=== PATIENT | female | born 1990 | race Caucasian/White ===

== ENCOUNTER 2017-05-27 13:54 | Emergency (ER) | payer MEDICAID, SELFPAY ==
[2017-05-27 13:55] VITALS: BP 131/84; PULSE 86; RESP 15; TEMP 36.7; O2SAT 97; BMI 35.4
--- NOTE | 2017-05-27 15:00 | CT_ITS ---
STUDY: CT BRAIN WITHOUT CONTRAST REASON FOR EXAM: Female, 27 years old. DIZZINESS/DISORIENTED RADIATION DOSAGE (If Supplied By Facility): CTDIvol = ( 44.99 ) mGy, DLP = ( 779.24 ) mGycm TECHNIQUE: Transaxial CT imaging of the brain was performed without administration of intravenous contrast material. Individualized dose optimization techniques were used for this CT. COMPARISON: None. FINDINGS: Normal soft tissue structures. Normal calvarium. Normal size ventricles and extra-axial spaces for the patient's age. Normal white matter tracts of the cerebral hemispheres. Normal basal ganglia and thalami. Normal brainstem. Normal cerebellum. There is no intracranial hemorrhage. There are no findings of an acute ischemic infarction. Normal visualized paranasal sinuses. CT/Brain/Head without Contrast IMPRESSION: Normal unenhanced CT scan of the brain. Electronically Signed: Addison Kitchen MD at 16:05 EDT , Service support ,
[2017-05-27] MEDS: Ondansetron 4 MG/2 ML Vial IV (15:14)
[2017-05-27] MEDS: 0.9% Normal Saline 1,000 ML 1000 ML IV (15:14)
--- NOTE | 2017-05-27 15:19 | ED.DCSUM_ITS ---
- ER Visit Summary Date of Service: 05/27/17 Chief Complaint: Dizziness History of Present Illness: The patient is a 27 F resents to the emergency department with disequilibrium. The patient states she had an upper respiratory infection about a week ago. She states over the past 3 days, she had increasing dizziness. She states it is worse when she moves her head or changes position. She is also concerned because she has had some confusion. She states that she had a difficult time concentrating. She states she is going to the refrigerator and forgot when she went there. She also put clothing in the wrong drawer. She denies any visual change. She denies any neck pain. She has had no fever chills. She states she initially went to urgent care and they irrigated her ears, and she states that the irrigation her dizziness was acutely worsened. She has no history of vertigo. She denies any history of MS or hypercoagulability. Physical Examination: Well-appearing patient is in no acute distress. Head is normocephalic, atraumatic. Pupils equal round reactive, extraocular muscles intact. There is no temporal artery tenderness. There is no vesicular rash. Neck supple. Kernig's and Brudzinski's are negative. Heart regular rate and rhythm. Lungs clear, chest nontender. Abdomen soft, nontender, nondistended. Neuro exam displays no focal or lateralizing deficit. 2+ symmetric lower extremity reflexes. No clonus. No ataxia or gait abnormality. Test Results: [] Emergency Department Course and Treatment: The patient presents with complaint of disequilibrium. It was preceded by an upper respiratory illness. She does not have nystagmus. She has normal cerebellar testing. There is no ataxia. Her neck is supple. She is not meningitic. She is not encephalopathic. I do feel that the symptoms are more related to labyrinthitis. However, she has had no history and has had intermittent headache I did obtain a head CT. This is unremarkable. The patient screening labs are unremarkable. The patient was given meclizine with improvement of her disequilibrium. I will treat her with a short burst of steroids. I do feel that this will help her labyrinthitis. At this time, I do for the patient is safe for discharge. She was counseled on concerning symptoms and reasons to return. Did public relations counselor her that if the symptoms persist she is going to need to follow-up with her primary care physician she may need MRI or cerebellar testing. She is comfortable this plan of care and will be discharged home. Treatment Plan: [] Disposition: Discharge Impression:. Labyrinthitis This note was generated with [employer] dictation software. It may contain incorrect words, spelling, and punctuation that were not noted in review of the chart prior to signing ED Disposition - Plan for ED Patient: Chief Complaint: Dizziness Instructions: ED Vertigo Unspecified Prescriptions: Meclizine HCl [Antivert] 25 mg PO TID PRN PRN #20 tab PRN Reason: Dizziness Prednisone 10 mg PO UD #33 tab Referrals: Cori Mclean PA [Primary Care Provider] -
[2017-05-27 15:43] LABS: ALB/GLOB Ratio 0.9 RATIO (0.9-2.4); AST(SGOT) 17 U/L (15-37); Absolute Lymphocyte Count 2.13 X10^3/ul (0.83-4.51); Alanine Aminotransfer ALT/SGPT 22 U/L (13-56); Albumin, Serum 3.9 g/dL (3.2-5.0); Alkaline Phosphatase 148 U/L (45-117); Anion Gap 6 (5-15); BUN 12 mg/dL (7-18); BUN/Creat Ratio 14.4 RATIO (10-20); Basophil# 0.03 X10^3/uL; Basophil% 0.5 % (0-1); Calcium,Total 8.9 mg/dL (8.5-10.1); Chloride 104 mmol/L (98-107); Creatinine, Serum 0.83 mg/dL (0.55-1.02); EST Glomerular Filtration Rate 87 mL/min (>60); Eosinophil# 0.26 X10^3/uL; Est Glom Filt Rate - Afr Amer 105 mL/min (>60); Estimated Creatinine Clearance 105.46 ml/min; Globulin 4.4 g/dL (2.2-4.2); Glucose 83 mg/dL (74-106); Hematocrit 41.1 % (37-47); Hemoglobin 13.7 g/dl (12.0-15.0); Lymphocyte # 2.13 X10^3/ul (4.0); Lymphocyte % 33.1 % (19-41); Mean Corp Hgb Conc 33.3 g/gl (32-36); Mean Corpuscular Volume 86.9 fL (81-99); Mean Platelet Vol. 10.3 fl (6.2-12.0); Monocyte% 15.6 % (0-10); Neutrophil % 46.6 % (47-70); Platelet Count 280 K/mm3 (150-450); Potassium 3.8 mmol/L (3.5-5.1); Protein, Total 8.3 g/dL (6.4-8.2); RBC Distribution Width CV 12.9 % (11.6-14.6); RBC Distribution Width SD 40.6 fl (35.1-43.9); Red Blood Count 4.73 M/mm3 (4.2-5.4); Sodium Level 138 mmol/L (136-145); White Blood Count 6.4 K/mm3 (4.4-11.0)
[2017-05-27] MEDS: Ketorolac 30 MG/ML Syringe IV (15:59)
[2017-05-27] MEDS: Meclizine HCl 25 MG Tablet PO (15:59)
[2017-05-27 16:00] LABS: POSITIVE COUNT NO; POSITIVE DIFFERENTIAL NO
[2017-05-27 16:01] VITALS: BP 125/80; PULSE 85; RESP 14; O2SAT 99
[2017-05-27 16:01] LABS: POSITIVE MORPHOLOGY NO
== END 2017-05-27 16:28 | disposition home or self-care (01) ==
PROVIDERS: Emergency Provider Emergency Medicine; Family Provider Physician Assistant; PCP Physician Assistant
DX: H83.09 Labyrinthitis, unspecified ear (principal)
CPT/HCPCS: 70450; 80053; 85025; 96361; 96374; 96375; 99284; J7030; A4216; J2405

== ENCOUNTER 2017-05-31 10:27 | Emergency (ER) | payer MEDICAID, SELFPAY ==
[2017-05-31 10:27] VITALS: BP 123/77; PULSE 97; RESP 16; TEMP 37.1; O2SAT 99; BMI 34.4
[2017-05-31] MEDS: LORazepam 2 MG/ML Syringe 0.5 MG IV (10:58)
[2017-05-31 11:15] LABS: Anion Gap 10 (5-15); BUN 17 mg/dL (7-18); BUN/Creat Ratio 20.6 RATIO (10-20); Calcium,Total 8.3 mg/dL (8.5-10.1); Chloride 107 mmol/L (98-107); Creatinine, Serum 0.82 mg/dL (0.55-1.02); EST Glomerular Filtration Rate 88 mL/min (>60); Est Glom Filt Rate - Afr Amer 106 mL/min (>60); Estimated Creatinine Clearance 110.45 ml/min; Glucose 81 mg/dL (74-106); Potassium 3.6 mmol/L (3.5-5.1); Sodium Level 141 mmol/L (136-145)
[2017-05-31] MEDS: LORazepam 2 MG/ML Syringe 1 MG IV (11:23)
[2017-05-31 12:33] VITALS: PULSE 86; RESP 15; O2SAT 98
--- NOTE | 2017-05-31 13:04 | ED.VISSUMM ---
- ER Visit Summary Date of Service: 05/31/17 Chief Complaint: Recent has a constellation of symptoms which include dizziness, tingling, shaking and visual change History of Present Illness: The patient is a 27 F who was seen earlier this week and had a CT of the head obtained. It was felt that she had a disequilibrium syndrome. She began to cry during the history portion. She states is under significant stress. She complains of perioral numbness and numbness in her upper extremities. She denies headache. She does report change in vision. She Be more specific. Does report nausea. Systems otherwise negative. Physical Examination: Patient appears anxious. As reported in the HPI she was crying during the history and physical. Vital signs are normal. Head is atraumatic normocephalic. Pupils are equal round reactive. Extraocular muscles are intact. TMs are pearly white with landmarks noted. Nares patent with no drainage. Posterior pharynx without erythema or exudate. Uvula is midline. There is no dysphonia or dysphasia. Trachea is midline. There is no stridor with auscultation of the neck. She has bilateral positive Chvostek sign. Heart is regular without murmur, gallop or rub. S1 and S2 are normal. Lungs are clear to auscultation with good movement of air bilaterally. Patient is alert and oriented ?3. Motor is 5 over 5. Sensory is intact. DTRs are symmetric with no clonus or Babinski sign. Cranial 2 through 12 are intact. Cerebellar testing is normal. Test Results: BMP is unremarkable Emergency Department Course and Treatment: Record from prior visit was reviewed as well as CAT scan report. Patient was initially treated with 0.5 mg of Ativan. Her symptoms essentially resolved after 1 mg of Ativan was administered. She was reassessed at 1305. Her symptoms have not returned. Treatment Plan: Appropriate home-going instructions Disposition: Discharged to home Impression: 1. Anxiety reaction 2. Hyperventilation syndrome This note was generated with [employer] dictation software. It may contain incorrect words, spelling, and punctuation that were not noted in review of the chart prior to signing ED Disposition - Plan for ED Patient: Disposition: Home or Assisted Living Chief Complaint: Dizziness Instructions: ED Stress React, ED Hyperventilation Syndrome Referrals: Cori Mclean PA [Primary Care Provider] - 3-5 Days
--- NOTE | 2017-05-31 13:10 | ED.DCSUM_ITS ---
- ER Visit Summary Date of Service: 05/31/17 Chief Complaint: Recent has a constellation of symptoms which include dizziness , tingling, shaking and visual change History of Present Illness: The patient is a 27 F who was seen earlier this week and had a CT of the head obtained. It was felt that she had a disequilibrium syndrome. She began to cry during the history portion. She states is under significant stress. She complains of perioral numbness and numbness in her upper extremities. She denies headache. She does report change in vision. She Be more specific. Does report nausea. Systems otherwise negative. Physical Examination: Patient appears anxious. As reported in the HPI she was crying during the history and physical. Vital signs are normal. Head is atraumatic normocephalic. Pupils are equal round reactive. Extraocular muscles are intact. TMs are pearly white with landmarks noted. Nares patent with no drainage. Posterior pharynx without erythema or exudate. Uvula is midline. There is no dysphonia or dysphasia. Trachea is midline. There is no stridor with auscultation of the neck. She has bilateral positive Chvostek sign. Heart is regular without murmur, gallop or rub. S1 and S2 are normal. Lungs are clear to auscultation with good movement of air bilaterally. Patient is alert and oriented ?3. Motor is 5 over 5. Sensory is intact. DTRs are symmetric with no clonus or Babinski sign. Cranial 2 through 12 are intact. Cerebellar testing is normal. Test Results: BMP is unremarkable Emergency Department Course and Treatment: Record from prior visit was reviewed as well as CAT scan report. Patient was initially treated with 0.5 mg of Ativan. Her symptoms essentially resolved after 1 mg of Ativan was administered. She was reassessed at 1305. Her symptoms have not returned. Treatment Plan: Appropriate home-going instructions Disposition: Discharged to home Impression: 1. Anxiety reaction 2. Hyperventilation syndrome This note was generated with [employer] dictation software. It may contain incorrect words, spelling, and punctuation that were not noted in review of the chart prior to signing ED Disposition - Plan for ED Patient: Disposition: Home or Assisted Living Chief Complaint: Dizziness Instructions: ED Stress React, ED Hyperventilation Syndrome Referrals: Cori Mclean PA [Primary Care Provider] - 3-5 Days
[2017-05-31 13:15] VITALS: PULSE 92; RESP 15; O2SAT 99
== END 2017-05-31 13:16 | disposition home or self-care (01) ==
PROVIDERS: Emergency Provider Emergency Medicine; Family Provider Physician Assistant; PCP Physician Assistant
DX: F45.8 Other somatoform disorders (principal); F41.1 Generalized anxiety disorder; E66.9 Obesity, unspecified
CPT/HCPCS: 80048; 96374; 96375; 99283; A4216

== ENCOUNTER 2017-11-20 11:37 | Emergency (ER) | payer MEDICAID, SELFPAY ==
[2017-11-20 11:38] VITALS: BP 120/83; PULSE 79; RESP 24; TEMP 36.6; O2SAT 100; BMI 34.3
--- NOTE | 2017-11-20 11:43 | EKG12_ITS ---
Test Reason : CP Blood Pressure : / mmHG Vent. Rate : 063 BPM Atrial Rate : 063 BPM P-R Int : 126 ms QRS Dur : 064 ms QT Int : 426 ms P-R-T Axes : 041 062 046 degrees QTc Int : 435 ms Normal sinus rhythm Normal ECG Confirmed by DANIS MOTTA, SENDY ([id number]), editorial clerk GENTRY SHERMAN ([id number]) on 11/21/2017 1:38:29 PM Referred By: RUTH Confirmed By:SENDY MOSCOSO MD
--- NOTE | 2017-11-20 11:43 | RAD_ITS ---
STUDY: X-RAY CHEST REASON FOR EXAM: Female, 27 years old. Shortness of breath, pain. TECHNIQUE: Portable chest COMPARISON: None. FINDINGS: The lungs are clear and expanded. Normal cardiomediastinal silhouette, russell and pleural margins. No acute osseous or upper abdominal process. RAD/Chest 1 View (Portable) IMPRESSION: No acute cardiopulmonary process. Electronically Signed: Kilo Krishna, at 12:34 EDT Tel , Service support ,
[2017-11-20 12:59] LABS: Absolute Lymphocyte Count 2.33 X10^3/ul (0.83-4.51); Absolute Neutrophil Count 3.9 X10^3/uL (2.0-7.7); Anion Gap 13 (5-15); BUN 14 mg/dL (7-18); BUN/Creat Ratio 11.6 RATIO (10-20); Basophil# 0.03 X10^3/uL; Basophil% 0.4 % (0-1); Calcium,Total 9.6 mg/dL (8.5-10.1); Chloride 104 mmol/L (98-107); Creatinine, Serum 1.21 mg/dL (0.55-1.02); EST Glomerular Filtration Rate 56 mL/min (>60); Eosinophil# 0.08 X10^3/uL; Eosinophils% 1.1 % (0-5); Est Glom Filt Rate - Afr Amer 68 mL/min (>60); Estimated Creatinine Clearance 72.34 ml/min; Glucose 91 mg/dL (74-106); Hematocrit 45.7 % (37-47); Hemoglobin 15.6 g/dl (12.0-15.0); Lymphocyte # 2.33 X10^3/ul (4.0); Lymphocyte % 31.2 % (19-41); Mean Corp Hgb Conc 34.1 g/gl (32-36); Mean Corpuscular Hgb 28.6 pg (27.0-32.0); Mean Corpuscular Volume 83.7 fL (81-99); Mean Platelet Vol. 9.9 fl (6.2-12.0); Monocyte# 1.12 X10^3/uL; Neutrophil # 3.89 X10^3/uL (2.7-7.7); Neutrophil % 52.2 % (47-70); Platelet Count 314 K/mm3 (150-450); Potassium 3.4 mmol/L (3.5-5.1); RBC Distribution Width CV 12.8 % (11.6-14.6); RBC Distribution Width SD 38.4 fl (35.1-43.9); Red Blood Count 5.46 M/mm3 (4.2-5.4); Sodium Level 137 mmol/L (136-145); White Blood Count 7.5 K/mm3 (4.4-11.0)
[2017-11-20 13:01] LABS: POSITIVE COUNT NO; POSITIVE DIFFERENTIAL NO; POSITIVE MORPHOLOGY NO
[2017-11-20] MEDS: LORazepam 0.5 MG Tablet PO (13:56)
[2017-11-20] MEDS: Ibuprofen 400 MG Tablet 800 MG PO (13:57)
[2017-11-20 13:59] VITALS: BP 116/80; PULSE 64; RESP 19; O2SAT 100
[2017-11-20 14:02] VITALS: O2SAT 100
--- NOTE | 2017-11-20 14:25 | ED.DCSUM_ITS ---
- ER Visit Summary Date of Service: 11/20/17 Chief Complaint: Shortness of breath History of Present Illness: The patient is a 27 F who states that last night after work she had some nausea vomiting. She could not sleep due to anxiety. Today she is walking her dogs think she got a panic attack. She notes some tingling in her arms and hands. She knows that she was breathing fast. She eventually went to work developed some pain on the left side of her chest that wrapped around into the axilla and into her back. She states that she had double beats as a child. Physical Examination: Afebrile vital signs are stable Gen: Well-nourished well-developed Head: Normocephalic atraumatic Eyes: Perrl EOMI ENT: TMs clear no rhinorrhea moist mucous membranes Neck: Supple no lymphadenopathy no JVD nontender CVS: Regular rate rhythm no murmurs normal S1-S2 Respiratory: No distress clear to auscultation bilaterally chest nontender Abdomen: Soft nontender nondistended normal bowel sounds no masses Back: Nontender Extremity: Nontender no edema Skin: Normal color no rash Neuro: alert orientated ?3 CN II-XII intact normal strength sensation reflexes gait cerebellar Psych: Anxious. No suicidal homicidal ideation. Test Results: EKG shows sinus rhythm at a rate of 63. CO2 is 28 creatinine 1.21 potassium 3.4 troponin negative. Chest x-ray negative Emergency Department Course and Treatment: Patient received a dose of Ativan. I believe this is anxiety related. I have asked that she follow-up with her family doctor and suggested the counseling may be of benefit for her. Impression: 1. Panic attack This note was generated with [employer] dictation software. It may contain incorrect words, spelling, and punctuation that were not noted in review of the chart prior to signing ED Disposition - Plan for ED Patient: Disposition: Home or Assisted Living Chief Complaint: Shortness of Breath Instructions: ED Panic Attack Referrals: Neil Alvarado MD [Primary Care Provider] - 1 Week
[2017-11-20 14:43] VITALS: BP 133/88; PULSE 58; RESP 19; O2SAT 99
== END 2017-11-20 14:44 | disposition home or self-care (01) ==
PROVIDERS: Emergency Provider Emergency Medicine; Family Provider Family Medicine; PCP Family Medicine
DX: F41.0 Panic disorder [episodic paroxysmal anxiety] (principal); F41.9 Anxiety disorder, unspecified
CPT/HCPCS: 71045; 80048; 84484; 85025; 93005; 99285; A4216

== ENCOUNTER 2018-05-28 14:13 | Emergency (ER) | payer MEDICAID, SELFPAY ==
[2018-05-28 14:14] VITALS: BP 111/74; PULSE 77; RESP 20; TEMP 36.2; O2SAT 100; BMI 33.5
--- NOTE | 2018-05-28 14:28 | ED.VIS.GEN ---
History of Present Illness Chief Complaint: Palpitations Detail of Chief Complaint: I feel like I cannot get my breath Informant: Patient, PCP Onset: - - Persistent problem worse today. Negative cardiac workup, Holter, echo and other testing Context: Gradual Onset Timing: Waxes and wanes Quality: Palpitations and not able to catch her breath Location: Thoracic Current Severity: - - Uncertain please read physical exam Maximum Severity: - - Uncertain Worsened by: Unknown Relieved by: Nothing Associated Symptoms: Read narrative Narrative: Patient is a 28-year-old female who is 19 weeks gestation sent to the emergency department because of worsening palpitations and shortness of breath. Patient's outpatient workup is unremarkable. She does complain of mild nasal congestion. There is no history of PE or DVT. She denies leg pain, swelling discoloration. She does report frequency without dysuria or hematuria. She does report nausea without vomiting or diarrhea. She denies skin lesions. She denies ocular, visual or auditory symptoms. Past Medical History - Allergies and Home Meds Allergies/Adverse Reactions: Allergies Latex, Natural Rubber Allergy (Verified 11/20/17 11:42) Unknown Primary Care Physician: Neil Alvarado MD [Primary Care Provider] - Prior records reviewed: Yes Surgical History: noncontributory Lives: Spouse/ Significant Other, With Family Smoking Status: Never smoker Alcohol: None Review of Systems General: Denies: Chills, Fever, Sweats Eyes: Denies: Visual changes - left, Visual changes - right, Visual changes - bilaterally, Blurred vision - left, Blurred vision - right, Blurred Vision - bilaterally, Diplopia, -, - ENT: Denies: Bilateral ear pain, Left ear pain, Right ear pain, Rhinorrhea, Sore throat, - - Does report nasal congestion, - Cardiovascular: Reports: Palpitations Respiratory: Reports: Dyspnea. Denies: Cough, Sputum, Dyspnea on exertion, Orthopnea, Paroxysmal nocturnal dyspnea Gastrointestinal: Reports: Nausea. Denies: Abdominal pain, Vomiting, Diarrhea, Constipation, Melena, Hematochezia, -, - Genitourinary: Reports: Frequency. Denies: Dysuria, Hematuria, -, - Musculoskeletal: Denies: Myalgias, Arthralgias, Neck pain, Back pain, Swelling, Extremity Pain, -, - Skin: Denies: Rash Neurological: Denies: Headache, Weakness, Parasthesia, Numbness, -, - Psych: Reports: - - Patient states she has intermittent anxiety. She presently does not complain of anxiousness Allergy: Denies: Uticaria, Swelling of the mouth Physical Exam Vital Signs/Narrative: Vital Signs Temp Pulse Resp BP Pulse Ox 05/28/18 14:14 97.1 F L 77 20 H 111/74 100 Inital Vital Signs reviewed: Yes General: Well nourished, Well developed, No Acute Distress, - - As I entered the room her breathing became deeper and more rapid. During questioning answering of questions there was no evidence of respiratory distress. Head: Negative for: Normocephalic, Atraumatic, Trauma, Tenderness, - Eyes: Negative for: Perrl, EOMI, Pale conjunctiva, Scleral icterus, - ENT: Nasal congestion. Negative for: Moist mucous membranes, No rhinorrhea, TM's clear, Dry mucous membranes, Sinus tenderness, - - Bilateral Chvosteck sign noted. Cardiovascular: Regular rate, Regular rhythm, No murmurs. Negative for: Normal S1, Normal S2 Respiratory: CTA bilaterally, Chest nontender Abdomen: Soft, Nontender, Nondistended, Normal bowel sounds, No masses Back: Nontender, Normal Inspection Extremities: Nontender, No edema Skin: Normal color, No rash. Negative for: Cyanosis, Jaundice, Rash Neurological: Alert, Oriented x3, Cranial nerves II-XII grossly intact, Normal Strength, Normal Sensation, Normal DTR, - - There is no clonus or Babinski sign. Psychological: - - Question anxiety Diagnostic/Tx/Re-eval 05/28/18 14:26 Chest PA and Lateral [RAD] Stat Laboratory Results 05/28/18 05/28/18 05/28/18 14:40 14:40 15:03 WBC 10.1 RBC 4.04 L Hgb 12.1 Hct 35.4 L MCV 87.6 MCH 30.0 MCHC 34.2 RDW 13.2 RDW Differential 42.4 Plt Count 224 MPV 10.1 Immature Gran % (Auto) 0.300 Neut % (Auto) 69.6 Lymph % (Auto) 18.9 L [place] % (Auto) 9.5 Eos % (Auto) 1.6 Baso % (Auto) 0.1 Absolute Neuts (auto) 7.1 Absolute Lymphs (auto) 1.92 Total Counted Not Reportable Specimen Type ART Sample Site R Radial pH 7.56 H Bicarbonate Actual 15.6 L POC Total CO2 16 Base Excess -7 L O2 Saturation 99 ABG pCO2 17.6 L* ABG pO2 125 H Conor Test POS O2 Delivery Device Room Air Blood Gas Notified Whom ED Blood Gas Notified Time 1455 Sodium 138 Potassium 3.4 L Chloride 107 Carbon Dioxide 24.0 Anion Gap 7 BUN 10 Creatinine 0.61 Estim Creat Clear Calc 142.21 Est GFR (MDRD) Af Amer 150 Est GFR (MDRD) Non-Af 124 BUN/Creatinine Ratio 16.4 Glucose 81 Calcium 8.8 The chest x-ray has been canceled since the blood gas reports hypoventilation syndrome. - Rhythm Strip Rhythm Strip: Sinus Rhythm Rate: 83 Ectopy: None - EKG Initial EKG Interpretation: Sinus Rhythm - Ventricular rate 76. MA interval, Q zoroastrianism, QT interval and axis are normal. The EKG is normal. - Medical Decision Making With bilateral spastic sign, bilateral paresthesia of hands suspect hyperventilation syndrome. Of note respiratory frequency and depth increase after entered the room but diminished as I was speaking with her and she was answering questions. Will obtain blood work to assess electrolyte abnormality and anemia and placed on monitor to determine if she has any significant ectopy. Patient was informed of her test results. Since she is and blood gas supports hypoventilation syndrome chest x-ray was canceled. ED Disposition - Plan for ED Patient: Disposition: Home or Assisted Living Diagnosis: Acute hyperventilation syndrome Instructions: ED Hyperventilation Syndrome Referrals: Neil Alvarado MD [Primary Care Provider] - As Needed
[2018-05-28 14:49] LABS: Absolute Lymphocyte Count 1.92 X10^3/ul (0.83-4.51); Absolute Neutrophil Count 7.1 X10^3/uL (2.0-7.7); Basophil# 0.01 X10^3/uL; Basophil% 0.1 % (0-1); Eosinophil# 0.16 X10^3/uL; Eosinophils% 1.6 % (0-5); Hematocrit 35.4 % (37-47); Hemoglobin 12.1 g/dl (12.0-15.0); Lymphocyte # 1.92 X10^3/ul (4.0); Lymphocyte % 18.9 % (19-41); Mean Corp Hgb Conc 34.2 g/gl (32-36); Mean Corpuscular Volume 87.6 fL (81-99); Mean Platelet Vol. 10.1 fl (6.2-12.0); Monocyte# 0.96 X10^3/uL; Monocyte% 9.5 % (0-10); Neutrophil # 7.06 X10^3/uL (2.7-7.7); Neutrophil % 69.6 % (47-70); Platelet Count 224 K/mm3 (150-450); RBC Distribution Width CV 13.2 % (11.6-14.6); RBC Distribution Width SD 42.4 fl (35.1-43.9); Red Blood Count 4.04 M/mm3 (4.2-5.4); White Blood Count 10.1 K/mm3 (4.4-11.0)
[2018-05-28 14:54] LABS: POSITIVE COUNT NO; POSITIVE DIFFERENTIAL NO; POSITIVE MORPHOLOGY NO
[2018-05-28 14:57] LABS: Anion Gap 7 (5-15); BUN 10 mg/dL (7-18); BUN/Creat Ratio 16.4 RATIO (10-20); Calcium,Total 8.8 mg/dL (8.5-10.1); Chloride 107 mmol/L (98-107); Creatinine, Serum 0.61 mg/dL (0.55-1.02); EST Glomerular Filtration Rate 124 mL/min (>60); Est Glom Filt Rate - Afr Amer 150 mL/min (>60); Estimated Creatinine Clearance 142.21 ml/min; Glucose 81 mg/dL (74-106); Potassium 3.4 mmol/L (3.5-5.1); Sodium Level 138 mmol/L (136-145)
[2018-05-28 15:11] LABS: Allen Test POS; Base Excess -7 mmol/L (-2 to +2); Bicarbonate 15.6 mmol/L (22-26); Blood Gas Specimen Type ART; O2 Delivery Device Room Air; PO2 125 mmHG (75-100); SITE R Radial; SO2 99 % (95-99); Time Given 1455; Total Carbon Dioxide 16 mmol/L; pCO2 17.6 mmHg (35-45); pH 7.56 (7.35-7.45)
[2018-05-28 15:14] VITALS: BP 118/76; PULSE 71; RESP 16; O2SAT 100
--- NOTE | 2018-05-28 15:15 | CPS ---
Critical results given to DR. [place].
[2018-05-28 15:38] VITALS: BP 118/76; PULSE 71; RESP 16; O2SAT 100
== END 2018-05-28 15:49 | disposition home or self-care (01) ==
PROVIDERS: Emergency Provider Emergency Medicine; Family Provider Family Medicine; PCP Family Medicine
DX: O26.892 Other specified pregnancy related conditions, second trimester (principal); F45.8 Other somatoform disorders; R00.2 Palpitations; Z3A.19 19 weeks gestation of pregnancy
CPT/HCPCS: 36600; 80048; 82803; 85025; 93005; 99284; A4216

== ENCOUNTER 2018-06-23 13:35 | Outpatient (CLI) | payer MEDICAID, SELFPAY ==
[2018-06-23 14:03] VITALS: BMI 33.6
--- NOTE | 2018-06-23 14:45 | US_ITS ---
STUDY: ABDOMINAL ULTRASOUND - RIGHT UPPER QUADRANT REASON FOR VISIT: Female, 28 years old. Right upper quadrant pain. 23 week . TECHNIQUE: Ultrasound evaluation of the right upper quadrant was performed with real-time and static avila-scale imaging. TECHNICAL QUALITY: Adequate. COMPARISON: None. FINDINGS: Liver: The liver measures 17.4 cm. There is normal echogenicity of the liver. The bile ducts are within normal limits. There is hepatic color flow. The direction of portal flow is hepatopetal. There is no demonstrated mass lesion. Gallbladder: Normal distended gallbladder. The gallbladder wall measures 3 mm. There is a negative sonographic Yen's sign. There is no pericholecystic fluid. There are no gallstones. Common Bile Duct (C.B.D.): The common bile duct measures 4 mm. Pancreas: Not visualized. Right Kidney: Normal size of the right kidney. The right kidney measures 12.9 x 3.6 x 5.1 cm. Normal renal cortex. The right cortex measures 1.1 cm. There is no demonstrated renal mass or cyst. There is mild hydronephrosis of the right kidney. US/Abdomen Limited IMPRESSION: 1. Mild right hydronephrosis, usually normal finding in the second trimester. However, ureteral stone is not excluded. Electronically Signed: Keya Matson MD at 16:18 EDT Tel , Service support ,
[2018-06-23 14:52] LABS: Hematocrit 32.3 % (37-47); Hemoglobin 11.1 g/dl (12.0-15.0); Mean Corp Hgb Conc 34.4 g/gl (32-36); Mean Corpuscular Hgb 30.1 pg (27.0-32.0); Mean Corpuscular Volume 87.5 fL (81-99); Mean Platelet Vol. 9.8 fl (6.2-12.0); Mucous, Urine 0 SEEN /hpf (<or=2+); Platelet Count 203 K/mm3 (150-450); RBC Distribution Width CV 13.1 % (11.6-14.6); RBC Distribution Width SD 42.5 fl (35.1-43.9); Red Blood Cells-Urine 0 SEEN /hpf (0-5); Red Blood Count 3.69 M/mm3 (4.2-5.4); White Blood Count 11.4 K/mm3 (4.4-11.0)
[2018-06-23 14:53] LABS: Scan Indicated on CBC? Y/N NO
[2018-06-23 14:54] LABS: Color, Urine Yellow (Yellow); Glucose, Dipstick Normal (Normal); Ketone-Dipstick Negative (Negative); Leukocyte Esterase-Dipstick 100 /ul (Negative); Nitrite-Dipstick Positive (Negative); Occult Blood-Urine Negative /ul (Negative); Protein-Dipstick Negative (Negative); Specific Gravity, Urine 1.015 (1.002-1.030); Urine Bilirubin Dipstick Negative (Negative); Urine Clarity Sl. Cloudy (Clear); Urine Urobilinogen Normal (Normal); Urine pH 6.5 (5.0 - 8.0)
[2018-06-23] MEDS: Acetaminophen 500 MG Tablet 1000 MG PO (14:54)
[2018-06-23 14:59] LABS: Protein, Urine (Random) 14.7 mg/dL (<11.9); Protein:Creat Ratio 89 mg/g CRE (0-200)
[2018-06-23 15:01] LABS: Bacteria 3+ /hpf (None Seen); Squamous Epithelial Cells - UA 0-5 SEEN /hpf (5-10)
[2018-06-23 15:02] LABS: White Blood Cells 0-5 SEEN /hpf (0-5)
[2018-06-23 15:20] LABS: ALB/GLOB Ratio 0.8 RATIO (0.9-2.4); AST(SGOT) 13 U/L (15-37); Alanine Aminotransfer ALT/SGPT 14 U/L (13-56); Albumin, Serum 2.9 g/dL (3.2-5.0); Alkaline Phosphatase 105 U/L (45-117); Amylase 43 U/L (25-115); Anion Gap 5 (5-15); BUN 10 mg/dL (7-18); BUN/Creat Ratio 16.7 RATIO (10-20); Calcium,Total 8.3 mg/dL (8.5-10.1); Chloride 110 mmol/L (98-107); EST Glomerular Filtration Rate 125 mL/min (>60); Est Glom Filt Rate - Afr Amer 152 mL/min (>60); Estimated Creatinine Clearance 144.58 ml/min; Globulin 3.8 g/dL (2.2-4.2); Glucose 101 mg/dL (74-106); Lipase 51 U/L (73-393); Potassium 3.6 mmol/L (3.5-5.1); Protein, Total 6.7 g/dL (6.4-8.2); Sodium Level 138 mmol/L (136-145); Uric Acid 4.3 mg/dL (2.6-6.0)
--- NOTE | 2018-06-23 17:10 | OB.TRI.NOTE ---
- Problem List (1) Right upper quadrant abdominal pain Status: Acute (2) Status: Acute History of Present Illness Date of Service: 06/23/18 Was patient seen by the physician?: Yes Reason For Visit: ABD PAIN Date of Service: 06/23/18 Final ARAVIND Source: LMP Gestational age: 23w3d History of Present Illness: Presents to L&D with complaint of RUQ abdominal pain x past month. Seen PCP today and was advised to go to ER for further evaluation. ER transferred patient to L&D due to . Upon arrival in L&D patient with complaint of RUQ pain rating 8/10 at times. She denies any greasy, fried, fatty foods or green leafy vegetables. Some nausea with emesis yesterday, none today. Denies fever. Allergies Latex, Natural Rubber Allergy (Verified 11/20/17 11:42) Unknown Laboratory Studies: Laboratory Tests 06/23/18 06/23/18 06/23/18 Range/Units 14:25 14:25 14:25 WBC (4.4-11.0) K/mm3 RBC (4.2-5.4) M/mm3 Hgb (12.0-15.0) g/dl Hct (37-47) % MCV (81-99) fL MCH (27.0-32.0) pg MCHC (32-36) g/gl RDW (11.6-14.6) % RDW Differential (35.1-43.9) fl Plt Count (150-450) K/mm3 MPV (6.2-12.0) fl Sodium 138 (136-145) mmol/L Potassium 3.6 (3.5-5.1) mmol/L Chloride 110 H (98-107) mmol/L Carbon Dioxide 23.0 (21.0-32.0) mmol/L Anion Gap 5 (5-15) BUN 10 (7-18) mg/dL Creatinine 0.60 (0.55-1.02) mg/dL Estim Creat Clear Calc 144.58 ml/min Est GFR (MDRD) Af Amer 152 (>60) mL/min Est GFR (MDRD) Non-Af 125 (>60) mL/min BUN/Creatinine Ratio 16.7 (10-20) RATIO Glucose 101 (74-106) mg/dL Uric Acid 4.3 (2.6-6.0) mg/dL Calcium 8.3 L (8.5-10.1) mg/dL Total Bilirubin 0.20 (0.20-1.00) mg/dL AST 13 L (15-37) U/L ALT 14 (13-56) U/L Alkaline Phosphatase 105 (45-117) U/L Total Protein 6.7 (6.4-8.2) g/dL Albumin 2.9 L (3.2-5.0) g/dL Globulin 3.8 (2.2-4.2) g/dL Albumin/Globulin Ratio 0.8 L (0.9-2.4) RATIO Amylase 43 (25-115) U/L Lipase 51 L (73-393) U/L Urine Color Yellow (Yellow) Urine Clarity Sl. Cloudy (Clear) Urine pH 6.5 (5.0 - 8.0) Ur Specific [place] 1.015 (1.002-1.030) Urine Protein Negative (Negative) mg/dl Urine Glucose (UA) Normal (Normal) mg/dl Urine Ketones Negative (Negative) mg/dl Urine Occult Blood Negative (Negative) /ul Urine Nitrite Positive H (Negative) Urine Bilirubin Negative (Negative) mg/dL Urine Urobilinogen Normal (Normal) mg/dl Ur Leukocyte Esterase 100 H (Negative) /ul Urine RBC 0 SEEN (0-5) /hpf Urine WBC 0-5 SEEN (0-5) /hpf Ur Squamous Epith Cells 0-5 SEEN (5-10) /hpf Urine Bacteria 3+ (None Seen) /hpf Urine Mucus 0 SEEN (<or=2+) /hpf U Random Total Protein 14.7 H (<11.9) mg/dL Urine Creatinine 166.00 (NO RANGE EST.) mg/dL Protein/Creatinin Ratio 89 (0-200) mg/g CRE 06/23/18 Range/Units 14:25 WBC 11.4 H (4.4-11.0) K/mm3 RBC 3.69 L (4.2-5.4) M/mm3 Hgb 11.1 L (12.0-15.0) g/dl Hct 32.3 L (37-47) % MCV 87.5 (81-99) fL MCH 30.1 (27.0-32.0) pg MCHC 34.4 (32-36) g/gl RDW 13.1 (11.6-14.6) % RDW Differential 42.5 (35.1-43.9) fl Plt Count 203 (150-450) K/mm3 MPV 9.8 (6.2-12.0) fl Sodium (136-145) mmol/L Potassium (3.5-5.1) mmol/L Chloride (98-107) mmol/L Carbon Dioxide (21.0-32.0) mmol/L Anion Gap (5-15) BUN (7-18) mg/dL Creatinine (0.55-1.02) mg/dL Estim Creat Clear Calc ml/min Est GFR (MDRD) Af Amer (>60) mL/min Est GFR (MDRD) Non-Af (>60) mL/min BUN/Creatinine Ratio (10-20) RATIO Glucose (74-106) mg/dL Uric Acid (2.6-6.0) mg/dL Calcium (8.5-10.1) mg/dL Total Bilirubin (0.20-1.00) mg/dL AST (15-37) U/L ALT (13-56) U/L Alkaline Phosphatase (45-117) U/L Total Protein (6.4-8.2) g/dL Albumin (3.2-5.0) g/dL Globulin (2.2-4.2) g/dL Albumin/Globulin Ratio (0.9-2.4) RATIO Amylase (25-115) U/L Lipase (73-393) U/L Urine Color (Yellow) Urine Clarity (Clear) Urine pH (5.0 - 8.0) Ur Specific [place] (1.002-1.030) Urine Protein (Negative) mg/dl Urine Glucose (UA) (Normal) mg/dl Urine Ketones (Negative) mg/dl Urine Occult Blood (Negative) /ul Urine Nitrite (Negative) Urine Bilirubin (Negative) mg/dL Urine Urobilinogen (Normal) mg/dl Ur Leukocyte Esterase (Negative) /ul Urine RBC (0-5) /hpf Urine WBC (0-5) /hpf Ur Squamous Epith Cells (5-10) /hpf Urine Bacteria (None Seen) /hpf Urine Mucus (<or=2+) /hpf U Random Total Protein (<11.9) mg/dL Urine Creatinine (NO RANGE EST.) mg/dL Protein/Creatinin Ratio (0-200) mg/g CRE Review of Systems Constitutional: Reports: Anorexia, Fatigue Eyes: Reports: Blurred vision - On and off throughout . Admits to recent cardiology appointment and vasal vagal responses. Denies [place]. Does not wear glasses. Cardiovascular: Denies: Chest Pain, Edema Respiratory: Denies: Cough, Shortness of Breath Gastrointestinal: Reports: Abdominal Pain - RUQ pain Genitourinary: Reports: Frequency, Urgency. Denies: Dysuria Physical Exam General: Alert, Oriented x3 HEENT: Atraumatic Cardiovascular: Regular rate, Regular Rhythm, No murmurs Lungs: Clear to auscultation, Normal air movement, No rhonchi, No wheeze Abdomen: Bowel Sounds Present, - - RUQ abdominal pain. No masses, guarding, or rebound tenderness. Rating pain 8/10 with movement. Yen's sign negative. Extremities:: No edema NST - FHR Rate Baby A Baseline: 140 NST Reactive:: Appropriate for gestational age Impression/Plan A: RUQ Abdominal Pain P: 1) CBC, CMP, uric acid, urine pro/creat ratio normal. Do not correlate with cholecystitis. RUQ abdominal ultrasound normal. 2) Will give 1 liter LR bolus 3) Dose of Mylanta 4) Do not feel narcotics are indicated at this time. Tylenol given for headache and improvement. 5) D/C home. To call for further evaluation or if symptoms return or worsen. 6) Reviewed bland diet, avoiding greasy, fatty and fired foods. Discussed green leafy vegetables can make this worse at times also. 7) UA positive for leuks and nitrites. Will treat with Macrobid 100mg PO BID x 7 days. Culture sent.
[2018-06-23] MEDS: Lactated Ringers 1,000 ML 999 ML IV (17:30)
[2018-06-23] MEDS: Mag Hydrox/Al Hydrox/Simeth 30 ML UDC PO (18:00)
== END 2018-06-23 18:40 | disposition home or self-care (01) ==
LOC: WPOUT 13:45 → WP 13:46
PROVIDERS: Family Provider Family Medicine; PCP Family Medicine; Referring Provider Obstetrics & Gynecology; Visit Provider Obstetrics & Gynecology
DX: O26.892 Other specified pregnancy related conditions, second trimester (principal); R10.11 Right upper quadrant pain; Z3A.23 23 weeks gestation of pregnancy
CPT/HCPCS: 96360; 59050; 76705; 80053; 81001; 82150; 82570; 83690; 84156; 84550; 85027; 87086; 87088; 87186; 99218; J7120; G0378

== ENCOUNTER 2018-07-02 18:40 | Outpatient (CLI) | payer MEDICAID, SELFPAY ==
[2018-07-02 19:03] VITALS: BMI 34.3
--- NOTE | 2018-07-02 19:28 | PCM.HP.OB ---
History Date of Admission: 07/02/18 Final ARAVIND: 10/17/18 Gestational age: 24 Weeks and 5 Days History of this : This is a 28 year-old, @24 5/7 weeks gestation presents complaining of abdominal pain. She states she has had lower abdominal cramping all day. Then tonight she got home from work and says she had sharp severe stabbing pain in her lower abdomen. She had one episode of diarrhea this afternoon. She states her appetite and bowel movements were normal yesterday. She has been nauseous all day. No emesis. Her significant other had wet was likely gastroenteritis last week. She denies any other sick contacts. Denies any fevers or chills. She states the pain that she had earlier was a 12 out of 10 and now is a 4 out of 10. It is not on either side. She also has some bilateral lower back pain. Earlier she felt like the pain was coming and going in her lower abdomen came to like a contraction was not time mobile. She feels like she is having some waves of pain. She is having some urinary frequency but no dysuria. She states she is been pushing fluids. She was evaluated last week for right upper quadrant pain and that was going on even before the . She states this pain is significantly different from that pain. Allergies Latex, Natural Rubber Allergy (Verified 07/02/18 19:03) Unknown quinn Home Medications: Home Medications Pnv No.95/Ferrous Fum/Folic AC [ Caplet] 1 each PO DAILY 05/28/18 Nitrofurantoin Monohyd/M-Cryst [Macrobid 100 mg Capsule] 100 mg PO BID 07/02/18 Smoking Status: Never smoker Alcohol: None Number of Fetus(es): 1 Heart Tracing: normal baseline, doppler for several minutes, appropriate for gestational age History Past Pregnancies: Past Pregnancies Delivery Date Name GA/Weeks Outcome Route Weight Infant Gender Labor Length Anesthesia Delivery Location Provider FOB Review of Systems Constitutional: Reports: Anorexia, Malaise. Denies: Chills, Fever, Night Sweats Eyes: Denies: Blurred vision Cardiovascular: Denies: Chest Pain Respiratory: Denies: Cough Gastrointestinal: Reports: Abdominal Pain, Nausea. Denies: Constipation, Hematemesis, Hematochezia, Vomiting Genitourinary: Reports: Frequency, Hesitancy, Urgency. Denies: Dysuria, Hematuria, Incontinence Gynecological: Reports: Vaginal discharge - normal for . 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 I discussed with the patient and her partner at this point I am uncertain if she may be getting gastroenteritis such as he had last week, possible kidney stone, possible musculoskeletal discomfort of or other GI issue. At this point, we will give an IV fluid bolus and antiemetics. Check CBC for evidence of infection. Check UA and if she has hematuria, could be kidney stone but clinically upon exam I feel this is less likely. She has no rebound or guarding and her pain does not seem to be isolated more on the right than the left side not feel that clinically a CAT scan is needed to rule out appendicitis. Check a complete metabolic panel. No evidence of threatened labor on cervical exam but will monitor with tocometer for 1 hr to ensure we are not detecting contractions. Patient has a consultation with general surgery in 2 days because of ongoing abdominal pain during the . Patient does state this pain is different than the pain she has had previously. If no evidence of acute process, will likely discharge home with follow-up in the office in 1 to 2 days or as needed. Reiterated with patient I would recommend a bland, low-fat diet for the remainder of . She has had nausea and gastrointestinal issues during the . She is finishing antibiotics for a positive urine culture. She has 3 more doses of macrobid per her report
[2018-07-02] MEDS: Lactated Ringers 500 ML 999 ML IV (20:09)
[2018-07-02] MEDS: Ondansetron 4 MG/2 ML Vial IV (20:09)
[2018-07-02 20:23] LABS: Absolute Lymphocyte Count 2.26 X10^3/ul (0.83-4.51); Absolute Neutrophil Count 9.6 X10^3/uL (2.0-7.7); Basophil# 0.02 X10^3/uL; Basophil% 0.1 % (0-1); Eosinophil# 0.18 X10^3/uL; Eosinophils% 1.3 % (0-5); Hematocrit 32.6 % (37-47); Hemoglobin 11.2 g/dl (12.0-15.0); Lymphocyte # 2.26 X10^3/ul (4.0); Lymphocyte % 16.8 % (19-41); Mean Corp Hgb Conc 34.4 g/gl (32-36); Mean Corpuscular Hgb 29.8 pg (27.0-32.0); Mean Corpuscular Volume 86.7 fL (81-99); Mean Platelet Vol. 9.6 fl (6.2-12.0); Monocyte# 1.38 X10^3/uL; Monocyte% 10.3 % (0-10); Neutrophil # 9.55 X10^3/uL (2.7-7.7); Neutrophil % 71.2 % (47-70); Platelet Count 242 K/mm3 (150-450); RBC Distribution Width CV 12.9 % (11.6-14.6); RBC Distribution Width SD 41.3 fl (35.1-43.9); Red Blood Count 3.76 M/mm3 (4.2-5.4); White Blood Count 13.4 K/mm3 (4.4-11.0)
[2018-07-02 20:24] LABS: POSITIVE COUNT NO; POSITIVE DIFFERENTIAL NO; POSITIVE MORPHOLOGY NO
[2018-07-02 20:29] LABS: Mucous, Urine 0 SEEN /hpf (<or=2+); Red Blood Cells-Urine 0 SEEN /hpf (0-5); White Blood Cells 0 SEEN /hpf (0-5)
[2018-07-02 20:38] LABS: Color, Urine Straw (Yellow); Glucose, Dipstick Normal (Normal); Ketone-Dipstick Negative (Negative); Leukocyte Esterase-Dipstick Negative /ul (Negative); Nitrite-Dipstick Negative (Negative); Occult Blood-Urine Negative /ul (Negative); Protein-Dipstick Negative (Negative); Specific Gravity, Urine 1.005 (1.002-1.030); Urine Bilirubin Dipstick Negative (Negative); Urine Clarity Clear (Clear); Urine Urobilinogen Normal (Normal)
[2018-07-02 20:39] LABS: ALB/GLOB Ratio 0.8 RATIO (0.9-2.4); AST(SGOT) 17 U/L (15-37); Alanine Aminotransfer ALT/SGPT 15 U/L (13-56); Albumin, Serum 3.2 g/dL (3.2-5.0); Alkaline Phosphatase 131 U/L (45-117); Anion Gap 7 (5-15); BUN 9 mg/dL (7-18); BUN/Creat Ratio 14.6 RATIO (10-20); Calcium,Total 8.5 mg/dL (8.5-10.1); Chloride 107 mmol/L (98-107); Creatinine, Serum 0.62 mg/dL (0.55-1.02); EST Glomerular Filtration Rate 122 mL/min (>60); Est Glom Filt Rate - Afr Amer 147 mL/min (>60); Estimated Creatinine Clearance 139.92 ml/min; Globulin 3.8 g/dL (2.2-4.2); Glucose 76 mg/dL (74-106); Potassium 3.7 mmol/L (3.5-5.1); Sodium Level 137 mmol/L (136-145)
[2018-07-02 20:51] LABS: Bacteria RARE /hpf (None Seen); Squamous Epithelial Cells - UA 0-5 SEEN /hpf (5-10)
== END 2018-07-02 21:10 | disposition home or self-care (01) ==
LOC: WPOUT 18:50 → WP 18:51
PROVIDERS: Obstetrics & Gynecology; Family Provider Family Medicine; PCP Family Medicine; Referring Provider Advanced Practice Midwife; Visit Provider Advanced Practice Midwife
DX: O26.892 Other specified pregnancy related conditions, second trimester (principal); R10.30 Lower abdominal pain, unspecified; Z3A.24 24 weeks gestation of pregnancy
CPT/HCPCS: 96361; 96374; 36415; 59025; 59050; 80053; 81001; 85025; 99218; J7120; G0378; J2405

== ENCOUNTER 2018-08-20 10:10 | Outpatient (CLI) | payer MEDICAID, SELFPAY ==
[2018-08-20 10:26] VITALS: BMI 36.1
[2018-08-20] MEDS: Lactated Ringers 1,000 ML 999 ML IV (10:40)
[2018-08-20] MEDS: DiphenhydrAMINE 50 MG/ML Syringe 25 MG IV (10:52)
[2018-08-20 11:16] LABS: Hematocrit 34.1 % (37-47); Hemoglobin 11.5 g/dl (12.0-15.0); Mean Corp Hgb Conc 33.7 g/gl (32-36); Mean Corpuscular Hgb 29.5 pg (27.0-32.0); Mean Corpuscular Volume 87.4 fL (81-99); Mean Platelet Vol. 10.5 fl (6.2-12.0); Platelet Count 209 K/mm3 (150-450); RBC Distribution Width SD 41.6 fl (35.1-43.9); Scan Indicated on CBC? Y/N NO; White Blood Count 12.6 K/mm3 (4.4-11.0)
[2018-08-20 11:21] LABS: ALB/GLOB Ratio 0.7 RATIO (0.9-2.4); AST(SGOT) 14 U/L (15-37); Alanine Aminotransfer ALT/SGPT 20 U/L (13-56); Albumin, Serum 3.1 g/dL (3.2-5.0); Alkaline Phosphatase 151 U/L (45-117); Anion Gap 8 (5-15); BUN 8 mg/dL (7-18); BUN/Creat Ratio 13.1 RATIO (10-20); Calcium,Total 8.7 mg/dL (8.5-10.1); Chloride 108 mmol/L (98-107); Creatinine, Serum 0.61 mg/dL (0.55-1.02); EST Glomerular Filtration Rate 123 mL/min (>60); Est Glom Filt Rate - Afr Amer 149 mL/min (>60); Estimated Creatinine Clearance 137.27 ml/min; Globulin 4.4 g/dL (2.2-4.2); Glucose 73 mg/dL (74-106); Potassium 3.7 mmol/L (3.5-5.1); Protein, Total 7.5 g/dL (6.4-8.2); Sodium Level 139 mmol/L (136-145)
[2018-08-20 12:16] LABS: Protein, Urine (Random) 11.4 mg/dL (<11.9); Protein:Creat Ratio 268 mg/g CRE (0-200)
[2018-08-20] MEDS: Metoclopramide 10 MG/2 ML Vial 5 MG IV (12:21)
[2018-08-20] MEDS: Acetaminophen/Butalbital/Caffe 1 Tablet PO (12:21)
[2018-08-20] MEDS: HYDROmorphone 1 MG/ML Syringe IV (14:16)
--- NOTE | 2018-09-01 12:10 | OB.TRI.PN ---
Progress Notes Date of Service: 08/20/18 Progress Note: 28 year old female at 31w5d for headache. Seen in office for headache and sent to L&D for evaluation. Had nausea and severe headache with visual changes. No clonus and DTR normal. BP normal in office. O: Labs normal A/P: 1) 1 liter LR. Benadryl and Reglan for headache 2) Dilaudid for pain relief, headache improved 3) Labs normal. 4) Pre-e precautions given. D/C home and return for regular visit. Laboratory Studies: Laboratory Tests 08/20/18 08/20/18 08/20/18 Range/Units 12:00 10:40 10:40 WBC 12.6 H (4.4-11.0) K/mm3 RBC 3.90 L (4.2-5.4) M/mm3 Hgb 11.5 L (12.0-15.0) g/dl Hct 34.1 L (37-47) % MCV 87.4 (81-99) fL MCH 29.5 (27.0-32.0) pg MCHC 33.7 (32-36) g/gl RDW 13.0 (11.6-14.6) % RDW Differential 41.6 (35.1-43.9) fl Plt Count 209 (150-450) K/mm3 MPV 10.5 (6.2-12.0) fl Sodium 139 (136-145) mmol/L Potassium 3.7 (3.5-5.1) mmol/L Chloride 108 H (98-107) mmol/L Carbon Dioxide 23.0 (21.0-32.0) mmol/L Anion Gap 8 (5-15) BUN 8 (7-18) mg/dL Creatinine 0.61 (0.55-1.02) mg/dL Estim Creat Clear Calc 137.27 ml/min Est GFR (MDRD) Af Amer 149 (>60) mL/min Est GFR (MDRD) Non-Af 123 (>60) mL/min BUN/Creatinine Ratio 13.1 (10-20) RATIO Glucose 73 L (74-106) mg/dL Calcium 8.7 (8.5-10.1) mg/dL Total Bilirubin 0.30 (0.20-1.00) mg/dL AST 14 L (15-37) U/L ALT 20 (13-56) U/L Alkaline Phosphatase 151 H (45-117) U/L Total Protein 7.5 (6.4-8.2) g/dL Albumin 3.1 L (3.2-5.0) g/dL Globulin 4.4 H (2.2-4.2) g/dL Albumin/Globulin Ratio 0.7 L (0.9-2.4) RATIO U Random Total Protein 11.4 (<11.9) mg/dL Urine Creatinine 42.50 (NO RANGE EST.) mg/dL Protein/Creatinin Ratio 268 H (0-200) mg/g CRE
== END 2018-08-20 16:50 | disposition home or self-care (01) ==
LOC: WPOUT 10:13 → WP 10:15
PROVIDERS: Family Provider Family Medicine; PCP Family Medicine; Referring Provider Advanced Practice Midwife; Visit Provider Advanced Practice Midwife
DX: O26.893 Other specified pregnancy related conditions, third trimester (principal); R51 Headache; Z3A.31 31 weeks gestation of pregnancy
CPT/HCPCS: 96361; 96374; 96375; 59025; 59050; 80053; 82570; 84156; 85027; 99218; J7120; G0378

== ENCOUNTER 2018-10-12 18:55 | Inpatient (IN) | payer MEDICAID, SELFPAY ==
[2018-10-12] MEDS: Lactated Ringers 1,000 ML 50 ML IV (19:25)
--- NOTE | 2018-10-12 19:47 | HP.PCM_ITS ---
- Problem List (1) Polyhydramnios Status: Acute (2) Term Status: Acute (3) Positive GBS test Status: Acute (4) Exposure to herpes simplex virus (HSV) Status: Acute (5) Obesity affecting Status: Acute (6) History of depression Status: Acute History Date of Admission: 07/02/18 Final ARAVIND: 10/17/18 Final ARAVIND Source: LMP Gestational age: 39 Weeks and 2 Days History of this : This is a 28 year-old, G [3], P [2003], at 39 weeks 2 days gestational age. Presents to L&D for IOL due to polyhydramnios Allergies Latex, Natural Rubber Allergy (Verified 08/20/18 10:27) Unknown quinn Home Medications: Home Medications Pnv No.95/Ferrous Fum/Folic AC [ Caplet] 1 each PO DAILY 05/28/18 Acyclovir 400 mg PO BID 10/12/18 Smoking Status: Never smoker Alcohol: None Number of Fetus(es): 1 Heart Tracin, moderate variability, accels, no decels, Category 1 TOCO: none History Past Pregnancies: Past Pregnancies Delivery Date Name GA/Weeks Outcome Route Weight Gender Labor Length Anesthesia Delivery Location Provider FOB Labs: GBS positive 1hr GCT 81 wnl RPR nonreacitve Rubella positive Immune HBsAG negative HIV non reactive O positive GC/CT negative Expected Infant Delivery Method: Spontaneous Vaginal Review of Systems Constitutional: Denies: Chills, Fever, Weight Change HEENT: Denies: Head Aches, Sinus Congestion, Sinus Drainage Cardiovascular: Denies: Chest Pain, Palpitations Respiratory: Denies: Cough, Shortness of breath at rest, Sputum production Gastrointestinal: Reports: Nausea. Denies: Abdominal Pain, Vomiting Genitourinary: Denies: Dysuria Neurological: Denies: Numbness, Tingling, Focal weakness Psychiatric: Denies: Anxiety, Depression, Homicidal Ideations, Suicidal Ideations Physical Exam General: Alert, Oriented x3 HEENT: Atraumatic, Normocephalic Cardiovascular: Regular rate, Regular Rhythm, No murmurs Lungs: Clear to auscultation, Normal air movement, No rhonchi, No wheeze Abdomen: Bowel Sounds Present, Soft, Non Tender Extremities:: No edema Neurological: Deep Tendon Reflexes 2+/4 and Symmetrical. 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 A:Induction of Labor P: 1) Admit to Labor and delivery. 2) Routine labs 3) GBS prophylaxis 4) Cervical change since office visit from .5 to 3cm/60/-2. Will induce with Pitocin, too dilated for cabrera bulb. 5) Declines LARC 6) notified of IOL and admission.
[2018-10-12 19:48] VITALS: BMI 37.0
[2018-10-12 19:51] LABS: Absolute Neutrophil Count 9.2 X10^3/uL (2.0-7.7); Basophil# 0.02 X10^3/uL; Basophil% 0.2 % (0-1); Eosinophil# 0.14 X10^3/uL; Eosinophils% 1.1 % (0-5); Hemoglobin 10.3 g/dL (12.0-15.0); Lymphocyte % 16.4 % (19-41); Mean Corp Hgb Conc 33.2 g/dL (32-36); Mean Corpuscular Hgb 28.4 pg (27.0-32.0); Mean Corpuscular Volume 85.4 fL (81-99); Mean Platelet Vol. 10.9 fl (6.2-12.0); Monocyte# 1.21 X10^3/uL; Monocyte% 9.5 % (0-10); NRBC Flagged by Analyzer 0 % (0-5); Neutrophil # 9.22 X10^3/uL (2.7-7.7); Neutrophil % 72.2 % (47-70); Platelet Count 222 K/mm3 (150-450); RBC Distribution Width CV 12.3 % (11.6-14.6); RBC Distribution Width SD 38.5 fl (35.1-43.9); Red Blood Count 3.63 M/mm3 (4.2-5.4); White Blood Count 12.8 K/mm3 (4.4-11.0)
[2018-10-12] MEDS: Oxytocin 30 units/NS 500 ml 30 UNITS/500 ML IV.SOLN IV (20:17)
[2018-10-13] MEDS: Lactated Ringers 1,000 ML 999 ML IV ×2 (00:18→01:46)
[2018-10-13] MEDS: fentaNYL-bupivacaine (epidural) 100 ML BAG EPIDURAL ×3 (01:48→10:39)
[2018-10-13] MEDS: Acetaminophen 325 MG Tablet PO (02:33)
[2018-10-13] MEDS: Ondansetron 4 MG/2 ML Vial IV (02:34)
[2018-10-13] MEDS: proCHLORPERazine 10 MG/2 ML Vial IV (03:34)
[2018-10-13] MEDS: Lactated Ringers 1,000 ML 50 ML IV ×2 (05:15→10:38)
--- NOTE | 2018-10-13 07:24 | PN.OBGYN_ITS ---
Patient Problems: Active and Suspected Problems Polyhydramnios (Acute) Term (Acute) Positive GBS test (Acute) Exposure to herpes simplex virus (HSV) (Acute) Obesity affecting (Acute) History of depression (Acute) Subjective: Resting in bed, comfortable with epidural. at bedside. Objective: FHR 120,moderate variability, accels, no decels, Category 1 FHT TOCO: every 3-4 minutes, moderate to strong Cervix 5cm/70%-2. Head well applied, cervix mid position. AROM for large amount of clear fluid. Patient tolerated well. - Physical Exam Weight: 251 lb Body Mass Index (BMI) 37.0 Laboratory Tests Past 24 Hrs 10/12/18 10/12/18 19:25 19:25 WBC 12.8 H RBC 3.63 L Hgb 10.3 L Hct 31.0 L MCV 85.4 MCH 28.4 MCHC 33.2 RDW Std Deviation 38.5 RDW Coeff of Lauren 12.3 Plt Count 222 MPV 10.9 Immature Gran % (Auto) 0.600 Neut % (Auto) 72.2 H Lymph % (Auto) 16.4 L [place] % (Auto) 9.5 Eos % (Auto) 1.1 Baso % (Auto) 0.2 Absolute Neuts (auto) 9.2 H Absolute Lymphs (auto) 2.10 Nucleated RBC % 0 Blood Type O POSITIVE Antibody Screen NEGATIVE Medical Necessity - Tobacco Use Smoking Status: Former smoker Assessment/Plan All Active Problems Right upper quadrant abdominal pain (Acute) (Acute) Polyhydramnios (Acute) Term (Acute) Positive GBS test (Acute) Exposure to herpes simplex virus (HSV) (Acute) Obesity affecting (Acute) History of depression (Acute) A:Induction of labor for Polyhydramnios at term Active Labor Category 1 FHT P: 1) Labor progressing. Discussed option for AROM, reviewed r/b/a, patient consented. 2) Continue with positional changes 3) Continue with Active management, Pitocin at 16mu's 4) notified of patient in labor and status.
[2018-10-13] MEDS: 0.9% Saline Lock 10 ML Syringe IV ×2 (09:12→13:30)
[2018-10-13] MEDS: Oxytocin 30 units/NS 500 ml 30 UNITS/500 ML IV.SOLN 334 UNITS IV (11:54)
--- NOTE | 2018-10-13 12:08 | PCM.OPRPT ---
Problem List (1) Polyhydramnios Status: Acute (2) Term Status: Acute (3) Positive GBS test Status: Acute (4) Exposure to herpes simplex virus (HSV) Status: Acute (5) Obesity affecting Status: Acute (6) History of depression Status: Acute (7) Vaginal delivery Status: Acute Vaginal Delivery Maternal Presentation: Active Labor Method of Induction: Pitocin Medical Reason for Induction: Maternal Medical Condition: list: - Mild polyhydramnios, maternal discomfort Amniotic Membrane Rupture Type: Artificial Amniotic Fluid Description: Clear Final ARAVIND: 10/17/18 Final ARAVIND Source: US <20 weeks Gestational age: 39 Weeks and 3 Days Date of Procedure: 10/13/18 Pre-Operative Diagnosis: Induction of labor due to mild polyhydramnios Post-Operative Diagnosis: Surgery/ Procedure Performed: Spontaneous Vaginal Delivery Type of Anesthesia: Epidural Description of Procedure: Progressed to complete. of viable male over intact perineum. head delivered without difficulty, body forthcoming. CAN x1, delivered through. placed on maternal abdomen, strong cry. Mouth and nares suctioned for secretions. APGARS 8,9. Pitocin started for active 3rd stage management. Cord clamped and cut by FOB after pulsations ceased. Placenta delivered with expression, intact, 3 vessel cord. Perineum inspected and intact with no repair needed. Fundus firm. Vaginal sweep completed, instrument and sponge count correct. EBL 300ml. Planning to breastfeed. Mom and baby stable. notified of delivery. Presentation: Vertex Placental Delivery Description: Spontaneous Placenta Disposition: [facility] Cord Vessel Description: 3 Vessels Cord Entanglement: Around neck x 1, loose Estimated Blood Loss: 300 ml Infant A gender: Male (1 minute): 8 (5 minute): 9 Episiotomy Description: None Laceration: None Medications given after delivery: IV Pitocin Complications: None
[2018-10-13] MEDS: Oxytocin 30 units/NS 500 ml 30 UNITS/500 ML IV.SOLN 167 UNITS IV (12:30)
[2018-10-13 15:25] VITALS: BP 106/54; PULSE 71; RESP 18; TEMP 36.3
[2018-10-13] MEDS: Acyclovir 200 MG Capsule 400 MG PO ×2 (15:38→22:03)
[2018-10-13 17:34] VITALS: BP 103/70; PULSE 93; RESP 16; TEMP 36.8; O2SAT 97
[2018-10-13] MEDS: Ibuprofen 600 MG Tablet PO (20:20)
[2018-10-13 20:24] VITALS: BP 105/60; PULSE 77; RESP 18; TEMP 36.6
[2018-10-14 00:32] VITALS: BP 98/56; PULSE 82; RESP 16; TEMP 36.6
[2018-10-14 04:35] VITALS: BP 96/57; PULSE 86; RESP 18; TEMP 36.6
[2018-10-14 04:49] LABS: Hematocrit 30.9 % (37-47); Hemoglobin 10.4 g/dL (12.0-15.0); Mean Corp Hgb Conc 33.7 g/dL (32-36); Mean Corpuscular Hgb 29.2 pg (27.0-32.0); Mean Corpuscular Volume 86.8 fL (81-99); Mean Platelet Vol. 10.6 fl (6.2-12.0); Platelet Count 203 K/mm3 (150-450); RBC Distribution Width CV 12.4 % (11.6-14.6); RBC Distribution Width SD 39.4 fl (35.1-43.9); Red Blood Count 3.56 M/mm3 (4.2-5.4); White Blood Count 11.1 K/mm3 (4.4-11.0)
[2018-10-14 08:51] VITALS: BP 109/70; PULSE 67; RESP 16; TEMP 36.2; O2SAT 97
[2018-10-14] MEDS: Ibuprofen 600 MG Tablet PO ×2 (08:51→15:59)
--- NOTE | 2018-10-14 08:51 | PCM.PN.OB ---
Patient Problems: Active and Suspected Problems Polyhydramnios (Acute) Term (Acute) Positive GBS test (Acute) Exposure to herpes simplex virus (HSV) (Acute) Obesity affecting (Acute) History of depression (Acute) Vaginal delivery (Acute) Subjective: Pain well controlled. Average lochia. - Physical Exam General: Alert, Cooperative, No apparent distress Abdomen: Soft, Non-Distended Vital Signs Temp Pulse Resp BP Pulse Ox 97.8 F 86 18 96/57 L 97 10/14/18 04:35 10/14/18 04:35 10/14/18 04:35 10/14/18 04:35 10/13/18 17:34 Oxygen Delivery Method Room Air Weight: 113.852 kg Body Mass Index (BMI) 37.0 Intake and Output for Last 24 Hours 10/12/18 10/13/18 10/14/18 23:59 23:59 23:59 Intake Total 3541 / 3541 Output Total 1800 / 1800 Balance 1741 / 1741 Laboratory Tests Past 24 Hrs 10/14/18 04:40 WBC 11.1 H RBC 3.56 L Hgb 10.4 L Hct 30.9 L MCV 86.8 MCH 29.2 MCHC 33.7 RDW Std Deviation 39.4 RDW Coeff of Lauren 12.4 Plt Count 203 MPV 10.6 Medical Necessity - Tobacco Use Smoking Status: Former smoker Assessment/Plan All Active Problems Right upper quadrant abdominal pain (Acute) (Acute) Polyhydramnios (Acute) Term (Acute) Positive GBS test (Acute) Exposure to herpes simplex virus (HSV) (Acute) Obesity affecting (Acute) History of depression (Acute) Vaginal delivery (Acute) day #1. Doing well. Check hepatitis C because patient's partner is hepatitis C positive. Working on breast-feeding. May discharge home today if okay with pediatrics and patient desires this
--- NOTE | 2018-10-14 08:54 | DCINST_ITS ---
Discharge Diet: No Restrictions Discharge Activity: Return to Normal Activity, May not drive while taking narcotic pain medications., May Shower May resume sexual activity in: 4-6 weeks Additional Activity Instructions:: Nothing in the vagina for 4-6 weeks. You may return to work/school in 6 weeks. Call your doctor if your incision/area has: Continuous Slow Oozing, Sudden Increased Bleeding, Increased Pain/ Swelling, Increased Redness, Foul Smelling Discharge Additional Instructions: If you experience any of the following, contact your healthcare provider. * Bleeding that soaks a pad every hour for 2 hours * Fever 100.4 or higher * Unrelieved incision or abdominal pain * Swelling, redness, discharge or bleeding from your incision or episiotomy site * Your incision begins to separate * Problems urinating (including inability to urinate or burning while urinating). * Visual changes * Severe headache * Flu-like symptoms * Pain or redness in one of both of your breasts * Pain, warmth, tenderness or swelling in your legs, especially the calf area * Frequent nausea and vomiting * Symptoms of depression or anxiety If you experience any of the following, call 911 or go to the nearest Emergency Room. * Chest pain * Problems breathing * Seizure activity * Partial or complete paralysis of a body part, slurred speech, weakness or drooping of the face, or a sudden inability to walk or hold your balance Allergies/Adverse Reactions: Allergies Latex, Natural Rubber Allergy (Verified 10/12/18 19:49) Unknown quinn Medications to take at Discharge Pnv No.95/Ferrous Fum/Folic AC [ Caplet] 1 each PO DAILY 05/28/18 Ibuprofen [Motrin] 600 mg PO Q6H PRN #60 tab 10/14/18 The following prescriptions were given: Ibuprofen [Motrin] 600 mg PO Q6H PRN #60 tab PRN Reason: Pain Transmission Status: Pending to [id number] Please Follow Up With: Beata Mackey CN - [phone] When: Call to make an appointment with your provider in 1-2 in 6 weeks or as needed. Primary Care Physician: Neil Alvarado MD [Primary Care Provider] - Test Results: Test results from this visit will be discussed in further detail at your follow- up appointment, if applicable.
--- NOTE | 2018-10-14 08:54 | PCM.DCVAG ---
Discharge Diet: No Restrictions Discharge Activity: Return to Normal Activity, May not drive while taking narcotic pain medications., May Shower May resume sexual activity in: 4-6 weeks Additional Activity Instructions:: Nothing in the vagina for 4-6 weeks. You may return to work/school in 6 weeks. Call your doctor if your incision/area has: Continuous Slow Oozing, Sudden Increased Bleeding, Increased Pain/ Swelling, Increased Redness, Foul Smelling Discharge Additional Instructions: If you experience any of the following, contact your healthcare provider. Bleeding that soaks a pad every hour for 2 hours Fever 100.4 or higher Unrelieved incision or abdominal pain Swelling, redness, discharge or bleeding from your incision or episiotomy site Your incision begins to separate Problems urinating (including inability to urinate or burning while urinating). Visual changes Severe headache Flu-like symptoms Pain or redness in one of both of your breasts Pain, warmth, tenderness or swelling in your legs, especially the calf area Frequent nausea and vomiting Symptoms of depression or anxiety If you experience any of the following, call 911 or go to the nearest Emergency Room. Chest pain Problems breathing Seizure activity Partial or complete paralysis of a body part, slurred speech, weakness or drooping of the face, or a sudden inability to walk or hold your balance Allergies/Adverse Reactions: Allergies Latex, Natural Rubber Allergy (Verified 10/12/18 19:49) Unknown quinn Medications to take at Discharge Pnv No.95/Ferrous Fum/Folic AC [ Caplet] 1 each PO DAILY 05/28/18 Ibuprofen [Motrin] 600 mg PO Q6H PRN #60 tab 10/14/18 The following prescriptions were given: Ibuprofen [Motrin] 600 mg PO Q6H PRN #60 tab PRN Reason: Pain Transmission Status: Pending to [facility] Please Follow Up With: Beata Mackey, [place] - [phone] When: Call to make an appointment with your provider in 1-2 in 6 weeks or as needed. Primary Care Physician: Neil Alvarado MD [Primary Care Provider] - Test Results: Test results from this visit will be discussed in further detail at your follow-up appointment, if applicable.
[2018-10-14 10:42] LABS: Hepatitis C Antibody Non-Reactive (Nonreactive)
[2018-10-14] MEDS: Acyclovir 200 MG Capsule 400 MG PO (11:44)
[2018-10-14] MEDS: Acetaminophen 500 MG Tablet 1000 MG PO (12:02)
[2018-10-14 14:47] VITALS: BP 106/63; PULSE 88; RESP 16; TEMP 36.6; O2SAT 98
== END 2018-10-14 18:20 | disposition home or self-care (01) | DRG 560 ==
PROVIDERS: Advanced Practice Midwife; Admitting Provider Obstetrics & Gynecology; Family Provider Family Medicine; PCP Family Medicine; Visit Provider Obstetrics & Gynecology
DX: O40.3XX0 Polyhydramnios, third trimester, not applicable or unspecified (principal); O99.824 Streptococcus B carrier state complicating childbirth; O69.81X0 Labor and delivery complicated by cord around neck, without compression, not applicable or unspecified; O99.214 Obesity complicating childbirth; E66.9 Obesity, unspecified; Z87.891 Personal history of nicotine dependence; Z3A.39 39 weeks gestation of pregnancy; Z37.0 Single live birth
CPT/HCPCS: 59025; 59050; 85025; 85027; 86803; 86850; 86900; 99218; J7120; A4216; G0378; J2405

== ENCOUNTER 2019-04-12 16:59 | Emergency (ER) | payer OTHER, SELFPAY ==
[2019-04-12 17:00] VITALS: BP 119/82; PULSE 87; RESP 18; TEMP 36.7; O2SAT 97; BMI 33.3
--- NOTE | 2019-04-12 17:11 | ED.VIS.GEN ---
History of Present Illness Chief Complaint: Sore Throat Detail of Chief Complaint: Cough, change in voice, aches Informant: Patient Onset: Weeks - 1.5 weeks ago Context: Sudden Onset Timing: Continuous Quality: Respiratory symptoms Location: Upper respiratory Current Severity: Mild Maximum Severity: Moderate Worsened by: Nothing specific Relieved by: Nothing Associated Symptoms: Change in voice and horrible cough and chest pain with coughing Narrative: Patient a 29-year-old woman who presents with rhinorrhea, congestion, postnasal drainage, productive cough of green thick sputum that started 1.5 weeks ago. She states she was getting better. She states approximately 6 days ago her symptoms began to worsen. She now reports horrific cough and chest pain with coughing. She also reports increased sputum production and change in voice. She denies difficulty breathing, drooling or swallowing. She denies myalgias arthralgias. She denies fever. She denies headache. She denies photophobia. She denies neck pain or neck stiffness. Prior similar symptoms: No Recent Illness/Hospitalization: No - Past Medical History (1) Polyhydramnios Status: Acute Past Medical History - Allergies and Home Meds Allergies/Adverse Reactions: Allergies Latex, Natural Rubber Allergy (Verified 10/12/18 19:49) Unknown quinn Primary Care Physician: Neil Alvarado MD [Primary Care Provider] - Prior records reviewed: Yes Surgical History: noncontributory Lives: With Family Smoking Status: Former smoker Alcohol: None Drugs: None Review of Systems General: Reports: Chills, Malaise, Subjective. Denies: Sweats, Weight loss Eyes: Denies: Visual changes - bilaterally, Blurred Vision - bilaterally ENT: Reports: Rhinorrhea, Sore throat. Denies: Bilateral ear pain Cardiovascular: Reports: Chest pain. Denies: Palpitations, Heart racing Respiratory: Reports: Cough, Sputum. Denies: Dyspnea, Dyspnea on exertion Gastrointestinal: Denies: Abdominal pain, Nausea, Vomiting, Diarrhea, Melena, Hematochezia Musculoskeletal: Denies: Myalgias, Arthralgias, Neck pain, Back pain, Swelling, Extremity Pain, -, - Skin: Denies: Rash, Wounds Neurological: Denies: Headache, Weakness, Parasthesia, Numbness, -, - Hematologic: Denies: Easy bruising, Easy bleeding Physical Exam Vital Signs/Narrative: Vital Signs Temp Pulse Resp BP Pulse Ox 02/09/20 17:00 98.1 F 87 18 119/82 H 97 Inital Vital Signs reviewed: Yes General: Well nourished, Well developed, Obese, No Acute Distress Head: Normocephalic, Atraumatic Eyes: Perrl, EOMI. Negative for: Pale conjunctiva, Scleral icterus ENT: Moist mucous membranes, No rhinorrhea, - - [place]osta midline. There is no erythema or exudate of the tonsils. There is no enlargement of the tonsils. Neck: Supple, Nontender, No lymphadenopathy, No JVD, - Cardiovascular: Regular rate, Regular rhythm, No murmurs, Normal S1, Normal S2 Respiratory: No distress, CTA bilaterally, Chest nontender Abdomen: Soft, Nontender, Nondistended, Normal bowel sounds Extremities: Nontender, No edema Skin: Normal color, No rash, No Trauma. Negative for: Cyanosis, Diaphoresis, Jaundice Neurological: Alert, Oriented x3, Cranial nerves II-XII grossly intact, Normal Strength, Normal Sensation Psychological: Normal affect Diagnostic/Tx/Re-eval - Medical Decision Making Patient presents with respiratory symptoms. She complains of a productive thick green-colored sputum. Based on patient's history and physical she in all likelihood has tracheobronchitis. Because she has thick green sputum will place on antibiotics especially since her symptoms last greater than 10 days. Since her vital signs are normal and there are no auscultatory findings chest x-ray was not obtained. ED Disposition - Plan for ED Patient: Disposition: Home or Assisted Living Diagnosis: Laryngotracheobronchitis Instructions: BRONCHITIS, Antiobiotic Treatment (Adult) Prescriptions: Doxycycline 100 mg PO BID #10 cap Transmission Status: Pending to [id number] Referrals: Neil Alvarado MD [Primary Care Provider] - 1 Week if not improving
[2019-04-12] MEDS: Doxycycline 100 MG CAPSULE PO (17:22)
== END 2019-04-12 17:26 | disposition home or self-care (01) ==
LOC: ED 17:19
PROVIDERS: Emergency Provider Emergency Medicine; PCP Family Medicine
DX: J40 Bronchitis, not specified as acute or chronic (principal); Z87.891 Personal history of nicotine dependence; E66.9 Obesity, unspecified
CPT/HCPCS: 99283

== ENCOUNTER 2019-09-07 09:36 | Emergency (ER) | payer BC, SELFPAY ==
[2019-09-07 09:38] VITALS: BP 132/93; PULSE 95; RESP 19; TEMP 36.2; O2SAT 98; BMI 33.5
--- NOTE | 2019-09-07 09:56 | CT_ITS ---
STUDY: CT ABDOMEN AND PELVIS WITH CONTRAST REASON FOR EXAM: Female, 29 years old. EPIGASTRIC PAIN, VOMITING SINCE LAST SATURDAY RADIATION DOSAGE (If Supplied By Facility): CTDIvol = ( 16.92 ) mGy, DLP = ( 1173.88 ) mGycm TECHNIQUE: Transaxial images were obtained from the dome of the diaphragm to the symphysis pubis without oral contrast. IV 100mL Isovue-300 was administered. Sagittal and coronal images were reconstructed. Individualized dose optimization techniques were used for this CT. COMPARISON: Comparison is made with prior study dated June 05, 2013. FINDINGS: The visualized lung bases are unremarkable. The visualized portions of the heart are within normal limits. Normal liver. The patient is status post cholecystectomy. Normal spleen. Normal pancreas. Normal bilateral adrenal glands. Normal right kidney. Normal left kidney. Normal visualized stomach. Normal small intestine. Normal colon. The appendix is visualized and appears normal. Normal abdominal aorta. Normal inferior vena cava. Normal retroperitoneum. Normal urinary bladder. IUD is seen within the uterus. Normal abdominal wall. Normal osseous structures. CT/Abdomen/Pelvis W IV Cont ONLY IMPRESSION: IUD is seen within the uterus. Electronically Signed: Cayetano Delgadillo, at 11:11 EDT , Service support ,
--- NOTE | 2019-09-07 10:05 | ED.VIS.GI ---
History of Present Illness Chief Complaint: Abd Pain Narrative: Patient presenting for evaluation secondary to abdominal pain. Patient reports that since last week she has been dealing with intermittent abdominal pain. She reports that last week the pain would come and go, and then since Saturday she has basically had consistent pain that will occasionally become worse. She reports it mainly in her upper abdomen, occasionally will track down towards her umbilicus. Patient states that it is a aching sharp type discomfort, occasionally worse in the morning. Recently it is been somewhat worse with eating, but that has not been the case throughout the course of this. Patient states it has been associated with some nausea and vomiting. She had a couple loose stools last week and has not had diarrhea since then. She denies any fevers. Patient does report that she is on a generic form of Adipex that she has been on for a month or 2 now. Patient had a laparoscopic cholecystectomy back in March. She denies any other history of abdominal surgeries. Review of systems otherwise negative. Past Medical History - Allergies and Home Meds Allergies/Adverse Reactions: Allergies Latex, Natural Rubber Allergy (Verified 09/07/19 09:37) Unknown quinn Primary Care Physician: Neil Alvarado MD [Primary Care Provider] - Prior records reviewed: Yes Past Medical History: None Surgical History: cholecystectomy Lives: Spouse/ Significant Other Smoking Status: Never smoker Alcohol: None Drugs: None Review of Systems All systems negative except as indicated General: Denies: Chills, Fever, Sweats Eyes: Denies: Visual changes - bilaterally, Diplopia ENT: Denies: Rhinorrhea, Sore throat Cardiovascular: Denies: Chest pain, Palpitations Respiratory: Denies: Dyspnea, Cough, Dyspnea on exertion Gastrointestinal: Reports: Abdominal pain, Nausea, Vomiting Genitourinary: Denies: Dysuria, Hematuria, Frequency Musculoskeletal: Denies: Back pain, Extremity Pain Skin: Denies: Rash, Wounds Neurological: Denies: Headache, Weakness, Numbness Physical Exam Vital Signs/Narrative: Vital Signs Temp Pulse Resp BP Pulse Ox 09/07/19 09:38 97.2 F L 95 19 H 132/93 H 98 Inital Vital Signs reviewed: Yes General: Well nourished, Well developed, Obese Head: Normocephalic, Atraumatic Eyes: Perrl, EOMI ENT: Moist mucous membranes, No rhinorrhea Neck: Supple, Nontender Cardiovascular: Regular rate, Regular rhythm, No murmurs Respiratory: No distress, CTA bilaterally, Chest nontender Abdomen: Soft, Nondistended, Tender - Epigastric tenderness with some minimal guarding with deep palpation, no evidence of diffuse rigidity or rebound tenderness. No palpable masses. Back: Nontender, Normal Inspection Extremities: Nontender, No edema Skin: Normal color, No rash Neurological: Alert, Oriented x3, Cranial nerves II-XII grossly intact, Normal Strength, Normal Sensation Psychological: Normal affect, Normal Mood Diagnostic/Tx/Re-eval Clinical Impression(s) from Imaging Studies Abdomen/Pelvis CT 09/07/19 09:56 IMPRESSION: IUD is seen within the uterus. Electronically Signed: Cayetano Delgadillo, at 11:11 EDT , Service support , Laboratory Data 09/07/19 09/07/19 09/07/19 10:00 10:00 10:15 WBC 6.3 RBC 4.77 Hgb 14.3 Hct 43.7 MCV 91.6 MCH 30.0 MCHC 32.7 RDW Std Deviation 42.6 RDW Coeff of Lauren 12.6 Plt Count 272 MPV 10.3 Immature Gran % (Auto) 0.200 Neut % (Auto) 58.5 Lymph % (Auto) 28.4 [place] % (Auto) 11.2 H Eos % (Auto) 1.1 Baso % (Auto) 0.6 Absolute Neuts (auto) 3.7 Absolute Lymphs (auto) 1.80 Nucleated RBC % 0 Sodium Potassium Chloride Carbon Dioxide Anion Gap BUN Creatinine Estim Creat Clear Calc Est GFR (MDRD) Af Amer Est GFR (MDRD) Non-Af BUN/Creatinine Ratio Glucose Calcium Total Bilirubin AST ALT Alkaline Phosphatase Total Protein Albumin Globulin Albumin/Globulin Ratio Lipase Urine Color Yellow Urine Clarity Sl. Cloudy Urine pH 7.0 Ur Specific [place] 1.010 Urine Protein 15 H Urine Glucose (UA) Normal Urine Ketones Negative Urine Occult Blood 50 H Urine Nitrite Negative Urine Bilirubin Negative Urine Urobilinogen Normal Ur Leukocyte Esterase 25 H Urine RBC 0-5 SEEN Urine WBC 0-5 SEEN Ur Squamous Epith Cells 5-10 SEEN Urine Bacteria 1+ Urine Mucus 0 SEEN Urine Test Negative 09/07/19 10:15 WBC RBC Hgb Hct MCV MCH MCHC RDW Std Deviation RDW Coeff of Lauren Plt Count MPV Immature Gran % (Auto) Neut % (Auto) Lymph % (Auto) [place] % (Auto) Eos % (Auto) Baso % (Auto) Absolute Neuts (auto) Absolute Lymphs (auto) Nucleated RBC % Sodium 138 Potassium 3.9 Chloride 105 Carbon Dioxide 27.0 Anion Gap 6 BUN 9 Creatinine 0.91 Estim Creat Clear Calc 94.47 Est GFR (MDRD) Af Amer 93 Est GFR (MDRD) Non-Af 77 BUN/Creatinine Ratio 9.9 L Glucose 94 Calcium 8.7 Total Bilirubin 0.40 AST 21 ALT 30 Alkaline Phosphatase 156 H Total Protein 7.9 Albumin 3.9 Globulin 4.0 Albumin/Globulin Ratio 1.0 Lipase 39 L Urine Color Urine Clarity Urine pH Ur Specific [place] Urine Protein Urine Glucose (UA) Urine Ketones Urine Occult Blood Urine Nitrite Urine Bilirubin Urine Urobilinogen Ur Leukocyte Esterase Urine RBC Urine WBC Ur Squamous Epith Cells Urine Bacteria Urine Mucus Urine Test - Medical Decision Making Patient presented secondary to epigastric pain. IV was established patient was given a GI cocktail fluids and Zofran. Patient had lab work. CBC, CMP, lipase unremarkable. test negative. Urinalysis negative. CT abdomen and pelvis was performed and per radiology review shows no evidence of acute pathology. Patient is recently on a stimulant for weight loss, this potentially is contributing to an element of gastritis versus an ulcer that would be contributing to her epigastric pain. Patient be placed on a PPI and Carafate, and will be referred to surgery on-call. She was educated on signs and symptoms which to return. ED Disposition - Plan for ED Patient: Disposition: Home or Assisted Living Diagnosis: Peptic ulcer Instructions: ED PUD Prescriptions: Sucralfate [Carafate] 1 gm PO 4X/DAY #120 tab Prescription Printed Omeprazole 40 mg PO DAILY #30 capsule.dr Prescription Printed Referrals: Radha Segura MD [STAFF PHYSICIAN] - 1-2 Weeks
[2019-09-07] MEDS: Ondansetron 4 MG/2 ML Vial IV (10:17)
[2019-09-07] MEDS: Mag Hydrox/Al Hydrox/Simeth 30 ML UDC PO (10:17)
[2019-09-07] MEDS: 0.9% Normal Saline 1,000 ML 1000 ML IV (10:18)
[2019-09-07 10:35] LABS: Mucous, Urine 0 SEEN /hpf (<or=2+)
[2019-09-07 10:36] LABS: Absolute Neutrophil Count 3.7 X10^3/uL (2.0-7.7); Basophil# 0.04 X10^3/uL; Basophil% 0.6 % (0-1); Eosinophil# 0.07 X10^3/uL; Eosinophils% 1.1 % (0-5); Hematocrit 43.7 % (37-47); Hemoglobin 14.3 g/dL (12.0-15.0); Lymphocyte % 28.4 % (19-41); Mean Corp Hgb Conc 32.7 g/dL (32-36); Mean Corpuscular Volume 91.6 fL (81-99); Mean Platelet Vol. 10.3 fl (6.2-12.0); Monocyte# 0.71 X10^3/uL; Monocyte% 11.2 % (0-10); NRBC Flagged by Analyzer 0 % (0-5); Neutrophil # 3.71 X10^3/uL (2.7-7.7); Neutrophil % 58.5 % (47-70); Platelet Count 272 K/mm3 (150-450); RBC Distribution Width CV 12.6 % (11.6-14.6); RBC Distribution Width SD 42.6 fl (35.1-43.9); Red Blood Count 4.77 M/mm3 (4.2-5.4); White Blood Count 6.3 K/mm3 (4.4-11.0)
[2019-09-07 10:40] LABS: Color, Urine Yellow (Yellow); Glucose, Dipstick Normal (Normal); Internal QC Validated? YES +Cl - CLEAR BKGD; Ketone-Dipstick Negative (Negative); Leukocyte Esterase-Dipstick 25 /ul (Negative); Nitrite-Dipstick Negative (Negative); Occult Blood-Urine 50 /ul (Negative); Pregnancy, Urine Negative Negative; Protein-Dipstick 15 mg/dl (Negative); Urine Bilirubin Dipstick Negative (Negative); Urine Clarity Sl. Cloudy (Clear); Urine Urobilinogen Normal (Normal)
[2019-09-07 10:53] LABS: AST(SGOT) 21 U/L (15-37); Alanine Aminotransfer ALT/SGPT 30 U/L (13-56); Albumin, Serum 3.9 g/dL (3.2-5.0); Alkaline Phosphatase 156 U/L (45-117); Anion Gap 6 (5-15); BUN 9 mg/dL (7-18); BUN/Creat Ratio 9.9 RATIO (10-20); Calcium,Total 8.7 mg/dL (8.5-10.1); Chloride 105 mmol/L (98-107); Creatinine, Serum 0.91 mg/dL (0.55-1.02); EST Glomerular Filtration Rate 77 mL/min (>60); Est Glom Filt Rate - Afr Amer 93 mL/min (>60); Estimated Creatinine Clearance 94.47 ml/min; Glucose 94 mg/dL (74-106); Lipase 39 U/L (73-393); Potassium 3.9 mmol/L (3.5-5.1); Protein, Total 7.9 g/dL (6.4-8.2); Sodium Level 138 mmol/L (136-145)
[2019-09-07 10:53] LABS: Bacteria 1+ /hpf (None Seen); Red Blood Cells-Urine 0-5 SEEN /hpf (0-5); Squamous Epithelial Cells - UA 5-10 SEEN /hpf (5-10); White Blood Cells 0-5 SEEN /hpf (0-5)
[2019-09-07 12:02] VITALS: BP 125/87; PULSE 70; RESP 18
== END 2019-09-07 12:03 | disposition home or self-care (01) ==
PROVIDERS: Emergency Provider Emergency Medicine; PCP Family Medicine
DX: K27.9 Peptic ulcer, site unspecified, unspecified as acute or chronic, without hemorrhage or perforation (principal); E66.9 Obesity, unspecified
CPT/HCPCS: 74177; 80053; 81001; 81025; 83690; 85025; 96361; 96374; 99285; J7030; Q9967; A4216; J2405

== ENCOUNTER 2023-03-04 13:13 | Outpatient (CLI) | payer BC, SELFPAY ==
[2023-03-04] VITALS (8 sets, daily range): BP systolic 101–108; BP diastolic 62–65; PULSE 78–87; TEMP 36.8; O2SAT 96–97; BMI 38.0
--- OUTSIDE RECORDS SUMMARY | 2023-03-04 13:18 | XMS RPT_ITS | CCD ---
Author Name Unknown Address [address] [facility] [address] [place] [address] Organization [facility] Care Team Providers Care Doughmaker Name Role Phone Neil Veliz MD Primary Care Provider NEIL VELIZ Primary Care Unavailable RAMANDEEP AYON Referring Unavail able RAMANDEEP AYON Attending Unavail able NEIL VELIZ Primary Care Unavailable JOSE ALFREDO, NEIL Whitt Primary Care Unavailable RONALD CERRATO Attending Unavailable THUY BENAVIDES Referring Unavailable JOSE ALFREDO, NEIL Whitt Primary Care Unavailable JOSE ALFREDO, NEIL Whitt Primary Care Unavailable JOSE ALFREDO, NEIL Whitt Primary Care Unavailable TATY CALLEJAS Attending Unavailable RAMANDEEP AYON Attending Unavail able NEIL VELIZ Primary Care Unavailable JOSE ALFREDO, NEIL Whitt Primary Care Unavailable TATY CALLEJAS Referring Unavailable GABY GARCIA Attending Unavailable JOSE ALFREDO, NEIL Whitt Primary Care Unavailable TATY CALLEJAS Referring Unavailable JOSE ALFREDO, NEIL Whitt Primary Care Unavailable ERENDIRA HENDRICKS Attending Unavailable JOSE ALFREDO, NEIL Whitt Primary Care Unavailable DEBRA WAGNER Referring Unavailable JOSE ALFREDO, NEIL Whitt Primary Care Unavailable ERENDIRA HENDRICKS Attending Unavailable JOSE ALFREDO, NEIL Whitt Primary Care Unavailable ERENDIRA HENDRICKS Referring Unavailable ERENDIRA HENDRICKS Attending Unavailable TATY CALLEJAS Attending Unavailable JOSE ALFREDO, NEIL Whitt Primary Care Unavailable ERENDIRA HENDRICKS Referring Unavailable JOSE ALFREDO, NEIL Whitt Primary Care Unavailable ERENDIRA HENDRICKS Referring Unavailable JOSE ALFREDO, NEIL Whitt Primary Care Unavailable ERENDIRA HENDRICKS Referring Unavailable JOSE ALFREDO, NEIL Whitt Primary Care Unavailable DEBRA WAGNER Attending Unavailable NISHA SULLIVAN Referring Unavailable JOSE ALFREDO, NEIL Whitt Primary Care Unavailable THUY BENAVIDES Attending Unavailable JOSE ALFREDO, NEIL Whitt Primary Care Unavailable JOSE ALFREDO, NEIL Whitt Primary Care Unavailable TATY CALLEJAS Attending Unavailable RADHA SEGURA Attending Unavailable NEIL VELIZ Primary Care Unavailable THUY BENAVIDES Referring Unavailable NEIL VELIZ Primary Care Unavailable THUY BENAVIDES Attending Unavailable THUY BENAVIDES Referring Unavailable RAMANDEEP AYON Attending Unavail able NEIL VELIZ Primary Care Unavailable NEIL VELIZ Primary Care Unavailable TATY CALLEJAS Referring Unavailable NEIL VELIZ Primary Care Unavailable DEBRA WAGNER Referring Unavailable RAMANDEEP AYON Attending Unavail able TATY CALLEJAS Referring Unavailable NEIL VELIZ Primary Care Unavailable TATY CALLEJAS Referring Unavailable NEIL VELIZ Primary Care Unavailable Allergies Allergy Classification Reported Allergen(s) Allergy Type Date of Onset Reaction(s) Facility (20 sources) Adhesive Tape; Translations: [ADHESIVE TAPE (ROSINS)] Propensity to adverse reactions to substance 9 Rash, Itching [facility] Work Phone: (20 sources) Latex; Translations: [LATEX] Drug Intolerance 6 Rash [facility] Work Phone: Medications Current Medications Medication Drug Class(es) Dates Sig (Normalized) Sig (Original) predniSONE 20 mg oral tablet (1 source) Start: 06-14-2022 End: 06-19-2022 take 2 tablets by mouth once daily predniSONE (DELTASONE) 20 mg tablet Take 2 tablets by mouth once daily for 5 days. 10 tablet 0 06/14/2022 06/19/2022 Active Completed/Discontinued Medications Medication Drug Class(es) Dates Sig (Normalized) Sig (Original) acyclovir 400 mg oral tablet (20 sources) Herpesvirus Nucleoside Analog DNA Polymerase Inhibitor, Herpes Simplex Virus Nucleoside Analog DNA Polymerase Inhibitor, Herpes Zoster Virus Nucleoside Analog DNA Polymerase Inhibitor Start: 08-11-2020 End: 09-16-2022 take 1 tablet by mouth twice daily acyclovir (ZOVIRAX) 400 mg tablet take 1 tablet by mouth twice a day 60 tablet 3 09/16/2022 Active Problems Active Problems Problem Classification Problem Date Documented Da te Episodic/Chronic Anxiety disorders (3 sources) Anxiety; Translations: [Anxiety disorder, unspecified] Onset: 3 02-15-2023 Chronic Cardiac dysrhythmias (20 sources) Irregular heart beat; Translations: [Cardiac arrhythmia, unspecified] Onset: 3 02-27-2021 Chronic Contraceptive and procreative management (5 sources) Sterilization requested; Translations: [Encounter for sterilization] Onset: 3 01-17-2023 Episodic Esophageal disorders (1 source) Gastroesophageal reflux disease; Translations: [Gastro-esophageal reflux disease without esophagitis] 10-04-2022 Chronic Immunizations and screening for infectious disease (20 sources) Patient encounter status; Translations: [Encounter for screening for human papillomavirus (HPV)] Onset: 3 Episodic Other complications of (5 sources) Maternal obesity complicating , childbirth and the puerperium, antepartum; Translations: [Obesity complicating , second trimester] 11-14-2022 Chronic Other complications of (1 source) Obesity complicating , third trimester; Translations: [Obesity affecting in third trimester, unspecified obesity type] Onset: 3 Chronic Other complications of (1 source) Obesity complicating , unspecified trimester; Translations: [Obesity during ] Onset: 3 Chronic Other complications of (1 source) Uterine contractions problem; Translations: [Other specified related conditions, unspecified trimester] 11-06-2022 Episodic Other complications of (1 source) Spotting per vagina in ; Translations: [Spotting complicating , unspecified trimester] 11-06-2022 Episodic Other complications of (3 sources) Uterine size for dates discrepancy; Translations: [Uterine size-date discrepancy, third trimester] Onset: 3 02-15-2023 Episodic Other ear and sense organ disorders (2 sources) Impacted cerumen of bilateral ears; Translations: [Impacted cerumen, bilateral] Episodic Other female genital disorders (2 sources) Abnormal uterine bleeding; Translations: [Abnormal uterine and vaginal bleeding, unspecified] Chronic Other female genital disorders (1 source) History of gynecological disorder; Translations: [Personal history of other diseases of the female genital tract] Episodic Other female genital disorders (2 sources) Vaginal discharge; Translations: [Other specified noninflammatory disorders of vagina] Episodic Other female genital disorders (1 source) Vaginal odor; Translations: [Other specified noninflammatory disorders of vagina] 11-14-2022 Episodic Other female genital disorders (1 source) Vulval irritation; Translations: [Other specified noninflammatory disorders of vulva and perineum] 01-04-2023 Episodic Other gastrointestinal disorders (1 source) Diarrhea; Translations: [Diarrhea, unspecified] Episodic Other gastrointestinal disorders (1 source) Constipation alternates with diarrhea; Translations: [Other specified symptoms and signs involving the digestive system and abdomen] 03-14-2022 Episodic Other gastrointestinal disorders (1 source) Stool finding; Translations: [Other fecal abnormalities] 03-14-2022 Episodic Other nervous system disorders (20 sources) Disorder of autonomic nervous system; Translations: [Disorder of the autonomic nervous system, unspecified] Onset: 0 03-12-2019 Chronic Other nutritional; endocrine; and metabolic disorders (20 sources) Obese class I; Translations: [Obesity, unspecified] Onset: 0 03-17-2019 Chronic Other nutritional; endocrine; and metabolic disorders (20 sources) Obesity; Translations: [Obesity, unspecified] Onset: 9 Chronic Other screening for suspected conditions (not mental disorders or infectious disease) (2 sources) Cancer cervix screening status; Translations: [Encounter for screening for malignant neoplasm of cervix] Episodic Other upper respiratory infections (2 sources) Acute upper respiratory infection; Translations: [Acute upper respiratory infection, unspecified] Episodic Residual codes; unclassified (2 sources) Early satiety; Translations: [Early satiety] Episodic Residual codes; unclassified (1 source) Gestation period, 7 weeks; Translations: [Less than 8 weeks gestation of ] Episodic Residual codes; unclassified (2 sources) Gestation period, 11 weeks; Translations: [11 weeks gestation of ] 09-18-2022 Episodic Residual codes; unclassified (1 source) Gestation period, 18 weeks; Translations: [18 weeks gestation of ] 11-06-2022 Episodic Residual codes; unclassified (2 sources) Gestation period, 19 weeks; Translations: [19 weeks gestation of ] 11-14-2022 Episodic Residual codes; unclassified (1 source) Gestation period, 28 weeks; Translations: [28 weeks gestation of ] 01-17-2023 Episodic Residual codes; unclassified (1 source) Gestation period, 30 weeks; Translations: [30 weeks gestation of ] 01-31-2023 Episodic Residual codes; unclassified (2 sources) Gestation period, 33 weeks; Translations: [33 weeks gestation of ] 02-15-2023 Episodic Residual codes; unclassified (1 source) 28 weeks gestation of ; Translations: [28 weeks gestation of ] Onset: 3 Episodic Residual codes; unclassified (1 source) 24 weeks gestation of ; Translations: [24 weeks gestation of ] Onset: 3 Episodic Thyroid disorders (2 sources) Goiter; Translations: [Nontoxic goiter, unspecified] Chronic Past or Other Problems Problem Classification Problem Date Documented Da te Episodic/Chronic Abdominal hernia (18 sources) Hiatal hernia; Translations: [Diaphragmatic hernia without obstruction or gangrene] Onset: 04-03-2022 Episodic Abdominal pain (9 sources) Epigastric discomfort; Translations: [Epigastric pain] Onset: 04-03-2022 Episodic Bacterial infection; unspecified site (20 sources) Bacteria present; Translations: [Streptococcus, group B, as the cause of diseases classified elsewhere] Onset: 09-26-2018 09-26-2018 Episodic Headache; including migraine (20 sources) Acute headache; Translations: [Acute nonintractable headache] Onset: 08-24-2018 08-24-2018 Episodic Nausea and vomiting (5 sources) Nausea; Translations: [Nausea] Onset: 03-14-2022 Episodic Other circulatory disease (20 sources) History of cardiac arrhythmia; Translations: [Personal history of other diseases of the circulatory system] Onset: 03-13-2018 05-15-2018 Episodic Other complications of (14 sources) Complication of , childbirth and/or the puerperium; Translations: [Other specified related conditions, unspecified trimester] Onset: 08-09-2022 08-09-2022 Episodic Other female genital disorders (20 sources) Cervical intraepithelial neoplasia grade 1; Translations: [Mild cervical dysplasia] Onset: 03-15-2011 03-15-2011 Episodic Other gastrointestinal disorders (1 source) Other specified symptoms and signs involving the digestive system and abdomen; Translations: [Alternating constipation and diarrhea] Onset: 03-14-2022 Episodic Other gastrointestinal disorders (1 source) Other fecal abnormalities; Translations: [Elevated fecal calprotectin] Onset: 03-14-2022 Episodic Other and delivery including normal (13 sources) test positive; Translations: [Encounter for test, result positive] Onset: 08-03-2022 Episodic Residual codes; unclassified (20 sources) H/O: depression; Translations: [Personal history of other complications of , childbirth and the puerperium] Onset: 03-13-2018 08-09-2022 Episodic Residual codes; unclassified (1 source) 15 weeks gestation of ; Translations: [15 weeks gestation of ] Onset: 11-14-2022 Episodic Residual codes; unclassified (1 source) 11 weeks gestation of ; Translations: [11 weeks gestation of ] Onset: 10-19-2022 Episodic Results Test Name Value Interpretation Reference Range Facil ity Vital Signs Date Time Vital Sign Value Performing Clinician Luis thompson 02-15-2023 13:58-0500 Body weight 112.49 kg Gaby Garcia APRN.DEVELOPMENT ADMINISTRATOR Work Phone: [facility] 02-15-2023 13:58-0500 Diastolic blood pressure 62 mm[Hg] Gaby Garcia APRN.DEVELOPMENT ADMINISTRATOR Work Phone: [facility] 02-15-2023 13:58-0500 Systolic blood pressure 120 mm[Hg] Gaby Garcia APRN.DEVELOPMENT ADMINISTRATOR Work Phone: [facility] 01-31-2023 09:33-0500 Body weight 111.58 kg Ramandeep Castanon MD Work Phone: [facility] 01-31-2023 09:33-0500 Diastolic blood pressure 70 mm[Hg] Ramandeep Castanon MD Work Phone: [facility] 01-31-2023 09:33-0500 Systolic blood pressure 118 mm[Hg] Ramandeep Castanon MD Work Phone: [facility] 01-17-2023 10:21-0500 Body weight 112.76 kg Taty Callejas MD Work Phone: [facility] 01-17-2023 10:21-0500 Diastolic blood pressure 62 mm[Hg] Taty Callejas MD Work Phone: [facility] 01-17-2023 10:21-0500 Systolic blood pressure 98 mm[Hg] Taty Callejas MD Work Phone: [facility] 01-04-2023 13:14-0400 Body weight 114.76 kg Ramandeep Castanon MD Work Phone: [facility] 01-04-2023 13:14-0400 Diastolic blood pressure 62 mm[Hg] Ramandeep Castanon MD Work Phone: [facility] 01-04-2023 13:14-0400 Systolic blood pressure 108 mm[Hg] Ramandeep Castanon MD Work Phone: [facility] 11-14-2022 14:23-0400 Body weight 110.22 kg Ramandeep Castanon MD Work Phone: [facility] 11-14-2022 14:23-0400 Diastolic blood pressure 62 mm[Hg] Ramandeep Castanon MD Work Phone: [facility] 11-14-2022 14:23-0400 Systolic blood pressure 116 mm[Hg] Ramandeep Castanon MD Work Phone: [facility] 11-06-2022 13:29-0400 Body weight 110.68 kg Erendira Danielsts AUTOMATIC DRILL OPERATOR.CNM Work Phone: [facility] 11-06-2022 13:29-0400 Diastolic blood pressure 68 mm[Hg] Erendira Plotts AUTOMATIC DRILL OPERATOR.CNM Work Phone: [facility] 11-06-2022 13:29-0400 Systolic blood pressure 108 mm[Hg] Erendira Plotts AUTOMATIC DRILL OPERATOR.CNM Work Phone: [facility] 09-18-2022 10:36-0400 Body weight 112.49 kg Ramandeep Castanon MD Work Phone: [facility] 09-18-2022 10:36-0400 Diastolic blood pressure 66 mm[Hg] Ramandeep Castanon MD Work Phone: [facility] 09-18-2022 10:36-0400 Systolic blood pressure 104 mm[Hg] Ramandeep Castanon MD Work Phone: [facility] 09-18-2022 10:00-0400 Body height 172.7 cm Meg Whitt MD Work Phone: [facility] 08-20-2022 13:05-0400 Body height 172.7 cm Erendira Plotts AUTOMATIC DRILL OPERATOR.CNM Work Phone: [facility] 08-20-2022 13:05-0400 Body weight 112.72 kg Erendira Plotts AUTOMATIC DRILL OPERATOR.CNM Work Phone: [facility] 08-20-2022 13:05-0400 Diastolic blood pressure 76 mm[Hg] Erendira Plotts AUTOMATIC DRILL OPERATOR.CNM Work Phone: [facility] 08-20-2022 13:05-0400 Systolic blood pressure 120 mm[Hg] Erendira Plotts AUTOMATIC DRILL OPERATOR.CNM Work Phone: [facility] 06-14-2022 09:07-0400 Body temperature 98.29 [degF] Orly Athy PA-C Work Phone: [facility] 06-14-2022 09:07-0400 Body weight 112.95 kg Orly Athy PA-C Work Phone: [facility] 06-14-2022 09:07-0400 Diastolic blood pressure 70 mm[Hg] Orly Athy PA-C Work Phone: [facility] 06-14-2022 09:07-0400 Heart rate 88 /min Orly Athy PA-C Work Phone: [facility] 06-14-2022 09:07-0400 Respiratory rate 16 /min Orly Athy PA-C Work Phone: [facility] 06-14-2022 09:07-0400 SaO2% (BldA) [Mass fraction] 98 % Orly Athy PA-C Work Phone: [facility] 06-14-2022 09:07-0400 Systolic blood pressure 110 mm[Hg] Orly Negro PA-C Work Phone: [facility] 03-14-2022 12:41-0500 Heart rate 74 /min Radha Segura MD Work Phone: [facility] 03-14-2022 12:41-0500 SaO2% (BldA) [Mass fraction] 98 % Radha Segura MD Work Phone: [facility] 03-14-2022 12:31-0500 Diastolic blood pressure 56 mm[Hg] Radha Segura MD Work Phone: [facility] 03-14-2022 12:31-0500 Respiratory rate 16 /min Radha Segura MD Work Phone: [facility] 03-14-2022 12:31-0500 Systolic blood pressure 104 mm[Hg] Radha Segura MD Work Phone: [facility] 03-14-2022 10:01-0500 Body temperature 98.01 [degF] Radha Segura MD Work Phone: [facility] 03-09-2022 09:35-0500 Body temperature 97.81 [degF] Kenny Pendleannette AUTOMATIC DRILL OPERATOR.DEVELOPMENT ADMINISTRATOR Work Phone: [facility] 03-09-2022 09:35-0500 Body weight 109.14 kg Kenny Pendleannette AUTOMATIC DRILL OPERATOR.DEVELOPMENT ADMINISTRATOR Work Phone: [facility] 03-09-2022 09:35-0500 Diastolic blood pressure 78 mm[Hg] Kenny Pendlebury AUTOMATIC DRILL OPERATOR.DEVELOPMENT ADMINISTRATOR Work Phone: [facility] 03-09-2022 09:35-0500 Heart rate 89 /min Kenny Pendlebury AUTOMATIC DRILL OPERATOR.DEVELOPMENT ADMINISTRATOR Work Phone: [facility] 03-09-2022 09:35-0500 Respiratory rate 16 /min Kenny Pendlebury AUTOMATIC DRILL OPERATOR.DEVELOPMENT ADMINISTRATOR Work Phone: [facility] 03-09-2022 09:35-0500 SaO2% (BldA) [Mass fraction] 98 % Kenny Mi AUTOMATIC DRILL OPERATOR.DEVELOPMENT ADMINISTRATOR Work Phone: [facility] 03-09-2022 09:35-0500 Systolic blood pressure 130 mm[Hg] Kenny Mi AUTOMATIC DRILL OPERATOR.DEVELOPMENT ADMINISTRATOR Work Phone: [facility] 12-26-2021 13:25-0400 Body weight 108.41 kg Nisha Sullivan AUTOMATIC DRILL OPERATOR.DEVELOPMENT ADMINISTRATOR Work Phone: [facility] 12-26-2021 13:25-0400 Diastolic blood pressure 88 mm[Hg] Nisha Hagiorgio AUTOMATIC DRILL OPERATOR.DEVELOPMENT ADMINISTRATOR Work Phone: [facility] 12-26-2021 13:25-0400 Heart rate 102 /min Nisha Sullivan AUTOMATIC DRILL OPERATOR.DEVELOPMENT ADMINISTRATOR Work Phone: [facility] 12-26-2021 13:25-0400 Respiratory rate 18 /min Nisha Sullivan AUTOMATIC DRILL OPERATOR.DEVELOPMENT ADMINISTRATOR Work Phone: [facility] 12-26-2021 13:25-0400 SaO2% (BldA) [Mass fraction] 98 % Nisha Sullivan AUTOMATIC DRILL OPERATOR.DEVELOPMENT ADMINISTRATOR Work Phone: [facility] 12-26-2021 13:25-0400 Systolic blood pressure 122 mm[Hg] Nisha Sullivan AUTOMATIC DRILL OPERATOR.DEVELOPMENT ADMINISTRATOR Work Phone: [facility] 12-19-2021 11:03-0400 Body weight 107.05 kg Nurse Wstr Work Phone: [facility] 12-19-2021 11:03-0400 Diastolic blood pressure 80 mm[Hg] Nurse Wstr Work Phone: [facility] 12-19-2021 11:03-0400 Systolic blood pressure 112 mm[Hg] Nurse Wstr Work Phone: [facility] 12-06-2021 09:30-0400 Body temperature 98.2 [degF] Miguel Angel Baird MD Work Phone: [facility] 12-06-2021 09:30-0400 Body weight 109.5 kg Miguel Angel Baird MD Work Phone: [facility] 12-06-2021 09:30-0400 Diastolic blood pressure 70 mm[Hg] Miguel Angel Baird MD Work Phone: [facility] 12-06-2021 09:30-0400 Heart rate 95 /min Miguel Angel Baird MD Work Phone: [facility] 12-06-2021 09:30-0400 Respiratory rate 21 /min Miguel Angel Baird MD Work Phone: [facility] 12-06-2021 09:30-0400 SaO2% (BldA) [Mass fraction] 99 % Miguel Angel Baird MD Work Phone: [facility] 12-06-2021 09:30-0400 Systolic blood pressure 122 mm[Hg] Miguel Angel Baird MD Work Phone: [facility] 11-20-2021 09:06-0400 Body weight 110.68 kg Nurse Wstr Work Phone: [facility] 11-20-2021 09:06-0400 Diastolic blood pressure 78 mm[Hg] Nurse Wstr Work Phone: [facility] 11-20-2021 09:06-0400 Systolic blood pressure 120 mm[Hg] Nurse Wstr Work Phone: [facility] 10-25-2021 11:47-0400 Body temperature 98.6 [degF] Orly Athy PA-C Work Phone: [facility] 10-25-2021 11:47-0400 Body weight 119.2 kg Orly Athy PA-C Work Phone: [facility] 10-25-2021 11:47-0400 Diastolic blood pressure 80 mm[Hg] Orly Athy PA-C Work Phone: [facility] 10-25-2021 11:47-0400 Heart rate 85 /min Orly Athy PA-C Work Phone: [facility] 10-25-2021 11:47-0400 Respiratory rate 16 /min Orly Lizarragay PA-C Work Phone: [facility] 10-25-2021 11:47-0400 SaO2% (BldA) [Mass fraction] 99 % Orly Lizarragay PA-C Work Phone: [facility] 10-25-2021 11:47-0400 Systolic blood pressure 118 mm[Hg] Orlymanuela Lizarragavahe PA-C Work Phone: [facility] 10-24-2021 13:13-0400 Body height 172.7 cm Ramandeep Castanon MD Work Phone: [facility] 10-24-2021 13:13-0400 Body weight 117.48 kg Ramandeep Castanon MD Work Phone: [facility] 10-24-2021 13:13-0400 Diastolic blood pressure 80 mm[Hg] Ramandeep Castanon MD Work Phone: [facility] 10-24-2021 13:13-0400 Systolic blood pressure 126 mm[Hg] Ramandeep Castanon MD Work Phone: [facility] Encounters Encounter Date Encounter Type Care Provider Facility Start: 02-28-2023 End: 02-28-2023 ambulatory RAMANDEEP CASTANON Facility:[facility] Start: 02-15-2023 End: 02-15-2023 ambulatory GABY GARCIA Facility:[facility] Start: 02-15-2023 End: 02-15-2023 Patient encounter procedure Gaby Garcia APRN.DEVELOPMENT ADMINISTRATOR Work Phone: OB/Gynecology Procedures Date Procedure Procedure Detail Performing Clinician Start: 02-15-2023 Us preg uterus after 1st trimest 03/04 gestation Taty Callejas MD Work Phone: Start: 01-31-2023 URINE OB DIP B/O Ramandeep Castanon MD Work Phone: Start: 01-17-2023 URINE OB DIP B/O Taty Callejas MD Work Phone: Start: 01-04-2023 BACTERIAL VAGINOSIS NAAT Ramandeep Castanon MD Work Phone: Start: 01-04-2023 Iadna trichomonas vaginalis amplified probe tech Ramandeep Castanon MD Work Phone: Start: 11-14-2022 BACTERIAL VAGINOSIS NAAT Ramandeep Castanon MD Work Phone: Start: 11-14-2022 Iadna trichomonas vaginalis amplified probe tech Ramandeep Castanon MD Work Phone: Start: 11-14-2022 INFLUENZA VACCINE, A GE 6 MO - 64 YR, QUADRIVALENT (AFLURIA, FLULAVAL, FLUZONE) Ramandeep Castanon MD Work Phone: Start: 11-14-2022 URINE OB DIP B/O Ramandeep Castanon MD Work Phone: Start: 11-14-2022 Us preg uterus after 1st trimest 03/04 gestation Debra Wagner MD Work Phone: Start: 11-06-2022 URINE OB DIP B/O Raul Hendricks AUTOMATIC DRILL OPERATOR.CNM Work Phone: Start: 09-18-2022 Antibody screen NEIL VELIZ Plan of Treatment Date Care Activity Detail Author Start: 01-31-2033 Urine microalbumin profile DTaP,Tdap,Td Vaccine (10 - Td or Tdap) [facility] Start: 08-21-2027 HPV TESTING HPV TESTING [facility] Start: 08-21-2027 PAP TESTING PAP TESTING [facility] Start: 08-21-2027 Screening for malignant neoplasm of cervix [facility] Start: 10-24-2026 HPV TESTING HPV TESTING [facility] Start: 10-24-2026 PAP TESTING PAP TESTING [facility] Start: 10-24-2025 Urine microalbumin profile [facility] Start: 02-04-2023 RSV Vaccine (1 - Risk 1-dose series) RSV Vaccine (1 - Risk 1-dose series) [facility] Start: 01-17-2023 End: 01-18-2024 OBSTETRIC ULTRASOUND [facility] OBSTETRIC ULTRASOUND I Anc Imaging Routine 28 weeks gestation of Obesity affecting in third trimester, unspecified obesity type Expected: 01/17/2023, Expires: 01/18/2024 [facility] Work Phone: Immunizations Immunization Date Immunization Notes Care Provider Donna baer 01-31-2023 tetanus toxoid, redu geni diphtheria toxoid, and acellular pertussis vaccine, adsorbed Ramandeep Castanon MD Work Phone: [facility] 11-14-2022 influenza, injectabl e, quadrivalent, contains preservative Ramandeep Castanon MD Work Phone: [facility] 12-01-2018 influenza, injectabl e, quadrivalent, contains preservative Fabi Podlogar AUTOMATIC DRILL OPERATOR.[facility] Work Phone: [facility] Work Phone: 12-13-2015 influenza, seasonal, injectable Fabi Podlogar AUTOMATIC DRILL OPERATOR.DEVELOPMENT ADMINISTRATOR Work Phone: [facility] 10-25-2015 tetanus toxoid, redu geni diphtheria toxoid, and acellular pertussis vaccine, adsorbed Fabi Podlogar AUTOMATIC DRILL OPERATOR.DEVELOPMENT ADMINISTRATOR Work Phone: [facility] 12-16-2012 influenza, seasonal, injectable, preservative free Fabi Podlogar AUTOMATIC DRILL OPERATOR.[facility] Work Phone: [facility] Work Phone: 12-09-2012 influenza virus vaccine, unspecified formulation Fabi Podlogar AUTOMATIC DRILL OPERATOR.DEVELOPMENT ADMINISTRATOR Work Phone: [facility] Work Phone: 10-14-2012 tetanus toxoid, redu geni diphtheria toxoid, and acellular pertussis vaccine, adsorbed Fabi Podlogar AUTOMATIC DRILL OPERATOR.DEVELOPMENT ADMINISTRATOR Work Phone: [facility] 10-13-2004 Meningococcal, MCV4, unspecified conjugate formulation(groups A, C, Y and W-135) Fabi Podlogar AUTOMATIC DRILL OPERATOR.DEVELOPMENT ADMINISTRATOR Work Phone: [facility] Work Phone: 10-13-2004 tetanus toxoid, redu geni diphtheria toxoid, and acellular pertussis vaccine, adsorbed Fabi Podlogar AUTOMATIC DRILL OPERATOR.[facility] Work Phone: [facility] Work Phone: 09-10-2003 hepatitis B vaccine, pediatric or pediatric/adolescent dosage Fabi Podlogar AUTOMATIC DRILL OPERATOR.[facility] Work Phone: [facility] Work Phone: 09-25-2002 hepatitis B vaccine, pediatric or pediatric/adolescent dosage Fabi Podlogar AUTOMATIC DRILL OPERATOR.[facility] Work Phone: [facility] Work Phone: 10-02-2001 hepatitis B vaccine, pediatric or pediatric/adolescent dosage Fabi Podlogar AUTOMATIC DRILL OPERATOR.[facility] Work Phone: [facility] Work Phone: 10-02-2001 measles, mumps and rubella virus vaccine Fabi Podlogar AUTOMATIC DRILL OPERATOR.[facility] Work Phone: [facility] Work Phone: 09-26-1994 diphtheria, tetanus toxoids and acellular pertussis vaccine Fabi Podlogar AUTOMATIC DRILL OPERATOR.[facility] Work Phone: [facility] Work Phone: 09-26-1994 trivalent poliovirus vaccine, live, oral Fabi Podlogar AUTOMATIC DRILL OPERATOR.[facility] Work Phone: [facility] Work Phone: 03-26-1992 Chicken Pox (disease) Fabi Podlogar AUTOMATIC DRILL OPERATOR.[facility] Work Phone: [facility] Work Phone: 10-14-1990 diphtheria, tetanus toxoids and pertussis vaccine Fabi Podlogar AUTOMATIC DRILL OPERATOR.[facility] Work Phone: [facility] Work Phone: 10-14-1990 trivalent poliovirus vaccine, live, oral Fabi Podlogar AUTOMATIC DRILL OPERATOR.[facility] Work Phone: [facility] Work Phone: 07-30-1990 haemophilus influenz ae type b vaccine, PRP-D conjugate Fabi Podlogar AUTOMATIC DRILL OPERATOR.[facility] Work Phone: [facility] Work Phone: 07-30-1990 measles, mumps and rubella virus vaccine Fabi Podlogar AUTOMATIC DRILL OPERATOR.[facility] Work Phone: [facility] Work Phone: 1989 diphtheria, tetanus toxoids and pertussis vaccine Fabi Podlogar AUTOMATIC DRILL OPERATOR.[facility] Work Phone: [facility] Work Phone: 1989 diphtheria, tetanus toxoids and pertussis vaccine Fabi Podlogar AUTOMATIC DRILL OPERATOR.[facility] Work Phone: [facility] Work Phone: 1989 trivalent poliovirus vaccine, live, oral Fabi Podlogar AUTOMATIC DRILL OPERATOR.[facility] Work Phone: [facility] Work Phone: 1989 diphtheria, tetanus toxoids and pertussis vaccine Fabi Podlogar AUTOMATIC DRILL OPERATOR.[facility] Work Phone: [facility] Work Phone: 1989 trivalent poliovirus vaccine, live, oral Fabi Podlogar AUTOMATIC DRILL OPERATOR.[facility] Work Phone: [facility] Work Phone: Payers Date Payer Category Payer Unknown [facility] [id number] 2019-Present [phone] [address] [place] [address] PPO [id number] 2019 Unknown MARQUISE DAIGLE [employer]E PPO [id number] 2019-Present [phone] [address] [place] [address] PPO [id number] 2019 Unknown [id number] Social History Date Type Detail Facility Start: 07-26-2010 End: 10-24-2021 Tobacco smoking status NHIS Ex-smoker [facility] Work Phone: End: 01-02-2018 History of tobacco use Current smoker [facility] Work Phone: End: 01-02-2018 History of tobacco use Cigarette Smoker [facility] Work Phone: Start: 07-26-2010 End: 10-24-2021 Tobacco use and exposure Smokeless tobacco non-user [facility] Work Phone: Start: 06-07-2021 End: 03-14-2022 Alcohol intake Current drinker of alcohol (finding) [facility] Start: 06-07-2021 End: 08-07-2022 Alcohol intake [facility] Start: 06-06-2021 History SDOH Alcohol Frequency 4 [facility] Start: 06-06-2021 History SDOH Alcohol Std Drinks 2 [facility] Start: 06-06-2021 History SDOH Alcohol Binge 1 [facility] Start: 05-22-2012 History SDOH Alcohol Comment Occasionally, NOT WHILE [facility] Start: 06-06-2021 History SDOH Social Connections Living 3 [facility] Start: 1990 Sex Assigned At Not on file C [facility] Start: 05-29-2021 End: 12-06-2021 Exposure to SARS-CoV-2 (event) Not sure [facility] Start: 08-20-2022 End: 02-15-2023 Alcohol intake Ex-drinker (finding) [facility] Start: 08-09-2022 Education 17 [facility] Start: 07-09-2022 [facility] Start: 06-06-2021 End: 08-07-2022 Social connection and isolation panel [facility] Do you belong to any clubs or organizations such as yarsanism groups, unions, fraternal or athletic groups, or school groups? No [facility] Are you now , , , , never or living with a partner? [facility] How often to you hav e a drink containing alcohol? 2-3 time sa week [facility] How many standard dr inks containing alcohol do you have on a typical day? 3 or 4 [facility] How often do you hav e 6 or more drinks on 1 occasion? Never [facility] How hard is it for y ou to pay for the very basics like food, housing, medical care, and heating Somewhat hard [facility] Adult Depression Scr eening Assessment 0 [facility] Do you feel stress - tense, restless, nervous, or anxious, or unable to sleep at night because your mind is troubled all the time - these days [OSQ] Only a little [facility] (I/We) worried wheth er (my/our) food would run out before (I/we) got money to buy more. Never true [facility] Goals Date Patient Goal Desired Activity /State Personal health goal Clinical Notes 08-20-2018 to 02-15-2023 Quick Notes - Gaby Garcia APRN.CNP - 02/15/2023 1:59 PM ESTPatient InstructionsPrenatal Quick Notes - Ramandeep Ayon MD - 01/31/2023 10:09 AM ESTPatient Instructions Note Date & Type Note Facility 02-15-2023 Miscellaneous Notes S: Angelina is a 32 year old female who presents at 33w4d for a routine visit. Feeling movement. Denies headache, visual changes, chest pain, shortness of breath, vaginal bleeding, leakage of fluid, or dysuria. Feeling well, no complaints. O: See flow sheet Gen: No apparent distress Abd: Gravid, nontender, S<D ASSESSMENT/PLAN: 1. Encounter for supervision of other normal in third trimester - ICD9: V22.1, ICD10: Z34.83 (primary diagnosis) - Reviewed movement and PTL precautions - Consider PP salipingectomy 2. 33 weeks gestation of - ICD9: V22.2, ICD10: Z3A.33 - 1 hour GTT WNL - RPR nonreactive - Mild anemia: Taking iron PO - URINE OB DIP B/O 3. Uterine size-date discrepancy, third trimester - ICD9: 649.63, ICD10: O26.843 - S<D - Growth today EFW 24% JOHANN 16 - Reviewed findings with patient 4. Obesity affecting in third trimester, unspecified obesity type - ICD9: 649.13, ICD10: O99.213 - Prepregnancy BMI 37 - Weekly NST at 36 weeks - Plan for repeat growth at 36 weeks 5. Anxiety - ICD9: 300.00, ICD10: F41.9 - Patient very anxious about baby's size - Growth ultrasound EFW% reviewed, JOHANN WNL - Reassurance provided - Reports she is anxious in general - Declines medication - Counseling resources provided Patient was in a hurry to return to work so urine dip was not obtained. Review RSV vaccine next visit. RTO in 2 weeks or sooner as needed. Gaby Garcia APRN.MONICA documented in this encounter [facility] 02-15-2023 Instructions Gaby Garcia APRN.CNP - 02/15/2023 1:37 PM EST SEQUENTIAL SCREENINGS The [facility] offers sequential screenings for women who are interested in screenings for chromosomal abnormalities and certain defects during a . The sequential screen combines ultrasound and blood tests to determine the risk of chromosomal abnormalities, including Down's Syndrome (Trisomy 21) and Trisomy 18, as well as open neural tube defects including spina bifida. Ultrasound examination is performed between 11 weeks and 13 weeks gestational age. Blood tests are drawn after the ultrasound and again later in the between 15 and 21 weeks gestational age. Please let your physician know if you are interested in this testing. It will require an appointment with our civil drafting technician. This is not an ultrasound performed by a physician in our office during a routine visit. Here are some links for wonderful Providers here in the community and surrounding areas. Do not hesitate to contact their offices, many are offering virtual visits during this time. 5-345-2-YTRD6TAAQ - [place] Maternal Mental Health Hotline If you are in suicidal crisis, please call or text 3-578-832-TALK ( ) or visit the National Suicide Prevention Lifeline website. mchb.[facility].gov [facility] Psychology, Psychiatry, Counseling Connect with therapist/ can do virtual visits [phone] Referral to the [facility] To schedule an appointment, please call the Center for [facility] Appointment Line: [phone] option 1 [facility] - [place], [place] [address] [place] [address] [facility] [address] [place] [address] [facility] [address] [place] [address] [facility] [address] [place] [address] Kia Barnett MD [address] [place] [address] [facility] [address] [facility], [address] [place] [address] [facility] [address] [place] [address] [facility] [place] / [place] [phone]/ [phone] Mayelin Tru[address] [address] [facility] [address] [facility] [phone] [facility] [place] / [place] [phone] [facility] [address] [place] [address]/ pike and dupo [phone] Teodoro Maldonado, BERNADETTE, DESIREE [facility] Workshops, telehealth and at home visits. [phone] Humanistic counseling center 20 locations [facility], [place], [place], [place], [place], [place], [facility], [place], [place], [place], [place], [place], [place], [facility], [place], [place] ,[facility], [place], [place],[facility], [facility], [place], [facility], [facility]/[place], [place] www.StARTinitiativecounsjon michael moore trauma centerHygloser.co [phone] Psychotherapy resources outside of [facility] are listed below [facility] Fetise.com Psychotherapy Web: https://www.OneTwoSee/ Support International Online Provider Directory https://FittingRoom/ [facility] https://insightcounsDynamic Recreation.CreaWor/ Partners for Behavioral Health and Wellness Web: https://Ion Healthcare/ Guocool.com for Effective Living Web: https://Starline PromotionseffectiveGreenlingliving.CreaWor/ LifeStance Web: https://Dotspin/location/s koffi/[place]/ [facility] Web: https://www.Squawkin Inc.[facility].or / [facility] Web: https://Kite Pharma.Zhengtai Data/ Recovery Resources Mental health and substance abuse help Web: https://www.AddysBiOM & RESOURCES Support International Direct peer support and connection to professional resources Non-Emergency Helpline Phone: / Text: [phone] Web: https://www..net/ Online Provider Directory: https://FittingRoom/ Online Support Meetings: https://www..net/get-he lp/ecy-rywcxs-nqjarqt-meetings/ DIEUDONNE Baby and Supervisor [employer] Web: https://Intelligent Fingerprinting/ Calypso WirelessToKick Sportby Expert information on medication use during and Text: [phone] Web: https://Strategic Science & Technologies/ NATIONAL REGISTRY FOR PSYCHIATRIC MEDICATIONS Currently studying the safety of antidepressants, ADHD medications and atypical antipsychotics taken during TO PARTICIPATE CALL TOLL-FREE: Web: https://womensmentalhealth.org/re search/pregnancyregistry/ Support Groups: [facility]- Follow on facebook Baby Bistro support group led by [facility] department Resilient Mamas - Support Group [facility].org The POEM support group [phone] Www.poemonline.org Follow on facebook - ISHA leung Online support meetings PSI https://www..net/get-he lp/gaa-dqvztd-vbzafab-meetings/ [facility] mommy and me virtual support group 11:30-1pm Support for mothers and new babies and toddlers [place] childbirth education: Childbirth @cc.org or call [phone] CRISIS: CRISIS HOTLINE [phone], 911 or go to the nearest ER. [facility] [phone] / [facility] [phone] https://www.mary imogene bassett hospitalrb.org Crisis text line text the word HOME to 221907 [facility] [address] [facility] [id number] www.Combinature Biopharm Naima Maria clinical counseling [address] [address] www.Ditech Communications [phone] Holding space psychotherapy Jana Rosas DIGITAL PROJECT COORDINATOR TREATING PLANT OPERATOR-S [address] [facility] www.Optensity [phone]/ [place] [phone] They all offer virtual. All work with trauma Support groups Online support meetings PSI https://www..net/get-he lp/hlu-hyujik-kkboimx-meetings/ Here are the support groups they offer: Support of parents of 1 to 4 years old children POEM ( Outreach and Encouragement for Moms) offers free support for mothers experiencing depression, anxiety, and other mood and anxiety disorders. Masks are recommended but not required. No pre-registration required. Babies in arms welcome. meetings now take place on the and Saturday of each month Location: [facility] [address] [place] [address] Room 122 (library room) 7-8:00 p.m. When you enter the yarsanism parking lot off of [address] the entrance door closest to our meeting room is on the front of the building toward the right. For those who are more comfortable with a virtual platform, POEM offers online support group options several days of the week. To register for an online group or to find out more about POEM, website at: https://Apangea Learningaohio.org/get-help/mate gjhy-mvavik-frrtex/poem-services/ offer a confidential helpline: private Facebook group is called ISHA Leung Here are the groups they offer: Traumatic childbirth resources: Http://pattch.org/ https://www.damonogGreenlingmaude Uniteam Communication.CreaWor/ SIGNS AND SYMPTOMS OF LABOR 1. Contractions every 10 minutes or more often 2. Clear, pink, or brownish fluid (water) leaking from vagina 3. Feeling that baby is pushing down, pressure 4. Low, dull backache 5. Cramps that feel like a period 6. Cramps with or without diarrhea If you notice any of the above symptoms, contact our office at [phone] and ask to speak with a nurse. After hours, you can call doctors registry at [phone] OR call [facility] at [phone] and ask to have the doctor calibration specialist paged. If you consider this an emergency, dial 9-1- or go to your nearest emergency department. NEED HELP? Are you dealing with a violent or abusive relationship? Are you a victim of rape or sexual assult? Call [facility] ([place]) 24 hour Crisis Hotline: 370.705.5151 or 827-925-9842. MANUAL Your Guide to a Healthy manual is now on-line. Visit [facility] [place].org/HealthyPregna ncyGuide to download your free copy documented in this encounter [facility] 01-31-2023 Note HNO ID: [id number] Author: Charlene Banegas Ma Service: ? Author Type: ? Type: Progress Notes Filed: 01/31/2023 10:11 AM Note Text: Patient identified by name and date of . Angelina Rodriguez presents today for a vaccination of Tdap. Patient denies an allergy to latex: yes Patient denies a severe (life-threatening) allergy to a previous dose of Tdap, DTP, DTaP, DT or Td vaccine. Yes Patient denies history of epilepsy or neurological problems: Yes Patient is afebrile and denies being moderately or severely ill: Yes Patient denies history of Guillain-Bourbon Syndrome (a severe paralytic illness): Yes Tdap Adacel injection was given without incident. See immunizations for details of immunizations administered today. VIS sheet provided: Yes Provider Israel was present in office at time of injection. PEE BLACK RN [facility] 01-31-2023 Miscellaneous Notes DM- Pt doing well today. Denies Vaginal Bleeding, Leaking fluid, or contractions. Pt reports good movement. Had to move out of house due to mold- headaches have resolved. Mild anemia will start PO iron. Considering PP Salpingectomy. Growth us scheduled. RTO 2 wks. Tdap today. RSV vaccine reviewed. Ramandeep Darnell MD documented in this encounter [facility] 01-31-2023 History of Present illness Narrative Patient identified by name and date of . Angelina Rodriguez presents today for a vaccination of Tdap. Patient denies an allergy to latex: yes Patient denies a severe (life-threatening) allergy to a previous dose of Tdap, DTP, DTaP, DT or Td vaccine. Yes Patient denies history of epilepsy or neurological problems: Yes Patient is afebrile and denies being moderately or severely ill: Yes Patient denies history of Guillain-Bourbon Syndrome (a severe paralytic illness): Yes Tdap Adacel injection was given without incident. See immunizations for details of immunizations administered today. VIS sheet provided: Yes Provider Israel was present in office at time of injection. PEE BLACK RN documented in this encounter [facility] 01-31-2023 Instructions Pee Black RN - 01/31/2023 9:20 AM EST SEQUENTIAL SCREENINGS The [facility] offers sequential screenings for women who are interested in screenings for chromosomal abnormalities and certain defects during a . The sequential screen combines ultrasound and blood tests to determine the risk of chromosomal abnormalities, including Down's Syndrome (Trisomy 21) and Trisomy 18, as well as open neural tube defects including spina bifida. Ultrasound examination is performed between 11 weeks and 13 weeks gestational age. Blood tests are drawn after the ultrasound and again later in the between 15 and 21 weeks gestational age. Please let your physician know if you are interested in this testing. It will require an appointment with our civil drafting technician. This is not an ultrasound performed by a physician in our office during a routine visit. SIGNS AND SYMPTOMS OF LABOR 1. Contractions every 10 minutes or more often 2. Clear, pink, or brownish fluid (water) leaking from vagina 3. Feeling that baby is pushing down, pressure 4. Low, dull backache 5. Cramps that feel like a period 6. Cramps with or without diarrhea If you notice any of the above symptoms, contact our office at [phone] and ask to speak with a nurse. After hours, you can call doctors registry at [phone] OR call [facility] at [phone] and ask to have the doctor calibration specialist paged. If you consider this an emergency, dial [phone] or go to your nearest emergency department. NEED HELP? Are you dealing with a violent or abusive relationship? Are you a victim of rape or sexual assult? Call [facility] [place] ([place]) 24 hour Crisis Hotline: 212.408.2552 or 974-964-7848. MANUAL Your Guide to a Healthy manual is now on-line. Visit [facility] [place].org/HealthyPregna ncyGuide to download your free copy documented in this encounter [facility] 01-17-2023 Note HNO ID: [id number] Author: s Paula Crisostomo Service: ? Author Type: ? Type: Progress Notes Filed: 01/17/2023 11:13 AM Note Text: Patient identified by name and date of . Angelina Rodriguez presents today for a vaccination of Tdap. Patient denies an allergy to latex: no Patient denies a severe (life-threatening) allergy to a previous dose of Tdap, DTP, DTaP, DT or Td vaccine. Yes Patient denies history of epilepsy or neurological problems: Yes Patient is afebrile and denies being moderately or severely ill: Yes Patient denies history of Guillain-Bourbon Syndrome (a severe paralytic illness): Yes [facility] 01-17-2023 Miscellaneous Notes KJ - No VB/LOF/ctxs. Reports good FM. She still is feeling anxious about the . Patient is also having trouble sleeping A&P: 28wk labs Tdap next visit Anxiety & insomnia - patient isn't able to do counseling at this time. Advised on magnesium with or without melatonin at bedtime (Calm). Also she has tried anxiety medication in the past without success. PPBC - declines LARC. She is considering PP sterilization for her or her . Reviewed PTL & FM precautions Taty Callejas MD documented in this encounter [facility] 01-17-2023 History of Present illness Narrative Patient identified by name and date of . Angelina Rodriguez presents today for a vaccination of Tdap. Patient denies an allergy to latex: no Patient denies a severe (life-threatening) allergy to a previous dose of Tdap, DTP, DTaP, DT or Td vaccine. Yes Patient denies history of epilepsy or neurological problems: Yes Patient is afebrile and denies being moderately or severely ill: Yes Patient denies history of Guillain-Bourbon Syndrome (a severe paralytic illness): Yes documented in this encounter [facility] 01-17-2023 Instructions Taty Callejas MD - 01/17/2023 10:16 AM EST SEQUENTIAL SCREENINGS The [facility] offers sequential screenings for women who are interested in screenings for chromosomal abnormalities and certain defects during a . The sequential screen combines ultrasound and blood tests to determine the risk of chromosomal abnormalities, including Down's Syndrome (Trisomy 21) and Trisomy 18, as well as open neural tube defects including spina bifida. Ultrasound examination is performed between 11 weeks and 13 weeks gestational age. Blood tests are drawn after the ultrasound and again later in the between 15 and 21 weeks gestational age. Please let your physician know if you are interested in this testing. It will require an appointment with our civil drafting technician. This is not an ultrasound performed by a physician in our office during a routine visit. SIGNS AND SYMPTOMS OF LABOR 1. Contractions every 10 minutes or more often 2. Clear, pink, or brownish fluid (water) leaking from vagina 3. Feeling that baby is pushing down, pressure 4. Low, dull backache 5. Cramps that feel like a period 6. Cramps with or without diarrhea If you notice any of the above symptoms, contact our office at [phone] and ask to speak with a nurse. After hours, you can call doctors registry at [phone] OR call [facility] at [phone] and ask to have the doctor calibration specialist paged. If you consider this an emergency, dial 9-1-8 or go to your nearest emergency department. NEED HELP? Are you dealing with a violent or abusive relationship? Are you a victim of rape or sexual assult? Call [facility] ([place]) 24 hour Crisis Hotline: 470.833.6881 or 632-197-8712. MANUAL Your Guide to a Healthy manual is now on-line. Visit [email or web address] [email or web address] to download your free documented in this encounter [facility] 01-04-2023 Note HNO ID: [id number] Author: Ramandeep Ayon MD Service: ? Author Type: Physician Type: Progress Notes Filed: 01/04/2023 1:42 PM Note Text: Curing Bin Operator offered: Patient declines. Angelina Rodriguez is a 32 year old female who presents complaining of vulvar irritation and vaginal discharge. Patient reports symptoms feel similar to approximately 2 months ago when she was diagnosed with bacterial vaginosis. She states that she has a lot of discharge that is malodorous in nature she has pelvic discomfort, no dysuria, she feels that the labia are swollen and she has small excoriations on them. She states that every time she tries to use jbwu-yxr-mvrxonr Monistat Monistat suppository cream comes back out and it does not work. Patient has no concerns for STDs today. No changes with soaps or detergents. OB History T3 L3 SAB0 IAB0 Ectopic0 Multiple0 Live Births3 Cableman History LMP: 06/25/2022 (Approximate), Age at Menarche: Age at First : Age at Menopause: Cableman History Comments: Sexual Activity: Yes; Male Contraception: PAST MEDICAL HISTORY Diagnosis Date Abnormal glandular Papanicolaou smear of cervix Abn. Pap smear (cervix), mildl dysplasia Depression FRACTURE 2001 FOOT, BALLET Hiatal hernia Irregular heartbeat depression PAST SURGICAL HISTORY Procedure Laterality Date COLONOSCOPY 11/29/2016 COLONOSCOPY 03/14/2022 COLPOSCOPY CERVIX UPPER/ADJACENT VAGINA Colposcopy EGD W/O BRSH SPEC VARICIES INJ 11/29/2016 EGD W/O BRSH SPEC VARICIES INJ 03/14/2022 LAPAROSCOPY SURG CHOLECYSTECTOMY 03/17/2019 Cholecystectomy, lap UNSPECIFIED ORAL SURGERY PROCEDURE, BY REPORT [place] FAMILY HISTORY Problem Relation Age of Onset Breast Cancer Mother other (Skin Cancer) Mother Cancer Father Asthma Brother Depression Brother Breast Cancer Maternal Grandmother and maternal great aunts. Cancer Maternal Grandmother Uterine Dementia Maternal Grandfather Breast Cancer Paternal Grandmother Dementia Paternal Grandfather Allergies Son Asthma Son Allergies Son Asthma Son Asthma Son Allergies Son other (Skin Cancer) Maternal Aunt Social History Tobacco Use Smoking status: Former Years: 10 Types: Cigarettes Quit date: 01/02/2018 Years since quittin.0 Smokeless tobacco: Never Vaping Use Vaping Use: Never used Substance Use Topics Alcohol use: Not Currently Alcohol/week: 20.0 standard drinks of alcohol Types: 11 Standard drinks or equivalent, 2 Glasses of Wine (5oz), 3 Cans of Beer (12oz), 3 Mixed Drinks per week Comment: Occasionally, NOT WHILE Drug use: No Current Outpatient Medications Medication Sig acyclovir (ZOVIRAX) 400 mg tablet take 1 tablet by mouth twice a day prental multivitamin 27 mg iron- 800 mcg tablet Take 1 tablet by mouth once daily. No current facility-administered medications for this visit. Allergies As of Date: 01/04/2023 Allergen Noted Reaction LATEX 04/24/2005 Rash ADHESIVE TAPE (ROSINS) 05/28/2018 Rash and Itching Fully Assessed 12/20/2022 REVIEW OF SYSTEMS Abdomen: mild cramping. Bladder: no dysuria.. Expanded ROS: GENERAL: Negative for fever Allergies and current medication updated:Yes EXAM: BP 108/62 Wt 253 lb (114.8kg) LMP 06/25/2022 GENERAL: pleasant, female in no apparent distress HEENT: Normocephalic, atraumatic, mucus membranes moist, and no lesions NECK: full range of motion PELVIC: normal Bartholin's glands, urethra, [place]'s glands, no cervical lesions, good vaginal support, normal appearing perineal body and perianal region, vulva appears erythematous with mild excoriations noted on the superior aspect near the clitoral howard. No ulcerations appreciated no other lesions noted. Discharge appears thick and clumpy with a yellow tinge. Cervix appears thick and closed. NEURO: alert and oriented x3,exam grossly non-focal EXTREMITIES: normal ASSESSMENT AND PLAN: Encounter Diagnosis ICD-10-CM 1. Vaginal discharge in in second trimester O26.892 ELIZA/TRICHOMONAS NAAT N89.8 BACTERIAL VAGINOSIS NAAT 2. Vulvar irritation N90.89 ELIZA/TRICHOMONAS NAAT BACTERIAL VAGINOSIS NAAT 3. Symptoms are consistent with yeast vulvovaginitis possible bacterial vaginosis. Discussed using mgrg-yec-hvdalzw Monistat. Patient reports that does not work for her right now. Discussed that is recommendation for but will give oral diflucan at this time. 4. Reviewed vulvar and vaginal hygiene. Medical Decision Making: Problems: Low: Acute, uncomplicated illness or injury Data: Unique test(s) ordered: 2 Risk: Moderate: Drug management Medical Decision Making Level: 3 - Low Ramandeep Darnell MD [facility] 01-04-2023 History of Present illness Narrative Curing Bin Operator offered: Patient declines. Angelina Rodriguez is a 32 year old female who presents complaining of vulvar irritation and vaginal discharge. Patient reports symptoms feel similar to approximately 2 months ago when she was diagnosed with bacterial vaginosis. She states that she has a lot of discharge that is malodorous in nature she has pelvic discomfort, no dysuria, she feels that the labia are swollen and she has small excoriations on them. She states that every time she tries to use igtu-que-wnejwcw Monistat Monistat suppository cream comes back out and it does not work. Patient has no concerns for STDs today. No changes with soaps or detergents. OB History T3 L3 SAB0 IAB0 Ectopic0 Multiple0 Live Births3 Cableman History LMP: 06/25/2022 (Approximate), Age at Menarche: Age at First : Age at Menopause: Cableman History Comments: Sexual Activity: Yes; Male Contraception: PAST MEDICAL HISTORY Diagnosis Date Abnormal glandular Papanicolaou smear of cervix Abn. Pap smear (cervix), mildl dysplasia Depression FRACTURE 2001 FOOT, BALLET Hiatal hernia Irregular heartbeat depression PAST SURGICAL HISTORY Procedure Laterality Date COLONOSCOPY 11/29/2016 COLONOSCOPY 03/14/2022 COLPOSCOPY CERVIX UPPER/ADJACENT VAGINA Colposcopy EGD W/O [facility] SPEC VARICIES INJ 11/29/2016 EGD W/O BRSH SPEC VARICIES INJ 03/14/2022 LAPAROSCOPY SURG CHOLECYSTECTOMY 03/17/2019 Cholecystectomy, lap UNSPECIFIED ORAL SURGERY PROCEDURE, BY REPORT [place] FAMILY HISTORY Problem Relation Age of Onset Breast Cancer Mother other (Skin Cancer) Mother Cancer Father Asthma Brother Depression Brother Breast Cancer Maternal Grandmother and maternal great aunts. Cancer Maternal Grandmother Uterine Dementia Maternal Grandfather Breast Cancer Paternal Grandmother Dementia Paternal Grandfather Allergies Son Asthma Son Allergies Son Asthma Son Asthma Son Allergies Son other (Skin Cancer) Maternal Aunt Social History Tobacco Use Smoking status: Former Years: 10 Types: Cigarettes Quit date: 01/02/2018 Years since quittin.0 Smokeless tobacco: Never Vaping Use Vaping Use: Never used Substance Use Topics Alcohol use: Not Currently Alcohol/week: 20.0 standard drinks of alcohol Types: 11 Standard drinks or equivalent, 2 Glasses of Wine (5oz), 3 Cans of Beer (12oz), 3 Mixed Drinks per week Comment: Occasionally, NOT WHILE Drug use: No Current Outpatient Medications Medication Sig acyclovir (ZOVIRAX) 400 mg tablet take 1 tablet by mouth twice a day prental multivitamin 27 mg iron- 800 mcg tablet Take 1 tablet by mouth once daily. No current facility-administered medications for this visit. Allergies As of Date: 01/04/2023 Allergen Noted Reaction LATEX 04/24/2005 Rash ADHESIVE TAPE (ROSINS) 05/28/2018 Rash and Itching Fully Assessed 12/20/2022 REVIEW OF SYSTEMS Abdomen: mild cramping. Bladder: no dysuria.. Expanded ROS: GENERAL: Negative for fever Allergies and current medication updated:Yes EXAM: BP 108/62 Wt 253 lb (114.8kg) LMP 06/25/2022 GENERAL: pleasant, female in no apparent distress HEENT: Normocephalic, atraumatic, mucus membranes moist, and no lesions NECK: full range of motion PELVIC: normal [place]'s glands, urethra, [place]'s glands, no cervical lesions, good vaginal support, normal appearing perineal body and perianal region, vulva appears erythematous with mild excoriations noted on the superior aspect near the clitoral howard. No ulcerations appreciated no other lesions noted. Discharge appears thick and clumpy with a yellow tinge. Cervix appears thick and closed. NEURO: alert and oriented x3,exam grossly non-focal EXTREMITIES: normal ASSESSMENT AND PLAN: Encounter Diagnosis ICD-10-CM 1. Vaginal discharge in in second trimester O26.892 ELIZA/TRICHOMONAS NAAT N89.8 BACTERIAL VAGINOSIS NAAT 2. Vulvar irritation N90.89 ELIZA/TRICHOMONAS NAAT BACTERIAL VAGINOSIS NAAT 3. Symptoms are consistent with yeast vulvovaginitis possible bacterial vaginosis. Discussed using fivs-juh-hwunybo Monistat. Patient reports that does not work for her right now. Discussed that is recommendation for but will give oral diflucan at this time. 4. Reviewed vulvar and vaginal hygiene. Medical Decision Making: Problems: Low: Acute, uncomplicated illness or injury Data: Unique test(s) ordered: 2 Risk: Moderate: Drug management Medical Decision Making Level: 3 - Low Ramandeep Darnell MD documented in this encounter [facility] 11-14-2022 Miscellaneous Notes DM- Pt doing well today. Denies Vaginal Bleeding, Leaking fluid, or contractions. Pt reports good movement. Anatomy us today- BOY. Feels like she has BV infection- malodorous discharge. Irritation outside vulvar area- has some excoriations- Lotrisone given. Reviewed vulvar hygiene. Flu vaccine today. RTO 4 wks. Ramandeep Darnell MD documented in this encounter [facility] 11-14-2022 Instructions Makenzie Crisostomo Charlene - 11/14/2022 1:31 PM EDT SEQUENTIAL SCREENINGS The [facility] offers sequential screenings for women who are interested in screenings for chromosomal abnormalities and certain defects during a . The sequential screen combines ultrasound and blood tests to determine the risk of chromosomal abnormalities, including Down's Syndrome (Trisomy 21) and Trisomy 18, as well as open neural tube defects including spina bifida. Ultrasound examination is performed between 11 weeks and 13 weeks gestational age. Blood tests are drawn after the ultrasound and again later in the between 15 and 21 weeks gestational age. Please let your physician know if you are interested in this testing. It will require an appointment with our civil drafting technician. This is not an ultrasound performed by a physician in our office during a routine visit. SIGNS AND SYMPTOMS OF LABOR 1. Contractions every 10 minutes or more often 2. Clear, pink, or brownish fluid (water) leaking from vagina 3. Feeling that baby is pushing down, pressure 4. Low, dull backache 5. Cramps that feel like a period 6. Cramps with or without diarrhea If you notice any of the above symptoms, contact our office at [phone] and ask to speak with a nurse. After hours, you can call doctors registry at [phone] OR call [facility] at [phone] and ask to have the doctor calibration specialist paged. If you consider this an emergency, dial --1 or go to your nearest emergency department. NEED HELP? Are you dealing with a violent or abusive relationship? Are you a victim of rape or sexual assult? Call [facility] ([place]) 24 hour Crisis Hotline: 249.819.8983 or 578-915-0496. MANUAL Your Guide to a Healthy manual is now on-line. Visit [email or web address] ncyGuide to download your free copy documented in this encounter [facility] 11-06-2022 Miscellaneous Notes Angelina Rodriguez is a 32 year old female who presents at 18w3d as an add on visit today for episode of vaginal bleeding and currently cramping. Reported last night went to the bathroom and wiped and noticed dark, fleshy tissue after wiping . Couldn't give an estimated size because stated came out in pieces . No bleeding since. Started feeling lower, dull cramps yesterday. Trying to increase fluid intake. Had intercourse over the weekend. Not felt movement to date. Tearful. Denies headache, visual changes, chest pain, shortness of breath, vaginal bleeding, leakage of fluid, or dysuria. TAUS- IUP with positive cardiac activity and movement FHT 148 bpm ASSESSMENT/PLAN: 1. 18 weeks gestation of - ICD9: V22.2, ICD10: Z3A.18 (primary diagnosis) - URINE OB DIP B/O 2. Cramping affecting , antepartum - ICD9: 646.83, 789.00, ICD10: O26.899, R10.9 3. Spotting during - ICD9: 649.50, ICD10: O26.859 - Reassurance provided - No further bleeding or spotting - Pelvic rest - Bleeding precautions reviewed and when to call provider - Keep anatomy US and ADRIEN next week Erendira Hendricks APRN.CNM documented in this encounter [facility] 11-06-2022 Instructions Reid Saleh Cma - 11/06/2022 1:22 PM EDT SEQUENTIAL SCREENINGS The [facility] offers sequential screenings for women who are interested in screenings for chromosomal abnormalities and certain defects during a . The sequential screen combines ultrasound and blood tests to determine the risk of chromosomal abnormalities, including Down's Syndrome (Trisomy 21) and Trisomy 18, as well as open neural tube defects including spina bifida. Ultrasound examination is performed between 11 weeks and 13 weeks gestational age. Blood tests are drawn after the ultrasound and again later in the between 15 and 21 weeks gestational age. Please let your physician know if you are interested in this testing. It will require an appointment with our civil drafting technician. This is not an ultrasound performed by a physician in our office during a routine visit. SIGNS AND SYMPTOMS OF LABOR 1. Contractions every 10 minutes or more often 2. Clear, pink, or brownish fluid (water) leaking from vagina 3. Feeling that baby is pushing down, pressure 4. Low, dull backache 5. Cramps that feel like a period 6. Cramps with or without diarrhea If you notice any of the above symptoms, contact our office at [phone] and ask to speak with a nurse. After hours, you can call doctors registry at [phone] OR call [facility] at [phone] and ask to have the doctor calibration specialist paged. If you consider this an emergency, dial 9--1 or go to your nearest emergency department. NEED HELP? Are you dealing with a violent or abusive relationship? Are you a victim of rape or sexual assult? Call [facility] ([place]) 24 hour Crisis Hotline: 224.361.6996 or 697-091-4579. MANUAL Your Guide to a Healthy manual is now on-line. Visit [email or web address] ncyGuide to download your free copy documented in this encounter [facility] 11-06-2022 Miscellaneous Notes Pt scheduled for 1:30 with CP. Hailey Gallegos LPN Come in to be seen by CP at 130. Debra Wagner MD 18w3d Pt calling with c/o not feeling well. She is reporting that she passed a clot that was dark brown/red fleshy like material. Prior to this pt was c/o minor cramping and stomach pain. Pt reports that she has diarrhea that started about an hour ago., afebrile. No further bleeding since initial episode. Pt continues today with stomach and pelvic pain. That she is rating at a 7-8 on a pain scale. She also reports a headache that will not go away. She has taken tylenol without relief. Pt also noting vagina discharge that is light yellow in color. No lOF. No recent intercourse since Saturday morning. No other sxs. Please advise. Hailey Gallegos LPN documented in this encounter [facility] 09-18-2022 Note HNO ID: [id number] Author: Paula Ornelas Ma Service: ? Author Type: ? Type: Progress Notes Filed: 09/18/2022 11:05 AM Note Text: Patient here for First Trimester Screening. See ultrasound report for details. Options for genetic screening and diagnosis discussed with the patient. Patient opts for first trimester screening and the sequential screening protocol. Limitations of screening tests discussed with the patient. Taty Callejas MD [facility] 09-18-2022 Miscellaneous Notes DM- Pt doing well today. Denies Vaginal Bleeding, Leaking fluid, or cramping. Having dizziness and heartburn- Hiatal hernia. NT today. Reviewed changing positions slowly, small meals, stay on sucralfate. Stay hydrated, increase protein. RTO 4 wks. Ramandeep Darnell MD documented in this encounter [facility] 09-18-2022 History of Present illness Narrative Patient here for First Trimester Screening. See ultrasound report for details. Options for genetic screening and diagnosis discussed with the patient. Patient opts for first trimester screening and the sequential screening protocol. Limitations of screening tests discussed with the patient. Taty Callejas MD documented in this encounter [facility] 09-18-2022 Instructions Ceci Crisostomo Paula - 09/18/2022 10:25 AM EDT SEQUENTIAL SCREENINGS The [facility] offers sequential screenings for women who are interested in screenings for chromosomal abnormalities and certain defects during a . The sequential screen combines ultrasound and blood tests to determine the risk of chromosomal abnormalities, including Down's Syndrome (Trisomy 21) and Trisomy 18, as well as open neural tube defects including spina bifida. Ultrasound examination is performed between 11 weeks and 13 weeks gestational age. Blood tests are drawn after the ultrasound and again later in the between 15 and 21 weeks gestational age. Please let your physician know if you are interested in this testing. It will require an appointment with our civil drafting technician. This is not an ultrasound performed by a physician in our office during a routine visit. SIGNS AND SYMPTOMS OF LABOR 1. Contractions every 10 minutes or more often 2. Clear, pink, or brownish fluid (water) leaking from vagina 3. Feeling that baby is pushing down, pressure 4. Low, dull backache 5. Cramps that feel like a period 6. Cramps with or without diarrhea If you notice any of the above symptoms, contact our office at [phone] and ask to speak with a nurse. After hours, you can call doctors registry at [phone] OR call [facility] at [phone] and ask to have the doctor calibration specialist paged. If you consider this an emergency, dial 9-1-1 or go to your nearest emergency department. NEED HELP? Are you dealing with a violent or abusive relationship? Are you a victim of rape or sexual assult? Call [facility] ([facility] 24 hour Crisis Hotline: 201.269.8652 or 944-065-7830. MANUAL Your Guide to a Healthy manual is now on-line. Visit [email or web address] ncyGuide to download your free copy SEQUENTIAL TESTING PROCESS Sequential Screen First Trimester Today you are currently: 11w3d weeks 09/18/2022: Ultrasound and blood test. Sequential Screen Second Trimester (16-17 Weeks Gestation) When you are called with your results, the nurse will give the optimal draw dates for the Sequential screen second trimester. Blood testing can be done at any [facility] lab. Please report to the any fruit grower office front desk monitor for the Sequential Part 2 requisition and order before reporting to the lab. Your weight will need to be documented for testing. Please note: -No appointment is need for your second blood draw. -Office hours are 8 am to 4:30 pm. -Please have testing done prior to 12 noon on Saturday's -Once the sequential testing is started, in the first trimester the only follow-up will be for the sequential screen second trimester. Please don't have a Quad screen ordered by another provider. If you or your Provider have any questions please call your maternal medicine office, for east side please call [phone] or for the West side call [phone] and ask for the the nurse. Thank you. documented in this encounter [facility] 08-20-2022 Note HNO ID: [id number] Author: Erendira Hendricks APRN.CNM Service: ? Author Type: Client Relations Specialist Type: Progress Notes Filed: 08/20/2022 4:32 PM Note Text: OB point of care ultrasound was performed. See imaging tab for details. Erendira Hendricks APRN.CNM [facility] 08-20-2022 History of Present illness Narrative OB point of care ultrasound was performed. See imaging tab for details. Erendira Hendricks APRN.CNM documented in this encounter [facility] 08-20-2022 Note HNO ID: [id number] Author: Erendira Hendricks APRN.CNM Service: ? Author Type: Client Relations Specialist Type: Progress Notes Filed: 08/20/2022 2:05 PM Note Text: INITIAL OB ASSESSMENT OB Provider: Erendira Hendricks CNM HPI: Angelina is a 32 year old White here to establish Obstetrical Care. Patient's last menstrual period was 06/25/2022 (approximate). from OB Dating Form. Cycles irregular was unplanned but accepted Complaints: nausea and vomiting OB History T3 L3 SAB0 IAB0 Ectopic0 Multiple0 Live Births3 Previous history: Prior : never History of 4th degree laceration: No History of shoulder dystocia: No History of Hypertensive disorders including pre-eclampsia, chronic hypertension or gestational hypertension: No History of gestational diabetes: No Patient's Risk Screening for delivery: MEDICAL/PSYCHOSOCIAL HISTORY: History of hemorrhage or bleeding concerns: No Thyroid Disease: No History of chronic hypertension: No History of pre-existing diabetes: No ABO/RH(D) Date Value Ref Range Status 03/17/2018 O POSITIVE Final BMI 37.78 kg/(m2) History of abnormal pap: Yes Prior treatment for cervical dysplasia: none. History of STDs: None Tobacco use: No Caffeine use: No Drug use: No Alcohol use: No Multivitamin with Folic acid: Yes Episcopal or heritage: No Would refuse blood transfusion if medically necessary: No Are you currently employed? Yes, Occupation: [employer] Do you have any history of depression, anxiety, PTSD, eating disorders or other mood problems: Yes- PPD with all three 10/02/22 starting counseling No medications Do you have any safety concerns or history of traumatic events that you would like to discuss with your provider: No How often does this describe you? I don't have enough money to pay my bills: Never Within the past 12 months, have you worried that your food would run out before you had money to buy more: Never In the past 12 months, has lack of reliable transportation kept you from going to medical appointments or work, or from keeping things needed for daily living: Never In the past 12 months, have you had any concerns about having a place to live, or about the condition or quality of your housing: Never Are there any cultural or spiritual needs we should be aware of: No Over the past two weeks have you felt down, depressed, or hopeless: Negative Over the past two weeks have you felt little interest or pleasure in doing things: Negative GENETIC SCREENING: Partner present: Yes Patient verbalized knowledge of partner family health history: No Do you or your partner have any personal or family history of defects not previously discussed: None Do you have history of a complicated by anomaly, genetic condition, or demise: No Marital Status: Partner: Name: Rikki Rodriguez Age: 31 Occupation: [employer] Gender: Male History of STDs: None PAST MEDICAL HISTORY Diagnosis Date Abnormal glandular Papanicolaou smear of cervix Abn. Pap smear (cervix), mildl dysplasia Depression FRACTURE 2002 FOOT, BALLET Hiatal hernia Irregular heartbeat depression PAST SURGICAL HISTORY Procedure Laterality Date COLONOSCOPY 11/29/2016 COLONOSCOPY 03/14/2022 COLPOSCOPY CERVIX UPPER/ADJACENT VAGINA Colposcopy EGD W/O [facility] SPEC VARICIES INJ 11/29/2016 EGD W/O [facility] SPEC VARICIES INJ 03/14/2022 LAPAROSCOPY SURG CHOLECYSTECTOMY 03/17/2019 Cholecystectomy, lap UNSPECIFIED ORAL SURGERY PROCEDURE, BY REPORT [facility] Current Outpatient Medications Medication Sig Dispense Refill prental multivitamin 27 mg iron- 800 mcg tablet Take 1 tablet by mouth once daily. sucralfate (CARAFATE) 1 gram tablet Take 1 tablet by mouth four times daily. (Patient not taking: Reported on 08/09/2022) 60 tablet 0 cholestyramine-sucrose (QUESTRAN) 4 gram powder Take 4 g by mouth three times daily with meals. (Patient not taking: Reported on 08/09/2022) 60 Packet 0 dicyclomine (BENTYL) 10 mg capsule Take 1 capsule by mouth three times daily as needed. (Patient not taking: No sig reported) 90 capsule 1 Drospirenone-Ethinyl Estradiol (GIANVI, 28,) 3-0.02 mg per tablet Take 1 tablet by mouth once daily. (Patient not taking: Reported on 08/09/2022) 84 tablet 4 acyclovir (ZOVIRAX) 400 mg tablet take 1 tablet by mouth twice a day (Patient taking differently: Take 400 mg by mouth as needed.) 60 tablet 3 No current facility-administered medications for this visit. Allergies As of Date: 08/20/2022 Allergen Noted Reaction LATEX 04/24/2005 Rash ADHESIVE TAPE (ROSINS) 05/28/2018 Rash and Itching Fully Assessed 08/20/2022 Does patient have penicillin allergy: No REVIEW OF SYSTEMS: GENERAL: Negative for: Fever or Chills HEENT: Negative for: Impaired Vision, Ringing in Ears, Nosebleeds. Positive for headaches during pregnan (more content not included)... [facility] 08-20-2022 Miscellaneous Notes Patient at 7.2 weeks gestation for NOB. See progress note. Erendira Hendricks APRN.CNM documented in this encounter [facility] 08-20-2022 History of Present illness Narrative Images from the original note were not included. INITIAL OB ASSESSMENT OB Provider: Erendira Hendricks CNM HPI: Angelina is a 32 year old White here to establish Obstetrical Care. Patient's last menstrual period was 06/25/2022 (approximate). from OB Dating Form. Cycles irregular was unplanned but accepted Complaints: nausea and vomiting OB History T3 L3 SAB0 IAB0 Ectopic0 Multiple0 Live Births3 Previous history: Prior : never History of 4th degree laceration: No History of shoulder dystocia: No History of Hypertensive disorders including pre-eclampsia, chronic hypertension or gestational hypertension: No History of gestational diabetes: No Patient's Risk Screening for delivery: MEDICAL/PSYCHOSOCIAL HISTORY: History of hemorrhage or bleeding concerns: No Thyroid Disease: No History of chronic hypertension: No History of pre-existing diabetes: No ABO/RH(D) Date Value Ref Range Status 03/17/2018 O POSITIVE Final BMI 37.78 kg/(m^2) History of abnormal pap: Yes Prior treatment for cervical dysplasia: none. History of STDs: None Tobacco use: No Caffeine use: No Drug use: No Alcohol use: No Multivitamin with Folic acid: Yes Episcopal or heritage: No Would refuse blood transfusion if medically necessary: No Are you currently employed? Yes, Occupation: [employer] Do you have any history of depression, anxiety, PTSD, eating disorders or other mood problems: Yes- PPD with all three 10/02/22 starting counseling No medications Do you have any safety concerns or history of traumatic events that you would like to discuss with your provider: No How often does this describe you? I don't have enough money to pay my bills: Never Within the past 12 months, have you worried that your food would run out before you had money to buy more: Never In the past 12 months, has lack of reliable transportation kept you from going to medical appointments or work, or from keeping things needed for daily living: Never In the past 12 months, have you had any concerns about having a place to live, or about the condition or quality of your housing: Never Are there any cultural or spiritual needs we should be aware of: No Over the past two weeks have you felt down, depressed, or hopeless: Negative Over the past two weeks have you felt little interest or pleasure in doing things: Negative GENETIC SCREENING: Partner present: Yes Patient verbalized knowledge of partner family health history: No Do you or your partner have any personal or family history of defects not previously discussed: None Do you have history of a complicated by anomaly, genetic condition, or demise: No Marital Status: Partner: Name: Rikki Rodriguez Age: 31 Occupation: [email or web address] Gender: Male History of STDs: None PAST MEDICAL HISTORY Diagnosis Date Abnormal glandular Papanicolaou smear of cervix Abn. Pap smear (cervix), mildl dysplasia Depression FRACTURE 2002 FOOT, BALLET Hiatal hernia Irregular heartbeat depression PAST SURGICAL HISTORY Procedure Laterality Date COLONOSCOPY 11/29/2016 COLONOSCOPY 03/14/2022 COLPOSCOPY CERVIX UPPER/ADJACENT VAGINA Colposcopy EGD W/O [facility] SPEC VARICIES INJ 11/29/2016 EGD W/O [facility] SPEC VARICIES INJ 03/14/2022 LAPAROSCOPY SURG CHOLECYSTECTOMY 03/17/2019 Cholecystectomy, lap UNSPECIFIED ORAL SURGERY PROCEDURE, BY REPORT [facility] Current Outpatient Medications Medication Sig Dispense Refill prental multivitamin 27 mg iron- 800 mcg tablet Take 1 tablet by mouth once daily. sucralfate (CARAFATE) 1 gram tablet Take 1 tablet by mouth four times daily. (Patient not taking: Reported on 08/09/2022) 60 tablet 0 cholestyramine-sucrose (QUESTRAN) 4 gram powder Take 4 g by mouth three times daily with meals. (Patient not taking: Reported on 08/09/2022) 60 Packet 0 dicyclomine (BENTYL) 10 mg capsule Take 1 capsule by mouth three times daily as needed. (Patient not taking: No sig reported) 90 capsule 1 Drospirenone-Ethinyl Estradiol (GIANVI, 28,) 3-0.02 mg per tablet Take 1 tablet by mouth once daily. (Patient not taking: Reported on 08/09/2022) 84 tablet 4 acyclovir (ZOVIRAX) 400 mg tablet take 1 tablet by mouth twice a day (Patient taking differently: Take 400 mg by mouth as needed.) 60 tablet 3 No current facility-administered medications for this visit. Allergies As of Date: 08/20/2022 Allergen Noted Reaction LATEX 04/24/2005 Rash ADHESIVE TAPE (ROSINS) 05/28/2018 Rash and Itching Fully Assessed 08/20/2022 Does patient have penicillin allergy: No REVIEW OF SYSTEMS: GENERAL: Negative for: Fever or Chills HEENT: Negative for: Impaired Vision, Ringing in Ears, Nosebleeds. Positive for headaches during . NECK: Negative for: Swelling, Pain, Stiffness RESPIRATORY: Negative for: Cough, Shortness of breath, Wheezing GASTROINTESTINAL: Negative for: Heartburn, Constipation, Diarrhea, Blood in stool, Vomiting/ Hiatal hernia MUSCULOSKELETAL: Negative for: Muscle or joint pain, stiffness, Joint swelling NEUROLOGIC/PSYCHIATRIC: Negative for: Weakness, Paralysis, Numbness, Tingling, Tremor, Anxiety, Depression, Memory loss SKIN: Negative for: Rash, Itching GENITOURINARY: Negative for: vaginal itching, vaginal discharge, hematuria or dysuria PHYSICAL EXAM: BP 120/76 Ht 5' 8 (1.73m) Wt 248 lb 8 oz (112.7kg) LMP 06/25/2022 BMI 37.79 kg/(m^2). GENERAL: pleasant in no apparent distress DERMATOLOGY: Normal and without lesions NECK: Supple and full range of motion CHEST: Normal inspiratory effort BREAST: soft, non-tender, symmetric, no dominant mass, normal nipple-areolar complex, no lymphadenopathy, and no nipple discharge ABDOMEN: soft and non-tender NEURO: alert and oriented x3,exam grossly non-focal PELVIS: External genitalia normal without lesions. Perineal body intact. No vaginal or cervical lesions. Cervix closed. Uterus 7 week size. No adnexal masses or tenderness. Clinical Pelvimetry: Pelvimetry clinically assessed as adequate Limited OB ultrasound exam: single intrauterine , positive cardiac activity, and crown-rump length 7.2 OB Risk Screening: Completed, positive findings include: Patient answered 'Yes' to Partner with Herpes SBIRT Angelina Rodriguez was given the 4P's screening tool. Angelina answered as follows: OB Opioid Screening - Last Recorded (since 11/23/2021) Did any of your parents have a problem with alcohol or other drug use? No Does your partner have a problem with alcohol or other drug use? Yes sober for years In the past, have you had difficulties in your life because of alcohol or other drugs, including prescription medications? No In the past month have you drunk any alcohol or used other drugs? No Are you taking medication for pain during the either prescribed or not? No Based on the screen and further questions, she is considered at Low risk due to:No past or current use. Positive reinforcement of current behavior. Erendira Hendricks APRN.CNM ASSESSMENT/PLAN: 1. Encounter for supervision of other normal in first trimester - ICD9: V22.1, ICD10: Z34.81 (primary diagnosis) - POC CONSULTING IT ARCHITECT ULTRASOUND - CBC - SYPHILIS TOTAL W/REFLEX - RUBELLA IGG AB - HEP B SURF AG SCRN - HEP C AB IA W/CONF SCRN - HIV 1 2 COMBO(AG/AB),WITH REFLEX TO DIFFERENTIATION - TYPE + SCREEN - GC/CHLAMYDIA DNA DET - URINE CULTURE - OBSTETRIC ULTRASOUND WHI - NUCHAL TRANSLUCENCY WHI - UPPER TIER - HGB A1C - PAP TEST 2. Obesity during - ICD9: 649.10, ICD10: O99.210 3. Screening for cervical cancer - ICD9: V76.2, ICD10: Z12.4 4. Special screening examination for human papillomavirus (HPV) - ICD9: V73.81, ICD10: Z11.51 - PAP TEST 5. Vaginal discharge - ICD9: 623.5, ICD10: N89.8 - BACTERIAL VAGINOSIS AMPLIFICATION - ELIZA / TRICHOMONAS AMPLIFICATION 6. 7 weeks gestation of - ICD9: V22.2, ICD10: Z3A.01 7. Hiatal hernia - ICD9: 553.3, ICD10: K44.9 - Seen by Dr. Segura- patient declining surgical intervention PLAN: 1) Patient oriented to practice. Patient given new OB orientation folder. Discussed routine OB labs including STD/HIV. Discussed aneuploidy and carrier screening. Regarding aneuploidy screening, nuchal translucency/first trimester early anatomy ultrasound and NIPT were discussed. Regarding carrier screening, the myriad screen was discussed. The risks/benefits and limitations of NIPT/aneuploidy screening were reviewed including the potential for false negative and false positive results. We discussed the availability of professional-society guided carrier screening and reviewed the conditions screened and limitations of screening. The availability of genetic counseling was reviewed. Information on aneuploidy/carrier screening was provided. The patient chooses: Aneuploidy screening: chooses to proceed with First trimester early anatomy ultrasound (12-13w6d) and If concerns with insurance coverage, patient to call back for sequential order. Discussed hemoglobin electrophoresis. Patient: Accepts Patient with Obesity (BMI >30), will order early glucose screen or Hemoglobin A1C. Follow up in 4 weeks for NT US, ADRIEN and labs. Erendira Hendricks APRN.CNM documented in this encounter [facility] 08-20-2022 Instructions Tamiko Barragan MA - 08/20/2022 12:57 PM EDT Please select the following link to access the [facility] Your Guide to a Healthy . [email or web address] documented in this encounter [facility] 08-09-2022 Note HNO ID: [id number] Author: Ange Barba RN Service: ? Author Type: ? Type: Progress Notes Filed: 08/09/2022 5:25 PM Note Text: # 1 - Date: 01[birth year]07/13, Sex: Male, Weight: 6 lb 7 oz (2.92 kg), GA: 40w1d, Delivery: Vaginal, Spontaneous, Apgar1: None, Apgar5: None, Living: Living, Comments: Cervadil, cabrera, pitocin induction, AROM, non reactive NST, nucal cord x2, 1st degree vaginal laceration, EBL 200cc # 2 - Date: 01/24/16, Sex: Male, Weight: 7 lb 4 oz (3.289 kg), GA: 40w1d, Delivery: Vaginal, Spontaneous, Apgar1: 8, Apgar5: 9, Living: Living, Comments: cabrera, pitocin induction for maternal discomfort.EBL 300cc # 3 - Date: 10/13/18, Sex: Male, Weight: 8 lb 15 oz (4.054 kg), GA: 39w3d, Delivery: Vaginal, Spontaneous, Apgar1: 8, Apgar5: 9, Living: Living, Comments: headaches during , pitocin induction, EBL 300cc # 4 - Date: None, Sex: None, Weight: None, GA: None, Delivery: None, Apgar1: None, Apgar5: None, Living: None, Comments: None [facility] 08-03-2022 Miscellaneous Notes Patient notified and and requested an appointment to f/u on hcg quants & cramping. Patient states that she would cancel appointment if cramping resolves & is quants rise appropriately Hcg quants ordered. Is patient OK with NOB if hcg levels increasing well? If so please schedule at 2:40 that day. Taty Callejas MD Patient has pnob 6/8 and is having cramping pain that patient describes as feeling like I'm on my period rates cramping pain a 5 out of 10 on pain scale. Denies bleeding. Lmp was late June but was shorter than normal menses. Patient is ok with having hcg quants drawn. documented in this encounter [facility] 06-14-2022 Note HNO ID: [id number] Author: Orly Negro PA-C Service: ? Author Type: Physician Snowmaker Type: Progress Notes Filed: 06/14/2022 9:47 AM Note Text: This note was created using [employer]. Subjective Angelina Rodriguez is a 32 year old female. HPI Presents with a chief complaint of cough, sore throat, hoarse voice over the past 5 days. Her ears are bothering her as well. No fever. No vomiting. She states she does have diarrhea but that is not atypical for her. No abdominal pain. Home COVID test was negative but she thinks it was . Review of Systems Constitutional: Positive for fatigue. Negative for fever. HENT: Positive for congestion, ear pain and sore throat. Respiratory: Positive for cough. Negative for shortness of breath and wheezing. Cardiovascular: Negative. Gastrointestinal: Negative. Genitourinary: Negative. Musculoskeletal: Positive for myalgias. Neurological: Positive for headaches. All other systems reviewed and are negative. PAST MEDICAL HISTORY Diagnosis Date Abnormal glandular Papanicolaou smear of cervix Abn. Pap smear (cervix), mildl dysplasia Depression FRACTURE 2002 FOOT, BALLET Irregular heartbeat depression Current Outpatient Medications Medication Sig Dispense Refill sucralfate (CARAFATE) 1 gram tablet Take 1 tablet by mouth four times daily. 60 tablet 0 cholestyramine-sucrose (QUESTRAN) 4 gram powder Take 4 g by mouth three times daily with meals. 60 Packet 0 acyclovir (ZOVIRAX) 400 mg tablet take 1 tablet by mouth twice a day (Patient taking differently: Take 400 mg by mouth as needed.) 60 tablet 3 predniSONE (DELTASONE) 20 mg tablet Take 2 tablets by mouth once daily for 5 days. 10 tablet 0 dicyclomine (BENTYL) 10 mg capsule Take 1 capsule by mouth three times daily as needed. (Patient not taking: No sig reported) 90 capsule 1 Drospirenone-Ethinyl Estradiol (GIANVI, 28,) 3-0.02 mg per tablet Take 1 tablet by mouth once daily. 84 tablet 4 No current facility-administered medications for this visit. PAST SURGICAL HISTORY Procedure Laterality Date ABDOMINAL SURGERY HX COLONOSCOPY 11/29/2016 COLONOSCOPY 03/14/2022 COLPOSCOPY CERVIX UPPER/ADJACENT VAGINA Colposcopy EGD W/O [facility] SPEC VARICIES INJ 11/29/2016 EGD W/O [facility] SPEC VARICIES INJ 03/14/2022 LAPAROSCOPY SURG CHOLECYSTECTOMY 03/17/2019 Cholecystectomy, lap UNSPECIFIED ORAL SURGERY PROCEDURE, BY REPORT [facility] FAMILY HISTORY Problem Relation Age of Onset Breast Cancer Mother other (Skin Cancer) Mother Colon Cancer Father 46 Asthma Brother Dementia Maternal Grandfather Breast Cancer Paternal Grandmother Breast Cancer Maternal Grandmother and maternal great aunts. Cancer Maternal Grandmother Uterine other (Skin Cancer) Maternal Aunt Asthma Son Asthma Son Social History Tobacco Use Smoking status: Former Years: 10.00 Types: Cigarettes Quit date: 01/02/2018 Years since quittin.4 Smokeless tobacco: Never Vaping Use Vaping Use: Never used Substance Use Topics Alcohol use: Yes Alcohol/week: 20.0 standard drinks Types: 2 Glasses of Wine (5oz), 3 Cans of Beer (12oz), 3 Mixed Drinks per week Comment: Occasionally, NOT WHILE Drug use: No Objective BP 110/70 Pulse 88 Temp 36.8 ?C (98.3 ?F) Resp 16 Wt 112.9 kg (249 lb) LMP 02/14/2022 (Approximate) SpO2 98% BMI 37.86 kg/m? Physical Exam Vitals reviewed. Constitutional: Appearance: Normal appearance. HENT: Head: Normocephalic and atraumatic. Right Ear: Tympanic membrane, ear canal and external ear normal. Left Ear: Tympanic membrane, ear canal and external ear normal. Nose: Congestion present. Mouth/Throat: Mouth: Mucous membranes are moist. Pharynx: Pharyngeal swelling, oropharyngeal exudate and posterior oropharyngeal erythema present. No uvula swelling. Tonsils: No tonsillar exudate or tonsillar abscesses. 1+ on the right. 1+ on the left. Cardiovascular: Rate and Rhythm: Normal rate and regular rhythm. Heart sounds: Normal heart sounds. Pulmonary: Effort: Pulmonary effort is normal. Breath sounds: Normal breath sounds. Musculoskeletal: Cervical back: Neck supple. Lymphadenopathy: Cervical: Cervical adenopathy present. Skin: General: Skin is warm and dry. Findings: No rash. Neurological: General: No focal deficit present. Mental Status: She is alert and oriented to person, place, and time. Assessment and Plan ASSESSMENT/PLAN: 1. Viral URI with cough - ICD9: 465.9, ICD10: J06.9 - Discussed viral etiology and rationale for treatment. - Symptomatic treatment with prn analgesia - Supportive care with fluids and rest - Follow up in 3-5 days if symptoms persist or sooner if worsening of symptoms - STREP A MOLECULAR (POC)- negative - prednisone for throat pain and hoarseness. - 2019 CORONAVIRUS Orly Negro PA-C [facility] 06-14-2022 History of Present illness Narrative This note was created using NoteWriter. Subjective Angelina Rodriguez is a 32 year old female. HPI Presents with a chief complaint of cough, sore throat, hoarse voice over the past 5 days. Her ears are bothering her as well. No fever. No vomiting. She states she does have diarrhea but that is not atypical for her. No abdominal pain. Home COVID test was negative but she thinks it was . Review of Systems Constitutional: Positive for fatigue. Negative for fever. HENT: Positive for congestion, ear pain and sore throat. Respiratory: Positive for cough. Negative for shortness of breath and wheezing. Cardiovascular: Negative. Gastrointestinal: Negative. Genitourinary: Negative. Musculoskeletal: Positive for myalgias. Neurological: Positive for headaches. All other systems reviewed and are negative. PAST MEDICAL HISTORY Diagnosis Date Abnormal glandular Papanicolaou smear of cervix Abn. Pap smear (cervix), mildl dysplasia Depression FRACTURE 2002 FOOT, BALLET Irregular heartbeat depression Current Outpatient Medications Medication Sig Dispense Refill sucralfate (CARAFATE) 1 gram tablet Take 1 tablet by mouth four times daily. 60 tablet 0 cholestyramine-sucrose (QUESTRAN) 4 gram powder Take 4 g by mouth three times daily with meals. 60 Packet 0 acyclovir (ZOVIRAX) 400 mg tablet take 1 tablet by mouth twice a day (Patient taking differently: Take 400 mg by mouth as needed.) 60 tablet 3 predniSONE (DELTASONE) 20 mg tablet Take 2 tablets by mouth once daily for 5 days. 10 tablet 0 dicyclomine (BENTYL) 10 mg capsule Take 1 capsule by mouth three times daily as needed. (Patient not taking: No sig reported) 90 capsule 1 Drospirenone-Ethinyl Estradiol (GIANVI, 28,) 3-0.02 mg per tablet Take 1 tablet by mouth once daily. 84 tablet 4 No current facility-administered medications for this visit. PAST SURGICAL HISTORY Procedure Laterality Date ABDOMINAL SURGERY HX COLONOSCOPY 11/29/2016 COLONOSCOPY 03/14/2022 COLPOSCOPY CERVIX UPPER/ADJACENT VAGINA Colposcopy EGD W/O [facility] SPEC VARICIES INJ 11/29/2016 EGD W/O [facility] SPEC VARICIES INJ 03/14/2022 LAPAROSCOPY SURG CHOLECYSTECTOMY 03/17/2019 Cholecystectomy, lap UNSPECIFIED ORAL SURGERY PROCEDURE, BY REPORT [facility] FAMILY HISTORY Problem Relation Age of Onset Breast Cancer Mother other (Skin Cancer) Mother Colon Cancer Father 46 Asthma Brother Dementia Maternal Grandfather Breast Cancer Paternal Grandmother Breast Cancer Maternal Grandmother and maternal great aunts. Cancer Maternal Grandmother Uterine other (Skin Cancer) Maternal Aunt Asthma Son Asthma Son Social History Tobacco Use Smoking status: Former Years: 10.00 Types: Cigarettes Quit date: 01/02/2018 Years since quittin.4 Smokeless tobacco: Never Vaping Use Vaping Use: Never used Substance Use Topics Alcohol use: Yes Alcohol/week: 20.0 standard drinks Types: 2 Glasses of Wine (5oz), 3 Cans of Beer (12oz), 3 Mixed Drinks per week Comment: Occasionally, NOT WHILE Drug use: No Objective BP 110/70 Pulse 88 Temp 36.8 C (98.3 F) Resp 16 Wt 112.9 kg (249 lb) LMP 02/14/2022 (Approximate) SpO2 98% BMI 37.86 kg/m Physical Exam Vitals reviewed. Constitutional: Appearance: Normal appearance. HENT: Head: Normocephalic and atraumatic. Right Ear: Tympanic membrane, ear canal and external ear normal. Left Ear: Tympanic membrane, ear canal and external ear normal. Nose: Congestion present. Mouth/Throat: Mouth: Mucous membranes are moist. Pharynx: Pharyngeal swelling, oropharyngeal exudate and posterior oropharyngeal erythema present. No uvula swelling. Tonsils: No tonsillar exudate or tonsillar abscesses. 1+ on the right. 1+ on the left. Cardiovascular: Rate and Rhythm: Normal rate and regular rhythm. Heart sounds: Normal heart sounds. Pulmonary: Effort: Pulmonary effort is normal. Breath sounds: Normal breath sounds. Musculoskeletal: Cervical back: Neck supple. Lymphadenopathy: Cervical: Cervical adenopathy present. Skin: General: Skin is warm and dry. Findings: No rash. Neurological: General: No focal deficit present. Mental Status: She is alert and oriented to person, place, and time. Assessment and Plan ASSESSMENT/PLAN: 1. Viral URI with cough - ICD9: 465.9, ICD10: J06.9 - Discussed viral etiology and rationale for treatment. - Symptomatic treatment with prn analgesia - Supportive care with fluids and rest - Follow up in 3-5 days if symptoms persist or sooner if worsening of symptoms - STREP A MOLECULAR (POC)- negative - prednisone for throat pain and hoarseness. - 2019 CORONAVIRUS Orly Negro PA-C documented in this encounter [facility] 04-03-2022 Note HNO ID: [id number] Author: Radha Segura MD Service: ? Author Type: Physician Type: Progress Notes Filed: 04/05/2022 11:45 AM Note Text: Angelina Rodriguez 1990 REFERRING PHYSICIAN: Thuy Gilbert PA-C CHIEF COMPLAINT: Consult (Hiatal hernia, abdomen pain) HPI: The patient is a 32 year old female with a complaint of epigastric deep burning/sharp pain, accompanied by severe acid indigestion and heartburn. She feels like a pressure going up into my chest She had a normal gastric emptying test on 03/27/2022. She had undergone EGD 03/07/2022 and was noted to have small-medium sized hiatal hernia. She was also noted have bile gastritis. She was seen by GI medicine and placed on a PPI. Patient also complains of gas bloat. She also notes alternating constipation with diarrhea. She has fecal urgency first thing in the morning. Every few days, she would note 1-2 days of no bowel movements and then a hard bowel movement, followed by loose watery bowel movements - several times a day. She notes occasional blood - had a colonoscopy also on 03/07/2022. She also complains of pharyngeal discomfort - notes a block in throat . Has complaint of pharyngeal dysphagia. She also states that she feels hungry but not hungry . She had a normal gastric emptying test on 03/27/2022. Pathology from endoscopy: FINAL DIAGNOSIS A. Stomach, antrum, biopsy: -Portions of oxyntic and antral type gastric mucosa with no significant histologic abnormality -Negative for Helicobacter pylori organisms on routine staining -Negative for intestinal metaplasia or dysplasia B. Esophagogastric junction, biopsy: -Portion of squamous epithelium with no significant histologic abnormality, negative for increased intraepithelial eosinophils -Portion of cardiac type mucosa with chronic inflammation, negative for intestinal metaplasia C. Colon, random, biopsy: -Colonic mucosa with no significant histologic abnormality -Negative for chronic, active or microscopic colitis PAST MEDICAL HISTORY Diagnosis Date Abnormal glandular Papanicolaou smear of cervix Abn. Pap smear (cervix), mildl dysplasia Depression FRACTURE 2001 FOOT, BALLET Irregular heartbeat depression PAST SURGICAL HISTORY Procedure Laterality Date ABDOMINAL SURGERY HX COLONOSCOPY 11/29/2016 COLONOSCOPY 03/14/2022 COLPOSCOPY CERVIX UPPER/ADJACENT VAGINA Colposcopy EGD W/O [facility] SPEC VARICIES INJ 11/29/2016 EGD W/O [facility] SPEC VARICIES INJ 03/14/2022 LAPAROSCOPY SURG CHOLECYSTECTOMY 03/17/2019 Cholecystectomy, lap UNSPECIFIED ORAL SURGERY PROCEDURE, BY REPORT [facility] Current Outpatient Medications Medication Sig acyclovir (ZOVIRAX) 400 mg tablet take 1 tablet by mouth twice a day (Patient taking differently: Take 400 mg by mouth as needed.) sucralfate (CARAFATE) 1 gram tablet Take 1 tablet by mouth four times daily. cholestyramine-sucrose (QUESTRAN) 4 gram powder Take 4 g by mouth three times daily with meals. dicyclomine (BENTYL) 10 mg capsule Take 1 capsule by mouth three times daily as needed. (Patient not taking: No sig reported) Drospirenone-Ethinyl Estradiol (GIANVI, 28,) 3-0.02 mg per tablet Take 1 tablet by mouth once daily. ALLERGIES: Latex and Adhesive Tape (Rosins) PERSONAL HISTORY: Social History Tobacco Use Smoking status: Former Years: 10.00 Types: Cigarettes Quit date: 01/02/2018 Years since quittin.2 Smokeless tobacco: Never Vaping Use Vaping Use: Never used Substance Use Topics Alcohol use: Yes Alcohol/week: 20.0 standard drinks Types: 2 Glasses of Wine (5oz), 3 Cans of Beer (12oz), 3 Mixed Drinks per week Comment: Occasionally, NOT WHILE Drug use: No FAMILY HISTORY Problem Relation Age of Onset Breast Cancer Mother other (Skin Cancer) Mother Colon Cancer Father 46 Asthma Brother Dementia Maternal Grandfather Breast Cancer Paternal Grandmother Breast Cancer Maternal Grandmother and maternal great aunts. Cancer Maternal Grandmother Uterine other (Skin Cancer) Maternal Aunt Asthma Son Asthma Son The review of systems data was entered by the nurse and reviewed by wy Nursing Notes: Dodie Buchanan LPN 04/03/2022 1:09 PM Signed REVIEW OF SYSTEMS: General: The patient notes fatigue, denies weight loss, notes weight gain, denies feeling hot, and notes feelings of cold. Eyes: The patient denies glaucoma, denies eye injury/surgery, does not wear glasses or contacts. Ear/Nose/Throat: The patient notes allergies, denies hayfever, denies ear infections, and denies bloody noses. Cardiovascular: The patient denies chest pain, denies heart disease, denies high blood pressure,denies cardiac stent, denies prior heart attack, notes irregular heart beat, denies high cholesterol, denies poor circulation, denies heart failure, other cardiac issues, denies claudication, denies cold feet, denies peripheral arterial stent. Respiratory: The p (more content not included)... [facility] 04-03-2022 History of Present illness Narrative Angelina Rodriguez 1990 REFERRING PHYSICIAN: Thuy Gilbert PA-C CHIEF COMPLAINT: Consult (Hiatal hernia, abdomen pain) HPI: The patient is a 32 year old female with a complaint of epigastric deep burning/sharp pain, accompanied by severe acid indigestion and heartburn. She feels like a pressure going up into my chest She had a normal gastric emptying test on 03/27/2022. She had undergone EGD 03/07/2022 and was noted to have small-medium sized hiatal hernia. She was also noted have bile gastritis. She was seen by GI medicine and placed on a PPI. Patient also complains of gas bloat. She also notes alternating constipation with diarrhea. She has fecal urgency first thing in the morning. Every few days, she would note 1-2 days of no bowel movements and then a hard bowel movement, followed by loose watery bowel movements - several times a day. She notes occasional blood - had a colonoscopy also on 03/07/2022. She also complains of pharyngeal discomfort - notes a block in throat . Has complaint of pharyngeal dysphagia. She also states that she feels hungry but not hungry . She had a normal gastric emptying test on 03/27/2022. Pathology from endoscopy: FINAL DIAGNOSIS A. Stomach, antrum, biopsy: -Portions of oxyntic and antral type gastric mucosa with no significant histologic abnormality -Negative for Helicobacter pylori organisms on routine staining -Negative for intestinal metaplasia or dysplasia B. Esophagogastric junction, biopsy: -Portion of squamous epithelium with no significant histologic abnormality, negative for increased intraepithelial eosinophils -Portion of cardiac type mucosa with chronic inflammation, negative for intestinal metaplasia C. Colon, random, biopsy: -Colonic mucosa with no significant histologic abnormality -Negative for chronic, active or microscopic colitis PAST MEDICAL HISTORY Diagnosis Date Abnormal glandular Papanicolaou smear of cervix Abn. Pap smear (cervix), mildl dysplasia Depression FRACTURE 2002 FOOT, BALLET Irregular heartbeat depression PAST SURGICAL HISTORY Procedure Laterality Date ABDOMINAL SURGERY HX COLONOSCOPY 11/29/2016 COLONOSCOPY 03/14/2022 COLPOSCOPY CERVIX UPPER/ADJACENT VAGINA Colposcopy EGD W/O [facility] SPEC VARICIES INJ 11/29/2016 EGD W/O [facility] SPEC VARICIES INJ 03/14/2022 LAPAROSCOPY SURG CHOLECYSTECTOMY 03/17/2019 Cholecystectomy, lap UNSPECIFIED ORAL SURGERY PROCEDURE, BY REPORT [facility] Current Outpatient Medications Medication Sig acyclovir (ZOVIRAX) 400 mg tablet take 1 tablet by mouth twice a day (Patient taking differently: Take 400 mg by mouth as needed.) sucralfate (CARAFATE) 1 gram tablet Take 1 tablet by mouth four times daily. cholestyramine-sucrose (QUESTRAN) 4 gram powder Take 4 g by mouth three times daily with meals. dicyclomine (BENTYL) 10 mg capsule Take 1 capsule by mouth three times daily as needed. (Patient not taking: No sig reported) Drospirenone-Ethinyl Estradiol (GIANVI, 28,) 3-0.02 mg per tablet Take 1 tablet by mouth once daily. ALLERGIES: Latex and Adhesive Tape (Rosins) PERSONAL HISTORY: Social History Tobacco Use Smoking status: Former Years: 10.00 Types: Cigarettes Quit date: 01/02/2018 Years since quittin.2 Smokeless tobacco: Never Vaping Use Vaping Use: Never used Substance Use Topics Alcohol use: Yes Alcohol/week: 20.0 standard drinks Types: 2 Glasses of Wine (5oz), 3 Cans of Beer (12oz), 3 Mixed Drinks per week Comment: Occasionally, NOT WHILE Drug use: No FAMILY HISTORY Problem Relation Age of Onset Breast Cancer Mother other (Skin Cancer) Mother Colon Cancer Father 46 Asthma Brother Dementia Maternal Grandfather Breast Cancer Paternal Grandmother Breast Cancer Maternal Grandmother and maternal great aunts. Cancer Maternal Grandmother Uterine other (Skin Cancer) Maternal Aunt Asthma Son Asthma Son The review of systems data was entered by the nurse and reviewed by me Nursing Notes: Dodie Buchanan LPN 04/03/2022 1:09 PM Signed REVIEW OF SYSTEMS: General: The patient notes fatigue, denies weight loss, notes weight gain, denies feeling hot, and notes feelings of cold. Eyes: The patient denies glaucoma, denies eye injury/surgery, does not wear glasses or contacts. Ear/Nose/Throat: The patient notes allergies, denies hayfever, denies ear infections, and denies bloody noses. Cardiovascular: The patient denies chest pain, denies heart disease, denies high blood pressure,denies cardiac stent, denies prior heart attack, notes irregular heart beat, denies high cholesterol, denies poor circulation, denies heart failure, other cardiac issues, denies claudication, denies cold feet, denies peripheral arterial stent. Respiratory: The patient denies tuberculosis, denies pneumonia, denies frequent cough, denies pulmonary embolism, notes shortness of breath, and denies coughing up blood. Gastrointestinal: The patient notes difficulty swallowing, notes acid reflux, notes ulcers, notes vomiting, denies jaundice/hepatitis, notes gallbladder problems, denies black or tarry stools, denies hemorrhoids, denies bleeding from rectum, denies diverticulitis, notes constipation, notes diarrhea, denies loss of stool control, and notes hernias. Kidney/Bladder: The patient denies kidney stones, denies urine infections, and denies bloody urine. Skin: The patient denies a history of skin cancer, denies bleeding/changing moles, and denies a history of skin rash. Neurologic: The patient denies a history of epilepsy/convulsions, denies headaches, denies head/spinal injuries, and denies stroke/TIA. Psychiatric: The patient denies psychiatric medications, denies depression, and denies voices, denies substance abuse. Endocrine: The patient denies thyroid disorders, denies diabetes, and denies hormonal problems. Hematologic: The patient denies a history of bruising, denies bleeding, and denies anemia, denies blood clots. Infections: The patient denies a history of measles and mumps, denies rheumatic fever, and denies sexually transmitted diseases. Musculoskeletal: The patient denies back pain/injury, denies back problems, notes sciatica, denies knee/foot trouble, denies arthritis, or denies gout. When was patient's last Mammogram screening? None Last Colonoscopy: 2022 Dodie Buchanan LPN PHYSICAL EXAMINATION: General: The patient is 32 year old female, well nourished, well hydrated in no acute distress. The patient is oriented to time, place, and person. VITALS: Last menstrual period 02/14/2022. There is no height or weight on file to calculate BMI. Head: Normal cephalic, atraumatic Eyes: pupils are equally round, sclera are clear/anicteric Neck is supple with no tracheal deviation Respiratory: Normal respiratory excursion and pattern. Abdominal exam: benign Extremities: no clubbing, cyanosis or edema. Neuro: non focal Psych: normal mood Assessment IMPRESSION: multiple GI complaints as per HPI PLAN: I have discussed the above with the patient. I have explained hiatal hernia and discussed surgical options of Win surgery. In my opinion, I do not believe that patient will benefit from stomach wrap surgery, she already suffers from gas bloat, etc. and surgery will worsen this. I have prescribed Carafate for bile gastritis. I have also recommended simethicone for gas bloat. I have prescribed cholestyramine for loose stools and fecal urgency, possible bile irritation of colon. I have recommended BEANO for intestinal gas. I have recommended 25-30 grams of fiber in diet and 8-10 glasses of free water in diet and avoid caffeinated products. I have also recommended a glass of pineapple juice a day. I have recommended smaller meals. I have recommended patient to stop eating by 6-7pm. I have recommended that patient trial all of the above for at least 2 months. If no improvement then she should be referred to a lime plant operator The patient acknowledges above. I have answered all questions to the patient s satisfaction and the patient has no further questions. I have confirmed and edited as necessary, the PFSH and ROS obtained by others. Consultation requested by Thuy Gilbert for an opinion regarding patient's multiple GI complaints. My final recommendations will be communicated back to the requesting physician by way of shared Medical record or letter to requesting physician via [place] mail. . Diagnoses: (K44.9) Hiatal hernia (R10.84) Generalized abdominal pain Return to Clinic: The patient is instructed to follow-up with me if no resolution of symptoms in 2-3 months. I spent a total of 41 minutes on the date of the service which included preparing to see the patient with review of any pertinent laboratory studies/radiological imaging/medical records, [id number] patient care, obtaining oral medical history from the patient in this encounter, counseling and educating the patient/family/caregiver, and ordering and/or scheduling of medications/tests/procedures, and completing appropriate medical documentation. Radha Segura MD documented in this encounter [facility] 04-03-2022 Instructions Radha Segura MD - 04/03/2022 1:32 PM EST I have recommended the following for conservative treatment : Drinking plenty of fluids - 8 - 10 glasses of water per day Adequate fiber (25-30 grams/day) and water in diet Carafate for bile gastritis - bile retained in stomach Cholestyramine is for bile induced diarrhea - titrate amount to affect Multiple small meals Stop eating after 6-7 pm Simethicone (mylicon) BEANO - that help you digest the starches that you can't digest and therefore the bacteria digest and gives you gas documented in this encounter [facility] 04-03-2022 Nurse Note REVIEW OF SYSTEMS: General: The patient notes fatigue, denies weight loss, notes weight gain, denies feeling hot, and notes feelings of cold. Eyes: The patient denies glaucoma, denies eye injury/surgery, does not wear glasses or contacts. Ear/Nose/Throat: The patient notes allergies, denies hayfever, denies ear infections, and denies bloody noses. Cardiovascular: The patient denies chest pain, denies heart disease, denies high blood pressure,denies cardiac stent, denies prior heart attack, notes irregular heart beat, denies high cholesterol, denies poor circulation, denies heart failure, other cardiac issues, denies claudication, denies cold feet, denies peripheral arterial stent. Respiratory: The patient denies tuberculosis, denies pneumonia, denies frequent cough, denies pulmonary embolism, notes shortness of breath, and denies coughing up blood. Gastrointestinal: The patient notes difficulty swallowing, notes acid reflux, notes ulcers, notes vomiting, denies jaundice/hepatitis, notes gallbladder problems, denies black or tarry stools, denies hemorrhoids, denies bleeding from rectum, denies diverticulitis, notes constipation, notes diarrhea, denies loss of stool control, and notes hernias. Kidney/Bladder: The patient denies kidney stones, denies urine infections, and denies bloody urine. Skin: The patient denies a history of skin cancer, denies bleeding/changing moles, and denies a history of skin rash. Neurologic: The patient denies a history of epilepsy/convulsions, denies headaches, denies head/spinal injuries, and denies stroke/TIA. Psychiatric: The patient denies psychiatric medications, denies depression, and denies voices, denies substance abuse. Endocrine: The patient denies thyroid disorders, denies diabetes, and denies hormonal problems. Hematologic: The patient denies a history of bruising, denies bleeding, and denies anemia, denies blood clots. Infections: The patient denies a history of measles and mumps, denies rheumatic fever, and denies sexually transmitted diseases. Musculoskeletal: The patient denies back pain/injury, denies back problems, notes sciatica, denies knee/foot trouble, denies arthritis, or denies gout. When was patient's last Mammogram screening? None Last Colonoscopy: 2022 Dodie Buchanan LPN documented in this encounter [facility] 03-30-2022 Miscellaneous Notes Called and left message for patient to call office back, currently has appointment with Dr Cerrato on 04/03/22 and had been seeing Dr Segura in office previously. Dr Segura did the patients colonoscopy and EGD on 03/14/22. Does patient want to be rescheduled with Dr Segura instead of Dr Cerrato? documented in this encounter [facility] 03-27-2022 History of Present illness Narrative RADIOLOGY SERVICE PROGRESS NOTE SERVICE DATE: 03/27/2022 SERVICE TIME: 10:27 AM PATIENT IDENTITY VERIFICATION COMPLETED USING TWO (2) STANDARD IDENTIFIERS: Name and Date of confirmed by patient verbally and Name and Date of confirmed by identification band FALL SCREENING: Has the patient had 2 falls in the last year or 1 fall with injury or currently using an Ambulatory Assistive Device (Walker, Cane, Wheelchair, Crutches, etc.)? No PATIENT GENDER DATA: .female : No ALLERGIES: Reviewed and unchanged MEDICATIONS REVIEWED: Not applicable PATIENT RELEVANT IMPLANT DATA REVIEWED: Not Applicable CREATININE: Creatinine Date Value Ref Range Status 12/26/2021 0.91 0.58 - 0.96 mg/dL Final 06/08/2021 0.84 0.58 - 0.96 mg/dL Final 09/23/2019 0.85 0.58 - 0.96 mg/dL Final Estimated Glomerular Filtration Rate Date Value Ref Range Status 12/26/2021 86 >=60 mL/min/1.73m Final Comment: Estimated Glomerular Filtration Rate (eGFR) is calculated using the 2020 CKD-EPI creatinine equation. This equation utilizes serum creatinine, sex, and age as parameters. The creatinine assay has traceable calibration to isotope dilution-mass spectrometry. Refer to KDIGO guidelines for clinical interpretation. In patients with unstable renal function, e.g. those with acute kidney injury, the eGFR may not accurately reflect actual GFR. eGFR- Date Value Ref Range Status 09/23/2019 >60 Final P.O.C.T. RESULTS: N/A March 27, [address] PERFORMED: No IV SITE: [place] only - not applicable, oral or physician administered agents given to patient POST EXAM PIV STATUS: Not applicable PROCEDURE TYPE: NM GET: 1.1 mCi Tc99m SULFUR COLLOID was administered orally via 4 ounces of Egg Beaters,2 pieces of toast, 1 ounce of jelly with 8 ounces of water orally ADMINISTRATION TIME: 9:55 PATIENT DISCHARGED TO: Ambulatory patient, left [place] department area. A Diagnostic radioactive procedure has taken place, with no further precautions necessary other than routine body substance precautions. More information regarding radiation safety can be found using this link: [email or web address] SIGNATURE: ALBERTINA Borja PATIENT NAME: Angelina Rodriguez DATE: March 27, 2022 TIME: 10:27 AM PAGER/CONTACT #: documented in this encounter [facility] 03-22-2022 Note HNO ID: [id number] Author: Thuy Gilbert PA-C Service: ? Author Type: Physician Snowmaker Type: Progress Notes Filed: 03/22/2022 10:43 AM Note Text: This is a virtual visit using [employer] video visit. It required patient-provider interaction for the medical decision making as documented below. Angelina Rodriguez is a 32 year old female seen for f/u EGD/colonoscopy. Patient tells me that she isn't feeling that well recently. Notes constant pain. Having upper abdominal pains, worse with eating. Will wake up with the abdominal pains. Still having a lot of early satiety. Nausea is still coming and going. Notes that pain wraps around her back. Appetite is poor. She feels bloated. Still feeling GERD into her esophagus. EGD 03/14/2022: Impression: - Normal first portion of the duodenum and second portion of the duodenum. - Erythematous mucosa in the antrum. Biopsied. - Z-line irregular, 36 cm from the incisors. Biopsied. - Medium-sized hiatal hernia. Recommendation: - Discharge patient to home (ambulatory). - Resume previous diet. - Return to GI office at the next available appointment. Colonoscopy 03/14/2022: Impression: - Non-bleeding internal hemorrhoids. - Biopsies were taken with a cold forceps from the entire colon for evaluation of microscopic colitis. Recommendation: - Discharge patient to home (ambulatory). - Resume previous diet. - Continue present medications. - Await pathology results. - Return to GI office - next available. - Patient has a contact number available for emergencies. The signs and symptoms of potential delayed complications were discussed with the patient. Return to normal activities tomorrow. Written discharge instructions were provided to the patient. - Repeat colonoscopy as per ACS guidelines. FINAL DIAGNOSIS A. Stomach, antrum, biopsy: -Portions of oxyntic and antral type gastric mucosa with no significant histologic abnormality -Negative for Helicobacter pylori organisms on routine staining -Negative for intestinal metaplasia or dysplasia B. Esophagogastric junction, biopsy: -Portion of squamous epithelium with no significant histologic abnormality, negative for increased intraepithelial eosinophils -Portion of cardiac type mucosa with chronic inflammation, negative for intestinal metaplasia C. Colon, random, biopsy: -Colonic mucosa with no significant histologic abnormality -Negative for chronic, active or microscopic colitis Last OV with me 03/06/2022: Assessment/Plan (R10.84) Generalized abdominal pain (primary encounter diagnosis) (R11.14) Bilious vomiting with nausea (R19.8) Alternating constipation and diarrhea (R19.5) Elevated fecal calprotectin 1. Generalized abdominal pain -- Patient notes significant abdominal pain, worse with eating. -- Start Bentyl 10 mg PRN TID -- EGD/colonoscopy for further evaluation -- If negative, consider GES - EGD DIAGNOSTIC; Future - COLONOSCOPY DIAGNOSTIC; Future - dicyclomine (BENTYL) 10 mg capsule; Take 1 capsule by mouth three times daily as needed. Dispense: 90 capsule; Refill: 1 2. Bilious vomiting with nausea -- Okay to continue PPI -- EGD r/o bile gastritis, gastritis, PUD -- Consider GES - EGD DIAGNOSTIC; Future 3. Alternating constipation and diarrhea -- Start Bentyl 10 mg PRN TID -- Colonoscopy for further evaluation - COLONOSCOPY DIAGNOSTIC; Future 4. Elevated fecal calprotectin -- Start Bentyl 10 mg PRN TID -- Colonoscopy for further evaluation - COLONOSCOPY DIAGNOSTIC; Future Follow up in office PRN. HISTORY REVIEWED (electronic chart updated): PAST MEDICAL HISTORY Diagnosis Date Abnormal glandular Papanicolaou smear of cervix Abn. Pap smear (cervix), mildl dysplasia Depression FRACTURE 2001 FOOT, BALLET Irregular heartbeat depression PAST SURGICAL HISTORY Procedure Laterality Date ABDOMINAL SURGERY HX COLONOSCOPY 11/29/2016 COLONOSCOPY 03/14/2022 COLPOSCOPY CERVIX UPPER/ADJACENT VAGINA Colposcopy EGD W/O [facility] SPEC VARICIES INJ 11/29/2016 EGD W/O [facility] SPEC VARICIES INJ 03/14/2022 LAPAROSCOPY SURG CHOLECYSTECTOMY 03/17/2019 Cholecystectomy, lap UNSPECIFIED ORAL SURGERY PROCEDURE, BY REPORT [facility] FAMILY HISTORY Problem Relation Age of Onset Breast Cancer Mother other (Skin Cancer) Mother Colon Cancer Father 46 Asthma Brother Dementia Maternal Grandfather Breast Cancer Paternal Grandmother Breast Cancer Maternal Grandmother and maternal great aunts. Cancer Maternal Grandmother Uterine other (Skin Cancer) Maternal Aunt Asthma Son Asthma Son Social History Tobacco Use Smoking status: Former Years: 10.00 Types: Cigarettes Quit date: 01/02/2018 Years since quittin.2 Smokeless tobacco: Never Vaping Use Vaping Use: Never used Substance Use Topics Alcohol use: Yes Alcohol/week: 20.0 standard drinks Types: 2 Glasses of Wine (5oz), 3 Cans of Beer (12oz), 3 Mi (more content not included)... [facility] 03-22-2022 Instructions Thuy Gilbert PA-C - 03/22/2022 10:42 AM EST Meal and Food Changes Changing your eating habits can help control gastroparesis. Your doctor or dietitian will give you specific instructions, but you may be asked to eat six small meals a day instead of three large ones. If less food enters the stomach each time you eat, it may not become overly full. Or the doctor or dietitian may suggest that you try several liquid meals a day until your blood glucose levels are stable and the gastroparesis is corrected. Liquid meals provide all the nutrients found in solid foods, but can pass through the stomach more easily and quickly. The doctor may also recommend that you avoid high-fat and high-fiber foods. Fat naturally slows digestion--a problem you do not need if you have gastroparesis--and fiber is difficult to digest. Some high-fiber foods like oranges and broccoli contain material that cannot be digested. Avoid these foods because the indigestible part will remain in the stomach too long and possibly form bezoars. documented in this encounter [facility] 03-22-2022 History of Present illness Narrative This is a virtual visit using [employer] video visit. It required patient-provider interaction for the medical decision making as documented below. Angelina Rodriguez is a 32 year old female seen for f/u EGD/colonoscopy. Patient tells me that she isn't feeling that well recently. Notes constant pain. Having upper abdominal pains, worse with eating. Will wake up with the abdominal pains. Still having a lot of early satiety. Nausea is still coming and going. Notes that pain wraps around her back. Appetite is poor. She feels bloated. Still feeling GERD into her esophagus. EGD 03/14/2022: Impression: - Normal first portion of the duodenum and second portion of the duodenum. - Erythematous mucosa in the antrum. Biopsied. - Z-line irregular, 36 cm from the incisors. Biopsied. - Medium-sized hiatal hernia. Recommendation: - Discharge patient to home (ambulatory). - Resume previous diet. - Return to GI office at the next available appointment. Colonoscopy 03/14/2022: Impression: - Non-bleeding internal hemorrhoids. - Biopsies were taken with a cold forceps from the entire colon for evaluation of microscopic colitis. Recommendation: - Discharge patient to home (ambulatory). - Resume previous diet. - Continue present medications. - Await pathology results. - Return to GI office - next available. - Patient has a contact number available for emergencies. The signs and symptoms of potential delayed complications were discussed with the patient. Return to normal activities tomorrow. Written discharge instructions were provided to the patient. - Repeat colonoscopy as per ACS guidelines. FINAL DIAGNOSIS A. Stomach, antrum, biopsy: -Portions of oxyntic and antral type gastric mucosa with no significant histologic abnormality -Negative for Helicobacter pylori organisms on routine staining -Negative for intestinal metaplasia or dysplasia B. Esophagogastric junction, biopsy: -Portion of squamous epithelium with no significant histologic abnormality, negative for increased intraepithelial eosinophils -Portion of cardiac type mucosa with chronic inflammation, negative for intestinal metaplasia C. Colon, random, biopsy: -Colonic mucosa with no significant histologic abnormality -Negative for chronic, active or microscopic colitis Last OV with [facility] 03/06/2022: Assessment/Plan (R10.84) Generalized abdominal pain (primary encounter diagnosis) (R11.14) Bilious vomiting with nausea (R19.8) Alternating constipation and diarrhea (R19.5) Elevated fecal calprotectin 1. Generalized abdominal pain -- Patient notes significant abdominal pain, worse with eating. -- Start Bentyl 10 mg PRN TID -- EGD/colonoscopy for further evaluation -- If negative, consider GES - EGD DIAGNOSTIC; Future - COLONOSCOPY DIAGNOSTIC; Future - dicyclomine (BENTYL) 10 mg capsule; Take 1 capsule by mouth three times daily as needed. Dispense: 90 capsule; Refill: 1 2. Bilious vomiting with nausea -- Okay to continue PPI -- EGD r/o bile gastritis, gastritis, PUD -- Consider GES - EGD DIAGNOSTIC; Future 3. Alternating constipation and diarrhea -- Start Bentyl 10 mg PRN TID -- Colonoscopy for further evaluation - COLONOSCOPY DIAGNOSTIC; Future 4. Elevated fecal calprotectin -- Start Bentyl 10 mg PRN TID -- Colonoscopy for further evaluation - COLONOSCOPY DIAGNOSTIC; Future Follow up in office PRN. HISTORY REVIEWED (electronic chart updated): PAST MEDICAL HISTORY Diagnosis Date Abnormal glandular Papanicolaou smear of cervix Abn. Pap smear (cervix), mildl dysplasia Depression FRACTURE 2001 FOOT, BALLET Irregular heartbeat depression PAST SURGICAL HISTORY Procedure Laterality Date ABDOMINAL SURGERY HX COLONOSCOPY 11/29/2016 COLONOSCOPY 03/14/2022 COLPOSCOPY CERVIX UPPER/ADJACENT VAGINA Colposcopy EGD W/O BRSH SPEC VARICIES INJ 11/29/2016 EGD W/O BRSH SPEC VARICIES INJ 03/14/2022 LAPAROSCOPY SURG CHOLECYSTECTOMY 03/17/2019 Cholecystectomy, lap UNSPECIFIED ORAL SURGERY PROCEDURE, BY REPORT [facility] FAMILY HISTORY Problem Relation Age of Onset Breast Cancer Mother other (Skin Cancer) Mother Colon Cancer Father 46 Asthma Brother Dementia Maternal Grandfather Breast Cancer Paternal Grandmother Breast Cancer Maternal Grandmother and maternal great aunts. Cancer Maternal Grandmother Uterine other (Skin Cancer) Maternal Aunt Asthma Son Asthma Son Social History Tobacco Use Smoking status: Former Years: 10.00 Types: Cigarettes Quit date: 01/02/2018 Years since quittin.2 Smokeless tobacco: Never Vaping Use Vaping Use: Never used Substance Use Topics Alcohol use: Yes Alcohol/week: 20.0 standard drinks Types: 2 Glasses of Wine (5oz), 3 Cans of Beer (12oz), 3 Mixed Drinks per week Comment: Occasionally, NOT WHILE Drug use: No Current Outpatient Medications Medication Sig dicyclomine (BENTYL) 10 mg capsule Take 1 capsule by mouth three times daily as needed. (Patient not taking: No sig reported) pantoprazole DR (PROTONIX) 40 mg tablet Take 1 tablet by mouth daily before breakfast. Take on empty stomach, 1/2 hr before meal. famotidine (PEPCID) 20 mg tablet Take 1 tablet by mouth at bedtime as needed. Drospirenone-Ethinyl Estradiol (GIANVI, 28,) 3-0.02 mg per tablet Take 1 tablet by mouth once daily. acyclovir (ZOVIRAX) 400 mg tablet take 1 tablet by mouth twice a day pantoprazole DR (PROTONIX) 40 mg tablet Take 1 tablet by mouth daily before breakfast. Take on empty stomach, 1/2 hr before meal. No current facility-administered medications for this visit. ALLERGIES Allergen Reactions Latex Rash Adhesive Tape (Esperanza* Rash, Itching Burning, Itching, and Blisters with certain adhesives REVIEW OF SYSTEMS: Review of Systems Gastrointestinal: Positive for abdominal pain, heartburn, nausea and vomiting. PHYSICAL EXAMINATION: VIDEO EXAM: (if completed, performed via video enabled technology) Physical Exam Constitutional: Appearance: Normal appearance. HENT: Head: Normocephalic and atraumatic. Eyes: General: No scleral icterus. Pulmonary: Effort: Pulmonary effort is normal. Skin: Coloration: Skin is not jaundiced. Neurological: General: No focal deficit present. Mental Status: She is alert and oriented to person, place, and time. Psychiatric: Mood and Affect: Mood normal. Behavior: Behavior normal. Thought Content: Thought content normal. Judgment: Judgment normal. Assessment/Plan (R10.84) Generalized abdominal pain (primary encounter diagnosis) (K44.9) Hiatal hernia (R11.0) Nausea (R68.81) Early satiety 1. Generalized abdominal pain -- Patient with ongoing constant abdominal pain, worse in the epigastric region. Pain is worse with eating. Notes nausea and early satiety as well. -- Discussed EGD/colonoscopy. -- Patient requesting surgical referral for hiatal hernia -- GES r/o gastroparesis - CONSULT TO GENERAL SURGERY; Future - NM GASTRIC EMPTYING SOLID; Future 2. Hiatal hernia -- Patient with ongoing constant abdominal pain, worse in the epigastric region. Pain is worse with eating. Notes nausea and early satiety as well. -- Discussed EGD/colonoscopy. -- Patient requesting surgical referral for hiatal hernia -- GES r/o gastroparesis - CONSULT TO GENERAL SURGERY; Future 3. Nausea -- Patient with ongoing constant abdominal pain, worse in the epigastric region. Pain is worse with eating. Notes nausea and early satiety as well. -- Discussed EGD/colonoscopy. -- Patient requesting surgical referral for hiatal hernia -- GES r/o gastroparesis - NM GASTRIC EMPTYING SOLID; Future 4. Early satiety -- Patient with ongoing constant abdominal pain, worse in the epigastric region. Pain is worse with eating. Notes nausea and early satiety as well. -- Discussed EGD/colonoscopy. -- Patient requesting surgical referral for hiatal hernia -- GES r/o gastroparesis - NM GASTRIC EMPTYING SOLID; Future Follow up in office . Recommended to please call office/go to ER if fever, chills, chest pain, SOB, diarrhea, nausea, emesis, worsening abdominal pain, dehydration occurs I spent 20 minutes in the visit, with more than 50% of the total [id number] time of the visit in counseling / coordination of care. I have confirmed and edited as necessary, the PFSH and ROS obtained by others. Thuy Gilbert PA-C March 22, 2022 10:36 AM documented in this encounter [facility] 03-14-2022 Nurse Note Arrived in phase II via cart. Left lateral position. Sedated, but responds to verbal stimuli. Color normal; skin warm and dry. Respirations wnl and unlabored. Abdomen soft and with + bowel sounds in quads X 4. Patient resting comfortably. Family at bedside. Esthela Marte RN documented in this encounter [facility] 03-14-2022 History and physical note UPDATED PROCEDURAL SEDATION HISTORY AND PHYSICAL EXAMINATION SERVICE DATE: 03/14/2022 SERVICE TIME: 10:09 PHYSICAL EXAM MUST BE COMPLETED ON ADMISSION PROCEDURE: EGD and colonoscopy, possible biopsies Procedure Indications: nausea/emesis, abdominal pain, altered bowel habits The History and Physical (completed in the past 30 days) has been reviewed and the patient has been examined. The contents accurately reflect the patient's condition with the following additions or revisions since the H&P was completed. ASA Class: ASA Class:: Patient with mild systemic disease Examination indicates no changes. AIRWAY: Airway Visualization of Uvula: Yes Mouth opening greater than 2 fingerbreadths: Yes Neck Full Range of Motion: Yes LUNGS: Lungs clear to auscultation CARDIAC: Regular rhythm,Regular rate Provisional Diagnosis/Treatment Plan: EGD and colonoscopy possible biopsies SEDATION GOAL: Moderate This H&P can be found in the Electronic Medical Record. SIGNATURE: Radha Segura MD PATIENT NAME: Angelina Rodriguez DATE: March 14, 2022 TIME: 10:09 AM Source Note - Radha Segura MD - 03/14/2022 10:15 AM EST CHIEF COMPLAINT: Patient presents with: Abdominal discomfort: Alternating bowel habits and nausea. One encounter of blood in the stool and fatigue all the time. Stool 12/29/21 Labs 12/26/21 This consult was requested by Nisha Sullivan APRN.C* for an opinion regarding abdominal pain. My final recommendations will be communicated to the requesting health care provider by way of the shared medical record for internal providers or letter via the [employer] for external providers. HPI: Angelina Rodriguez is a 31 year old female who presents for Abdominal discomfort (Alternating bowel habits and nausea. One encounter of blood in the stool and fatigue all the time. Stool 12/29/21 Labs 12/26/21). PMHx of depression, obesity Patient tells me that she has been dealing with a lot of GI symptoms. Having consistent nausea with intermittent vomiting. She does have epigastric pain that travels into her chest. Has been on Protonix and Pepcid which haven't been helping much. Denies actual heartburn symptoms. Sodas and alcohol are causing a lot of burning. Notes early satiety. Appetite is okay. Notes alternating bowel habits. Can have constipation for a few days then profuse diarrhea. Has had one episode of rectal bleeding. Stool can be darker. EGD 11/29/2016: Impression: - Normal esophagus. - Normal stomach. Biopsied. - Normal examined duodenum. Estimated Blood Loss: Estimated blood loss was minimal. Recommendation: - Discharge patient to home. - Written discharge instructions were provided to the patient. - Resume previous diet. - Return to my office at the next available appointment. Colonoscopy 11/29/2016: Impression: - The entire examined colon is normal. Biopsied. Estimated Blood Loss: Estimated blood loss was minimal. Recommendation: - Discharge patient to home. - Written discharge instructions were provided to the patient. - Resume previous diet. - Patient has a contact number available for emergencies. The signs and symptoms of potential delayed complications were discussed with the patient. Return to normal activities tomorrow. Written discharge instructions were provided to the patient. - Continue present medications. - No repeat colonoscopy due to age. CONVERTED FINAL DIAGNOSIS 1. Stomach, antrum, biopsy (A) - Gastric oxyntic-type mucosa with no diagnostic abnormality. 2. Random colon, biopsy (B) - Colonic mucosa with no diagnostic abnormality. Component Latest Ref Rng & Units 12/29/2021 Shigella spp./Enteroinvasive E.coli DNA Not Detected Not detected Campylobacter jejuni/coli DNA Not Detected Not detected Shiga toxin-producing gene(s) Not Detected Not detected Salmonella spp. DNA Not Detected Not detected Test Results Negative Negative for lactoferrin, which may indicate the absence of fecal white blood cells Calprotectin, Fecal 0 - 50 mg/kg 91.3 (A) C. difficile PCR Negative for C. difficile toxin by PCR Negative for C. difficile toxin by PCR Component Latest Ref Rng & Units 12/26/2021 Transglutaminase Ab, IgA <20 Units 17 Transglutaminase IgA Qualitative Negative, Test not Indicated Negative Interpretation (Celiac Screen) No serological evidence of celiac disease, however, if celiac disease is clinically suspected and patient is not on gluten-free diet, histological diagnosis may be considered. HLA testing may help with risk assessment. Gliadin Ab, IgA <20 Units 4 Gliad Deamidated IgA Qual Negative, Test not Indicated Negative WSR 0 - 20 mm/hr 15 CRP <0.9 mg/dL 1.1 (H) Record Review: [facility] / Outside records reviewed. PAST MEDICAL HISTORY PAST MEDICAL HISTORY Diagnosis Date Abnormal glandular Papanicolaou smear of cervix Abn. Pap smear (cervix), mildl dysplasia Depression FRACTURE 2001 FOOT, BALLET Irregular heartbeat depression PAST SURGICAL HISTORY PAST SURGICAL HISTORY Procedure Laterality Date COLONOSCOPY 11/29/2016 COLPOSCOPY CERVIX UPPER/ADJACENT VAGINA Colposcopy EGD W/O [facility] SPEC VARICIES INJ 11/29/2016 LAPAROSCOPY SURG CHOLECYSTECTOMY 03/17/2019 Cholecystectomy, lap UNSPECIFIED ORAL SURGERY PROCEDURE, BY REPORT [facility] Allergies: ALLERGIES ALLERGIES Allergen Reactions Latex Rash Adhesive Tape (Esperanza* Rash, Itching Burning, Itching, and Blisters with certain adhesives Medications: CURRENT MEDICATIONS famotidine (PEPCID) 20 mg tablet Take 1 tablet by mouth at bedtime as needed. acyclovir (ZOVIRAX) 400 mg tablet take 1 tablet by mouth twice a day pantoprazole DR (PROTONIX) 40 mg tablet Take 1 tablet by mouth daily before breakfast. Take on empty stomach, 1/2 hr before meal. pantoprazole DR (PROTONIX) 40 mg tablet Take 1 tablet by mouth daily before breakfast. Take on empty stomach, 1/2 hr before meal. Drospirenone-Ethinyl Estradiol (GIANVI, 28,) 3-0.02 mg per tablet Take 1 tablet by mouth once daily. FAMILY HISTORY FAMILY HISTORY Problem Relation Age of Onset Breast Cancer Mother other (Skin Cancer) Mother Colon Cancer Father 46 Asthma Brother Dementia Maternal Grandfather Breast Cancer Paternal Grandmother Breast Cancer Maternal Grandmother and maternal great aunts. 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 HENT: Positive for trouble swallowing (Somewhat). Cardiovascular: Positive for chest pain. Gastrointestinal: Positive for abdominal distention, abdominal pain, blood in stool, diarrhea, nausea, rectal pain and vomiting. Change in bowel habits, Heartburn, Gas All other systems reviewed and are negative. Are you taking any blood thinners? No Physical Examination: Pulse 107 Ht 5' 8 (1.73m) Wt 238 lb (108.0kg) LMP 10/16/2021 BMI 36.20 kg/(m^2). Physical Exam Constitutional: Appearance: Normal appearance. She is obese. HENT: Head: Normocephalic and atraumatic. Eyes: General: No scleral icterus. Extraocular Movements: Extraocular movements intact. Conjunctiva/sclera: Conjunctivae normal. Pupils: Pupils are equal, round, and reactive to light. Cardiovascular: Rate and Rhythm: Normal rate and regular rhythm. Pulses: Normal pulses. Heart sounds: Normal heart sounds. Pulmonary: Effort: Pulmonary effort is normal. Breath sounds: Normal breath sounds. Abdominal: General: Abdomen is flat. Bowel sounds are normal. Palpations: Abdomen is soft. Tenderness: There is abdominal tenderness (generalized discomfort to palpation). Musculoskeletal: General: Normal range of motion. Cervical back: Normal range of motion and neck supple. Skin: General: Skin is warm and dry. Coloration: Skin is not jaundiced. Neurological: General: No focal deficit present. Mental Status: She is alert and oriented to person, place, and time. Psychiatric: Mood and Affect: Mood normal. Behavior: Behavior normal. Thought Content: Thought content normal. Judgment: Judgment normal. Assessment/Plan (R10.84) Generalized abdominal pain (primary encounter diagnosis) (R11.14) Bilious vomiting with nausea (R19.8) Alternating constipation and diarrhea (R19.5) Elevated fecal calprotectin 1. Generalized abdominal pain -- Patient notes significant abdominal pain, worse with eating. -- Start Bentyl 10 mg PRN TID -- EGD/colonoscopy for further evaluation -- If negative, consider GES - EGD DIAGNOSTIC; Future - COLONOSCOPY DIAGNOSTIC; Future - dicyclomine (BENTYL) 10 mg capsule; Take 1 capsule by mouth three times daily as needed. Dispense: 90 capsule; Refill: 1 2. Bilious vomiting with nausea -- Okay to continue PPI -- EGD r/o bile gastritis, gastritis, PUD -- Consider GES - EGD DIAGNOSTIC; Future 3. Alternating constipation and diarrhea -- Start Bentyl 10 mg PRN TID -- Colonoscopy for further evaluation - COLONOSCOPY DIAGNOSTIC; Future 4. Elevated fecal calprotectin -- Start Bentyl 10 mg PRN TID -- Colonoscopy for further evaluation - COLONOSCOPY DIAGNOSTIC; Future Impression: generalized abdominal pain, nausea/emesis, change in bowel habits Discussion/Plan/Recommendations: I have discussed the above with the patient. I have offered colonoscopy and EGD, possible biopsies I have explained the procedure to the patient. I have counseled the patient as to the risks of the procedure, including but not limited to: infection, bleeding, injury to any intrabdominal organs such as liver/spleen, perforation of the GI tract, inability to complete the procedure, complications of anesthesia, etc. - the patient understands. The patient wishes to proceed. I have answered all questions to the patient s satisfaction and the patient has no further questions. CHIEF COMPLAINT: Patient presents with: Abdominal discomfort: Alternating bowel habits and nausea. One encounter of blood in the stool and fatigue all the time. Stool 12/29/21 Labs 12/26/21 This consult was requested by Nisha Sullivan APRN.C* for an opinion regarding abdominal pain. My final recommendations will be communicated to the requesting health care provider by way of the shared medical record for internal providers or letter via the [employer] for external providers. HPI: Angelina Rodriguez is a 31 year old female who presents for Abdominal discomfort (Alternating bowel habits and nausea. One encounter of blood in the stool and fatigue all the time. Stool 12/29/21 Labs 12/26/21). PMHx of depression, obesity Patient tells me that she has been dealing with a lot of GI symptoms. Having consistent nausea with intermittent vomiting. She does have epigastric pain that travels into her chest. Has been on Protonix and Pepcid which haven't been helping much. Denies actual heartburn symptoms. Sodas and alcohol are causing a lot of burning. Notes early satiety. Appetite is okay. Notes alternating bowel habits. Can have constipation for a few days then profuse diarrhea. Has had one episode of rectal bleeding. Stool can be darker. EGD 11/29/2016: Impression: - Normal esophagus. - Normal stomach. Biopsied. - Normal examined duodenum. Estimated Blood Loss: Estimated blood loss was minimal. Recommendation: - Discharge patient to home. - Written discharge instructions were provided to the patient. - Resume previous diet. - Return to my office at the next available appointment. Colonoscopy 11/29/2016: Impression: - The entire examined colon is normal. Biopsied. Estimated Blood Loss: Estimated blood loss was minimal. Recommendation: - Discharge patient to home. - Written discharge instructions were provided to the patient. - Resume previous diet. - Patient has a contact number available for emergencies. The signs and symptoms of potential delayed complications were discussed with the patient. Return to normal activities tomorrow. Written discharge instructions were provided to the patient. - Continue present medications. - No repeat colonoscopy due to age. CONVERTED FINAL DIAGNOSIS 1. Stomach, antrum, biopsy (A) - Gastric oxyntic-type mucosa with no diagnostic abnormality. 2. Random colon, biopsy (B) - Colonic mucosa with no diagnostic abnormality. Component Latest Ref Rng & Units 12/29/2021 Shigella spp./Enteroinvasive E.coli DNA Not Detected Not detected Campylobacter jejuni/coli DNA Not Detected Not detected Shiga toxin-producing gene(s) Not Detected Not detected Salmonella spp. DNA Not Detected Not detected Test Results Negative Negative for lactoferrin, which may indicate the absence of fecal white blood cells Calprotectin, Fecal 0 - 50 mg/kg 91.3 (A) C. difficile PCR Negative for C. difficile toxin by PCR Negative for C. difficile toxin by PCR Component Latest Ref Rng & Units 12/26/2021 Transglutaminase Ab, IgA <20 Units 17 Transglutaminase IgA Qualitative Negative, Test not Indicated Negative Interpretation (Celiac Screen) No serological evidence of celiac disease, however, if celiac disease is clinically suspected and patient is not on gluten-free diet, histological diagnosis may be considered. HLA testing may help with risk assessment. Gliadin Ab, IgA <20 Units 4 Gliad Deamidated IgA Qual Negative, Test not Indicated Negative WSR 0 - 20 mm/hr 15 CRP <0.9 mg/dL 1.1 (H) Record Review: [facility] / Outside records reviewed. PAST MEDICAL HISTORY PAST MEDICAL HISTORY Diagnosis Date Abnormal glandular Papanicolaou smear of cervix Abn. Pap smear (cervix), mildl dysplasia Depression FRACTURE 2001 FOOT, BALLET Irregular heartbeat depression PAST SURGICAL HISTORY PAST SURGICAL HISTORY Procedure Laterality Date COLONOSCOPY 11/29/2016 COLPOSCOPY CERVIX UPPER/ADJACENT VAGINA Colposcopy EGD W/O [facility] SPEC VARICIES INJ 11/29/2016 LAPAROSCOPY SURG CHOLECYSTECTOMY 03/17/2019 Cholecystectomy, lap UNSPECIFIED ORAL SURGERY PROCEDURE, BY REPORT [facility] Allergies: ALLERGIES ALLERGIES Allergen Reactions Latex Rash Adhesive Tape (Esperanza* Rash, Itching Burning, Itching, and Blisters with certain adhesives Medications: CURRENT MEDICATIONS famotidine (PEPCID) 20 mg tablet Take 1 tablet by mouth at bedtime as needed. acyclovir (ZOVIRAX) 400 mg tablet take 1 tablet by mouth twice a day pantoprazole DR (PROTONIX) 40 mg tablet Take 1 tablet by mouth daily before breakfast. Take on empty stomach, 1/2 hr before meal. pantoprazole DR (PROTONIX) 40 mg tablet Take 1 tablet by mouth daily before breakfast. Take on empty stomach, 1/2 hr before meal. Drospirenone-Ethinyl Estradiol (GIANVI, 28,) 3-0.02 mg per tablet Take 1 tablet by mouth once daily. FAMILY HISTORY FAMILY HISTORY Problem Relation Age of Onset Breast Cancer Mother other (Skin Cancer) Mother Colon Cancer Father 46 Asthma Brother Dementia Maternal Grandfather Breast Cancer Paternal Grandmother Breast Cancer Maternal Grandmother and maternal great aunts. 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 HENT: Positive for trouble swallowing (Somewhat). Cardiovascular: Positive for chest pain. Gastrointestinal: Positive for abdominal distention, abdominal pain, blood in stool, diarrhea, nausea, rectal pain and vomiting. Change in bowel habits, Heartburn, Gas All other systems reviewed and are negative. Are you taking any blood thinners? No Physical Examination: Pulse 107 Ht 5' 8 (1.73m) Wt 238 lb (108.0kg) LMP 10/16/2021 BMI 36.20 kg/(m^2). Physical Exam Constitutional: Appearance: Normal appearance. She is obese. HENT: Head: Normocephalic and atraumatic. Eyes: General: No scleral icterus. Extraocular Movements: Extraocular movements intact. Conjunctiva/sclera: Conjunctivae normal. Pupils: Pupils are equal, round, and reactive to light. Cardiovascular: Rate and Rhythm: Normal rate and regular rhythm. Pulses: Normal pulses. Heart sounds: Normal heart sounds. Pulmonary: Effort: Pulmonary effort is normal. Breath sounds: Normal breath sounds. Abdominal: General: Abdomen is flat. Bowel sounds are normal. Palpations: Abdomen is soft. Tenderness: There is abdominal tenderness (generalized discomfort to palpation). Musculoskeletal: General: Normal range of motion. Cervical back: Normal range of motion and neck supple. Skin: General: Skin is warm and dry. Coloration: Skin is not jaundiced. Neurological: General: No focal deficit present. Mental Status: She is alert and oriented to person, place, and time. Psychiatric: Mood and Affect: Mood normal. Behavior: Behavior normal. Thought Content: Thought content normal. Judgment: Judgment normal. Assessment/Plan (R10.84) Generalized abdominal pain (primary encounter diagnosis) (R11.14) Bilious vomiting with nausea (R19.8) Alternating constipation and diarrhea (R19.5) Elevated fecal calprotectin 1. Generalized abdominal pain -- Patient notes significant abdominal pain, worse with eating. -- Start Bentyl 10 mg PRN TID -- EGD/colonoscopy for further evaluation -- If negative, consider GES - EGD DIAGNOSTIC; Future - COLONOSCOPY DIAGNOSTIC; Future - dicyclomine (BENTYL) 10 mg capsule; Take 1 capsule by mouth three times daily as needed. Dispense: 90 capsule; Refill: 1 2. Bilious vomiting with nausea -- Okay to continue PPI -- EGD r/o bile gastritis, gastritis, PUD -- Consider GES - EGD DIAGNOSTIC; Future 3. Alternating constipation and diarrhea -- Start Bentyl 10 mg PRN TID -- Colonoscopy for further evaluation - COLONOSCOPY DIAGNOSTIC; Future 4. Elevated fecal calprotectin -- Start Bentyl 10 mg PRN TID -- Colonoscopy for further evaluation - COLONOSCOPY DIAGNOSTIC; Future Impression: generalized abdominal pain, nausea/emesis, change in bowel habits Discussion/Plan/Recommendations: I have discussed the above with the patient. I have offered colonoscopy and EGD, possible biopsies I have explained the procedure to the patient. I have counseled the patient as to the risks of the procedure, including but not limited to: infection, bleeding, injury to any intrabdominal organs such as liver/spleen, perforation of the GI tract, inability to complete the procedure, complications of anesthesia, etc. - the patient understands. The patient wishes to proceed. I have answered all questions to the patient s satisfaction and the patient has no further questions. documented in this encounter [facility] 03-09-2022 Note HNO ID: [id number] Author: Kenny iM APRN.DEVELOPMENT ADMINISTRATOR Service: ? Author Type: Nurse Practitioner Type: Progress Notes Filed: 03/09/2022 10:35 AM Note Text: Subjective HPI Nontoxic female presents to Urgent care chief complaint right ear blockage. Patient states concerned about cerumen impaction. Has had cerumen impaction in past this feels similar. Has not used any OTC medications. Denies any significant pain. States hearing is muffled. Additionally has had increasing abdominal pain. 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 Has had some loose stools. No blood in stool. Denies any fever body aches chills productive cough chest pain shortness of breath pleuritic pain hemoptysis nausea vomiting abdominal pain change in bowel or bladder habits. Past medical history prescription medication use and allergies reviewed. .Patient presents with: Ear Pain: Pt reported (RT) ear pain rated 8, x1 day, diarrhea denied blood/mucus. PAST MEDICAL HISTORY Diagnosis Date Abnormal glandular Papanicolaou smear of cervix Abn. Pap smear (cervix), mildl dysplasia Depression FRACTURE 2001 FOOT, BALLET Irregular heartbeat depression PAST SURGICAL HISTORY Procedure Laterality Date COLONOSCOPY 11/29/2016 COLPOSCOPY CERVIX UPPER/ADJACENT VAGINA Colposcopy EGD W/O [facility] SPEC VARICIES INJ 11/29/2016 LAPAROSCOPY SURG CHOLECYSTECTOMY 03/17/2019 Cholecystectomy, lap UNSPECIFIED ORAL SURGERY PROCEDURE, BY REPORT [place] [facility] ALLERGIES Latex and Adhesive Tape (Rosins) MEDICATIONS famotidine (PEPCID) 20 mg tablet Take 1 tablet by mouth at bedtime as needed. Drospirenone-Ethinyl Estradiol (GIANVI, 28,) 3-0.02 mg per tablet Take 1 tablet by mouth once daily. acyclovir (ZOVIRAX) 400 mg tablet take 1 tablet by mouth twice a day pantoprazole DR (PROTONIX) 40 mg tablet Take 1 tablet by mouth daily before breakfast. Take on empty stomach, 1/2 hr before meal. dicyclomine (BENTYL) 10 mg capsule Take 1 capsule by mouth three times daily as needed. (Patient not taking: Reported on 03/09/2022) pantoprazole DR (PROTONIX) 40 mg tablet Take 1 tablet by mouth daily before breakfast. Take on empty stomach, 1/2 hr before meal. FAMILY HISTORY Problem Relation Age of Onset Breast Cancer Mother other (Skin Cancer) Mother Colon Cancer Father 46 Asthma Brother Dementia Maternal Grandfather Breast Cancer Paternal Grandmother Breast Cancer Maternal Grandmother and maternal great aunts. Cancer Maternal Grandmother Uterine other (Skin Cancer) Maternal Aunt Asthma Son Asthma Son Social History Tobacco Use Smoking status: Former Years: 10.00 Types: Cigarettes Quit date: 01/02/2018 Years since quittin.1 Smokeless tobacco: Never Vaping Use Vaping Use: Never used Substance Use Topics Alcohol use: Yes Alcohol/week: 20.0 standard drinks Types: 2 Glasses of Wine (5oz), 3 Cans of Beer (12oz), 3 Mixed Drinks per week Comment: Occasionally, NOT WHILE Drug use: No BP 130/78 Pulse 89 Temp 36.6 ?C (97.8 ?F) (Tympanic) Resp 16 Wt 109.1 kg (240 lb 9.6 oz) LMP (Approximate) SpO2 98% BMI 36.58 kg/m? Review of Systems Constitutional: Negative for chills, fever and malaise/fatigue. HENT: Positive for ear pain. Negative for congestion, ear discharge, sinus pain and sore throat. Eyes: Negative for blurred vision, pain, discharge and redness. Respiratory: Negative for cough, hemoptysis, sputum production, shortness of breath, wheezing and stridor. Cardiovascular: Negative for chest pain. Gastrointestinal: Positive for abdominal pain and diarrhea. Negative for nausea and vomiting. Musculoskeletal: Negative for myalgias. Skin: Negative for itching and rash. Neurological: Negative for dizziness and headaches. Objective Physical Exam Constitutional: General: She is not in acute distress. Appearance: She is not diaphoretic. HENT: Head: Normocephalic. Jaw: No trismus or tenderness. Right Ear: Hearing, tympanic membrane, ear canal and external ear normal. No tenderness. There is impacted cerumen. No mastoid tenderness. Left Ear: Hearing, tympanic membrane, ear canal and external ear normal. No tenderness. There is no impacted cerumen. No mastoid tenderness. Ears: Comments: Cerumen impaction noted right ear. Post irrigation pearly avila tympanic membrane intact bilaterally. Mouth/Throat: Mouth: Mucous membranes are moist. Pharynx: Oropharynx is clear. No oropharyngeal exudate or posterior oropharyngeal erythema. Eyes: Conjunctiva/sclera: Conjunctivae normal. Pupils: Pupils are equal, round, and reactive to light. Cardiovascular: Rate and Rhythm: Normal rate and regular rhythm. Heart sounds: Normal heart sounds. Pulmonary: Effort: Pulmonary effort is normal. No tachypnea, accessory muscle usage or respiratory distress. Breath sounds: Normal breath sounds. No stridor. No wheezing, rhonchi (more content not included)... [facility] 03-09-2022 Instructions Kenny Mi APRN.[facility] - 03/09/2022 10:11 AM EST Ear wax buildup and blockage (cerumen impaction) What is ear wax? Ear wax, also called cerumen, is made by the body to protect the ears. The ear wax has both lubricating and antibacterial properties. Most of the time, the old ear wax is moved through the ear canal by motions from chewing and other jaw movements and as the skin of the ear canal grows from the inside out. At that time, it reaches the outside of the ear and flakes off. Ear wax is produced in the outer part of the ear canal, not deep inside the ear. What does it mean when ear wax becomes impacted? We say that ear wax is impacted when it has built up in the ear canal to such a point that there may be signs that something is not quite right. It is important to note that, for most people, ears might never need cleaning--they are designed to clean themselves. Ear wax buildup and blockage often happens when people use items like cotton swabs or ana pins to try to clean their ears. This only pushes the ear wax farther into the ears and can also cause injury to the ear. What are the symptoms of ear wax impaction? A feeling of fullness in the ear Pain in the ear Difficulty hearing, which may continue to worsen Ringing in the ear (tinnitus) A feeling of itchiness in the ear Discharge from the ear Odor coming from the ear Dizziness Who experiences ear wax buildup? Ear wax buildup can happen to anyone. However, it is more likely to occur in: People who use hearing aids or ear plugs People who put cotton swabs or other items into their ears Older people People with developmental disabilities People with ear canals shaped in such a way as to interfere with natural wax removal How is ear wax impaction diagnosed? Your health care provider can look into your ears with a special instrument, called an otoscope, to see if ear wax buildup is present. How is ear wax impaction treated? Ear wax can be removed in several ways; some of these methods can be done at home. Cleaning the outside of the ear by wiping with a cloth. Putting cerumenolytic solutions (solutions to dissolve wax) into the ear canal--these solutions include mineral oil, baby oil, glycerin, peroxide-based ear drops (such as Debrox ), hydrogen peroxide, and saline solution. Irrigating or syringing the ear--this involves using a syringe to rinse out the ear canal with water or saline, generally after the wax has been softened or dissolved by a cerumenolytic. Removing the wax manually using special instruments--this should be done only by a health care provider who might use a cerumen spoon, forceps, or suction device. Note: Irrigation should not be done by or to any persons who have, or suspect they have, a perforation (hole) in their eardrum or tubes in the affected ear(s). Commercially available suction devices for home use (such as Wax-Vac) are not effective for most people and are therefore not recommended. Ear candles, which are advertised as a natural method to remove ear wax, are not only ineffective but can cause injury to the ear. Injuries include quinn to the external ear and ear canal and perforation of the eardrum. What are possible complications of ear wax impaction? If left untreated, excessive ear wax may cause symptoms of ear wax impaction to become worse. These symptoms might include hearing loss, ear irritation, etc. A build-up of ear wax might also make it difficult to see into the ear, which may result in potential problems going undiagnosed. How can ear wax impaction be prevented? Do not stick anything into your ears to clean them. Use cotton swabs only on the outside of the ear. If you have a severe enough problem with ear wax that you need to have it removed by a health professional more than once a year, discuss with them which method of prevention (if any) may work best for you. References [employer]--[employer]. Earwax Accessed 02/18/2013. [employer]. Nothing Smaller Than Your Elbow, Please Accessed 02/18/2013. Copyright 8152-7574 [facility]. All rights reserved This information is provided by the [facility] and is not intended to replace the medical advice of your doctor or health care provider. Please consult your health care provider for advice about a specific medical condition. For additional health information, please contact the [facility] [employer] [facility] Information at the [facility] or toll-free extension [phone]. If you prefer, you may visit [email or web address] or [email or web address]. This document was last reviewed on: 2016 documented in this encounter [facility] 03-09-2022 History of Present illness Narrative Subjective HPI Nontoxic female presents to Urgent care chief complaint right ear blockage. Patient states concerned about cerumen impaction. Has had cerumen impaction in past this feels similar. Has not used any OTC medications. Denies any significant pain. States hearing is muffled. Additionally has had increasing abdominal pain. 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 Has had some loose stools. No blood in stool. Denies any fever body aches chills productive cough chest pain shortness of breath pleuritic pain hemoptysis nausea vomiting abdominal pain change in bowel or bladder habits. Past medical history prescription medication use and allergies reviewed. .Patient presents with: Ear Pain: Pt reported (RT) ear pain rated 8, x1 day, diarrhea denied blood/mucus. PAST MEDICAL HISTORY Diagnosis Date Abnormal glandular Papanicolaou smear of cervix Abn. Pap smear (cervix), mildl dysplasia Depression FRACTURE 2002 FOOT, BALLET Irregular heartbeat depression PAST SURGICAL HISTORY Procedure Laterality Date COLONOSCOPY 11/29/2016 COLPOSCOPY CERVIX UPPER/ADJACENT VAGINA Colposcopy EGD W/O [facility] SPEC VARICIES INJ 11/29/2016 LAPAROSCOPY SURG CHOLECYSTECTOMY 03/17/2019 Cholecystectomy, lap UNSPECIFIED ORAL SURGERY PROCEDURE, BY REPORT [place] [facility] ALLERGIES Latex and Adhesive Tape (Rosins) MEDICATIONS famotidine (PEPCID) 20 mg tablet Take 1 tablet by mouth at bedtime as needed. Drospirenone-Ethinyl Estradiol (GIANVI, 28,) 3-0.02 mg per tablet Take 1 tablet by mouth once daily. acyclovir (ZOVIRAX) 400 mg tablet take 1 tablet by mouth twice a day pantoprazole DR (PROTONIX) 40 mg tablet Take 1 tablet by mouth daily before breakfast. Take on empty stomach, 1/2 hr before meal. dicyclomine (BENTYL) 10 mg capsule Take 1 capsule by mouth three times daily as needed. (Patient not taking: Reported on 03/09/2022) pantoprazole DR (PROTONIX) 40 mg tablet Take 1 tablet by mouth daily before breakfast. Take on empty stomach, 1/2 hr before meal. FAMILY HISTORY Problem Relation Age of Onset Breast Cancer Mother other (Skin Cancer) Mother Colon Cancer Father 46 Asthma Brother Dementia Maternal Grandfather Breast Cancer Paternal Grandmother Breast Cancer Maternal Grandmother and maternal great aunts. Cancer Maternal Grandmother Uterine other (Skin Cancer) Maternal Aunt Asthma Son Asthma Son Social History Tobacco Use Smoking status: Former Years: 10.00 Types: Cigarettes Quit date: 01/02/2018 Years since quittin.1 Smokeless tobacco: Never Vaping Use Vaping Use: Never used Substance Use Topics Alcohol use: Yes Alcohol/week: 20.0 standard drinks Types: 2 Glasses of Wine (5oz), 3 Cans of Beer (12oz), 3 Mixed Drinks per week Comment: Occasionally, NOT WHILE Drug use: No BP 130/78 Pulse 89 Temp 36.6 C (97.8 F) (Tympanic) Resp 16 Wt 109.1 kg (240 lb 9.6 oz) LMP (Approximate) SpO2 98% BMI 36.58 kg/m Review of Systems Constitutional: Negative for chills, fever and malaise/fatigue. HENT: Positive for ear pain. Negative for congestion, ear discharge, sinus pain and sore throat. Eyes: Negative for blurred vision, pain, discharge and redness. Respiratory: Negative for cough, hemoptysis, sputum production, shortness of breath, wheezing and stridor. Cardiovascular: Negative for chest pain. Gastrointestinal: Positive for abdominal pain and diarrhea. Negative for nausea and vomiting. Musculoskeletal: Negative for myalgias. Skin: Negative for itching and rash. Neurological: Negative for dizziness and headaches. Objective Physical Exam Constitutional: General: She is not in acute distress. Appearance: She is not diaphoretic. HENT: Head: Normocephalic. Jaw: No trismus or tenderness. Right Ear: Hearing, tympanic membrane, ear canal and external ear normal. No tenderness. There is impacted cerumen. No mastoid tenderness. Left Ear: Hearing, tympanic membrane, ear canal and external ear normal. No tenderness. There is no impacted cerumen. No mastoid tenderness. Ears: Comments: Cerumen impaction noted right ear. Post irrigation pearly avila tympanic membrane intact bilaterally. Mouth/Throat: Mouth: Mucous membranes are moist. Pharynx: Oropharynx is clear. No oropharyngeal exudate or posterior oropharyngeal erythema. Eyes: Conjunctiva/sclera: Conjunctivae normal. Pupils: Pupils are equal, round, and reactive to light. Cardiovascular: Rate and Rhythm: Normal rate and regular rhythm. Heart sounds: Normal heart sounds. Pulmonary: Effort: Pulmonary effort is normal. No tachypnea, accessory muscle usage or respiratory distress. Breath sounds: Normal breath sounds. No stridor. No wheezing, rhonchi or rales. Abdominal: Palpations: Abdomen is soft. Tenderness: There is no abdominal tenderness. Musculoskeletal: Cervical back: Normal range of motion and neck supple. No rigidity or tenderness. Lymphadenopathy: Cervical: No cervical adenopathy. Skin: General: Skin is warm and dry. Neurological: Mental Status: She is alert and oriented to person, place, and time. ASSESSMENT/PLAN: 1. Generalized abdominal pain - ICD9: 789.07, ICD10: R10.84 (primary diagnosis) 2. Bilateral impacted cerumen - ICD9: 380.4, ICD10: H61.23 Patient diagnosed with generalized abdominal pain. No significant focal tenderness noted. Is currently under care of gastroenterology. Does have a colonoscopy scheduled upcoming. Will contact lime plant operator and discuss increasing abdominal pain. Additionally patient was diagnosed with cerumen impaction. Ears irrigated successfully by [employer]. Patient tolerated procedure well. TM pearly jarvis intact bilaterally post irrigation. Patient was educated on supportive therapies. Patient will follow up with primary care provider as needed. Patient was instructed to immediately proceed to emergency room for any new, worsening, or symptoms lasting longer than anticipated. The patient's clinical presentation is otherwise unremarkable at this time. Based on exam and clinical finding, the patient is stable for discharge. Plan of care was discussed with patient. Patient verbalizes understanding and agrees to plan of care. This note was generated using [employer] software. It may contain errors in wording, punctuation, or spelling. Kenny Mi APRN.CNP documented in this encounter [facility] 03-06-2022 Note HNO ID: [id number] Author: Thuy Gilbert PA-C Service: ? Author Type: Physician Snowmaker Type: Progress Notes Filed: 03/06/2022 3:08 PM Note Text: CHIEF COMPLAINT: Patient presents with: Abdominal discomfort: Alternating bowel habits and nausea. One encounter of blood in the stool and fatigue all the time. Stool 12/29/21 Labs 12/26/21 This consult was requested by Nisha Sullivan APRN.C* for an opinion regarding abdominal pain. My final recommendations will be communicated to the requesting health care provider by way of the shared medical record for internal providers or letter via the [employer] Postal Service for external providers. HPI: Angelina Rodriguez is a 31 year old female who presents for Abdominal discomfort (Alternating bowel habits and nausea. One encounter of blood in the stool and fatigue all the time. Stool 12/29/21 Labs 12/26/21). PMHx of depression, obesity Patient tells me that she has been dealing with a lot of GI symptoms. Having consistent nausea with intermittent vomiting. She does have epigastric pain that travels into her chest. Has been on Protonix and Pepcid which haven't been helping much. Denies actual heartburn symptoms. Sodas and alcohol are causing a lot of burning. Notes early satiety. Appetite is okay. Notes alternating bowel habits. Can have constipation for a few days then profuse diarrhea. Has had one episode of rectal bleeding. Stool can be darker. EGD 11/29/2016: Impression: - Normal esophagus. - Normal stomach. Biopsied. - Normal examined duodenum. Estimated Blood Loss: Estimated blood loss was minimal. Recommendation: - Discharge patient to home. - Written discharge instructions were provided to the patient. - Resume previous diet. - Return to my office at the next available appointment. Colonoscopy 11/29/2016: Impression: - The entire examined colon is normal. Biopsied. Estimated Blood Loss: Estimated blood loss was minimal. Recommendation: - Discharge patient to home. - Written discharge instructions were provided to the patient. - Resume previous diet. - Patient has a contact number available for emergencies. The signs and symptoms of potential delayed complications were discussed with the patient. Return to normal activities tomorrow. Written discharge instructions were provided to the patient. - Continue present medications. - No repeat colonoscopy due to age. CONVERTED FINAL DIAGNOSIS 1. Stomach, antrum, biopsy (A) - Gastric oxyntic-type mucosa with no diagnostic abnormality. 2. Random colon, biopsy (B) - Colonic mucosa with no diagnostic abnormality. Component Latest Ref Rng AND Units 12/29/2021 Shigella spp./Enteroinvasive E.coli DNA Not Detected Not detected Campylobacter jejuni/coli DNA Not Detected Not detected Shiga toxin-producing gene(s) Not Detected Not detected Salmonella spp. DNA Not Detected Not detected Test Results Negative Negative for lactoferrin, which may indicate the absence of fecal white blood cells Calprotectin, Fecal 0 - 50 mg/kg 91.3 (A) C. difficile PCR Negative for C. difficile toxin by PCR Negative for C. difficile toxin by PCR Component Latest Ref Rng AND Units 12/26/2021 Transglutaminase Ab, IgA <20 Units 17 Transglutaminase IgA Qualitative Negative, Test not Indicated Negative Interpretation (Celiac Screen) No serological evidence of celiac disease, however, if celiac disease is clinically suspected and patient is not on gluten-free diet, histological diagnosis may be considered. HLA testing may help with risk assessment. Gliadin Ab, IgA <20 Units 4 Gliad Deamidated IgA Qual Negative, Test not Indicated Negative WSR 0 - 20 mm/hr 15 CRP <0.9 mg/dL 1.1 (H) Record Review: [facility] / Outside records reviewed. PAST MEDICAL HISTORY Diagnosis Date Abnormal glandular Papanicolaou smear of cervix Abn. Pap smear (cervix), mildl dysplasia Depression FRACTURE 2002 FOOT, BALLET Irregular heartbeat depression PAST SURGICAL HISTORY Procedure Laterality Date COLONOSCOPY 11/29/2016 COLPOSCOPY CERVIX UPPER/ADJACENT VAGINA Colposcopy EGD W/O [facility] SPEC VARICIES INJ 11/29/2016 LAPAROSCOPY SURG CHOLECYSTECTOMY 03/17/2019 Cholecystectomy, lap UNSPECIFIED ORAL SURGERY PROCEDURE, BY REPORT [facility] Allergies: ALLERGIES Allergen Reactions Latex Rash Adhesive Tape (Esperanza* Rash, Itching Burning, Itching, and Blisters with certain adhesives Medications: famotidine (PEPCID) 20 mg tablet Take 1 tablet by mouth at bedtime as needed. acyclovir (ZOVIRAX) 400 mg tablet take 1 tablet by mouth twice a day pantoprazole DR (PROTONIX) 40 mg tablet Take 1 tablet by mouth daily before breakfast. Take on empty stomach, 1/2 hr before meal. pantoprazole DR (PROTONIX) 40 mg tablet Take 1 tablet by mouth daily before breakfast. Take on empty stomach, 1/2 hr before meal. Drospirenone-Ethinyl Estradiol (DEDE, 28,) 3-0.02 mg per tablet (more content not included)... [facility] 12-29-2021 History of Present illness Narrative Radiology Service Progress Note PATIENT NAME: Angelina Rodriguez DATE OF SERVICE: December 29, 2021 TIME: 11:50 AM PATIENT IDENTITY VERIFICATION COMPLETED USING TWO (2) IDENTIFIERS: Name and Date of confirmed by patient verbally. FALL SCREENING: Has the patient had 2 falls in the last year or 1 fall with injury or currently using an Ambulatory Assistive Device (Walker, Cane, Wheelchair, Crutches, etc.)? No PATIENT GENDER DATA: Female. status: : No status: N/A PATIENT RELEVANT IMPLANT DATA REVIEWED: Not Applicable RADIOLOGY DEPARTMENT: Ultrasound PERIPHERAL IV DATA: Not applicable SIGNED BY: Kaylie Pires Rdms December 29, 2021 11:50 AM documented in this encounter [facility] 12-26-2021 Instructions Nisha Sullivan APRN.DEVELOPMENT ADMINISTRATOR - 12/26/2021 1:56 PM EDT Get labs. Get stool sample. Schedule thyroid ultrasound. Schedule w/ GI. Continue pantoprazole daily. Start pepcid daily. documented in this encounter [facility] 12-26-2021 History of Present illness Narrative This is a 31 year old female who presents today with: Patient presents with: stomach issues: Intermittent nausea with stomach pain and diarrhea; was treated for stomach ulcer in the past; hx of uday; currently using pantoprazole HISTORY OF PRESENT ILLNESS: Angelina Rodriguez is a 31 year old female. Patient presents with: stomach issues: Intermittent nausea with stomach pain and diarrhea; was treated for stomach ulcer in the past; hx of uday; currently using pantoprazole Pt presents today with complaint of stomach issues. She has been having more GI issues. Refers that she gets nauseated. She will have stomach pains, like hunger pains -- but refers that she is not hungry. + heartburn. She will vomit a small amount of bile. Has now been getting some problems with diarrhea -- can be 1-5 times daily -- unformed or watery. No hematochezia/melena/hematemesis. Symptoms started for the last couple of months. Refers that is has become almost a daily thing. Refers the waves will last for about 10 minutes at random times. Refers that she was seen in earlier this year and was started on PPI. Refers that she is taking it once daily. She reports symptoms seem like prior to having her gallbladder out. She has been losing weight, but she is also on phentermine. She reports that she is eating regularly. PAST MEDICAL HISTORY: PAST MEDICAL HISTORY Diagnosis Date Abnormal glandular Papanicolaou smear of cervix Abn. Pap smear (cervix), mildl dysplasia Depression FRACTURE 2001 FOOT, BALLET Irregular heartbeat depression PAST SURGICAL HISTORY Procedure Laterality Date COLPOSCOPY CERVIX UPPER/ADJACENT VAGINA Colposcopy LAPAROSCOPY SURG CHOLECYSTECTOMY 03/17/2019 Cholecystectomy, lap UNSPECIFIED ORAL SURGERY PROCEDURE, BY REPORT [facility] ALLERGIES Latex and Adhesive Tape (Rosins) MEDICATIONS Current Outpatient Medications Medication Sig Phentermine HCl 37.5 mg tablet Take 1 tablet by mouth daily before breakfast for 30 days. Drospirenone-Ethinyl Estradiol (GIANVI, 28,) 3-0.02 mg per tablet Take 1 tablet by mouth once daily. acyclovir (ZOVIRAX) 400 mg tablet take 1 tablet by mouth twice a day pantoprazole DR (PROTONIX) 40 mg tablet Take 1 tablet by mouth daily before breakfast. Take on empty stomach, 1/2 hr before meal. No current facility-administered medications for this visit. FAMILY HISTORY Problem Relation Age of Onset Breast Cancer Mother other (Skin Cancer) Mother Colon Cancer Father 46 Asthma Brother Dementia Maternal Grandfather Breast Cancer Paternal Grandmother Breast Cancer Maternal Grandmother and maternal great aunts. Cancer Maternal Grandmother Uterine other (Skin Cancer) Maternal Aunt Asthma Son Asthma Son Social History Tobacco Use Smoking status: Former Years: 10.00 Types: Cigarettes Quit date: 01/02/2018 Years since quittin.9 Smokeless tobacco: Never Vaping Use Vaping Use: Never used Substance Use Topics Alcohol use: Yes Alcohol/week: 20.0 standard drinks Types: 2 Glasses of Wine (5oz), 3 Cans of Beer (12oz), 3 Mixed Drinks per week Comment: Occasionally, NOT WHILE Drug use: No EXAM: BP 122/88 Pulse 102 Resp 18 Wt 108.4 kg (239 lb) LMP 10/16/2021 SpO2 98% BMI 36.34 kg/m PHYSICAL EXAM: General Appearance: Well appearing, alert, in no acute distress, well-hydrated, well nourished.. Skin: Skin color, texture, turgor normal, no suspicious rashes or lesions. Head: Normocephalic, no masses, lesions, tenderness or abnormalities. Eyes: Anicteric sclera. Extraocular movements are intact. . Neck: Supple, no adenopathy; thyroid symmetric, normal size, no bruits. Lungs: Lungs clear to auscultation. No wheezing, rhonchi, rales.. Heart: RRR without murmur, gallop, or rubs. No ectopy. Abdomen: Normal abdominal exam, Abdomen soft, generalized tenderness. Bowel sounds normal. No masses, organomegaly. No rebound/guarding. Extremities: No deformities, edema, skin discoloration, clubbing or cyanosis. Good capillary refill. . Neurologic: Gait normal. ASSESSMENT/PLAN: 1. Epigastric discomfort - ICD9: 789.06, ICD10: R10.13 (primary diagnosis) Continue the PPI. Add Pepcid. Will have patient follow-up with GI. Get labs in the meantime. - COMP METABOLIC PANEL - PANTOPRAZOLE 40 MG TABLET,DELAYED RELEASE - FAMOTIDINE 20 MG TABLET - SED RATE WESTERGREN - C-REACTIVE PROTEIN (CRP) - CONSULT TO GASTROENTEROLOGY 2. Nausea - ICD9: 787.02, ICD10: R11.0 - MAGNESIUM BLD - PANTOPRAZOLE 40 MG TABLET,DELAYED RELEASE - FAMOTIDINE 20 MG TABLET - SED RATE WESTERGREN - C-REACTIVE PROTEIN (CRP) - CONSULT TO GASTROENTEROLOGY 3. Diarrhea, unspecified type - ICD9: 787.91, ICD10: R19.7 Will get stool studies. - COMP METABOLIC PANEL - CBC + DIFF - TSH BLD - T4 FREE/FREE THYROX - FECAL LACTOFERRIN/LEUKOCYTES - STOOL CULTURE/EIA - CALPROTECTIN,FECAL - CELIAC SCREEN WITH REFLEX - ENTERIC BACTERIAL PANEL BY PCR - C. DIFFICILE PCR - CRYPTOSPORIDIUM AND GIARDIA ANTIGENS BY EIA - SED RATE WESTERGREN - C-REACTIVE PROTEIN (CRP) - CONSULT TO GASTROENTEROLOGY 4. Enlarged thyroid - ICD9: 240.9, ICD10: E04.9 Thyroid feels a little enlarged today. We will go ahead and get thyroid labs and thyroid ultrasound. - US THYROID/PARATHYROID Discussed treatment plan and patient voices understanding. Patient's questions answered appropriately. Medications and potential side effects were discussed and patient voices understanding. Return to the office as scheduled or as needed for worsening/no improvement. Nisha Sullivan APRN.DEVELOPMENT ADMINISTRATOR This note was partially generated using [employer] voice recognition system. Note was reviewed for accuracy. There may be minor misspellings or grammar miscues with [employer] voice recognition. documented in this encounter [facility] 12-19-2021 History of Present illness Narrative Refill ordered. Patient here for weight and BP check for third Adipex prescription. Patient doing well. BP WNL. Romy Mcgovern RN documented in this encounter [facility] 12-06-2021 History of Present illness Narrative Patient presents with: Fatigue: [place], sinus, cough, gets extremely cold x 1 week HPI: Feeling sick for 6 days. Initially nausea and dry heaves. Feels off. Positive symptoms: Cough, Sinus pressure, Chills, Fatigue, Headache, Malaise, Nausea, Diarrhea, sneezing, occasional rhinorrhea, some scratchy throat Negative symptoms: Shortness of breath, Fever, abdominal pain, OTC: Nyquil once, Ibuprofen, Tylenol Had second dose of [employer] COVID-19 vaccine in June 2020. Has not had known COVID illness. Home test negative yesterday. PAST MEDICAL HISTORY Diagnosis Date Abnormal glandular Papanicolaou smear of cervix Abn. Pap smear (cervix), mildl dysplasia Depression FRACTURE 2001 FOOT, BALLET Irregular heartbeat depression MEDICATIONS: Current Outpatient Medications Medication Sig Phentermine HCl 37.5 mg tablet Take 1 tablet by mouth daily before breakfast for 30 days. Drospirenone-Ethinyl Estradiol (GIANVI, 28,) 3-0.02 mg per tablet Take 1 tablet by mouth once daily. acyclovir (ZOVIRAX) 400 mg tablet take 1 tablet by mouth twice a day pantoprazole DR (PROTONIX) 40 mg tablet Take 1 tablet by mouth daily before breakfast. Take on empty stomach, 1/2 hr before meal. No current facility-administered medications for this visit. ALLERGIES: ALLERGIES Allergen Reactions Latex Rash Adhesive Tape (Esperanza* Rash, Itching Burning, Itching, and Blisters with certain adhesives VITALS: BP 122/70 Pulse 95 Temp 36.8 C (98.2 F) Resp 21 Wt 109.5 kg (241 lb 6.4 oz) LMP 10/16/2021 SpO2 99% BMI 36.70 kg/m PHYSICAL EXAM: GEN: mildly ill appearing. HEENT: PERRL, EOMI, conjunctiva clear Ears: canals clear. TMs without erythema, bulge, or effusion Sinuses: non-tender frontal sinus, pressure right maxillary sinus Throat: moist mucous membranes, mild erythema, no exudate Neck: supple, no thyromegaly, no lymphadenopathy HEART: regular rate and rhythm, no murmurs LUNGS: clear to auscultation, no wheezes or crackles, no increased WOB ASSESSMENT/PLAN: 1. URI, acute - ICD9: 465.9, ICD10: J06.9 - suspect viral URI, differential includes COVID-19. - Discussed supportive care treatment with home isolation, rest, cold medicine, and analgesia. - Red flags to seek further treatment include chest pain, shortness of breath, and lethargy; in the ER if severe. - COVID WITH FLUA+B, ROUTINE Miguel Angel Baird MD documented in this encounter [facility] 11-20-2021 Miscellaneous Notes Patient seen for nurse visit for weight and BP check for Adipex refill. Patient's weight is down to 244 lbs. RX pending. No need to contact patient unless there is a problem. Will check with the pharmacy tomorrow. Requested Prescriptions Pending Prescriptions Disp Refills Phentermine HCl 37.5 mg tablet 30 tablet 0 Sig: Take 1 tablet by mouth daily before breakfast for 30 days. Romy Mcgovern RN documented in this encounter [facility] 11-20-2021 History of Present illness Narrative Patient here for weight and blood pressure check one month after starting Adipex. Patient experiencing dry mouth with medication. Overall doing well. BP WNL. Patient aware Dr. Castanon is out of the office today. Will update provider tomorrow. Romy Mcgovern RN documented in this encounter [facility] 10-25-2021 History of Present illness Narrative This note was created using [employer]. Subjective Angelina Rodriguez is a 31 year old female. HPI Patient presents with the chief complaint of right ear pain and feeling like there is water in there. She states she thinks she got some water in her ear from a shower. She has had a cerumen impaction before. She does have some decreased hearing on that side. Denies any left ear problems. No cough or congestion. No fever. No recent swimming. Review of Systems Constitutional: Negative. HENT: Positive for ear pain and hearing loss. Negative for ear discharge, postnasal drip, rhinorrhea and sore throat. Respiratory: Negative for cough. Cardiovascular: Negative. Gastrointestinal: Negative. Genitourinary: Negative. Musculoskeletal: Negative. All other systems reviewed and are negative. PAST MEDICAL HISTORY Diagnosis Date Abnormal glandular Papanicolaou smear of cervix Abn. Pap smear (cervix), mildl dysplasia Depression FRACTURE 2002 FOOT, BALLET Irregular heartbeat depression Current Outpatient Medications Medication Sig Dispense Refill Drospirenone-Ethinyl Estradiol (GIANVI, 28,) 3-0.02 mg per tablet Take 1 tablet by mouth once daily. 84 tablet 4 Phentermine HCl 37.5 mg tablet Take 1 tablet by mouth daily before breakfast for 30 days. 30 tablet 0 acyclovir (ZOVIRAX) 400 mg tablet take 1 tablet by mouth twice a day [address] (PROTONIX) 40 mg tablet Take 1 tablet by mouth daily before breakfast. Take on empty stomach, 1/2 hr before meal. 30 tablet 1 No current facility-administered medications for this visit. PAST SURGICAL HISTORY Procedure Laterality Date COLPOSCOPY CERVIX UPPER/ADJACENT VAGINA Colposcopy LAPAROSCOPY SURG CHOLECYSTECTOMY 03/17/2019 Cholecystectomy, lap UNSPECIFIED ORAL SURGERY PROCEDURE, BY REPORT [facility] FAMILY HISTORY Problem Relation Age of Onset Breast Cancer Mother other (Skin Cancer) Mother Colon Cancer Father 46 Asthma Brother Dementia Maternal Grandfather Breast Cancer Paternal Grandmother Breast Cancer Maternal Grandmother and maternal great aunts. Cancer Maternal Grandmother Uterine other (Skin Cancer) Maternal Aunt Asthma Son Asthma Son Social History Tobacco Use Smoking status: Former Years: 10.00 Types: Cigarettes Quit date: 01/02/2018 Years since quittin.8 Smokeless tobacco: Never Vaping Use Vaping Use: Never used Substance Use Topics Alcohol use: Yes Alcohol/week: 20.0 standard drinks Types: 2 Glasses of Wine (5oz), 3 Cans of Beer (12oz), 3 Mixed Drinks per week Comment: Occasionally, NOT WHILE Drug use: No Objective BP 118/80 Pulse 85 Temp 37 C (98.6 F) (Tympanic) Resp 16 Wt 119.2 kg (262 lb 12.8 oz) LMP 10/16/2021 SpO2 99% BMI 39.96 kg/m Physical Exam Vitals reviewed. Constitutional: Appearance: Normal appearance. HENT: Head: Normocephalic and atraumatic. Right Ear: There is impacted cerumen. Left Ear: There is impacted cerumen. Ears: Comments: Bilateral cerumen impaction. After cleared normal TM bilaterally and normal external auditory canal bilaterally. Skin: General: Skin is warm and dry. Findings: No rash. Neurological: General: No focal deficit present. Mental Status: She is alert and oriented to person, place, and time. Assessment and Plan ASSESSMENT/PLAN: 1. Bilateral impacted cerumen - ICD9: 380.4, ICD10: H61.23 This was flushed by nursing staff. Patient feels much improved upon reexamination. TMs normal after reexamination. Orly Negro PA-C documented in this encounter [facility] 10-24-2021 History of Present illness Narrative Angelina is a 31 year old who presents for an annual gynecologic exam without complaints. Upset with weight gain- knows she needs to do more with diet and exercise. Would like to retry adipex. Menses are painful and heavy. Menses: cycles every 28-30 days and 7 days of flow. Contraception: none HPV vaccine: Last Pap: 11/14/2017 ascus HPV: 11/18/2017 negative History of abnormal pap: yes Last mammogram: never Sexually active: Yes History of STDS: None Patient concerns for STD exposure: No. Pain with intercourse: No Postcoital bleeding: No Exercise: active Diet: working on improving OB History T3 L3 SAB0 IAB0 Ectopic0 Multiple0 Live Births3 [place] History LMP: 10/16/2021, Having periods Age at Menarche: Age at First : Age at Menopause: [place] History Comments: Sexual Activity: Yes; Male Contraception: PAST MEDICAL HISTORY Diagnosis Date Abnormal glandular Papanicolaou smear of cervix Abn. Pap smear (cervix), mildl dysplasia Depression FRACTURE 2002 FOOT, BALLET Irregular heartbeat depression PAST SURGICAL HISTORY Procedure Laterality Date COLPOSCOPY CERVIX UPPER/ADJACENT VAGINA Colposcopy LAPAROSCOPY SURG CHOLECYSTECTOMY 03/17/2019 Cholecystectomy, lap UNSPECIFIED ORAL SURGERY PROCEDURE, BY REPORT [facility] FAMILY HISTORY Problem Relation Age of Onset Breast Cancer Mother other (Skin Cancer) Mother Colon Cancer Father 46 Asthma Brother Dementia Maternal Grandfather Breast Cancer Paternal Grandmother Breast Cancer Maternal Grandmother and maternal great aunts. Cancer Maternal Grandmother Uterine other (Skin Cancer) Maternal Aunt Asthma Son Asthma Son SOCIAL HISTORY Social History Tobacco Use Smoking status: Former Years: 10.00 Types: Cigarettes Quit date: 01/02/2018 Years since quittin.8 Smokeless tobacco: Never Vaping Use Vaping Use: Never used Substance Use Topics Alcohol use: Yes Alcohol/week: 20.0 standard drinks Types: 2 Glasses of Wine (5oz), 3 Cans of Beer (12oz), 3 Mixed Drinks per week Comment: Occasionally, NOT WHILE Drug use: No REVIEW OF SYSTEMS Abdomen: No abdominal pain, nausea, vomiting, diarrhea, or constipation. No bloating, early satiety, indigestion, or increased flatulence. Bladder: No dysuria, gross hematuria, urinary frequency, urinary urgency, or incontinence. Breast: No breast lumps, nipple d/c, overlying skin changes, redness or skin retraction. Allergies and current medication updated:Yes EXAM: BP 126/80 Ht 5' 8 (1.73m) Wt 259 lb (117.5kg) LMP 10/16/2021 BMI 39.39 kg/(m^2). GENERAL: pleasant, female in no apparent distress HEENT: Normocephalic, atraumatic, mucus membranes moist, and no lesions NECK: Supple, full range of motion, no adenopathy, and thyroid normal DERMATOLOGY: Normal, without lesions, non-icteric, and non-hirsute BREAST: soft, non-tender, symmetric, no dominant mass, normal nipple-areolar complex, no lymphadenopathy, and no nipple discharge ABDOMEN: soft, non-tender, and no masses PELVIC: external genitalia normal, normal Bartholin's glands, urethra, [place]'s glands, no vulvar lesions, no cervical lesions, good vaginal support, physiologic discharge present, normal appearing perineal body and perianal region BIMANUAL: uterus normal size, shape and consistency, no adnexal masses, and non-tender RECTOVAGINAL: deferred. NEURO: alert and oriented x3,exam grossly non-focal EXTREMITIES: normal ASSESSMENT/PLAN: 1) Health maintenance: Pap done with HPV. Mammogram starting age 40. Nutrition, exercise and routine health maintenance exams reviewed. Calcium/Vitamin D supplementation information provided. 2) Contraception: none. Contraceptive options reviewed and information provided. 3) STD screening: Declined STD check. 4) Follow up one year or sooner as needed 5) pelvic us for dysmenorrhea/aub 6) OCPs reviewed- no contraindication to start 7) adipex reviewed- pt has no contraindication to start. Proper use reviewed. 8) consider genetic testing family h/o breast cancer. Will discuss with her mom and let me know if desires further testing. Mom was dx but she can't remember age or if any genetic screening was done. Ramandeep Darnell MD Curing Bin Operator offered: Patient declines. documented in this encounter [facility] 09-11-2021 Miscellaneous Notes Called patient and has scheduled an appointment for her annual and to discuss getting a mammo. ..Romy Rodriguez Request received from pharmacy. Last seen in office on 03/30/20. PSS: Please contact patient to schedule annual exam. Dinah Perez RN documented in this encounter [facility] 08-07-2021 Miscellaneous Notes Please see if patient ran out of her medication for her stomach. If she has been taking and asking for additional add on medication she needs to be seen in the office to discuss. Thanks, Fabi Hooks, AUTOMATIC DRILL OPERATOR.DEVELOPMENT ADMINISTRATOR documented in this encounter [facility] 06-09-2021 Miscellaneous Notes Called and left a detailed voicemail notifying patient of providers message. Hospital phone number was left in case patient had any questions. Tamiko Andersen RN Please call patient and let her know her blood work was in acceptable limits. Fabi Hooks APRN.CNP documented in this encounter [facility] documented as of this encounter (statuses as of 01/05/2023) [facility] History of Past illness Narrative* Problem Noted Date Diagnosed Date Resolved Date Positive GBS test 09/26/2018 12/20/2022 HSV-1 (herpes simplex virus 1) infection 08/20/2018 08/04/2019 Overview: 08/20/18-HSV 1 seropositive. Has never had outbreak, oral or genital. Will start prophylaxis at 36 weeks. 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 HSV titers done, + for type I, neg for type 2, d/w her recommendations and importance of avoiding exposure/outbreak near delivery. Debra Wagner MD UTI (urinary tract infection ) during 03/13/2018 08/04/2019 Overview: 06/23/18-UTI positive ecoli, treated with Macrobid, ALINE next visit. Beata Mackey APRN.CNM 03/13/2018Patient treated for UTI 02/23/2018. She denies any heart structural abnormalities. TKRN Patient requested diagnostic testing 03/13/2018 08/11/2018 Overview: 03/13/2018Patient desires early screening in with sequential testing. TKRN Dizziness 06/03/2017 08/11/2018 Overview: 05/27/17 [facility] [place] [facility] dizziness. CT brain WO WNL. RUQ abdominal pain 08/31/2016 9 Overview: 08/17/16 US RUQ WNL. Chronic left-sided low back pain with left-sided sciatica 03/14/2016 08/11/2018 Irregular menses 05/19/2013 08/11/2018 Obesity in , antepartum 08/01/2012 01/14/2013 Abnormal quad screen 08/01/2012 013 Abnormal AFP screen 08/01/2012 01/14/2013 Overview: 08/22/12 - saw & declines amnio at this time, plan for 3rd trimester growth ultrasound & testing, appt scheduled with Dr.Chapa Cher MONAHAN Supervision of normal first 07/25/2012 01/14/2013 Patient requested diagnostic testing 05/22/2012 01/14/2013 Overview: 05/22/2012Patient desires early screening in with sequential testing. 07/07/2012negative Sequential screen first trimester. The first part of the Sequential Screen reports that her risk for Down syndrome decreased from her age-related risk of 1:800 to 1:10,000 and her Trisomy 18 risk decreased from her age-related risk of 1:2,800 to 1:10,000. Based on these results Dr. Santos's recommendation is for patient to follow-up with Sequential second trimester screening (07/25-08/08) and level II anatomy scan after 18wks. 07/25/2012positive 2nd trimester screen for ONTD. Referral to Dr Kandi Peck Papanicolaou smear of cervix with atypical squamous cells cannot exclude high grade squamous intraepithelial lesion (ASC-H) 03/15/2011 05/29/2012 Cervical high risk human pap illomavirus (HPV) DNA test positive 03/15/2011 05/29/2012 General counseling for presc ription of oral contraceptives 03/15/2011 05/29/2012 documented as of this encounter (statuses as of 01/06/2023) [facility] History of Past illness Narrative* Problem Noted Date Diagnosed Date Resolved Date Positive GBS test 09/26/2018 12/20/2022 HSV-1 (herpes simplex virus 1) infection 08/20/2018 08/04/2019 Overview: 08/20/18-HSV 1 seropositive. Has never had outbreak, oral or genital. Will start prophylaxis at 36 weeks. 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 HSV titers done, + for type I, neg for type 2, d/w her recommendations and importance of avoiding exposure/outbreak near delivery. Debra Wagner MD UTI (urinary tract infection ) during 03/13/2018 08/04/2019 Overview: 06/23/18-UTI positive ecoli, treated with Macrobid, ALINE next visit. Beata Mackey APRN.JULIEN 03/13/2018Patient treated for UTI 02/23/2018. She denies any heart structural abnormalities. TKRN Patient requested diagnostic testing 03/13/2018 08/11/2018 Overview: 03/13/2018Patient desires early screening in with sequential testing. TKRN Dizziness 06/03/2017 08/11/2018 Overview: 05/27/17 [facility] [place] [facility] dizziness. CT brain WO WNL. RUQ abdominal pain 08/31/2016 9 Overview: 08/17/16 US RUQ WNL. Chronic left-sided low back pain with left-sided sciatica 03/14/2016 08/11/2018 Irregular menses 05/19/2013 08/11/2018 Obesity in , antepartum 08/01/2012 01/14/2013 Abnormal quad screen 08/01/2012 013 Abnormal AFP screen 08/01/2012 01/14/2013 Overview: 08/22/12 - saw & declines amnio at this time, plan for 3rd trimester growth ultrasound & testing, appt scheduled with - HERO Supervision of normal first 07/25/2012 01/14/2013 Patient requested diagnostic testing 05/22/2012 01/14/2013 Overview: 05/22/2012Patient desires early screening in with sequential testing. 07/07/2012negative Sequential screen first trimester. The first part of the Sequential Screen reports that her risk for Down syndrome decreased from her age-related risk of 1:800 to 1:10,000 and her Trisomy 18 risk decreased from her age-related risk of 1:2,800 to 1:10,000. Based on these results Dr. Santos's recommendation is for patient to follow-up with Sequential second trimester screening (07/25-08/08) and level II anatomy scan after 18wks. 07/25/2012positive 2nd trimester screen for ONTD. Referral to Dr Kandi Peck Papanicolaou smear of cervix with atypical squamous cells cannot exclude high grade squamous intraepithelial lesion (ASC-H) 03/15/2011 05/29/2012 Cervical high risk human pap illomavirus (HPV) DNA test positive 03/15/2011 05/29/2012 General counseling for presc ription of oral contraceptives 03/15/2011 05/29/2012 documented as of this encounter (statuses as of 01/06/2023) [facility] History of Past illness Narrative* Problem Noted Date Diagnosed Date Resolved Date Positive GBS test 09/26/2018 12/20/2022 HSV-1 (herpes simplex virus 1) infection 08/20/2018 08/04/2019 Overview: 08/20/18-HSV 1 seropositive. Has never had outbreak, oral or genital. Will start prophylaxis at 36 weeks. 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 HSV titers done, + for type I, neg for type 2, d/w her recommendations and importance of avoiding exposure/outbreak near delivery. Debra Wagner MD UTI (urinary tract infection ) during 03/13/2018 08/04/2019 Overview: 06/23/18-UTI positive ecoli, treated with Macrobid, ALINE next visit. Beata Mackey APRN.CNM 03/13/2018Patient treated for UTI 02/23/2018. She denies any heart structural abnormalities. TKRN Patient requested diagnostic testing 03/13/2018 08/11/2018 Overview: 03/13/2018Patient desires early screening in with sequential testing. TKRN Dizziness 06/03/2017 08/11/2018 Overview: 05/27/17 [facility] [place] [facility] dizziness. CT brain WO WNL. RUQ abdominal pain 08/31/2016 9 Overview: 08/17/16 US RUQ WNL. Chronic left-sided low back pain with left-sided sciatica 03/14/2016 08/11/2018 Irregular menses 05/19/2013 08/11/2018 Obesity in , antepartum 08/01/2012 01/14/2013 Abnormal quad screen 08/01/2012 013 Abnormal AFP screen 08/01/2012 01/14/2013 Overview: 08/22/12 - saw & declines amnio at this time, plan for 3rd trimester growth ultrasound & testing, appt scheduled with - HERO Supervision of normal first 07/25/2012 01/14/2013 Patient requested diagnostic testing 05/22/2012 01/14/2013 Overview: 05/22/2012Patient desires early screening in with sequential testing. 07/07/2012negative Sequential screen first trimester. The first part of the Sequential Screen reports that her risk for Down syndrome decreased from her age-related risk of 1:800 to 1:10,000 and her Trisomy 18 risk decreased from her age-related risk of 1:2,800 to 1:10,000. Based on these results Dr. Santos's recommendation is for patient to follow-up with Sequential second trimester screening (07/25-08/08) and level II anatomy scan after 18wks. 07/25/2012positive 2nd trimester screen for ONTD. Referral to Dr Kandi Peck Papanicolaou smear of cervix with atypical squamous cells cannot exclude high grade squamous intraepithelial lesion (ASC-H) 03/15/2011 05/29/2012 Cervical high risk human pap illomavirus (HPV) DNA test positive 03/15/2011 05/29/2012 General counseling for presc ription of oral contraceptives 03/15/2011 05/29/2012 documented as of this encounter (statuses as of 01/17/2023) [facility] History of Past illness Narrative* Problem Noted Date Diagnosed Date Resolved Date Positive GBS test 09/26/2018 12/20/2022 HSV-1 (herpes simplex virus 1) infection 08/20/2018 08/04/2019 Overview: 08/20/18-HSV 1 seropositive. Has never had outbreak, oral or genital. Will start prophylaxis at 36 weeks. 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 HSV titers done, + for type I, neg for type 2, d/w her recommendations and importance of avoiding exposure/outbreak near delivery. Debra Wagner MD UTI (urinary tract infection ) during 03/13/2018 08/04/2019 Overview: 06/23/18-UTI positive ecoli, treated with Macrobid, ALINE next visit. Beata Mackey APRN.JULIEN 03/13/2018Patient treated for UTI 02/23/2018. She denies any heart structural abnormalities. TKRN Patient requested diagnostic testing 03/13/2018 08/11/2018 Overview: 03/13/2018Patient desires early screening in with sequential testing. TKRN Dizziness 06/03/2017 08/11/2018 Overview: 05/27/17 [facility] [place] [facility] dizziness. CT brain WO WNL. RUQ abdominal pain 08/31/2016 9 Overview: 08/17/16 US RUQ WNL. Chronic left-sided low back pain with left-sided sciatica 03/14/2016 08/11/2018 Irregular menses 05/19/2013 08/11/2018 Obesity in , antepartum 08/01/2012 01/14/2013 Abnormal quad screen 08/01/2012 013 Abnormal AFP screen 08/01/2012 01/14/2013 Overview: 08/22/12 - saw & declines amnio at this time, plan for 3rd trimester growth ultrasound & testing, appt scheduled with - HERO Supervision of normal first 07/25/2012 01/14/2013 Patient requested diagnostic testing 05/22/2012 01/14/2013 Overview: 05/22/2012Patient desires early screening in with sequential testing. 07/07/2012negative Sequential screen first trimester. The first part of the Sequential Screen reports that her risk for Down syndrome decreased from her age-related risk of 1:800 to 1:10,000 and her Trisomy 18 risk decreased from her age-related risk of 1:2,800 to 1:10,000. Based on these results Dr. Santos's recommendation is for patient to follow-up with Sequential second trimester screening (07/25-08/08) and level II anatomy scan after 18wks. 07/25/2012positive 2nd trimester screen for ONTD. Referral to Dr Kandi Peck Papanicolaou smear of cervix with atypical squamous cells cannot exclude high grade squamous intraepithelial lesion (ASC-H) 03/15/2011 05/29/2012 Cervical high risk human pap illomavirus (HPV) DNA test positive 03/15/2011 05/29/2012 General counseling for presc ription of oral contraceptives 03/15/2011 05/29/2012 documented as of this encounter (statuses as of 01/31/2023) [facility] History of Past illness Narrative* Problem Noted Date Diagnosed Date Resolved Date Positive GBS test 09/26/2018 12/20/2022 HSV-1 (herpes simplex virus 1) infection 08/20/2018 08/04/2019 Overview: 08/20/18-HSV 1 seropositive. Has never had outbreak, oral or genital. Will start prophylaxis at 36 weeks. 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 HSV titers done, + for type I, neg for type 2, d/w her recommendations and importance of avoiding exposure/outbreak near delivery. Debra Wagner MD UTI (urinary tract infection ) during 03/13/2018 08/04/2019 Overview: 06/23/18-UTI positive ecoli, treated with Macrobid, ALINE next visit. Beata Mackey APRN.CNM 03/13/2018Patient treated for UTI 02/23/2018. She denies any heart structural abnormalities. TKRN Patient requested diagnostic testing 03/13/2018 08/11/2018 Overview: 03/13/2018Patient desires early screening in with sequential testing. TKRN Dizziness 06/03/2017 08/11/2018 Overview: 05/27/17 [facility] [place] ED dizziness. CT brain WO WNL. RUQ abdominal pain 08/31/2016 9 Overview: 08/17/16 US RUQ WNL. Chronic left-sided low back pain with left-sided sciatica 03/14/2016 08/11/2018 Irregular menses 05/19/2013 08/11/2018 Obesity in , antepartum 08/01/2012 01/14/2013 Abnormal quad screen 08/01/2012 013 Abnormal AFP screen 08/01/2012 01/14/2013 Overview: 08/22/12 - saw & declines amnio at this time, plan for 3rd trimester growth ultrasound & testing, appt scheduled with - HERO Supervision of normal first 07/25/2012 01/14/2013 Patient requested diagnostic testing 05/22/2012 01/14/2013 Overview: 05/22/2012Patient desires early screening in with sequential testing. 07/07/2012negative Sequential screen first trimester. The first part of the Sequential Screen reports that her risk for Down syndrome decreased from her age-related risk of 1:800 to 1:10,000 and her Trisomy 18 risk decreased from her age-related risk of 1:2,800 to 1:10,000. Based on these results Dr. Santos's recommendation is for patient to follow-up with Sequential second trimester screening (07/25-08/08) and level II anatomy scan after 18wks. 07/25/2012positive 2nd trimester screen for ONTD. Referral to Dr Kandi Peck Papanicolaou smear of cervix with atypical squamous cells cannot exclude high grade squamous intraepithelial lesion (ASC-H) 03/15/2011 05/29/2012 Cervical high risk human pap illomavirus (HPV) DNA test positive 03/15/2011 05/29/2012 General counseling for presc ription of oral contraceptives 03/15/2011 05/29/2012 documented as of this encounter (statuses as of 02/16/2023) [facility] History of Past illness Narrative* Problem Noted Date Diagnosed Date Resolved Date Positive GBS test 09/26/2018 12/20/2022 HSV-1 (herpes simplex virus 1) infection 08/20/2018 08/04/2019 Overview: 08/20/18-HSV 1 seropositive. Has never had outbreak, oral or genital. Will start prophylaxis at 36 weeks. 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 HSV titers done, + for type I, neg for type 2, d/w her recommendations and importance of avoiding exposure/outbreak near delivery. Debra Wagner MD UTI (urinary tract infection ) during 03/13/2018 08/04/2019 Overview: 06/23/18-UTI positive ecoli, treated with Macrobid, ALINE next visit. Beata Mackey APRN.CNM 03/13/2018Patient treated for UTI 02/23/2018. She denies any heart structural abnormalities. TKRN Patient requested diagnostic testing 03/13/2018 08/11/2018 Overview: 03/13/2018Patient desires early screening in with sequential testing. TKRN Dizziness 06/03/2017 08/11/2018 Overview: 05/27/17 [facility] [place] [facility] dizziness. CT brain WO WNL. RUQ abdominal pain 08/31/2016 9 Overview: 08/17/16 US RUQ WNL. Chronic left-sided low back pain with left-sided sciatica 03/14/2016 08/11/2018 Irregular menses 05/19/2013 08/11/2018 Obesity in , antepartum 08/01/2012 01/14/2013 Abnormal quad screen 08/01/2012 013 Abnormal AFP screen 08/01/2012 01/14/2013 Overview: 08/22/12 - saw & declines amnio at this time, plan for 3rd trimester growth ultrasound & testing, appt scheduled with Dr.Chapa Cher MONAHAN Supervision of normal first 07/25/2012 01/14/2013 Patient requested diagnostic testing 05/22/2012 01/14/2013 Overview: 05/22/2012Patient desires early screening in with sequential testing. 07/07/2012negative Sequential screen first trimester. The first part of the Sequential Screen reports that her risk for Down syndrome decreased from her age-related risk of 1:800 to 1:10,000 and her Trisomy 18 risk decreased from her age-related risk of 1:2,800 to 1:10,000. Based on these results Dr. Santos's recommendation is for patient to follow-up with Sequential second trimester screening (07/25-08/08) and level II anatomy scan after 18wks. 07/25/2012positive 2nd trimester screen for ONTD. Referral to Dr Kandi Peck Papanicolaou smear of cervix with atypical squamous cells cannot exclude high grade squamous intraepithelial lesion (ASC-H) 03/15/2011 05/29/2012 Cervical high risk human pap illomavirus (HPV) DNA test positive 03/15/2011 05/29/2012 General counseling for presc ription of oral contraceptives 03/15/2011 05/29/2012 documented as of this encounter (statuses as of 02/16/2023) [facility] History of Past illness Narrative* Problem Noted Date Resolved Date HSV-1 (herpes simplex virus 1) infection 019 08/04/2019 Overview: 08/20/18-HSV 1 seropositive. Has never had outbreak, oral or genital. Will start prophylaxis at 36 weeks. 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 HSV titers done, + for type I, neg for type 2, d/w her recommendations and importance of avoiding exposure/outbreak near delivery. Debra Wagner MD Obesity in 03/13/2018 08/04/2019 Overview: 03/13/2018She is obese. Will plan on GCT@ NOB. TKRN UTI (urinary tract infection) during 0 03/13/2018 08/04/2019 Overview: 06/23/18-UTI positive ecoli, treated with Macrobid, ALINE next visit. Beata Mackey APRN.JULIEN 03/13/2018Patient treated for UTI 02/23/2018. She denies any heart structural abnormalities. TKRN Patient requested diagnostic testing 03/13/2018 08/11/2018 Overview: 03/13/2018Patient desires early screening in with sequential testing. TKRN History of depression 03/13/2018 08/04/2019 Overview: 03/13/2018Pt has a history of depression diagnosed in 2017. She has been off medication for 1 year . Believes she is doing well off medication. She believes she had depression after both deliveries. Discussed increased risks of depression during and and importance of reporting the development or worsening of symptoms should they occur.Pt denies ever having any suicidal thoughts or tendencies or thoughts of hurting others. Patient considering returning to counseling at [facility]. TKRN Dizziness 06/03/2017 08/11/2018 Overview: 05/27/17 [facility] [place] [facility] dizziness. CT brain WO WNL. RUQ abdominal pain 08/31/2016 08/11/2018 Overview: 08/17/16 US RUQ WNL. Chronic left-sided low back pain with left-sided sciatica 03/14/2016 08/11/2018 Irregular menses 05/19/2013 08/11/2018 Obesity in , antepartum 08/01/2012 01/14/2013 Abnormal quad screen 08/01/2012 01/14/2013 Abnormal AFP screen 08/01/2012 Overview: 08/22/12 - saw & declines amnio at this time, plan for 3rd trimester growth ultrasound & testing, appt scheduled with Dr.Chapa Cher MONAHAN Supervision of normal first 07/25/2012 01/14/2013 Patient requested diagnostic testing 05/22/2012 01/14/2013 Overview: 05/22/2012Patient desires early screening in with sequential testing. 07/07/2012negative Sequential screen first trimester. The first part of the Sequential Screen reports that her risk for Down syndrome decreased from her age-related risk of 1:800 to 1:10,000 and her Trisomy 18 risk decreased from her age-related risk of 1:2,800 to 1:10,000. Based on these results Dr. Santos's recommendation is for patient to follow-up with Sequential second trimester screening (07/25-08/08) and level II anatomy scan after 18wks. 07/25/2012positive 2nd trimester screen for ONTD. Referral to Dr Kandi Peck Papanicolaou smear of cervix with atypical squamous cells cannot exclude high grade squamous intraepithelial lesion (ASC-H) 03/15/2011 05/29/2012 Cervical high risk human pap illomavirus (HPV) DNA test positive 03/15/2011 05/29/2012 General counseling for prescription of oral cont raceptives 03/15/2011 05/29/2012 documented as of this encounter (statuses as of 06/09/2021) [facility] History of Past illness Narrative* Problem Noted Date Resolved Date HSV-1 (herpes simplex virus 1) infection 019 08/04/2019 Overview: 08/20/18-HSV 1 seropositive. Has never had outbreak, oral or genital. Will start prophylaxis at 36 weeks. 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 HSV titers done, + for type I, neg for type 2, d/w her recommendations and importance of avoiding exposure/outbreak near delivery. Debra Wagner MD Obesity in 03/13/2018 08/04/2019 Overview: 03/13/2018She is obese. Will plan on GCT@ NOB. TKRN UTI (urinary tract infection) during 0 03/13/2018 08/04/2019 Overview: 06/23/18-UTI positive ecoli, treated with Macrobid, ALINE next visit. Beata Mackey APRN.CNM 03/13/2018Patient treated for UTI 02/23/2018. She denies any heart structural abnormalities. TKRN Patient requested diagnostic testing 03/13/2018 08/11/2018 Overview: 03/13/2018Patient desires early screening in with sequential testing. TKRN History of depression 03/13/2018 08/04/2019 Overview: 03/13/2018Pt has a history of depression diagnosed in 2017. She has been off medication for 1 year . Believes she is doing well off medication. She believes she had depression after both deliveries. Discussed increased risks of depression during and and importance of reporting the development or worsening of symptoms should they occur.Pt denies ever having any suicidal thoughts or tendencies or thoughts of hurting others. Patient considering returning to counseling at [facility]. TKRN Dizziness 06/03/2017 08/11/2018 Overview: 05/27/17 [facility] [place] ED dizziness. CT brain WO WNL. RUQ abdominal pain 08/31/2016 08/11/2018 Overview: 08/17/16 US RUQ WNL. Chronic left-sided low back pain with left-sided sciatica 03/14/2016 08/11/2018 Irregular menses 05/19/2013 08/11/2018 Obesity in , antepartum 08/01/2012 01/14/2013 Abnormal quad screen 08/01/2012 01/14/2013 Abnormal AFP screen 08/01/2012 Overview: 08/22/12 - saw & declines amnio at this time, plan for 3rd trimester growth ultrasound & testing, appt scheduled with Dr.Chapa Cher MONAHAN Supervision of normal first 07/25/2012 01/14/2013 Patient requested diagnostic testing 05/22/2012 01/14/2013 Overview: 05/22/2012Patient desires early screening in with sequential testing. 07/07/2012negative Sequential screen first trimester. The first part of the Sequential Screen reports that her risk for Down syndrome decreased from her age-related risk of 1:800 to 1:10,000 and her Trisomy 18 risk decreased from her age-related risk of 1:2,800 to 1:10,000. Based on these results Dr. Santos's recommendation is for patient to follow-up with Sequential second trimester screening (07/25-08/08) and level II anatomy scan after 18wks. 07/25/2012positive 2nd trimester screen for ONTD. Referral to Dr Kandi Peck Papanicolaou smear of cervix with atypical squamous cells cannot exclude high grade squamous intraepithelial lesion (ASC-H) 03/15/2011 05/29/2012 Cervical high risk human pap illomavirus (HPV) DNA test positive 03/15/2011 05/29/2012 General counseling for prescription of oral cont raceptives 03/15/2011 05/29/2012 documented as of this encounter (statuses as of 08/07/2021) [facility] History of Past illness Narrative* Problem Noted Date Resolved Date HSV-1 (herpes simplex virus 1) infection 019 08/04/2019 Overview: 08/20/18-HSV 1 seropositive. Has never had outbreak, oral or genital. Will start prophylaxis at 36 weeks. 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 HSV titers done, + for type I, neg for type 2, d/w her recommendations and importance of avoiding exposure/outbreak near delivery. Debra Wagner MD Obesity in 03/13/2018 08/04/2019 Overview: 03/13/2018She is obese. Will plan on GCT@ NOB. TKRN UTI (urinary tract infection) during 0 03/13/2018 08/04/2019 Overview: 06/23/18-UTI positive ecoli, treated with Macrobid, ALINE next visit. Beata Mackey APRN.CNM 03/13/2018Patient treated for UTI 02/23/2018. She denies any heart structural abnormalities. TKRN Patient requested diagnostic testing 03/13/2018 08/11/2018 Overview: 03/13/2018Patient desires early screening in with sequential testing. TKRN History of depression 03/13/2018 08/04/2019 Overview: 03/13/2018Pt has a history of depression diagnosed in 2017. She has been off medication for 1 year . Believes she is doing well off medication. She believes she had depression after both deliveries. Discussed increased risks of depression during and and importance of reporting the development or worsening of symptoms should they occur.Pt denies ever having any suicidal thoughts or tendencies or thoughts of hurting others. Patient considering returning to counseling at [facility]. TKRN Dizziness 06/03/2017 08/11/2018 Overview: 05/27/17 [facility] [place] ED dizziness. CT brain WO WNL. RUQ abdominal pain 08/31/2016 08/11/2018 Overview: 08/17/16 US RUQ WNL. Chronic left-sided low back pain with left-sided sciatica 03/14/2016 08/11/2018 Irregular menses 05/19/2013 08/11/2018 Obesity in , antepartum 08/01/2012 01/14/2013 Abnormal quad screen 08/01/2012 01/14/2013 Abnormal AFP screen 08/01/2012 Overview: 08/22/12 - saw & declines amnio at this time, plan for 3rd trimester growth ultrasound & testing, appt scheduled with - HERO Supervision of normal first 07/25/2012 01/14/2013 Patient requested diagnostic testing 05/22/2012 01/14/2013 Overview: 05/22/2012Patient desires early screening in with sequential testing. 07/07/2012negative Sequential screen first trimester. The first part of the Sequential Screen reports that her risk for Down syndrome decreased from her age-related risk of 1:800 to 1:10,000 and her Trisomy 18 risk decreased from her age-related risk of 1:2,800 to 1:10,000. Based on these results Dr. Santos's recommendation is for patient to follow-up with Sequential second trimester screening (07/25-08/08) and level II anatomy scan after 18wks. 07/25/2012positive 2nd trimester screen for ONTD. Referral to Dr Kandi Peck Papanicolaou smear of cervix with atypical squamous cells cannot exclude high grade squamous intraepithelial lesion (ASC-H) 03/15/2011 05/29/2012 Cervical high risk human pap illomavirus (HPV) DNA test positive 03/15/2011 05/29/2012 General counseling for prescription of oral cont raceptives 03/15/2011 05/29/2012 documented as of this encounter (statuses as of 09/12/2021) [facility] History of Past illness Narrative* Problem Noted Date Resolved Date HSV-1 (herpes simplex virus 1) infection 019 08/04/2019 Overview: 08/20/18-HSV 1 seropositive. Has never had outbreak, oral or genital. Will start prophylaxis at 36 weeks. 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 HSV titers done, + for type I, neg for type 2, d/w her recommendations and importance of avoiding exposure/outbreak near delivery. Debra Wagner MD Obesity in 03/13/2018 08/04/2019 Overview: 03/13/2018She is obese. Will plan on GCT@ NOB. TKRN UTI (urinary tract infection) during 0 03/13/2018 08/04/2019 Overview: 06/23/18-UTI positive ecoli, treated with Macrobid, ALINE next visit. Beata Mackey APRN.CNM 03/13/2018Patient treated for UTI 02/23/2018. She denies any heart structural abnormalities. TKRN Patient requested diagnostic testing 03/13/2018 08/11/2018 Overview: 03/13/2018Patient desires early screening in with sequential testing. TKRN History of depression 03/13/2018 08/04/2019 Overview: 03/13/2018Pt has a history of depression diagnosed in 2017. She has been off medication for 1 year . Believes she is doing well off medication. She believes she had depression after both deliveries. Discussed increased risks of depression during and and importance of reporting the development or worsening of symptoms should they occur.Pt denies ever having any suicidal thoughts or tendencies or thoughts of hurting others. Patient considering returning to counseling at [facility]. TKRN Dizziness 06/03/2017 08/11/2018 Overview: 05/27/17 [facility] [place] [facility] dizziness. CT brain WO WNL. RUQ abdominal pain 08/31/2016 08/11/2018 Overview: 08/17/16 US RUQ WNL. Chronic left-sided low back pain with left-sided sciatica 03/14/2016 08/11/2018 Irregular menses 05/19/2013 08/11/2018 Obesity in , antepartum 08/01/2012 01/14/2013 Abnormal quad screen 08/01/2012 01/14/2013 Abnormal AFP screen 08/01/2012 Overview: 08/22/12 - saw & declines amnio at this time, plan for 3rd trimester growth ultrasound & testing, appt scheduled with Dr.Chapa Cher MONAHAN Supervision of normal first 07/25/2012 01/14/2013 Patient requested diagnostic testing 05/22/2012 01/14/2013 Overview: 05/22/2012Patient desires early screening in with sequential testing. 07/07/2012negative Sequential screen first trimester. The first part of the Sequential Screen reports that her risk for Down syndrome decreased from her age-related risk of 1:800 to 1:10,000 and her Trisomy 18 risk decreased from her age-related risk of 1:2,800 to 1:10,000. Based on these results Dr. Santos's recommendation is for patient to follow-up with Sequential second trimester screening (07/25-08/08) and level II anatomy scan after 18wks. 07/25/2012positive 2nd trimester screen for ONTD. Referral to Dr Kandi Peck Papanicolaou smear of cervix with atypical squamous cells cannot exclude high grade squamous intraepithelial lesion (ASC-H) 03/15/2011 05/29/2012 Cervical high risk human pap illomavirus (HPV) DNA test positive 03/15/2011 05/29/2012 General counseling for prescription of oral cont raceptives 03/15/2011 05/29/2012 documented as of this encounter (statuses as of 10/24/2021) [facility]-2019 History of Past illness Narrative* Problem Noted Date Resolved Date HSV-1 (herpes simplex virus 1) infection 019 08/04/2019 Overview: 08/20/18-HSV 1 seropositive. Has never had outbreak, oral or genital. Will start prophylaxis at 36 weeks. 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 HSV titers done, + for type I, neg for type 2, d/w her recommendations and importance of avoiding exposure/outbreak near delivery. Debra Wagner MD Obesity in 03/13/2018 08/04/2019 Overview: 03/13/2018She is obese. Will plan on GCT@ NOB. TKRN UTI (urinary tract infection) during 0 03/13/2018 08/04/2019 Overview: 06/23/18-UTI positive ecoli, treated with Macrobid, ALINE next visit. Beata Mackey APRN.CNM 03/13/2018Patient treated for UTI 02/23/2018. She denies any heart structural abnormalities. TKRN Patient requested diagnostic testing 03/13/2018 08/11/2018 Overview: 03/13/2018Patient desires early screening in with sequential testing. TKRN History of depression 03/13/2018 08/04/2019 Overview: 03/13/2018Pt has a history of depression diagnosed in 2017. She has been off medication for 1 year . Believes she is doing well off medication. She believes she had depression after both deliveries. Discussed increased risks of depression during and and importance of reporting the development or worsening of symptoms should they occur.Pt denies ever having any suicidal thoughts or tendencies or thoughts of hurting others. Patient considering returning to counseling at [facility]. TKRN Dizziness 06/03/2017 08/11/2018 Overview: 05/27/17 [facility] [place] [facility] dizziness. CT brain WO WNL. RUQ abdominal pain 08/31/2016 08/11/2018 Overview: 08/17/16 RUQ WNL. Chronic left-sided low back pain with left-sided sciatica 03/14/2016 08/11/2018 Irregular menses 05/19/2013 08/11/2018 Obesity in , antepartum 08/01/2012 01/14/2013 Abnormal quad screen 08/01/2012 01/14/2013 Abnormal AFP screen 08/01/2012 Overview: 08/22/12 - saw & declines amnio at this time, plan for 3rd trimester growth ultrasound & testing, appt scheduled with - HERO Supervision of normal first 07/25/2012 01/14/2013 Patient requested diagnostic testing 05/22/2012 01/14/2013 Overview: 05/22/2012Patient desires early screening in with sequential testing. 07/07/2012negative Sequential screen first trimester. The first part of the Sequential Screen reports that her risk for Down syndrome decreased from her age-related risk of 1:800 to 1:10,000 and her Trisomy 18 risk decreased from her age-related risk of 1:2,800 to 1:10,000. Based on these results Dr. Santos's recommendation is for patient to follow-up with Sequential second trimester screening (07/25-08/08) and level II anatomy scan after 18wks. 07/25/2012positive 2nd trimester screen for ONTD. Referral to Dr Kandi Peck Papanicolaou smear of cervix with atypical squamous cells cannot exclude high grade squamous intraepithelial lesion (ASC-H) 03/15/2011 05/29/2012 Cervical high risk human pap illomavirus (HPV) DNA test positive 03/15/2011 05/29/2012 General counseling for prescription of oral cont raceptives 03/15/2011 05/29/2012 documented as of this encounter (statuses as of 10/25/2021) [facility]2019 History of Past illness Narrative* Problem Noted Date Resolved Date HSV-1 (herpes simplex virus 1) infection 019 08/04/2019 Overview: 08/20/18-HSV 1 seropositive. Has never had outbreak, oral or genital. Will start prophylaxis at 36 weeks. 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 HSV titers done, + for type I, neg for type 2, d/w her recommendations and importance of avoiding exposure/outbreak near delivery. Debra Wagner MD Obesity in 03/13/2018 08/04/2019 Overview: 03/13/2018She is obese. Will plan on GCT@ NOB. TKRN UTI (urinary tract infection) during 0 03/13/2018 08/04/2019 Overview: 06/23/18-UTI positive ecoli, treated with Macrobid, ALINE next visit. Beata Mackey APRN.CNM 03/13/2018Patient treated for UTI 02/23/2018. She denies any heart structural abnormalities. TKRN Patient requested diagnostic testing 03/13/2018 08/11/2018 Overview: 03/13/2018Patient desires early screening in with sequential testing. TKRN History of depression 03/13/2018 08/04/2019 Overview: 03/13/2018Pt has a history of depression diagnosed in 2017. She has been off medication for 1 year . Believes she is doing well off medication. She believes she had depression after both deliveries. Discussed increased risks of depression during and and importance of reporting the development or worsening of symptoms should they occur.Pt denies ever having any suicidal thoughts or tendencies or thoughts of hurting others. Patient considering returning to counseling at [facility]. TKRN Dizziness 06/03/2017 08/11/2018 Overview: 05/27/17 [facility] [place] [facility] dizziness. CT brain WO WNL. RUQ abdominal pain 08/31/2016 08/11/2018 Overview: 08/17/16 RUQ WNL. Chronic left-sided low back pain with left-sided sciatica 03/14/2016 08/11/2018 Irregular menses 05/19/2013 08/11/2018 Obesity in , antepartum 08/01/2012 01/14/2013 Abnormal quad screen 08/01/2012 01/14/2013 Abnormal AFP screen 08/01/2012 Overview: 08/22/12 - saw & declines amnio at this time, plan for 3rd trimester growth ultrasound & testing, appt scheduled with - HERO Supervision of normal first 07/25/2012 01/14/2013 Patient requested diagnostic testing 05/22/2012 01/14/2013 Overview: 05/22/2012Patient desires early screening in with sequential testing. 07/07/2012negative Sequential screen first trimester. The first part of the Sequential Screen reports that her risk for Down syndrome decreased from her age-related risk of 1:800 to 1:10,000 and her Trisomy 18 risk decreased from her age-related risk of 1:2,800 to 1:10,000. Based on these results Dr. Santos's recommendation is for patient to follow-up with Sequential second trimester screening (07/25-08/08) and level II anatomy scan after 18wks. 07/25/2012positive 2nd trimester screen for ONTD. 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 Has never had outbreak, oral or genital. Will start prophylaxis at 36 weeks. 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 HSV titers done, + for type I, neg for type 2, d/w her recommendations and importance of avoiding exposure/outbreak near delivery. Debra Wagner MD Obesity in 03/13/2018 08/04/2019 Overview: 03/13/2018She is obese. Will plan on GCT@ NOB. TKRN UTI (urinary tract infection) during 0 03/13/2018 08/04/2019 Overview: 06/23/18-UTI positive ecoli, treated with Macrobid, ALINE next visit. Beata Mackey APRN.CNM 03/13/2018Patient treated for UTI 02/23/2018. She denies any heart structural abnormalities. TKRN Patient requested diagnostic testing 03/13/2018 08/11/2018 Overview: 03/13/2018Patient desires early screening in with sequential testing. TKRN History of depression 03/13/2018 08/04/2019 Overview: 03/13/2018Pt has a history of depression diagnosed in 2016. She has been off medication for 1 year . Believes she is doing well off medication. She believes she had depression after both deliveries. Discussed increased risks of depression during and and importance of reporting the development or worsening of symptoms should they occur.Pt denies ever having any suicidal thoughts or tendencies or thoughts of hurting others. Patient considering returning to counseling at [facility]. TKRN Dizziness 06/03/2017 08/11/2018 Overview: 05/27/17 [facility] [place] [facility] dizziness. CT brain WO WNL. RUQ abdominal pain 08/31/2016 08/11/2018 Overview: 08/17/16 US RUQ WNL. Chronic left-sided low back pain with left-sided sciatica 03/14/2016 08/11/2018 Irregular menses 05/19/2013 08/11/2018 Obesity in , antepartum 08/01/2012 01/14/2013 Abnormal quad screen 08/01/2012 01/14/2013 Abnormal AFP screen 08/01/2012 Overview: 08/22/12 - saw & declines amnio at this time, plan for 3rd trimester growth ultrasound & testing, appt scheduled with - HERO Supervision of normal first 07/25/2012 01/14/2013 Patient requested diagnostic testing 05/22/2012 01/14/2013 Overview: 05/22/2012Patient desires early screening in with sequential testing. 07/07/2012negative Sequential screen first trimester. The first part of the Sequential Screen reports that her risk for Down syndrome decreased from her age-related risk of 1:800 to 1:10,000 and her Trisomy 18 risk decreased from her age-related risk of 1:2,800 to 1:10,000. Based on these results Dr. Santos's recommendation is for patient to follow-up with Sequential second trimester screening (07/25-08/08) and level II anatomy scan after 18wks. 07/25/2012positive 2nd trimester screen for ONTD. 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 Has never had outbreak, oral or genital. Will start prophylaxis at 36 weeks. 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 HSV titers done, + for type I, neg for type 2, d/w her recommendations and importance of avoiding exposure/outbreak near delivery. Debra Wagner MD Obesity in 03/13/2018 08/04/2019 Overview: 03/13/2018She is obese. Will plan on GCT@ NOB. TKRN UTI (urinary tract infection) during 0 03/13/2018 08/04/2019 Overview: 06/23/18-UTI positive ecoli, treated with Macrobid, ALINE next visit. Beata Mackey APRN.CNM 03/13/2018Patient treated for UTI 02/23/2018. She denies any heart structural abnormalities. TKRN Patient requested diagnostic testing 03/13/2018 08/11/2018 Overview: 03/13/2018Patient desires early screening in with sequential testing. TKRN History of depression 03/13/2018 08/04/2019 Overview: 03/13/2018Pt has a history of depression diagnosed in 2017. She has been off medication for 1 year . Believes she is doing well off medication. She believes she had depression after both deliveries. Discussed increased risks of depression during and and importance of reporting the development or worsening of symptoms should they occur.Pt denies ever having any suicidal thoughts or tendencies or thoughts of hurting others. Patient considering returning to counseling at [facility]. TKRN Dizziness 06/03/2017 08/11/2018 Overview: 05/27/17 [facility] [place] [facility] dizziness. CT brain WO WNL. RUQ abdominal pain 08/31/2016 08/11/2018 Overview: 08/17/16 US RUQ WNL. Chronic left-sided low back pain with left-sided sciatica 03/14/2016 08/11/2018 Irregular menses 05/19/2013 08/11/2018 Obesity in , antepartum 08/01/2012 01/14/2013 Abnormal quad screen 08/01/2012 01/14/2013 Abnormal AFP screen 08/01/2012 Overview: 08/22/12 - saw & declines amnio at this time, plan for 3rd trimester growth ultrasound & testing, appt scheduled with Dr.Chapa Cher [place]AN Supervision of normal first 07/25/2012 01/14/2013 Patient requested diagnostic testing 05/22/2012 01/14/2013 Overview: 05/22/2012Patient desires early screening in with sequential testing. 07/07/2012negative Sequential screen first trimester. The first part of the Sequential Screen reports that her risk for Down syndrome decreased from her age-related risk of 1:800 to 1:10,000 and her Trisomy 18 risk decreased from her age-related risk of 1:2,800 to 1:10,000. Based on these results Dr. Santos's recommendation is for patient to follow-up with Sequential second trimester screening (07/25-08/08) and level II anatomy scan after 18wks. 07/25/2012positive 2nd trimester screen for ONTD. 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 Has never had outbreak, oral or genital. Will start prophylaxis at 36 weeks. 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 HSV titers done, + for type I, neg for type 2, d/w her recommendations and importance of avoiding exposure/outbreak near delivery. Debra Wagner MD Obesity in 03/13/2018 08/04/2019 Overview: 03/13/2018She is obese. Will plan on GCT@ NOB. TKRN UTI (urinary tract infection) during 0 03/13/2018 08/04/2019 Overview: 06/23/18-UTI positive ecoli, treated with Macrobid, ALINE next visit. Beata Mackey APRN.CNM 03/13/2018Patient treated for UTI 02/23/2018. She denies any heart structural abnormalities. TKRN Patient requested diagnostic testing 03/13/2018 08/11/2018 Overview: 03/13/2018Patient desires early screening in with sequential testing. TKRN History of depression 03/13/2018 08/04/2019 Overview: 03/13/2018Pt has a history of depression diagnosed in 2017. She has been off medication for 1 year . Believes she is doing well off medication. She believes she had depression after both deliveries. Discussed increased risks of depression during and and importance of reporting the development or worsening of symptoms should they occur.Pt denies ever having any suicidal thoughts or tendencies or thoughts of hurting others. Patient considering returning to counseling at [facility]. TKRN Dizziness 06/03/2017 08/11/2018 Overview: 05/27/17 [facility] [place] [facility] dizziness. CT brain WO WNL. RUQ abdominal pain 08/31/2016 08/11/2018 Overview: 08/17/16 RUQ WNL. Chronic left-sided low back pain with left-sided sciatica 03/14/2016 08/11/2018 Irregular menses 05/19/2013 08/11/2018 Obesity in , antepartum 08/01/2012 01/14/2013 Abnormal quad screen 08/01/2012 01/14/2013 Abnormal AFP screen 08/01/2012 Overview: 08/22/12 - saw & declines amnio at this time, plan for 3rd trimester growth ultrasound & testing, appt scheduled with Dr.Chapa Cher [place] Supervision of normal first 07/25/2012 01/14/2013 Patient requested diagnostic testing 05/22/2012 01/14/2013 Overview: 05/22/2012Patient desires early screening in with sequential testing. 07/07/2012negative Sequential screen first trimester. The first part of the Sequential Screen reports that her risk for Down syndrome decreased from her age-related risk of 1:800 to 1:10,000 and her Trisomy 18 risk decreased from her age-related risk of 1:2,800 to 1:10,000. Based on these results Dr. Santos's recommendation is for patient to follow-up with Sequential second trimester screening (07/25-08/08) and level II anatomy scan after 18wks. 07/25/2012positive 2nd trimester screen for ONTD. 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 Has never had outbreak, oral or genital. Will start prophylaxis at 36 weeks. 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 HSV titers done, + for type I, neg for type 2, d/w her recommendations and importance of avoiding exposure/outbreak near delivery. Debra Wagner MD Obesity in 03/13/2018 08/04/2019 Overview: 03/13/2018She is obese. Will plan on GCT@ NOB. TKRN UTI (urinary tract infection) during 0 03/13/2018 08/04/2019 Overview: 06/23/18-UTI positive ecoli, treated with Macrobid, ALINE next visit. Beata Mackey APRN.CNM 03/13/2018Patient treated for UTI 02/23/2018. She denies any heart structural abnormalities. TKRN Patient requested diagnostic testing 03/13/2018 08/11/2018 Overview: 03/13/2018Patient desires early screening in with sequential testing. TKRN History of depression 03/13/2018 08/04/2019 Overview: 03/13/2018Pt has a history of depression diagnosed in 2017. She has been off medication for 1 year . Believes she is doing well off medication. She believes she had depression after both deliveries. Discussed increased risks of depression during and and importance of reporting the development or worsening of symptoms should they occur.Pt denies ever having any suicidal thoughts or tendencies or thoughts of hurting others. Patient considering returning to counseling at [facility]. TKRN Dizziness 06/03/2017 08/11/2018 Overview: 05/27/17 [facility] [place] [facility] dizziness. CT brain WO WNL. RUQ abdominal pain 08/31/2016 08/11/2018 Overview: 08/17/16 US RUQ WNL. Chronic left-sided low back pain with left-sided sciatica 03/14/2016 08/11/2018 Irregular menses 05/19/2013 08/11/2018 Obesity in , antepartum 08/01/2012 01/14/2013 Abnormal quad screen 08/01/2012 01/14/2013 Abnormal AFP screen 08/01/2012 Overview: 08/22/12 - saw & declines amnio at this time, plan for 3rd trimester growth ultrasound & testing, appt scheduled with - HERO Supervision of normal first 07/25/2012 01/14/2013 Patient requested diagnostic testing 05/22/2012 01/14/2013 Overview: 05/22/2012Patient desires early screening in with sequential testing. 07/07/2012negative Sequential screen first trimester. The first part of the Sequential Screen reports that her risk for Down syndrome decreased from her age-related risk of 1:800 to 1:10,000 and her Trisomy 18 risk decreased from her age-related risk of 1:2,800 to 1:10,000. Based on these results Dr. Santos's recommendation is for patient to follow-up with Sequential second trimester screening (07/25-08/08) and level II anatomy scan after 18wks. 07/25/2012positive 2nd trimester screen for ONTD. 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 Has never had outbreak, oral or genital. Will start prophylaxis at 36 weeks. 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 HSV titers done, + for type I, neg for type 2, d/w her recommendations and importance of avoiding exposure/outbreak near delivery. Debra Wagner MD Obesity in 03/13/2018 08/04/2019 Overview: 03/13/2018She is obese. Will plan on GCT@ NOB. TKRN UTI (urinary tract infection) during 0 03/13/2018 08/04/2019 Overview: 06/23/18-UTI positive ecoli, treated with Macrobid, ALINE next visit. Beata Mackey APRN.JULIEN 03/13/2018Patient treated for UTI 02/23/2018. She denies any heart structural abnormalities. TKRN Patient requested diagnostic testing 03/13/2018 08/11/2018 Overview: 03/13/2018Patient desires early screening in with sequential testing. TKRN History of depression 03/13/2018 08/04/2019 Overview: 03/13/2018Pt has a history of depression diagnosed in 2017. She has been off medication for 1 year . Believes she is doing well off medication. She believes she had depression after both deliveries. Discussed increased risks of depression during and and importance of reporting the development or worsening of symptoms should they occur.Pt denies ever having any suicidal thoughts or tendencies or thoughts of hurting others. Patient considering returning to counseling at [facility]. TKRN Dizziness 06/03/2017 08/11/2018 Overview: 05/27/17 [facility] [place] [facility] dizziness. CT brain WO WNL. RUQ abdominal pain 08/31/2016 08/11/2018 Overview: 08/17/16 US RUQ WNL. Chronic left-sided low back pain with left-sided sciatica 03/14/2016 08/11/2018 Irregular menses 05/19/2013 08/11/2018 Obesity in , antepartum 08/01/2012 01/14/2013 Abnormal quad screen 08/01/2012 01/14/2013 Abnormal AFP screen 08/01/2012 Overview: 08/22/12 - saw & declines amnio at this time, plan for 3rd trimester growth ultrasound & testing, appt scheduled with - HERO Supervision of normal first 07/25/2012 01/14/2013 Patient requested diagnostic testing 05/22/2012 01/14/2013 Overview: 05/22/2012Patient desires early screening in with sequential testing. 07/07/2012negative Sequential screen first trimester. The first part of the Sequential Screen reports that her risk for Down syndrome decreased from her age-related risk of 1:800 to 1:10,000 and her Trisomy 18 risk decreased from her age-related risk of 1:2,800 to 1:10,000. Based on these results Dr. Santos's recommendation is for patient to follow-up with Sequential second trimester screening (07/25-08/08) and level II anatomy scan after 18wks. 07/25/2012positive 2nd trimester screen for ONTD. 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 Has never had outbreak, oral or genital. Will start prophylaxis at 36 weeks. 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 HSV titers done, + for type I, neg for type 2, d/w her recommendations and importance of avoiding exposure/outbreak near delivery. Debra Wagner MD Obesity in 03/13/2018 08/04/2019 Overview: 03/13/2018She is obese. Will plan on GCT@ NOB. TKRN UTI (urinary tract infection) during 0 03/13/2018 08/04/2019 Overview: 06/23/18-UTI positive ecoli, treated with Macrobid, ALINE next visit. Beata Mackey APRN.JULIEN 03/13/2018Patient treated for UTI 02/23/2018. She denies any heart structural abnormalities. TKRN Patient requested diagnostic testing 03/13/2018 08/11/2018 Overview: 03/13/2018Patient desires early screening in with sequential testing. TKRN History of depression 03/13/2018 08/04/2019 Overview: 03/13/2018Pt has a history of depression diagnosed in 2017. She has been off medication for 1 year . Believes she is doing well off medication. She believes she had depression after both deliveries. Discussed increased risks of depression during and and importance of reporting the development or worsening of symptoms should they occur.Pt denies ever having any suicidal thoughts or tendencies or thoughts of hurting others. Patient considering returning to counseling at [facility]. TKRN Dizziness 06/03/2017 08/11/2018 Overview: 05/27/17 [facility] [place] [facility] dizziness. CT brain WO WNL. RUQ abdominal pain 08/31/2016 08/11/2018 Overview: 08/17/16 US RUQ WNL. Chronic left-sided low back pain with left-sided sciatica 03/14/2016 08/11/2018 Irregular menses 05/19/2013 08/11/2018 Obesity in , antepartum 08/01/2012 01/14/2013 Abnormal quad screen 08/01/2012 01/14/2013 Abnormal AFP screen 08/01/2012 Overview: 08/22/12 - saw & declines amnio at this time, plan for 3rd trimester growth ultrasound & testing, appt scheduled with - HERO Supervision of normal first 07/25/2012 01/14/2013 Patient requested diagnostic testing 05/22/2012 01/14/2013 Overview: 05/22/2012Patient desires early screening in with sequential testing. 07/07/2012negative Sequential screen first trimester. The first part of the Sequential Screen reports that her risk for Down syndrome decreased from her age-related risk of 1:800 to 1:10,000 and her Trisomy 18 risk decreased from her age-related risk of 1:2,800 to 1:10,000. Based on these results Dr. Santos's recommendation is for patient to follow-up with Sequential second trimester screening (07/25-08/08) and level II anatomy scan after 18wks. 07/25/2012positive 2nd trimester screen for ONTD. 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 Has never had outbreak, oral or genital. Will start prophylaxis at 36 weeks. 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 HSV titers done, + for type I, neg for type 2, d/w her recommendations and importance of avoiding exposure/outbreak near delivery. Debra Wagner MD Obesity in 03/13/2018 08/04/2019 Overview: 03/13/2018She is obese. Will plan on GCT@ NOB. TKRN UTI (urinary tract infection) during 0 03/13/2018 08/04/2019 Overview: 06/23/18-UTI positive ecoli, treated with Macrobid, ALINE next visit. Beata Mackey APRN.JULIEN 03/13/2018Patient treated for UTI 02/23/2018. She denies any heart structural abnormalities. TKRN Patient requested diagnostic testing 03/13/2018 08/11/2018 Overview: 03/13/2018Patient desires early screening in with sequential testing. TKRN History of depression 03/13/2018 08/04/2019 Overview: 03/13/2018Pt has a history of depression diagnosed in 2017. She has been off medication for 1 year . Believes she is doing well off medication. She believes she had depression after both deliveries. Discussed increased risks of depression during and and importance of reporting the development or worsening of symptoms should they occur.Pt denies ever having any suicidal thoughts or tendencies or thoughts of hurting others. Patient considering returning to counseling at [facility]. TKRN Dizziness 06/03/2017 08/11/2018 Overview: 05/27/17 [facility] [place] [facility] dizziness. CT brain WO WNL. RUQ abdominal pain 08/31/2016 08/11/2018 Overview: 08/17/16 US RUQ WNL. Chronic left-sided low back pain with left-sided sciatica 03/14/2016 08/11/2018 Irregular menses 05/19/2013 08/11/2018 Obesity in , antepartum 08/01/2012 01/14/2013 Abnormal quad screen 08/01/2012 01/14/2013 Abnormal AFP screen 08/01/2012 Overview: 08/22/12 - saw & declines amnio at this time, plan for 3rd trimester growth ultrasound & testing, appt scheduled with - HERO Supervision of normal first 07/25/2012 01/14/2013 Patient requested diagnostic testing 05/22/2012 01/14/2013 Overview: 05/22/2012Patient desires early screening in with sequential testing. 07/07/2012negative Sequential screen first trimester. The first part of the Sequential Screen reports that her risk for Down syndrome decreased from her age-related risk of 1:800 to 1:10,000 and her Trisomy 18 risk decreased from her age-related risk of 1:2,800 to 1:10,000. Based on these results Dr. Santos's recommendation is for patient to follow-up with Sequential second trimester screening (07/25-08/08) and level II anatomy scan after 18wks. 07/25/2012positive 2nd trimester screen for ONTD. 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 Has never had outbreak, oral or genital. Will start prophylaxis at 36 weeks. 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 HSV titers done, + for type I, neg for type 2, d/w her recommendations and importance of avoiding exposure/outbreak near delivery. Debra Wagner MD Obesity in 03/13/2018 08/04/2019 Overview: 03/13/2018She is obese. Will plan on GCT@ NOB. TKRN UTI (urinary tract infection) during 0 03/13/2018 08/04/2019 Overview: 06/23/18-UTI positive ecoli, treated with Macrobid, ALINE next visit. Beata Mackey APRN.JULIEN 03/13/2018Patient treated for UTI 02/23/2018. She denies any heart structural abnormalities. TKRN Patient requested diagnostic testing 03/13/2018 08/11/2018 Overview: 03/13/2018Patient desires early screening in with sequential testing. TKRN History of depression 03/13/2018 08/04/2019 Overview: 03/13/2018Pt has a history of depression diagnosed in 2017. She has been off medication for 1 year . Believes she is doing well off medication. She believes she had depression after both deliveries. Discussed increased risks of depression during and and importance of reporting the development or worsening of symptoms should they occur.Pt denies ever having any suicidal thoughts or tendencies or thoughts of hurting others. Patient considering returning to counseling at [facility]. TKRN Dizziness 06/03/2017 08/11/2018 Overview: 05/27/17 [facility] [place] [facility] dizziness. CT brain WO WNL. RUQ abdominal pain 08/31/2016 08/11/2018 Overview: 08/17/16 US RUQ WNL. Chronic left-sided low back pain with left-sided sciatica 03/14/2016 08/11/2018 Irregular menses 05/19/2013 08/11/2018 Obesity in , antepartum 08/01/2012 01/14/2013 Abnormal quad screen 08/01/2012 01/14/2013 Abnormal AFP screen 08/01/2012 Overview: 08/22/12 - saw & declines amnio at this time, plan for 3rd trimester growth ultrasound & testing, appt scheduled with - HERO Supervision of normal first 07/25/2012 01/14/2013 Patient requested diagnostic testing 05/22/2012 01/14/2013 Overview: 05/22/2012Patient desires early screening in with sequential testing. 07/07/2012negative Sequential screen first trimester. The first part of the Sequential Screen reports that her risk for Down syndrome decreased from her age-related risk of 1:800 to 1:10,000 and her Trisomy 18 risk decreased from her age-related risk of 1:2,800 to 1:10,000. Based on these results Dr. Santos's recommendation is for patient to follow-up with Sequential second trimester screening (07/25-08/08) and level II anatomy scan after 18wks. 07/25/2012positive 2nd trimester screen for ONTD. 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 Has never had outbreak, oral or genital. Will start prophylaxis at 36 weeks. 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 HSV titers done, + for type I, neg for type 2, d/w her recommendations and importance of avoiding exposure/outbreak near delivery. Debra Wagner MD Obesity in 03/13/2018 08/04/2019 Overview: 03/13/2018She is obese. Will plan on GCT@ NOB. TKRN UTI (urinary tract infection) during 0 03/13/2018 08/04/2019 Overview: 06/23/18-UTI positive ecoli, treated with Macrobid, ALINE next visit. Beata Mackey APRN.JULIEN 03/13/2018Patient treated for UTI 02/23/2018. She denies any heart structural abnormalities. TKRN Patient requested diagnostic testing 03/13/2018 08/11/2018 Overview: 03/13/2018Patient desires early screening in with sequential testing. TKRN History of depression 03/13/2018 08/04/2019 Overview: 03/13/2018Pt has a history of depression diagnosed in 2016. She has been off medication for 1 year . Believes she is doing well off medication. She believes she had depression after both deliveries. Discussed increased risks of depression during and and importance of reporting the development or worsening of symptoms should they occur.Pt denies ever having any suicidal thoughts or tendencies or thoughts of hurting others. Patient considering returning to counseling at [facility]. TKRN Dizziness 06/03/2017 08/11/2018 Overview: 05/27/17 [facility] [place] [facility] dizziness. CT brain WO WNL. RUQ abdominal pain 08/31/2016 08/11/2018 Overview: 08/17/16 US RUQ WNL. Chronic left-sided low back pain with left-sided sciatica 03/14/2016 08/11/2018 Irregular menses 05/19/2013 08/11/2018 Obesity in , antepartum 08/01/2012 01/14/2013 Abnormal quad screen 08/01/2012 01/14/2013 Abnormal AFP screen 08/01/2012 Overview: 08/22/12 - saw & declines amnio at this time, plan for 3rd trimester growth ultrasound & testing, appt scheduled with - HERO Supervision of normal first 07/25/2012 01/14/2013 Patient requested diagnostic testing 05/22/2012 01/14/2013 Overview: 05/22/2012Patient desires early screening in with sequential testing. 07/07/2012negative Sequential screen first trimester. The first part of the Sequential Screen reports that her risk for Down syndrome decreased from her age-related risk of 1:800 to 1:10,000 and her Trisomy 18 risk decreased from her age-related risk of 1:2,800 to 1:10,000. Based on these results Dr. Santos's recommendation is for patient to follow-up with Sequential second trimester screening (07/25-08/08) and level II anatomy scan after 18wks. 07/25/2012positive 2nd trimester screen for ONTD. 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 Has never had outbreak, oral or genital. Will start prophylaxis at 36 weeks. 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 HSV titers done, + for type I, neg for type 2, d/w her recommendations and importance of avoiding exposure/outbreak near delivery. Debra Wagner MD Obesity in 03/13/2018 08/04/2019 Overview: 03/13/2018She is obese. Will plan on GCT@ NOB. TKRN UTI (urinary tract infection) during 0 03/13/2018 08/04/2019 Overview: 06/23/18-UTI positive ecoli, treated with Macrobid, ALINE next visit. Beata Mackey APRN.CNM 03/13/2018Patient treated for UTI 02/23/2018. She denies any heart structural abnormalities. TKRN Patient requested diagnostic testing 03/13/2018 08/11/2018 Overview: 03/13/2018Patient desires early screening in with sequential testing. TKRN History of depression 03/13/2018 08/04/2019 Overview: 03/13/2018Pt has a history of depression diagnosed in 2016. She has been off medication for 1 year . Believes she is doing well off medication. She believes she had depression after both deliveries. Discussed increased risks of depression during and and importance of reporting the development or worsening of symptoms should they occur.Pt denies ever having any suicidal thoughts or tendencies or thoughts of hurting others. Patient considering returning to counseling at [facility]. TKRN Dizziness 06/03/2017 08/11/2018 Overview: 05/27/17 [facility] [place] [facility] dizziness. CT brain WO WNL. RUQ abdominal pain 08/31/2016 08/11/2018 Overview: 08/17/16 US RUQ WNL. Chronic left-sided low back pain with left-sided sciatica 03/14/2016 08/11/2018 Irregular menses 05/19/2013 08/11/2018 Obesity in , antepartum 08/01/2012 01/14/2013 Abnormal quad screen 08/01/2012 01/14/2013 Abnormal AFP screen 08/01/2012 Overview: 08/22/12 - saw & declines amnio at this time, plan for 3rd trimester growth ultrasound & testing, appt scheduled with - HERO Supervision of normal first 07/25/2012 01/14/2013 Patient requested diagnostic testing 05/22/2012 01/14/2013 Overview: 05/22/2012Patient desires early screening in with sequential testing. 07/07/2012negative Sequential screen first trimester. The first part of the Sequential Screen reports that her risk for Down syndrome decreased from her age-related risk of 1:800 to 1:10,000 and her Trisomy 18 risk decreased from her age-related risk of 1:2,800 to 1:10,000. Based on these results Dr. Santos's recommendation is for patient to follow-up with Sequential second trimester screening (07/25-08/08) and level II anatomy scan after 18wks. 07/25/2012positive 2nd trimester screen for ONTD. 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 Has never had outbreak, oral or genital. Will start prophylaxis at 36 weeks. 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 HSV titers done, + for type I, neg for type 2, d/w her recommendations and importance of avoiding exposure/outbreak near delivery. Debra Wagner MD Obesity in 03/13/2018 08/04/2019 Overview: 03/13/2018She is obese. Will plan on GCT@ NOB. TKRN UTI (urinary tract infection) during 0 03/13/2018 08/04/2019 Overview: 06/23/18-UTI positive ecoli, treated with Macrobid, ALINE next visit. Beata Mackey APRN.JULIEN 03/13/2018Patient treated for UTI 02/23/2018. She denies any heart structural abnormalities. TKRN Patient requested diagnostic testing 03/13/2018 08/11/2018 Overview: 03/13/2018Patient desires early screening in with sequential testing. TKRN History of depression 03/13/2018 08/04/2019 Overview: 03/13/2018Pt has a history of depression diagnosed in 2016. She has been off medication for 1 year . Believes she is doing well off medication. She believes she had depression after both deliveries. Discussed increased risks of depression during and and importance of reporting the development or worsening of symptoms should they occur.Pt denies ever having any suicidal thoughts or tendencies or thoughts of hurting others. Patient considering returning to counseling at [facility]. TKRN Dizziness 06/03/2017 08/11/2018 Overview: 05/27/17 [facility] [place] [facility] dizziness. CT brain WO WNL. RUQ abdominal pain 08/31/2016 08/11/2018 Overview: 08/17/16 US RUQ WNL. Chronic left-sided low back pain with left-sided sciatica 03/14/2016 08/11/2018 Irregular menses 05/19/2013 08/11/2018 Obesity in , antepartum 08/01/2012 01/14/2013 Abnormal quad screen 08/01/2012 01/14/2013 Abnormal AFP screen 08/01/2012 Overview: 08/22/12 - saw & declines amnio at this time, plan for 3rd trimester growth ultrasound & testing, appt scheduled with Dr.Chapa Cher MONAHAN Supervision of normal first 07/25/2012 01/14/2013 Patient requested diagnostic testing 05/22/2012 01/14/2013 Overview: 05/22/2012Patient desires early screening in with sequential testing. 07/07/2012negative Sequential screen first trimester. The first part of the Sequential Screen reports that her risk for Down syndrome decreased from her age-related risk of 1:800 to 1:10,000 and her Trisomy 18 risk decreased from her age-related risk of 1:2,800 to 1:10,000. Based on these results Dr. Santos's recommendation is for patient to follow-up with Sequential second trimester screening (07/25-08/08) and level II anatomy scan after 18wks. 07/25/2012positive 2nd trimester screen for ONTD. 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 Has never had outbreak, oral or genital. Will start prophylaxis at 36 weeks. 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 HSV titers done, + for type I, neg for type 2, d/w her recommendations and importance of avoiding exposure/outbreak near delivery. Debra Wagner MD Obesity in 03/13/2018 08/04/2019 Overview: 03/13/2018She is obese. Will plan on GCT@ NOB. TKRN UTI (urinary tract infection) during 0 03/13/2018 08/04/2019 Overview: 06/23/18-UTI positive ecoli, treated with Macrobid, ALINE next visit. Beata Mackey APRN.JULIEN 03/13/2018Patient treated for UTI 02/23/2018. She denies any heart structural abnormalities. TKRN Patient requested diagnostic testing 03/13/2018 08/11/2018 Overview: 03/13/2018Patient desires early screening in with sequential testing. TKRN History of depression 03/13/2018 08/04/2019 Overview: 03/13/2018Pt has a history of depression diagnosed in 2016. She has been off medication for 1 year . Believes she is doing well off medication. She believes she had depression after both deliveries. Discussed increased risks of depression during and and importance of reporting the development or worsening of symptoms should they occur.Pt denies ever having any suicidal thoughts or tendencies or thoughts of hurting others. Patient considering returning to counseling at [facility]. TKRN Dizziness 06/03/2017 08/11/2018 Overview: 05/27/17 [facility] [place] [facility] dizziness. CT brain WO WNL. RUQ abdominal pain 08/31/2016 08/11/2018 Overview: 08/17/16 US RUQ WNL. Chronic left-sided low back pain with left-sided sciatica 03/14/2016 08/11/2018 Irregular menses 05/19/2013 08/11/2018 Obesity in , antepartum 08/01/2012 01/14/2013 Abnormal quad screen 08/01/2012 01/14/2013 Abnormal AFP screen 08/01/2012 Overview: 08/22/12 - saw & declines amnio at this time, plan for 3rd trimester growth ultrasound & testing, appt scheduled with Dr.Chapa Cher MON[place]AN Supervision of normal first 07/25/2012 01/14/2013 Patient requested diagnostic testing 05/22/2012 01/14/2013 Overview: 05/22/2012Patient desires early screening in with sequential testing. 07/07/2012negative Sequential screen first trimester. The first part of the Sequential Screen reports that her risk for Down syndrome decreased from her age-related risk of 1:800 to 1:10,000 and her Trisomy 18 risk decreased from her age-related risk of 1:2,800 to 1:10,000. Based on these results Dr. Santos's recommendation is for patient to follow-up with Sequential second trimester screening (07/25-08/08) and level II anatomy scan after 18wks. 07/25/2012positive 2nd trimester screen for ONTD. 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 Has never had outbreak, oral or genital. Will start prophylaxis at 36 weeks. 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 HSV titers done, + for type I, neg for type 2, d/w her recommendations and importance of avoiding exposure/outbreak near delivery. Debra Wagner MD UTI (urinary tract infection) during 0 03/13/2018 08/04/2019 Overview: 06/23/18-UTI positive ecoli, treated with Macrobid, ALINE next visit. Beata Mackey APRN.CNM 03/13/2018Patient treated for UTI 02/23/2018. She denies any heart structural abnormalities. TKRN Patient requested diagnostic testing 03/13/2018 08/11/2018 Overview: 03/13/2018Patient desires early screening in with sequential testing. TKRN Dizziness 06/03/2017 08/11/2018 Overview: 05/27/17 [facility] [place] [facility] dizziness. CT brain WO WNL. RUQ abdominal pain 08/31/2016 08/11/2018 Overview: 08/17/16 US RUQ WNL. Chronic left-sided low back pain with left-sided sciatica 03/14/2016 08/11/2018 Irregular menses 05/19/2013 08/11/2018 Obesity in , antepartum 08/01/2012 01/14/2013 Abnormal quad screen 08/01/2012 01/14/2013 Abnormal AFP screen 08/01/2012 Overview: 08/22/12 - saw & declines amnio at this time, plan for 3rd trimester growth ultrasound & testing, appt scheduled with - [facility] Supervision of normal first 07/25/2012 01/14/2013 Patient requested diagnostic testing 05/22/2012 01/14/2013 Overview: 05/22/2012Patient desires early screening in with sequential testing. 05/06/2013negative Sequential screen first trimester. The first part of the Sequential Screen reports that her risk for Down syndrome decreased from her age-related risk of 1:800 to 1:10,000 and her Trisomy 18 risk decreased from her age-related risk of 1:2,800 to 1:10,000. Based on these results Dr. Santos's recommendation is for patient to follow-up with Sequential second trimester screening (07/25-08/08) and level II anatomy scan after 18wks. 07/25/2012positive 2nd trimester screen for ONTD. 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 Has never had outbreak, oral or genital. Will start prophylaxis at 36 weeks. 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 HSV titers done, + for type I, neg for type 2, d/w her recommendations and importance of avoiding exposure/outbreak near delivery. Debra Wagner MD UTI (urinary tract infection) during 0 03/13/2018 08/04/2019 Overview: 06/23/18-UTI positive ecoli, treated with Macrobid, ALINE next visit. Beata Mackey APRN.CNM 03/13/2018Patient treated for UTI 02/23/2018. She denies any heart structural abnormalities. TKRN Patient requested diagnostic testing 03/13/2018 08/11/2018 Overview: 03/13/2018Patient desires early screening in with sequential testing. TKRN Dizziness 06/03/2017 08/11/2018 Overview: 05/27/17 [facility] [place] [facility] dizziness. CT brain WO WNL. RUQ abdominal pain 08/31/2016 08/11/2018 Overview: 08/17/16 US RUQ WNL. Chronic left-sided low back pain with left-sided sciatica 03/14/2016 08/11/2018 Irregular menses 05/19/2013 08/11/2018 Obesity in , antepartum 08/01/2012 01/14/2013 Abnormal quad screen 08/01/2012 01/14/2013 Abnormal AFP screen 08/01/2012 Overview: 08/22/12 - saw & declines amnio at this time, plan for 3rd trimester growth ultrasound & testing, appt scheduled with - HERO Supervision of normal first 07/25/2012 01/14/2013 Patient requested diagnostic testing 05/22/2012 01/14/2013 Overview: 05/22/2012Patient desires early screening in with sequential testing. 07/07/2012negative Sequential screen first trimester. The first part of the Sequential Screen reports that her risk for Down syndrome decreased from her age-related risk of 1:800 to 1:10,000 and her Trisomy 18 risk decreased from her age-related risk of 1:2,800 to 1:10,000. Based on these results Dr. Santos's recommendation is for patient to follow-up with Sequential second trimester screening (07/25-08/08) and level II anatomy scan after 18wks. 07/25/2012positive 2nd trimester screen for ONTD. Referral to Dr Kandi Peck Papanicolaou smear of cervix with atypical squamous cells cannot exclude high grade squamous intraepithelial lesion (ASC-H) 03/15/2011 05/29/2012 Cervical high risk human pap illomavirus (HPV) DNA test positive 03/15/2011 05/29/2012 General counseling for prescription of oral cont raceptives 03/15/2011 05/29/2012 documented as of this encounter (statuses as of 08/21/2022) [facility] History of Past illness Narrative* Problem Noted Date Diagnosed Date Resolved Date HSV-1 (herpes simplex virus 1) infection 08/20/2018 08/04/2019 Overview: 08/20/18-HSV 1 seropositive. Has never had outbreak, oral or genital. Will start prophylaxis at 36 weeks. 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 HSV titers done, + for type I, neg for type 2, d/w her recommendations and importance of avoiding exposure/outbreak near delivery. Debra Wagner MD UTI (urinary tract infection ) during 03/13/2018 08/04/2019 Overview: 06/23/18-UTI positive ecoli, treated with Macrobid, ALINE next visit. Beata Mackey APRN.CNM 03/13/2018Patient treated for UTI 02/23/2018. She denies any heart structural abnormalities. TKRN Patient requested diagnostic testing 03/13/2018 08/11/2018 Overview: 03/13/2018Patient desires early screening in with sequential testing. TKRN Dizziness 06/03/2017 08/11/2018 Overview: 05/27/17 [facility] [place] [facility] dizziness. CT brain WO WNL. RUQ abdominal pain 08/31/2016 9 Overview: 08/17/16 US RUQ WNL. Chronic left-sided low back pain with left-sided sciatica 03/14/2016 08/11/2018 Irregular menses 05/19/2013 08/11/2018 Obesity in , antepartum 08/01/2012 01/14/2013 Abnormal quad screen 08/01/2012 013 Abnormal AFP screen 08/01/2012 01/14/2013 Overview: 08/22/12 - saw & declines amnio at this time, plan for 3rd trimester growth ultrasound & testing, appt scheduled with - HERO Supervision of normal first 07/25/2012 01/14/2013 Patient requested diagnostic testing 05/22/2012 01/14/2013 Overview: 05/22/2012Patient desires early screening in with sequential testing. 07/07/2012negative Sequential screen first trimester. The first part of the Sequential Screen reports that her risk for Down syndrome decreased from her age-related risk of 1:800 to 1:10,000 and her Trisomy 18 risk decreased from her age-related risk of 1:2,800 to 1:10,000. Based on these results Dr. Santos's recommendation is for patient to follow-up with Sequential second trimester screening (07/25-08/08) and level II anatomy scan after 18wks. 07/25/2012positive 2nd trimester screen for ONTD. Referral to Dr Kandi Peck Papanicolaou smear of cervix with atypical squamous cells cannot exclude high grade squamous intraepithelial lesion (ASC-H) 03/15/2011 05/29/2012 Cervical high risk human pap illomavirus (HPV) DNA test positive 03/15/2011 05/29/2012 General counseling for presc ription of oral contraceptives 03/15/2011 05/29/2012 documented as of this encounter (statuses as of 09/18/2022) [facility]2019 History of Past illness Narrative* Problem Noted Date Diagnosed Date Resolved Date HSV-1 (herpes simplex virus 1) infection 08/20/2018 08/04/2019 Overview: 08/20/18-HSV 1 seropositive. Has never had outbreak, oral or genital. Will start prophylaxis at 36 weeks. 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 HSV titers done, + for type I, neg for type 2, d/w her recommendations and importance of avoiding exposure/outbreak near delivery. Debra Wagner MD UTI (urinary tract infection ) during 03/13/2018 08/04/2019 Overview: 06/23/18-UTI positive ecoli, treated with Macrobid, ALINE next visit. Beata Mackey APRN.CNM 03/13/2018Patient treated for UTI 02/23/2018. She denies any heart structural abnormalities. TKRN Patient requested diagnostic testing 03/13/2018 08/11/2018 Overview: 03/13/2018Patient desires early screening in with sequential testing. TKRN Dizziness 06/03/2017 08/11/2018 Overview: 05/27/17 [facility] [place] [facility] dizziness. CT brain WO WNL. RUQ abdominal pain 08/31/2016 9 Overview: 08/17/16 US RUQ WNL. Chronic left-sided low back pain with left-sided sciatica 03/14/2016 08/11/2018 Irregular menses 05/19/2013 08/11/2018 Obesity in , antepartum 08/01/2012 01/14/2013 Abnormal quad screen 08/01/2012 013 Abnormal AFP screen 08/01/2012 01/14/2013 Overview: 08/22/12 - saw & declines amnio at this time, plan for 3rd trimester growth ultrasound & testing, appt scheduled with Dr.Chapa Cher [place] Supervision of normal first 07/25/2012 01/14/2013 Patient requested diagnostic testing 05/22/2012 01/14/2013 Overview: 05/22/2012Patient desires early screening in with sequential testing. 07/07/2012negative Sequential screen first trimester. The first part of the Sequential Screen reports that her risk for Down syndrome decreased from her age-related risk of 1:800 to 1:10,000 and her Trisomy 18 risk decreased from her age-related risk of 1:2,800 to 1:10,000. Based on these results Dr. Santos's recommendation is for patient to follow-up with Sequential second trimester screening (07/25-08/08) and level II anatomy scan after 18wks. 07/25/2012positive 2nd trimester screen for ONTD. Referral to Dr Kandi Peck Papanicolaou smear of cervix with atypical squamous cells cannot exclude high grade squamous intraepithelial lesion (ASC-H) 03/15/2011 05/29/2012 Cervical high risk human pap illomavirus (HPV) DNA test positive 03/15/2011 05/29/2012 General counseling for presc ription of oral contraceptives 03/15/2011 05/29/2012 documented as of this encounter (statuses as of 09/19/2022) [facility] History of Past illness Narrative* Problem Noted Date Diagnosed Date Resolved Date HSV-1 (herpes simplex virus 1) infection 08/20/2018 08/04/2019 Overview: 08/20/18-HSV 1 seropositive. Has never had outbreak, oral or genital. Will start prophylaxis at 36 weeks. 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 HSV titers done, + for type I, neg for type 2, d/w her recommendations and importance of avoiding exposure/outbreak near delivery. Debra Wagner MD UTI (urinary tract infection ) during 03/13/2018 08/04/2019 Overview: 06/23/18-UTI positive ecoli, treated with Macrobid, ALINE next visit. Beata Mackey APRN.CNM 03/13/2018Patient treated for UTI 02/23/2018. She denies any heart structural abnormalities. TKRN Patient requested diagnostic testing 03/13/2018 08/11/2018 Overview: 03/13/2018Patient desires early screening in with sequential testing. TKRN Dizziness 06/03/2017 08/11/2018 Overview: 05/27/17 [facility] [place] [facility] dizziness. CT brain WO WNL. RUQ abdominal pain 08/31/2016 9 Overview: 08/17/16 US RUQ WNL. Chronic left-sided low back pain with left-sided sciatica 03/14/2016 08/11/2018 Irregular menses 05/19/2013 08/11/2018 Obesity in , antepartum 08/01/2012 01/14/2013 Abnormal quad screen 08/01/2012 013 Abnormal AFP screen 08/01/2012 01/14/2013 Overview: 08/22/12 - saw & declines amnio at this time, plan for 3rd trimester growth ultrasound & testing, appt scheduled with - HERO Supervision of normal first 07/25/2012 01/14/2013 Patient requested diagnostic testing 05/22/2012 01/14/2013 Overview: 05/22/2012Patient desires early screening in with sequential testing. 07/07/2012negative Sequential screen first trimester. The first part of the Sequential Screen reports that her risk for Down syndrome decreased from her age-related risk of 1:800 to 1:10,000 and her Trisomy 18 risk decreased from her age-related risk of 1:2,800 to 1:10,000. Based on these results Dr. Santos's recommendation is for patient to follow-up with Sequential second trimester screening (07/25-08/08) and level II anatomy scan after 18wks. 07/25/2012positive 2nd trimester screen for ONTD. Referral to Dr Kandi Peck Papanicolaou smear of cervix with atypical squamous cells cannot exclude high grade squamous intraepithelial lesion (ASC-H) 03/15/2011 05/29/2012 Cervical high risk human pap illomavirus (HPV) DNA test positive 03/15/2011 05/29/2012 General counseling for presc ription of oral contraceptives 03/15/2011 05/29/2012 documented as of this encounter (statuses as of 10/05/2022) [facility] History of Past illness Narrative* Problem Noted Date Diagnosed Date Resolved Date HSV-1 (herpes simplex virus 1) infection 08/20/2018 08/04/2019 Overview: 08/20/18-HSV 1 seropositive. Has never had outbreak, oral or genital. Will start prophylaxis at 36 weeks. 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 HSV titers done, + for type I, neg for type 2, d/w her recommendations and importance of avoiding exposure/outbreak near delivery. Debra Wagner MD UTI (urinary tract infection ) during 03/13/2018 08/04/2019 Overview: 06/23/18-UTI positive ecoli, treated with Macrobid, ALINE next visit. Beata Mackey APRN.JULIEN 03/13/2018Patient treated for UTI 02/23/2018. She denies any heart structural abnormalities. TKRN Patient requested diagnostic testing 03/13/2018 08/11/2018 Overview: 03/13/2018Patient desires early screening in with sequential testing. TKRN Dizziness 06/03/2017 08/11/2018 Overview: 05/27/17 [facility] [place] [facility] dizziness. CT brain WO WNL. RUQ abdominal pain 08/31/2016 9 Overview: 08/17/16 US RUQ WNL. Chronic left-sided low back pain with left-sided sciatica 03/14/2016 08/11/2018 Irregular menses 05/19/2013 08/11/2018 Obesity in , antepartum 08/01/2012 01/14/2013 Abnormal quad screen 08/01/2012 013 Abnormal AFP screen 08/01/2012 01/14/2013 Overview: 08/22/12 - saw & declines amnio at this time, plan for 3rd trimester growth ultrasound & testing, appt scheduled with Dr.Dawson [facility] Supervision of normal first 07/25/2012 01/14/2013 Patient requested diagnostic testing 05/22/2012 01/14/2013 Overview: 05/22/2012Patient desires early screening in with sequential testing. 07/07/2012negative Sequential screen first trimester. The first part of the Sequential Screen reports that her risk for Down syndrome decreased from her age-related risk of 1:800 to 1:10,000 and her Trisomy 18 risk decreased from her age-related risk of 1:2,800 to 1:10,000. Based on these results Dr. Santos's recommendation is for patient to follow-up with Sequential second trimester screening (07/25-08/08) and level II anatomy scan after 18wks. 07/25/2012positive 2nd trimester screen for ONTD. Referral to Dr Kandi Peck Papanicolaou smear of cervix with atypical squamous cells cannot exclude high grade squamous intraepithelial lesion (ASC-H) 03/15/2011 05/29/2012 Cervical high risk human pap illomavirus (HPV) DNA test positive 03/15/2011 05/29/2012 General counseling for presc ription of oral contraceptives 03/15/2011 05/29/2012 documented as of this encounter (statuses as of 11/06/2022) [facility] History of Past illness Narrative* Problem Noted Date Diagnosed Date Resolved Date HSV-1 (herpes simplex virus 1) infection 08/20/2018 08/04/2019 Overview: 08/20/18-HSV 1 seropositive. Has never had outbreak, oral or genital. Will start prophylaxis at 36 weeks. 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 HSV titers done, + for type I, neg for type 2, d/w her recommendations and importance of avoiding exposure/outbreak near delivery. Debra Wagner MD UTI (urinary tract infection ) during 03/13/2018 08/04/2019 Overview: 06/23/18-UTI positive ecoli, treated with Macrobid, ALINE next visit. Beatagayatri Mackey APRN.CNM 03/13/2018Patient treated for UTI 02/23/2018. She denies any heart structural abnormalities. TKRN Patient requested diagnostic testing 03/13/2018 08/11/2018 Overview: 03/13/2018Patient desires early screening in with sequential testing. TKRN Dizziness 06/03/2017 08/11/2018 Overview: 05/27/17 [facility] [place] [facility] dizziness. CT brain WO WNL. RUQ abdominal pain 08/31/2016 9 Overview: 08/17/16 US RUQ WNL. Chronic left-sided low back pain with left-sided sciatica 03/14/2016 08/11/2018 Irregular menses 05/19/2013 08/11/2018 Obesity in , antepartum 08/01/2012 01/14/2013 Abnormal quad screen 08/01/2012 013 Abnormal AFP screen 08/01/2012 01/14/2013 Overview: 08/22/12 - saw & declines amnio at this time, plan for 3rd trimester growth ultrasound & testing, appt scheduled with - [facility] Supervision of normal first 07/25/2012 01/14/2013 Patient requested diagnostic testing 05/22/2012 01/14/2013 Overview: 05/22/2012Patient desires early screening in with sequential testing. 07/07/2012negative Sequential screen first trimester. The first part of the Sequential Screen reports that her risk for Down syndrome decreased from her age-related risk of 1:800 to 1:10,000 and her Trisomy 18 risk decreased from her age-related risk of 1:2,800 to 1:10,000. Based on these results Dr. Santos's recommendation is for patient to follow-up with Sequential second trimester screening (07/25-08/08) and level II anatomy scan after 18wks. 07/25/2012positive 2nd trimester screen for ONTD. Referral to Dr Kandi Peck Papanicolaou smear of cervix with atypical squamous cells cannot exclude high grade squamous intraepithelial lesion (ASC-H) 03/15/2011 05/29/2012 Cervical high risk human pap illomavirus (HPV) DNA test positive 03/15/2011 05/29/2012 General counseling for presc ription of oral contraceptives 03/15/2011 05/29/2012 documented as of this encounter (statuses as of 11/07/2022) [facility] History of Past illness Narrative* Problem Noted Date Diagnosed Date Resolved Date HSV-1 (herpes simplex virus 1) infection 08/20/2018 08/04/2019 Overview: 08/20/18-HSV 1 seropositive. Has never had outbreak, oral or genital. Will start prophylaxis at 36 weeks. 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 HSV titers done, + for type I, neg for type 2, d/w her recommendations and importance of avoiding exposure/outbreak near delivery. Debra Wagner MD UTI (urinary tract infection ) during 03/13/2018 08/04/2019 Overview: 06/23/18-UTI positive ecoli, treated with Macrobid, ALINE next visit. Beata Mackey APRN.JULIEN 03/13/2018Patient treated for UTI 02/23/2018. She denies any heart structural abnormalities. TKRN Patient requested diagnostic testing 03/13/2018 08/11/2018 Overview: 03/13/2018Patient desires early screening in with sequential testing. TKRN Dizziness 06/03/2017 08/11/2018 Overview: 05/27/17 [facility] [place] [facility] dizziness. CT brain WO WNL. RUQ abdominal pain 08/31/2016 9 Overview: 08/17/16 US RUQ WNL. Chronic left-sided low back pain with left-sided sciatica 03/14/2016 08/11/2018 Irregular menses 05/19/2013 08/11/2018 Obesity in , antepartum 08/01/2012 01/14/2013 Abnormal quad screen 08/01/2012 013 Abnormal AFP screen 08/01/2012 01/14/2013 Overview: 08/22/12 - saw & declines amnio at this time, plan for 3rd trimester growth ultrasound & testing, appt scheduled with Dr.Chapa Cher [place] Supervision of normal first 07/25/2012 01/14/2013 Patient requested diagnostic testing 05/22/2012 01/14/2013 Overview: 05/22/2012Patient desires early screening in with sequential testing. 07/07/2012negative Sequential screen first trimester. The first part of the Sequential Screen reports that her risk for Down syndrome decreased from her age-related risk of 1:800 to 1:10,000 and her Trisomy 18 risk decreased from her age-related risk of 1:2,800 to 1:10,000. Based on these results Dr. Santos's recommendation is for patient to follow-up with Sequential second trimester screening (07/25-08/08) and level II anatomy scan after 18wks. 07/25/2012positive 2nd trimester screen for ONTD. Referral to Dr Kandi Peck Papanicolaou smear of cervix with atypical squamous cells cannot exclude high grade squamous intraepithelial lesion (ASC-H) 03/15/2011 05/29/2012 Cervical high risk human pap illomavirus (HPV) DNA test positive 03/15/2011 05/29/2012 General counseling for presc ription of oral contraceptives 03/15/2011 05/29/2012 documented as of this encounter (statuses as of 11/15/2022) [facility] History of Past illness Narrative* Problem Noted Date Diagnosed Date Resolved Date HSV-1 (herpes simplex virus 1) infection 08/20/2018 08/04/2019 Overview: 08/20/18-HSV 1 seropositive. Has never had outbreak, oral or genital. Will start prophylaxis at 36 weeks. 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 HSV titers done, + for type I, neg for type 2, d/w her recommendations and importance of avoiding exposure/outbreak near delivery. Debra Wagner MD UTI (urinary tract infection ) during 03/13/2018 08/04/2019 Overview: 06/23/18-UTI positive ecoli, treated with Macrobid, ALINE next visit. Beata Mackey APRN.JULIEN 03/13/2018Patient treated for UTI 02/23/2018. She denies any heart structural abnormalities. TKRN Patient requested diagnostic testing 03/13/2018 08/11/2018 Overview: 03/13/2018Patient desires early screening in with sequential testing. TKRN Dizziness 06/03/2017 08/11/2018 Overview: 05/27/17 [facility] [place] [facility] dizziness. CT brain WO WNL. RUQ abdominal pain 08/31/2016 9 Overview: 08/17/16 US RUQ WNL. Chronic left-sided low back pain with left-sided sciatica 03/14/2016 08/11/2018 Irregular menses 05/19/2013 08/11/2018 Obesity in , antepartum 08/01/2012 01/14/2013 Abnormal quad screen 08/01/2012 013 Abnormal AFP screen 08/01/2012 01/14/2013 Overview: 08/22/12 - saw & declines amnio at this time, plan for 3rd trimester growth ultrasound & testing, appt scheduled with - HERO Supervision of normal first 07/25/2012 01/14/2013 Patient requested diagnostic testing 05/22/2012 01/14/2013 Overview: 05/22/2012Patient desires early screening in with sequential testing. 07/07/2012negative Sequential screen first trimester. The first part of the Sequential Screen reports that her risk for Down syndrome decreased from her age-related risk of 1:800 to 1:10,000 and her Trisomy 18 risk decreased from her age-related risk of 1:2,800 to 1:10,000. Based on these results Dr. Santos's recommendation is for patient to follow-up with Sequential second trimester screening (07/25-08/08) and level II anatomy scan after 18wks. 07/25/2012positive 2nd trimester screen for ONTD. Referral to Dr Kandi Peck Papanicolaou smear of cervix with atypical squamous cells cannot exclude high grade squamous intraepithelial lesion (ASC-H) 03/15/2011 05/29/2012 Cervical high risk human pap illomavirus (HPV) DNA test positive 03/15/2011 05/29/2012 General counseling for presc ription of oral contraceptives 03/15/2011 05/29/2012 documented as of this encounter (statuses as of 11/15/2022) [facility] Epigastric discomfort Abdominal pain, epigastric documented [facility] Diagnosis Encounter for gynecological examination with abnormal finding- Primary Routine gynecological examination Screening for cervical cancer Screening for malignant neoplasm of the cervix Encounter for screening for human papillomavirus (HPV) Special screening examination for human papillomavirus (HPV) History of ovarian cyst Personal history of other genital system and obstetric disorders Pelvic pain in female Unspecified symptom associated with female genital organs Abnormal uterine bleeding (AUB) Class 2 obesity without serious comorbidity with body mass index (BMI) of 39.0 to 39.9 in adult, unspecified obesity type [facility] Diagnosis Bilateral impacted cerumen- Primary Impacted cerumen [facility] Diagnosis DUB (dysfunctional uterine bleeding)- Primary Other disorder of menstruation and other abnormal bleeding from female genital tract [facility] Diagnosis Class 2 obesity without serious comorbidity with body mass index (BMI) of 37.0 to 37.9 in adult, unspecified obesity type- Primary [facility] Diagnosis Class 2 obesity without serious comorbidity with body mass index (BMI) of 37.0 to 37.9 in adult, unspecified obesity type- Primary Class 2 obesity without serious comorbidity with body mass index (BMI) of 39.0 to 39.9 in adult, unspecified obesity type documented in this encounter [facility]* Diagnosis URI, acute- Primary Acute upper respiratory infections of unspecified site documented in this encounter [facility] note* Diagnosis Class 2 obesity without serious comorbidity with body mass index (BMI) of 35.0 to 35.9 in adult, unspecified obesity type- Primary Class 2 obesity without serious comorbidity with body mass index (BMI) of 37.0 to 37.9 in adult, unspecified obesity type [facility] Diagnosis Epigastric discomfort- Primary Abdominal pain, epigastric Nausea Nausea alone Diarrhea, unspecified type Enlarged thyroid Goiter, unspecified documented in this encounter [facility] note* Diagnosis Generalized abdominal pain- Primary Abdominal pain, generalized Bilateral impacted cerumen Impacted cerumen documented in this encounter [facility] note* Diagnosis Generalized abdominal pain- Primary Abdominal pain, generalized Hiatal hernia Diaphragmatic hernia without mention of obstruction or gangrene Nausea Nausea alone Early satiety documented in this encounter [facility] note* Diagnosis Generalized abdominal pain Abdominal pain, generalized Nausea Nausea alone Early satiety documented in this encounter [facility] note* Diagnosis Hiatal hernia Diaphragmatic hernia without mention of obstruction or gangrene Generalized abdominal pain Abdominal pain, generalized documented in this encounter [facility] note* Diagnosis Viral URI with cough- Primary Acute upper respiratory infections of unspecified site [facility] Diagnosis Positive test- Primary examination or test, positive result documented in this encounter [facility] note* Diagnosis Encounter for supervision of other normal in first trimester- Primary Obesity during Screening for cervical cancer Screening for malignant neoplasm of the cervix Special screening examination for human papillomavirus (HPV) Vaginal discharge Leukorrhea, not specified as infective 7 weeks gestation of state, incidental Hiatal hernia Diaphragmatic hernia without mention of obstruction or gangrene documented in this encounter [facility] note* Diagnosis with uncertain dates in first trimester- Primary documented in this encounter [facility]* Diagnosis Encounter for supervision of other normal in first trimester- Primary 11 weeks gestation of state, incidental documented in this encounter [facility]* Diagnosis Encounter for (NT) nuchal translucency scan- Primary Other specified screening Encounter for supervision of other normal in first trimester Obesity during 11 weeks gestation of state, incidental [facility]* Diagnosis Gastroesophageal reflux disease, unspecified whether esophagitis present- Primary [facility] Diagnosis 18 weeks gestation of - Primary state, incidental Cramping affecting , antepartum Spotting during Spotting complicating , unspecified as to episode of care or not applicable [facility]* Diagnosis Obesity in - Primary Obesity complicating , childbirth, or the puerperium, unspecified as to episode of care or not applicable Encounter for supervision of other normal in second trimester 19 weeks gestation of state, incidental Vaginal odor Unspecified symptom associated with female genital organs Need for influenza vaccination Need for prophylactic vaccination and inoculation against influenza [facility] Diagnosis Encounter for anatomic survey- Primary Encounter for supervision of other normal in second trimester 19 weeks gestation of state, incidental Obesity affecting in second trimester, unspecified obesity type [facility] Diagnosis Vaginal discharge in in second trimester- Primary Vulvar irritation Other specified noninflammatory disorder of vulva and perineum documented [facility] Diagnosis Enlarged thyroid Goiter, unspecified [facility] Diagnosis Generalized abdominal pain- Primary Abdominal pain, generalized Bilious vomiting with nausea Alternating constipation and diarrhea Other symptoms involving digestive system Elevated fecal calprotectin [facility] Diagnosis Encounter for supervision of other normal in third trimester- Primary 28 weeks gestation of state, incidental Need for vaccination Need for prophylactic vaccination and inoculation against unspecified single disease Obesity affecting in third trimester, unspecified obesity type Request for sterilization [facility] Diagnosis Obesity affecting in third trimester, unspecified obesity type- Primary Encounter for supervision of other normal in third trimester 30 weeks gestation of state, incidental Need for vaccination Need for prophylactic vaccination and inoculation against unspecified single disease [facility]* Diagnosis Encounter for supervision of other normal in third trimester- Primary 33 weeks gestation of state, incidental Uterine size-date discrepancy, third trimester Obesity affecting in third trimester, unspecified obesity type Anxiety Anxiety state, unspecified [facility] Diagnosis Encounter for ultrasound to check growth- Primary Encounter for routine screening for malformation using ultrasonics Obesity affecting in third trimester, unspecified obesity type 33 weeks gestation of state, incidental documented in this encounter [facility] for referral (narrative)* Diagnostic Procedure Only (Routine) - Authorized Specialty Diagnoses / Procedures Referred By Contac t Referred To Contact [facility] Diagnoses Abnormal uterine bleeding (AUB) Procedures PELVIC US WHI US PELVIC NONOBSTETRIC REAL-TIME IMAGE COMPLETE Ramandeep Ayon MD [address] [place] [address] [facility] [address] [place] [address] Referral ID Status Reason Start Date Expiration Date Visits Requested Visits Authorized [id number] Authorized Auto-Generat ed Referral 10/24/2021 10/24/2022 1 1 [facility] for referral (narrative)* Diagnostic Procedure Only (Routine) - Authorized Specialty Diagnoses / Procedures Referred By Contac t Referred To Contact [facility] Diagnoses Enlarged thyroid Procedures US THYROID/PARATHYROID US SOFT TISSUE HEAD & NECK REAL TIME IMGE DOCM Nisha Sullivan, OSCAR.DEVELOPMENT ADMINISTRATOR [address] [place] [address] [facility] Referral ID Status Reason Start Date Expiration Date Visits Requested Visits Authorized [id number] Authorized Auto-Generat ed Referral 01/25/2023 1 1 * Consult, Test, Treat (Routine) - Authorized Specialty Diagnoses / Procedures Referred By Contac t Referred To Contact Gastroenterology Diagnoses Epigastric discomfort Nausea Diarrhea, unspecified type Procedures CONSULT TO GASTROENTEROLOGY OFFICE/OUTPATIENT [facility] 60-74 MINUTES Nisha Sullivan APRN.DEVELOPMENT ADMINISTRATOR [address] [place] [address] Referral ID Status Reason Start Date Expiration Date Visits Requested Visits Authorized [id number] Authorized PCP Requested Referral 12/26/2022 1 1 [facility] for referral (narrative)* Diagnostic Procedure Only (Routine) - Authorized Specialty Diagnoses / Procedures Referred By Contac t Referred To Contact [facility] Diagnoses Generalized abdominal pain Nausea Early satiety Procedures NM GASTRIC EMPTYING SOLID GASTRIC EMPTYING STUDY Thuy Gilbert PA-C [address] [place] [address] [facility] [address] [place] [address] Referral ID Status Reason Start Date Expiration Date Visits Requested Visits Authorized [id number] Authorized Auto-Generat ed Referral 03/22/2022 04/21/2023 1 1 * Consult, Test, Treat (Routine) - Authorized Specialty Diagnoses / Procedures Referred By Contac t Referred To Contact General Surgery Diagnoses Hiatal hernia Generalized abdominal pain Procedures CONSULT TO GENERAL SURGERY OFFICE/OUTPATIENT [facility] 60-74 MINUTES Thuy Gilbert PA-C [address] [place] [address] Referral ID Status Reason Start Date Expiration Date Visits Requested Visits Authorized [id number] Authorized PCP Requested Referral 03/22/2022 03/22/2023 1 1 [facility] for referral (narrative)* Diagnostic Procedure Only (Routine) - Closed Specialty Diagnoses / Procedures Referred By Contac t Referred To Contact [facility] Diagnoses Generalized abdominal pain Nausea Early satiety Procedures NM GASTRIC EMPTYING SOLID GASTRIC EMPTYING STUDY Thuy Gilbert PA-C [address] [place] [address] [facility] [address] [id number] Referral ID Status Reason Start Date Expiration Date V isits Requested Visits Authorized [id number] Closed Auto-Generate d Referral 03/22/2022 04/21/2023 1 1 [facility] for referral (narrative)* Diagnostic Procedure Only (Routine) - Authorized Specialty Diagnoses / Procedures Referred By Vidya t Referred To Contact [facility] Diagnoses Encounter for supervision of other normal in first trimester Obesity during Procedures NUCHAL TRANSLUCENCY WHI US NUCHAL TRANSLUCENCY 1ST GESTATION Erendira Hendricks APRN.CNM [address] [place] [address] [address] Referral ID Status Reason Start Date Expiration Date Visits Requested Visits Authorized [id number] Authorized Auto-Generat ed Referral 08/20/2022 08/20/2023 1 1 * Diagnostic Procedure Only (Routine) - Pending Review Specialty Diagnoses / Procedures Referred By Vidya lewis Referred To Contact [facility] Diagnoses Encounter for supervision of other normal in first trimester Obesity during Procedures OBSTETRIC ULTRASOUND WHI US PREG UTERUS AFTER 1ST TRIMEST GESTATION Erendira Hendricks APRN.CNM [address] [place] [address] [address] Referral ID Status Reason Start Date Expiration Date Visits Requested Visits Authorized [id number] Pending Review Auto-Generat ed Referral 08/20/2022 08/20/2023 1 1 [facility] for referral (narrative)* Diagnostic Procedure Only (Routine) - Closed Specialty Diagnoses / Procedures Referred By Vidya t Referred To Contact [facility] Diagnoses Enlarged thyroid Procedures US THYROID/PARATHYROID US SOFT TISSUE HEAD & NECK REAL TIME IMGE Nisha Paulson APRN.CNP [address] [place] [address] [place] [address] Referral ID Status Reason Start Date Expiration Date V isits Requested Visits Authorized [id number] Closed Auto-Generate d Referral 12/26/2021 01/25/2023 1 1 [facility] for referral (narrative)* Outpatient Procedure (Routine) - Closed Specialty Diagnoses / Procedures Referred By Contac t Referred To [facility] Diagnoses Generalized abdominal pain Alternating constipation and diarrhea Elevated fecal calprotectin Procedures COLONOSCOPY DIAGNOSTIC COLONOSCOPY FLX DX W/COLLJ SPEC WHEN PFRMD Thuy Benavides PA-C [address] [place] [address] [facility] [place] [id number] Referral ID Status Reason Start Date Expiration Date V isits Requested Visits Authorized [id number] Closed Auto-Generate d Referral 03/06/2022 03/06/2023 1 1 * Outpatient Procedure (Routine) - Closed Specialty Diagnoses / Procedures Referred By Contac t Referred To [facility] Diagnoses Generalized abdominal pain Bilious vomiting with nausea Procedures EGD DIAGNOSTIC ESOPHAGOGASTRODUODENOS COPY TRANSORAL DIAGNOSTIC Thuy Benavides PA-C [address] [place] [address] [facility] [address] [place], [place] [id number] Referral ID Status Reason Start Date Expiration Date V isits Requested Visits Authorized [id number] Closed Auto-Generate d Referral 03/06/2022 03/06/2023 1 1 [facility] for referral (narrative)* Diagnostic Procedure Only (Routine) - Authorized Specialty Diagnoses / Procedures Referred By Contac t Referred To Contact [facility] Diagnoses 28 weeks gestation of Obesity affecting in third trimester, unspecified obesity type Procedures OBSTETRIC ULTRASOUND WHI US PREG UTERUS AFTER 1ST TRIMEST GESTATION Taty Callejas MD [address] [place] [address] [facility] [address] [place] [address] Referral ID Status Reason Start Date Expiration Date Visits Requested Visits Authorized [id number] Authorized Auto-Generat ed Referral 3 01/17/2024 1 1 [facility] for visit Narrative* Diagnostic Procedure Only (Routine) - Closed Specialty Diagnoses / Procedures [facility] To [facility] Diagnoses Generalized abdominal pain Nausea Early satiety Procedures NM GASTRIC EMPTYING SOLID GASTRIC EMPTYING STUDY Thuy Gilbert PA-C [address] [facility] [place] [address] [facility] [address] [place] [address] Referral ID Status Reason Start Date Expiration Date V isits Requested Visits Authorized [id number] Closed Auto-Generate d Referral 03/22/2022 04/21/2023 1 1 [facility] for visit Narrative* Diagnostic Procedure Only (Routine) - Closed Specialty Diagnoses / Procedures [facility] To [facility] Diagnoses Enlarged thyroid Procedures US THYROID/PARATHYROID US SOFT TISSUE HEAD & NECK REAL TIME IMGE Nisha Paulson, AUTOMATIC DRILL OPERATOR.DEVELOPMENT ADMINISTRATOR [address] [place] [address] [place] [address] Referral ID Status Reason Start Date Expiration Date V isits Requested Visits Authorized [id number] Closed Auto-Generate d Referral 12/26/2021 01/25/2023 1 1 [facility] for visit Narrative* Outpatient Procedure (Routine) - Closed Specialty Diagnoses / Procedures [facility] Diagnoses Generalized abdominal pain Alternating constipation and diarrhea Elevated fecal calprotectin Procedures COLONOSCOPY DIAGNOSTIC COLONOSCOPY FLX DX W/COLLJ SPEC WHEN PFRMD Thuy Benavides PA-C [address] [facility] [place] [address] [facility] [place] [address] [place] [address] Referral ID Status Reason Start Date Expiration Date V isits Requested Visits Authorized [id number] Closed Auto-Generate d Referral 03/06/2022 03/06/2023 1 1 [facility] Advance Directives No Advanced Directives Records FoundDocuments on File Type Date Recorded Patient Family Manager Expl anation Advance Directive(s) 03/17/2019 6:32 AM Advance Directive(s) 12/01/2016 8:36 AM Health Concerns Infection Onset Date Last Indicated Resolved Time COVID-19 Rule-Out 12/06/2021 12/06/2021 Infection Onset Date Last Indicated Resolved Time COVID-19 Rule-Out 06/14/2022 06/14/2022 Infection Onset Date Last Indicated Resolved Time COVID-19 Rule-Out 06/14/2022 06/14/2022 06/15/2022 2:44 AM EDT Problem Noted Date [facility] - [facility] 08/02 Education - [place] 08/20/2022 Problem Noted Date [facility] - [facility] 08/02 Education - [place] 08/20/2022 Problem Noted Date Diagnosed Date [facility] - [facility] 08/20/2022 Education - [place] 08/20/2022 Problem Noted Date Diagnosed Date [facility] - [facility] 08/20/2022 Education - [place] 08/20/2022 Problem Noted Date Diagnosed Date [facility] - [facility] 08/20/2022 Education - [place] 08/20/2022 Problem Noted Date Diagnosed Date [facility] - [facility] 08/20/2022 Education - [place] 08/20/2022 Problem Noted Date Diagnosed Date [facility] - [facility] 08/20/2022 Education - [place] 08/20/2022 Problem Noted Date Diagnosed Date [facility] - [facility] 08/20/2022 Education - [place] 08/20/2022 Problem Noted Date Diagnosed Date [facility] - [facility] 08/20/2022 Education - [place] 08/20/2022 Problem Noted Date Diagnosed Date [facility] - [facility] 08/20/2022 Education - [place] 08/20/2022 Reason for Referral Specialty Diagnoses / Procedures Referred By Vidya t Referred To Contact Gastroenterology Diagnoses Gastroesophageal reflux disease, unspecified whether esophagitis present Procedures CONSULT TO GASTROENTEROLOGY OFFICE/OUTPATIENT [facility] MDM 60-74 MINUTES Radha Segura MD [address] [place] [address] Referral ID Status Reason Start Date Expiration Date Visits Requested Visits Authorized [id number] Authorized PCP Requested Referral 10/04/2022 10/04/2023 1 1 Medications Administered Section Inactive Administered Medications - up to 3 most recent administrations Medication Order MAR Action Action Date Dose Rate Site benzocaine 20% 1 [place] (TOPEX) 1 [place], TOPICAL, DIRECTED, Starting on Sat03/14/22 at 1130, Until Sat03/14/22 at 1529, DOSING DIRECTED BY PHYSICIAN FOR PROCEDURAL SEDATION ONLY - Pharmaceutical Waste: Aerosol -, Intraprocedure Given 03/14/2022 11:24 AM EST 5 Sprays diphenhydrAMINE 12.5-50 mg injection (BENADRYL) 12.5-50 mg, INTRAVENOUS, DIRECTED, Starting on Sat03/14/22 at 1130, Until Sat03/14/22 at 1529, DOSING DIRECTED BY PHYSICIAN FOR PROCEDURAL SEDATION ONLY, Intraprocedure Given 03/14/2022 11:28 AM EST 50 mg fentaNYL 50 mcg/mL 25-100 mcg injection (SUBLIMAZE) 25-100 mcg, INTRAVENOUS, DIRECTED, Starting on Sat03/14/22 at 1130, Until Sat03/14/22 at 1529, DOSING DIRECTED BY PHYSICIAN FOR PROCEDURAL SEDATION ONLY, Intraprocedure Given 03/14/2022 11:49 AM EST 50 mcg Summary Purpose Family History No Family History Records Found Additional Source Comments Source Comments (unrecognize d section and content) In the event this informatio n is protected by the Federal Confidentiality of Alcohol and Drug Abuse Patient Records regulations: The Federal rules restrict any use of the information to criminally investigate or prosecute any alcohol or drug abuse patient.[facility] the event this information is protected by the Federal Confidentiality of Alcohol and Drug Abuse Patient Records regulations: The Federal rules restrict any use of the information to criminally investigate or prosecute any alcohol or drug abuse patient.[facility] the event this information is protected by the Federal Confidentiality of Alcohol and Drug Abuse Patient Records regulations: The Federal rules restrict any use of the information to criminally investigate or prosecute any alcohol or drug abuse patient.[facility] the event this information is protected by the Federal Confidentiality of Alcohol and Drug Abuse Patient Records regulations: The Federal rules restrict any use of the information to criminally investigate or prosecute any alcohol or drug abuse patient.[facility] the event this information is protected by the Federal Confidentiality of Alcohol and Drug Abuse Patient Records regulations: The Federal rules restrict any use of the information to criminally investigate or prosecute any alcohol or drug abuse patient.[facility] the event this information is protected by the Federal Confidentiality of Alcohol and Drug Abuse Patient Records regulations: The Federal rules restrict any use of the information to criminally investigate or prosecute any alcohol or drug abuse patient.[facility] the event this information is protected by the Federal Confidentiality of Alcohol and Drug Abuse Patient Records regulations: The Federal rules restrict any use of the information to criminally investigate or prosecute any alcohol or drug abuse patient.[facility] the event this information is protected by the Federal Confidentiality of Alcohol and Drug Abuse Patient Records regulations: The Federal rules restrict any use of the information to criminally investigate or prosecute any alcohol or drug abuse patient.[facility] the event this information is protected by the Federal Confidentiality of Alcohol and Drug Abuse Patient Records regulations: The Federal rules restrict any use of the information to criminally investigate or prosecute any alcohol or drug abuse patient.[facility] the event this information is protected by the Federal Confidentiality of Alcohol and Drug Abuse Patient Records regulations: The Federal rules restrict any use of the information to criminally investigate or prosecute any alcohol or drug abuse patient.[facility] HospitalIn the event this information is protected by the Federal Confidentiality of Alcohol and Drug Abuse Patient Records regulations: The Federal rules restrict any use of the information to criminally investigate or prosecute any alcohol or drug abuse patient.[facility] HospitalIn the event this information is protected by the Federal Confidentiality of Alcohol and Drug Abuse Patient Records regulations: The Federal rules restrict any use of the information to criminally investigate or prosecute any alcohol or drug abuse patient.[facility]In the event this information is protected by the Federal Confidentiality of Alcohol and Drug Abuse Patient Records regulations: The Federal rules restrict any use of the information to criminally investigate or prosecute any alcohol or drug abuse patient.[facility] HospitalIn the event this information is protected by the Federal Confidentiality of Alcohol and Drug Abuse Patient Records regulations: The Federal rules restrict any use of the information to criminally investigate or prosecute any alcohol or drug abuse patient.[facility] HospitalIn the event this information is protected by the Federal Confidentiality of Alcohol and Drug Abuse Patient Records regulations: The Federal rules restrict any use of the information to criminally investigate or prosecute any alcohol or drug abuse patient.[facility] HospitalIn the event this information is protected by the Federal Confidentiality of Alcohol and Drug Abuse Patient Records regulations: The Federal rules restrict any use of the information to criminally investigate or prosecute any alcohol or drug abuse patient.[facility] HospitalIn the event this information is protected by the Federal Confidentiality of Alcohol and Drug Abuse Patient Records regulations: The Federal rules restrict any use of the information to criminally investigate or prosecute any alcohol or drug abuse patient.[facility] HospitalIn the event this information is protected by the Federal Confidentiality of Alcohol and Drug Abuse Patient Records regulations: The Federal rules restrict any use of the information to criminally investigate or prosecute any alcohol or drug abuse patient.[facility] HospitalIn the event this information is protected by the Federal Confidentiality of Alcohol and Drug Abuse Patient Records regulations: The Federal rules restrict any use of the information to criminally investigate or prosecute any alcohol or drug abuse patient.[facility] HospitalIn the event this information is protected by the Federal Confidentiality of Alcohol and Drug Abuse Patient Records regulations: The Federal rules restrict any use of the information to criminally investigate or prosecute any alcohol or drug abuse patient.[facility] HospitalIn the event this information is protected by the Federal Confidentiality of Alcohol and Drug Abuse Patient Records regulations: The Federal rules restrict any use of the information to criminally investigate or prosecute any alcohol or drug abuse patient.[facility] HospitalIn the event this information is protected by the Federal Confidentiality of Alcohol and Drug Abuse Patient Records regulations: The Federal rules restrict any use of the information to criminally investigate or prosecute any alcohol or drug abuse patient.[facility] HospitalIn the event this information is protected by the Federal Confidentiality of Alcohol and Drug Abuse Patient Records regulations: The Federal rules restrict any use of the information to criminally investigate or prosecute any alcohol or drug abuse patient.[facility] HospitalIn the event this information is protected by the Federal Confidentiality of Alcohol and Drug Abuse Patient Records regulations: The Federal rules restrict any use of the information to criminally investigate or prosecute any alcohol or drug abuse patient.[facility] HospitalIn the event this information is protected by the Federal Confidentiality of Alcohol and Drug Abuse Patient Records regulations: The Federal rules restrict any use of the information to criminally investigate or prosecute any alcohol or drug abuse patient.[facility] HospitalIn the event this information is protected by the Federal Confidentiality of Alcohol and Drug Abuse Patient Records regulations: The Federal rules restrict any use of the information to criminally investigate or prosecute any alcohol or drug abuse patient.[facility] HospitalIn the event this information is protected by the Federal Confidentiality of Alcohol and Drug Abuse Patient Records regulations: The Federal rules restrict any use of the information to criminally investigate or prosecute any alcohol or drug abuse patient.[facility] HospitalIn the event this information is protected by the Federal Confidentiality of Alcohol and Drug Abuse Patient Records regulations: The Federal rules restrict any use of the information to criminally investigate or prosecute any alcohol or drug abuse patient.[facility] HospitalIn the event this information is protected by the Federal Confidentiality of Alcohol and Drug Abuse Patient Records regulations: The Federal rules restrict any use of the information to criminally investigate or prosecute any alcohol or drug abuse patient.[facility] HospitalIn the event this information is protected by the Federal Confidentiality of Alcohol and Drug Abuse Patient Records regulations: The Federal rules restrict any use of the information to criminally investigate or prosecute any alcohol or drug abuse patient.[facility] HospitalIn the event this information is protected by the Federal Confidentiality of Alcohol and Drug Abuse Patient Records regulations: The Federal rules restrict any use of the information to criminally investigate or prosecute any alcohol or drug abuse patient.[facility] HospitalIn the event this information is protected by the Federal Confidentiality of Alcohol and Drug Abuse Patient Records regulations: The Federal rules restrict any use of the information to criminally investigate or prosecute any alcohol or drug abuse patient.[facility] HospitalIn the event this information is protected by the Federal Confidentiality of Alcohol and Drug Abuse Patient Records regulations: The Federal rules restrict any use of the information to criminally investigate or prosecute any alcohol or drug abuse patient.[facility] HospitalIn the event this information is protected by the Federal Confidentiality of Alcohol and Drug Abuse Patient Records regulations: The Federal rules restrict any use of the information to criminally investigate or prosecute any alcohol or drug abuse patient.[facility] Reason for Visit (unrecogniz ed section and content) Reason Comments Refill Request Reason Comments Yearly Exam Reason Comments Ear Problem Right ear pain-got w ater in ear 3 days ago Reason Comments DUB Reason Comments Weight Check Reason Onset Date Comments Refill Request 11/20/2021 Reason Comments Fatigue HOROWITZ, sinus, cough, ge ts extremely cold x 1 week Reason Comments stomach issues Intermittent nausea with stomach pain and diarrhea; was treated for stomach ulcer in the past; hx of uday; currently using pantoprazole Reason Comments Ear Pain Pt reported (RT) ear pain rated 8, x1 day, diarrhea denied blood/mucus. Reason Comments Abdominal Pain Reason Comments Consult Hiatal hernia, abdom en pain Specialty Diagnoses / Procedures Referred By Vidya t Referred To Contact General Surgery Diagnoses Hiatal hernia Generalized abdominal pain Procedures CONSULT TO GENERAL SURGERY OFFICE/OUTPATIENT [facility] MDM 60-74 MINUTES Thuy Gilbert PA-C [address] [facility] [place] [address] Referral ID Status Reason Start Date Expiration Date V isits Requested Visits Authorized [id number] Closed PCP Requested Referral 03/22/2022 03/22/2023 1 1 Reason Comments Nasal Congestion drainage, cough, hea dache and sore throat x 5 days Reason Comments Appointment Change provider Reason Comments Care Reason Comments Care Reason Onset Date Comments Care 09/18/2022 Reason Comments US Specialty Diagnoses / Procedures Referred By Contac t Referred To Contact [facility] Diagnoses Encounter for supervision of other normal in first trimester Obesity during Procedures NUCHAL TRANSLUCENCY WHI US NUCHAL TRANSLUCENCY 1ST GESTATION Erendira Hendricks APRN.CN [address] [place] [address] [facility] [place] [address] Referral ID Status Reason Start Date Expiration Date V isits Requested Visits Authorized [id number] Closed Auto-Generate d Referral 08/20/2022 08/20/2023 1 1 Reason Comments Patient Question Reason Onset Date Comments Care 11/06/2022 Reason Onset Date Comments Care 11/14/2022 Immunizations 11/14/2022 Flu vaccination Specialty Diagnoses / Procedures Referred By Contac t Referred To Contact [facility] Diagnoses 15 weeks gestation of Encounter for supervision of other normal in second trimester Procedures OBSTETRIC ULTRASOUND WHI US PREG UTERUS AFTER 1ST TRIMEST GESTATION Debra Wagner MD [address] [place] [address] [facility] [address] [address] Referral ID Status Reason Start Date Expiration Date V isits Requested Visits Authorized [id number] Closed Auto-Generate d Referral 10/19/2022 10/19/2023 1 1 Reason Comments Vaginal Discharge Reason Onset Date Comments Care 01/17/2023 Reason Onset Date Comments Care 01/31/2023 Reason Onset Date Comments Care 02/15/2023 Specialty Diagnoses / Procedures Referred By Vidya lewis Referred To Contact [facility] Diagnoses 28 weeks gestation of Obesity affecting in third trimester, unspecified obesity type Procedures OBSTETRIC ULTRASOUND WHI US PREG UTERUS AFTER 1ST TRIMEST GESTATION Taty Callejas MD [address] [place] [address] [facility] [address] [place] [address] Referral ID Status Reason Start Date Expiration Date V isits Requested Visits Authorized [id number] Closed Auto-Generate d Referral 01/17/2023 01/17/2024 1 1 Care Teams (unrecognized sec tion and content) Doughmaker Relationship Specialty Start Date End Date Neil Veliz MD [address] [place], [place] [id number] PCP - General Family Practice 03/17/19 Doughmaker Relationship Specialty Start Date End Date Neil Veliz MD [address] [place] [id number] PCP - General Family Practice 03/17/19 Doughmaker Relationship Specialty Start Date End Date Neil Veliz MD [address] [place] [address] [id number] PCP - General Family Practice 03/17/19 Doughmaker Relationship Specialty Start Date End Date Neil Veliz MD [address] [place] [address] PCP - General Family Practice 03/17/19 Doughmaker Relationship Specialty Start Date End Date Neil Veliz MD [address] [place] [address] [id number] PCP - General Family Practice 03/17/19 Doughmaker Relationship Specialty Start Date End Date Neil Veliz MD [facility] [place], [place] [id number] PCP - General Family Practice 03/17/19 Doughmaker Relationship Specialty Start Date End Date Neil Veliz MD [address] [place] [address] PCP - General Family Medicine 03/17/19 Doughmaker Relationship Specialty Start Date End Date Neil Veliz MD [address] [place] [address] PCP - General Family Medicine 03/17/19 Doughmaker Relationship Specialty Start Date End Date Neil Veliz MD [address] [place] [address] PCP - General Family Medicine 03/17/19 Doughmaker Relationship Specialty Start Date End Date Neil Veliz MD [address] [place] [address] PCP - General Family Medicine 03/17/19 Doughmaker Relationship Specialty Start Date End Date Neil Veliz MD [address] [place] [address] PCP - General Family Medicine 03/17/19 Doughmaker Relationship Specialty Start Date End Date Neil Veliz MD [address] [place] [address] PCP - General Family Medicine 03/17/19 Doughmaker Relationship Specialty Start Date End Date Neil Veliz MD [address] [place] [address] PCP - General Family Medicine 03/17/19 Doughmaker Relationship Specialty Start Date End Date Neil Veliz MD [address] [place] [address] PCP - General Family Medicine 03/17/19 Doughmaker Relationship Specialty Start Date End Date Neil Veliz MD [address] [place] [address] PCP - General Family Medicine 03/17/19 Doughmaker Relationship Specialty Start Date End Date Neil Veliz MD [address] [place] [address] PCP - General Family Medicine 03/17/19 Doughmaker Relationship Specialty Start Date End Date Neil Veliz MD [address] [place] [address] PCP - General Family Medicine 03/17/19 Doughmaker Relationship Specialty Start Date End Date Neil Veliz MD [address] [place] [address] PCP - General Family Medicine 03/17/19 Doughmaker Relationship Specialty Start Date End Date Neil Veliz MD [address] [place] [address] PCP - General Family Medicine 03/17/19 Doughmaker Relationship Specialty Start Date End Date Neil Veliz MD [address] [place] [address] PCP - General Family Medicine 03/17/19 Doughmaker Relationship Specialty Start Date End Date Neil Veliz MD [address] [place] [address] PCP - General Family Medicine 03/17/19 Doughmaker Relationship Specialty Start Date End Date Neil Veliz MD [address] [place] [address] PCP - General Family Medicine 03/17/19 Doughmaker Relationship Specialty Start Date End Date Neil Veliz MD [address] [place] [address] PCP - General Family Medicine 03/17/19 Doughmaker Relationship Specialty Start Date End Date Neil Veliz MD [address] [place], [place] [id number] PCP - General Family Medicine 03/17/19 Doughmaker Relationship Specialty Start Date End Date Neil Veliz MD [address] [place], [place] [address] PCP - General Family [facility] 03/17/19 Doughmaker Relationship Specialty Start Date End Date Neil Veliz MD [address] [place] [address] PCP - [facility] 03/17/19 Doughmaker Relationship Specialty Start Date End Date Neil Veliz MD [address] [place] [address] PCP - [facility] 03/17/19 Doughmaker Relationship Specialty Start Date End Date Neil Veliz MD [address] [place] [address] PCP - [facility] Medicine 03/17/19 Doughmaker Relationship Specialty Start Date End Date Neil Veliz MD [address] [place] [address] PCP - General Family Medicine 03/17/19 INFORMATION SOURCE (unrecogn ized section and content) FOR RECORDS PERTAINING TO PATIENTS WHO ARE OR HAVE BEEN ENROLLED IN A CHEMICAL DEPENDENCY/SUBSTANCEABUSE PROGRAM, SOME INFORMATION MAY BE OMITTED. This clinical summary was aggregated from multiple sources. Caution should be exercised in using it in the provision of clinical care. This summary normalizes information from multiple sources, and as a consequence, information in this document may materially change the coding, format and clinical context of patient data. In addition, data may be omitted in some cases. CLINICAL DECISIONS SHOULD BE BASED ON THE PRIMARY CLINICAL RECORDS. [facility]. provides no warranty or guarantee of the accuracy or completeness of information in this document.
[2023-03-04 14:11] LABS: Hematocrit 34.1 % (37-47); Hemoglobin 11.5 g/dL (12.0-15.0); Mean Corp Hgb Conc 33.7 g/dL (32-36); Mean Corpuscular Hgb 30.1 pg (27.0-32.0); Mean Corpuscular Volume 89.3 fL (81-99); Mean Platelet Vol. 10.6 fl (6.2-12.0); Platelet Count 185 K/mm3 (150-450); RBC Distribution Width CV 12.6 % (11.6-14.6); Red Blood Count 3.82 M/mm3 (4.2-5.4); White Blood Count 8.6 K/mm3 (4.4-11.0)
[2023-03-04 14:28] LABS: ALB/GLOB Ratio 0.7 RATIO (0.9-2.4); AST(SGOT) 27 U/L (15-37); Alanine Aminotransfer ALT/SGPT 31 U/L (13-56); Albumin, Serum 2.7 g/dL (3.2-5.0); Alkaline Phosphatase 158 U/L (45-117); Anion Gap 7 (5-15); BUN 8 mg/dL (7-18); BUN/Creat Ratio 14.4 RATIO (10-20); Calcium,Total 8.1 mg/dL (8.5-10.1); Chloride 110 mmol/L (98-107); Creatinine, Serum 0.56 mg/dL (0.55-1.02); EST Glomerular Filtration Rate 133 mL/min (>60); Est Glom Filt Rate - Afr Amer 161 mL/min (>60); Estimated Creatinine Clearance 144.14 ml/min; Globulin 3.8 g/dL (2.2-4.2); Glucose 110 mg/dL (74-106); Potassium 3.6 mmol/L (3.5-5.1); Protein, Total 6.5 g/dL (6.4-8.2); Sodium Level 138 mmol/L (136-145); Uric Acid 4.5 mg/dL (2.6-6.0)
[2023-03-04 14:47] LABS: Protein, Urine (Random) 8.6 mg/dL (<11.9); Protein:Creat Ratio 209 mg/g CRE (0-200)
--- NOTE | 2023-03-07 15:14 | OB.TRI.NOTE ---
HPI - General General Date of Admission: 03/04/23 Date of Service: 03/04/23 Chief Complaint: headache and nausea HPI Narrative CASS RYAN, is a 32 F who presents c/o HOROWITZ and nausea and abdominal pain. Maternal Data Information Final ARAVIND: 04/01/23 Gestational age: 36 0/7 PFSH PFSH Home Medications acyclovir 400 mg tablet mg PO DAILY HSV prevention 03/04/23 [History Last Taken 03/03/23 08:00] famotidine 10 mg tablet (Acid Controller) 20 mg PO DAILY 03/04/23 [History Last Taken Unknown] ferrous sulfate 325 mg (65 mg iron) tablet (iron) 325 mg PO DAILY 03/04/23 [History Last Taken 03/01/23 08:00] Allergy/AdvReac Type Severity Reaction Status Date / Time Latex, Natural Rubber Allergy Unknown Verified 03/04/23 13:25 adhesive tape AdvReac Rash Verified 03/04/23 13:25 Social History Smoking Status: Never smoker History Elective abortions Hx Para 2 Spontaneous abortions Hx # Term Pregnancies Ectopic pregnancies Hx # Pregnancies Multiple births # of living children NST FHR Rate Baby A Baseline: 135 Variability:: Moderate Accelerations:: 15 x 15 Decelerations:: Variable NST Reactive:: Yes FHR Category:: Category I (FOR > 20 MIN BEFORE D/C) Uterine Activity:: QUIET Assessment & Plan (1) Supervision of other high risk pregnancies, third trimester: PLAN: no evidence of preeclampsia or PTL patient discharged home in stable condition to follow-up in the office as scheduled or return as needed. (2) Abdominal pain affecting :
== END 2023-03-04 15:15 | disposition home or self-care (01) ==
LOC: WPOUT 13:15 → WP 13:16
PROVIDERS: PCP Family Medicine; Visit Provider Advanced Practice Midwife
DX: O99.891 Other specified diseases and conditions complicating pregnancy (principal); R51.9 Headache, unspecified; R11.0 Nausea; R10.9 Unspecified abdominal pain; Z3A.00 Weeks of gestation of pregnancy not specified
CPT/HCPCS: 36415; 59025; 59050; 80053; 82570; 84156; 84550; 85027; 99221; G0378

== ENCOUNTER 2023-03-27 07:03 | Inpatient (IN) | payer BC, SELFPAY ==
[2023-03-27] VITALS (77 sets, daily range): BP systolic 99–136; BP diastolic 51–98; PULSE 64–144; RESP 16; TEMP 36.1–37.2; O2SAT 92–100; BMI 37.8
--- OUTSIDE RECORDS SUMMARY | 2023-03-27 07:19 | XMS RPT_ITS | CCD ---
Author Name Unknown Address [address] [place] [address] Organization [facility] Care Team Providers Care Patient Care Technician Instructor Name Role Phone Neil Veliz MD Primary Care Provider RONALD CERRATO Attending Unavailable THUY BENAVIDES Referring Unavailable [facility] Primary Care Unavailable [facility] Primary Care Unavailable TATY CALLEJAS Referring Unavailable JOSE ALFREDO, NEIL Primary Care Unavailable TATY CALLEJAS Referring Unavailable JOSE ALFREDO, NEIL Primary Care Unavailable ERENDIRA HENDRICKS Referring Unavailable JOSE [facility]ED[facility], NEIL Primary Care Unavailable ERENDIRA HENDRICKS Referring Unavailable JOSE ALFREDO, NEIL Primary Care Unavailable DEBRA WAGNER Attending Unavailable [facility] Primary Care Unavailable ERENDIRA HENDRICKS Referring Unavailable TATY CALLEJAS Attending Unavailable [facility] Primary Care Unavailable RAMANDEEP AYON Referring Unavail able [facility] Primary Care Unavailable RAMANDEEP AYON Referring Unavail able [facility] Primary Care Unavailable RAMANDEEP AYON Attending Unavail able RAMANDEEP AYON Referring Unavail able [facility] Primary Care Unavailable RAMANDEEP AYON Attending Unavail able JOSE ALFREDO, NEIL Primary Care Unavailable RAMANDEEP AYON Attending Unavail able [facility] Primary Care Unavailable TATY CALLEJAS Referring Unavailable JOSE ALFREDO, NEIL Primary Care Unavailable TATY CALLEJAS Referring Unavailable GABY GARCIA Attending Unavailable [facility] Primary Care Unavailable LUCHO AYONRE Referring Unavail able JOSE ALFREDO, NEIL Primary Care Unavailable LUCHO AYONRE Referring Unavail able [facility] Primary Care Unavailable TATY CALLEJAS Attending Unavailable RAMANDEEP AYON Referring Unavail able [facility] Primary Care Unavailable ERENDIRA HENDRICKS Attending Unavailable JOSE ALFREDO, NEIL Primary Care Unavailable RAMANDEEP AYON Referring Unavail able JOSE ALFREDO, NEIL Primary Care Unavailable JOSE ALFREDO, NEIL Primary Care Unavailable ERENDIRA HENDRICKS Referring Unavailable ERENDIRA HENDRICKS Attending Unavailable JOSE ALFREDO, NEIL Primary Care Unavailable JOSE ALFREDO, NEIL Primary Care Unavailable TATY CALLEJAS Attending Unavailable JOSE ALFREDO, NEIL Primary Care Unavailable RAMANDEEP AYON Attending Unavail able JOSE ALFREDO, NEIL Primary Care Unavailable TATY CALLEJAS Referring Unavailable JOSE ALFREDO, NEIL Primary Care Unavailable JOSE ALFREDO, NEIL Primary Care Unavailable ERENDIRA HENDRICKS Attending Unavailable JOSE ALFREDO, NEIL Primary Care Unavailable ERENDIRA HENDRICKS Attending Unavailable JOSE ALFREDO, NEIL Primary Care Unavailable DEBRA WAGNER Referring Unavailable JOSE ALFREDO, NEIL Primary Care Unavailable TATY CALLEJAS Attending Unavailable [facility] Primary Care Unavailable DEBRA WAGNER Referring Unavailable RAMANDEEP AYON Attending Unavail able [facility] Primary Care Unavailable Allergies Allergy Classification Reported Allergen(s) Allergy Type Date of Onset Reaction(s) Facility (20 sources) Adhesive Tape; Translations: [ADHESIVE TAPE (ROSINS)] Propensity to adverse reactions to substance 9 Rash, Itching [facility] Work Phone: (20 sources) Latex; Translations: [LATEX] Drug Intolerance 6 Rash [facility] Work Phone: Medications Current Medications Medication [...] for human papillomavirus (HPV)] Onset: 3 Episodic Nausea and vomiting (4 sources) Nausea; Translations: [Nausea] Episodic Other complications of (5 sources) Maternal obesity complicating , childbirth and the puerperium, antepartum; Translations: [Obesity complicating , second trimester] 11-14-2022 Chronic Other complications of (2 sources) Obesity complicating , unspecified trimester; Translations: [Obesity in ] Onset: 3 Chronic Other complications of [...] third trimester] Onset: 3 02-15-2023 Episodic Other complications of (1 source) Other abnormal findings on screening of mother; Translations: [Non-reactive NST (non-stress test)] Onset: 4 Episodic Other ear and sense organ disorders [...] Translations: [Obesity, unspecified] Onset: 9 Chronic Other and delivery including normal (14 sources) test positive; Translations: [Encounter for test, result positive] Onset: 3 Episodic Other screening for suspected conditions (not mental [...] 02-15-2023 Episodic Residual codes; unclassified (1 source) 35 weeks gestation of ; Translations: [35 weeks gestation of ] Onset: 4 Episodic Residual codes; unclassified (1 source) 38 weeks gestation of ; Translations: [38 weeks gestation of ] Onset: 4 Episodic Residual codes; unclassified (1 source) 28 weeks gestation of ; Translations: [28 weeks gestation of ] Onset: 3 Episodic Residual codes; unclassified (1 source) 24 weeks gestation of ; Translations: [24 weeks gestation of ] Onset: 3 Episodic Thyroid disorders (2 sources) Goiter; Translations: [Nontoxic goiter, unspecified] Chronic Past or Other Problems Problem Classification Problem Date Documented Date Episodic/Chronic Abdominal hernia (18 sources) Hiatal hernia; [...] [Acute nonintractable headache] Onset: 08-24-2018 08-24-2018 Episodic Other circulatory disease (20 sources) History [...] [Mild cervical dysplasia] Onset: 03-15-2011 03-15-2011 Episodic Residual codes; unclassified (20 sources) H/O: depression; Translations: [Personal history of other complications of , childbirth and the puerperium] Onset: 03-13-2018 08-09-2022 Episodic Residual codes; unclassified (1 source) 15 weeks gestation of ; Translations: [15 weeks gestation of ] Onset: 11-14-2022 Episodic Residual codes; unclassified (1 source) 11 weeks gestation of ; Translations: [11 weeks gestation of ] Onset: 09-18-2022 Episodic Results Test Name Value Interpretation Reference Range Facil ity Vital Signs Date Time Vital Sign Value Performing Clinician Luis thompson 02-15-2023 13:58-0500 Body weight 112.49 kg Gaby Garcia APRN.CNP Work Phone: [facility] 02-15-2023 13:58-0500 Diastolic blood pressure 62 mm[Hg] Gaby Garcia APRN.[employer]SI[employer] SAL[employer]ENTER MANAGER Work Phone: [facility] 02-15-2023 13:58-0500 Systolic blood pressure 120 mm[Hg] Gaby Garcia APRN.ASSISTANT SAL[employer] CENTER MANAGER Work Phone: [facility] 01-31-2023 09:33-0500 Body weight 111.58 kg Ramandeep Castanon MD Work Phone: [facility] 01-31-2023 09:33-0500 Diastolic blood pressure 70 mm[Hg] Ramandeep Castanon MD Work Phone: [facility] 01-31-2023 09:33-0500 Systolic blood pressure 118 mm[Hg] Ramandeep Castanon MD Work Phone: [facility] 01-17-2023 10:21-0500 Body weight 112.76 kg Taty Callejas MD Work Phone: [facility] 01-17-2023 10:21-0500 Diastolic blood pressure 62 mm[Hg] Taty Callejas MD Work Phone: [facility] 01-17-2023 10:21-0500 Systolic blood pressure 98 mm[Hg] Taty Callejas MD Work Phone: [facility] 01-04-2023 13:14-0400 Body weight 114.76 kg Ramandeep Castanon MD Work Phone: [facility] 01-04-2023 13:14-0400 Diastolic blood pressure 62 mm[Hg] Ramandeep Castanon MD Work Phone: [facility] 01-04-2023 13:14-0400 Systolic blood pressure 108 mm[Hg] Ramandeep Castanon MD Work Phone: [facility] 11-14-2022 [id number] Body weight 110.22 kg Ramandeep Castanon MD Work Phone: [facility] 11-14-2022 14:23-0400 Diastolic blood pressure 62 mm[Hg] Ramandeep Castanon MD Work Phone: [facility] 11-14-2022 14:23-0400 Systolic blood pressure 116 mm[Hg] Ramandeep Castanon MD Work Phone: [facility] 11-06-2022 13:29-0400 Body weight 110.68 kg Erendira Hendricks APRN.CNM Work Phone: [facility] 11-06-2022 13:29-0400 Diastolic blood pressure 68 mm[Hg] Erendira Hendricks YOUTH SPECIALIST.CNM Work Phone: [facility] 11-06-2022 13:29-0400 Systolic blood pressure 108 mm[Hg] Erendira Plotts YOUTH SPECIALIST.CNM Work Phone: [facility] 09-18-2022 10:36-0400 Body weight 112.49 kg Ramandeep Castanon MD Work Phone: [facility] 09-18-2022 10:36-0400 Diastolic blood pressure 66 mm[Hg] Ramandeep Castanon MD Work Phone: [facility] 09-18-2022 10:36-0400 Systolic blood pressure 104 mm[Hg] Ramandeep Castanon MD Work Phone: [facility] 09-18-2022 10:00-0400 Body height 172.7 cm Meg Whitt MD Work Phone: [facility] 08-20-2022 13:05-0400 Body height 172.7 cm Erendira Plotts YOUTH SPECIALIST.CNM Work Phone: [facility] 08-20-2022 13:05-0400 Body weight 112.72 kg Erendira Plotts YOUTH SPECIALIST.CNM Work Phone: [facility] 08-20-2022 13:05-0400 Diastolic blood pressure 76 mm[Hg] Erendira Plotts YOUTH SPECIALIST.CNM Work Phone: [facility] 08-20-2022 13:05-0400 Systolic blood pressure 120 mm[Hg] Erendira Plotts YOUTH SPECIALIST.CNM Work Phone: [facility] 06-14-2022 09:07-0400 Body temperature 98.29 [degF] Orly Athy PA-C Work Phone: [facility] 06-14-2022 09:07-0400 Body weight 112.95 kg Orly Athy PA-C Work Phone: [facility] 06-14-2022 09:07-0400 Diastolic blood pressure 70 mm[Hg] Orly Athy PA-C Work Phone: [facility] 06-14-2022 09:07-0400 Heart rate 88 /min Orly Athy PA-C Work Phone: [facility] 06-14-2022 09:07-0400 Respiratory rate 16 /min Orly Athy PA-C Work Phone: [facility] 06-14-2022 09:07-0400 SaO2% (BldA) [Mass fraction] 98 % Orly Athy PA-C Work Phone: [facility] 06-14-2022 09:07-0400 Systolic blood pressure 110 mm[Hg] Orly Athy PA-C Work Phone: [facility] 03-14-2022 12:41-0500 Heart rate 74 /min Radha Segura MD Work Phone: [facility] 03-14-2022 12:41-0500 SaO2% (BldA) [Mass fraction] 98 % Radha Segura MD Work Phone: [facility] 03-14-2022 12:31-0500 Diastolic blood pressure 56 mm[Hg] Radha Segura MD Work Phone: [facility] 03-14-2022 12:31-0500 Respiratory rate 16 /min Radha Segura MD Work Phone: [facility] 03-14-2022 12:31-0500 Systolic blood pressure 104 mm[Hg] Radha Segura MD Work Phone: [facility] 03-14-2022 10:01-0500 Body temperature 98.01 [degF] Radha Segura MD Work Phone: [facility] 03-09-2022 09:35-0500 Body temperature 97.81 [degF] Kenny Mi APRN.ASSISTANT SALES CENTER MANAGER Work Phone: [facility] 03-09-2022 09:35-0500 Body weight 109.14 kg Kenny Mi APRN.ASSISTANT SAL[employer] CENTER MANAGER Work Phone: [facility] 03-09-2022 09:35-0500 Diastolic blood pressure 78 mm[Hg] Kenny Mi APRN.ASSISTANT SAL[employer] CENTER MANAGER Work Phone: [facility] 03-09-2022 09:35-0500 Heart rate 89 /min Kenny Hiwot YOUTH SPECIALIST.ASSISTANT SALES CENTER MANAGER Work Phone: [facility] 03-09-2022 09:35-0500 Respiratory rate 16 /min Kenny Mi YOUTH SPECIALIST.ASSISTANT SALES CENTER MANAGER Work Phone: [facility] 03-09-2022 09:35-0500 SaO2% (BldA) [Mass fraction] 98 % Kenny Mi YOUTH SPECIALIST.ASSISTANT SALES CENTER MANAGER Work Phone: [facility] 03-09-2022 09:35-0500 Systolic blood pressure 130 mm[Hg] Kenny Mi YOUTH SPECIALIST.ASSISTANT SALES CENTER MANAGER Work Phone: [facility] 12-26-2021 13:25-0400 Body weight 108.41 kg Nisha Hagiorgio YOUTH SPECIALIST.ASSISTANT SALES CENTER MANAGER Work Phone: [facility] 12-26-2021 13:25-0400 Diastolic blood pressure 88 mm[Hg] Nisha Haagen YOUTH SPECIALIST.ASSISTANT SALES CENTER MANAGER Work Phone: [facility] 12-26-2021 13:25-0400 Heart rate 102 /min Nisha Haagen YOUTH SPECIALIST.ASSISTANT SALES CENTER MANAGER Work Phone: [facility] 12-26-2021 13:25-0400 Respiratory rate 18 /min Nisha Haagen YOUTH SPECIALIST.ASSISTANT SALES CENTER MANAGER Work Phone: [facility] 12-26-2021 13:25-0400 SaO2% (BldA) [Mass fraction] 98 % Nisha Hagiorgio YOUTH SPECIALIST.ASSISTANT SALES CENTER MANAGER Work Phone: [facility] 12-26-2021 13:25-0400 Systolic blood pressure 122 mm[Hg] Nisha Haagen YOUTH SPECIALIST.ASSISTANT SALES CENTER MANAGER Work Phone: [facility] 12-19-2021 11:03-0400 Body weight 107.05 kg Nurse Wstr Work Phone: [facility] 12-19-2021 11:03-0400 Diastolic blood pressure 80 mm[Hg] Nurse Wstr Work Phone: [facility] 12-19-2021 11:03-0400 Systolic blood pressure 112 mm[Hg] Nurse Wstr Work Phone: [facility] 12-06-2021 09:30-0400 Body temperature 98.2 [degF] Miguel Angel Baird MD Work Phone: [facility] 12-06-2021 09:30-0400 Body weight 109.5 kg Miguel Angel Baird MD Work Phone: [facility] 12-06-2021 09:30-0400 Diastolic blood pressure 70 mm[Hg] Miguel Angel Baird MD Work Phone: [facility] 12-06-2021 09:30-0400 Heart rate 95 /min Miguel Angel Baird MD Work Phone: [facility] 12-06-2021 09:30-0400 Respiratory rate 21 /min Miguel Angel Baird MD Work Phone: [facility] 12-06-2021 09:30-0400 SaO2% (BldA) [Mass fraction] 99 % Miguel Angel Baird MD Work Phone: [facility] 12-06-2021 09:30-0400 Systolic blood pressure 122 mm[Hg] Miguel Angel Baird MD Work Phone: [facility] 11-20-2021 09:06-0400 Body weight 110.68 kg Nurse Wstr Work Phone: [facility] 11-20-2021 09:06-0400 Diastolic blood pressure 78 mm[Hg] Nurse Wstr Work Phone: [facility] 11-20-2021 09:06-0400 Systolic blood pressure 120 mm[Hg] Nurse Wstr Work Phone: [facility] 10-25-2021 11:47-0400 Body temperature 98.6 [degF] Orly JONES-Saul Work Phone: [facility] 10-25-2021 11:47-0400 Body weight 119.2 kg Orly Athy PA-C Work Phone: [facility] 10-25-2021 11:47-0400 Diastolic blood pressure 80 mm[Hg] Orly Athy PA-C Work Phone: [facility] 10-25-2021 11:47-0400 Heart rate 85 /min Orly Athy PA-C Work Phone: [facility] 10-25-2021 11:47-0400 Respiratory rate 16 /min Orly Athy PA-C Work Phone: [facility] 10-25-2021 11:47-0400 SaO2% (BldA) [Mass fraction] 99 % Orly Athy PA-C Work Phone: [facility] 10-25-2021 11:47-0400 Systolic blood pressure 118 mm[Hg] Orly Athy PA-C Work Phone: [facility] 10-24-2021 13:13-0400 Body height 172.7 cm Ramandeep Castanon MD Work Phone: [facility] 10-24-2021 13:13-0400 Body weight 117.48 kg Ramandeep Castanon MD Work Phone: [facility] 10-24-2021 13:13-0400 Diastolic blood pressure 80 mm[Hg] Ramandeep Castanon MD Work Phone: [facility] 10-24-2021 13:13-0400 Systolic blood pressure 126 mm[Hg] Ramandeep Castanon MD Work Phone: [facility] Encounters Encounter Date Encounter Type Care Provider Facility Start: 03-20-2023 End: 03-21-2023 ambulatory RAMANDEEP CASTANON Facility:[facility] Start: 03-19-2023 End: 03-19-2023 ambulatory NEIL VELIZ Facility:[facility] Start: 03-14-2023 End: 03-14-2023 ambulatory RAMANDEEP CASTANON Facility:[facility] Start: 03-05-2023 End: 03-05-2023 ambulatory TATY CALLEJAS Facility:[facility] Start: 02-28-2023 End: 02-28-2023 ambulatory RAMANDEEP CASTANON Facility:[facility] Start: 02-15-2023 End: 02-15-2023 ambulatory TATY CALLEJAS Facility:[facility] Start: 02-15-2023 End: 02-15-2023 Patient encounter procedure Gaby Garcia KEENAN Work Phone: OB/Gynecology Procedures Date Procedure Procedure Detail Performing Clinician Start: 02-15-2023 Us preg uterus after 1st trimest 03/04 gestation Taty Callejas MD Work Phone: Start: 01-31-2023 URINE OB DIP B/O Ramandeep Castanon MD Work Phone: Start: 01-17-2023 URINE OB DIP B/O Taty Callejas MD Work Phone: Start: 01-04-2023 BACTERIAL VAGINOSIS GEORGET Ramandeep Castanon MD Work Phone: Start: 01-04-2023 Iadna trichomonas vaginalis amplified probe tech Ramandeep Castanon MD Work Phone: Start: 11-14-2022 BACTERIAL VAGINOSIS JENIFFER Castanon MD Work Phone: Start: 11-14-2022 Iadna [...] 11-06-2022 URINE OB DIP B/O Raul Hendricks YOUTH SPECIALIST.[employer] Work Phone: Start: 09-18-2022 Antibody screen RONALD CERRATO Plan of Treatment Date Care Activity Detail Author Start: 01-31-2033 Urine microalbumin profile DTaP,Tdap,Td Vaccine (10 - Td or Tdap) [facility] Start: 08-21-2027 HPV TESTING HPV TESTING [facility] Start: 08-21-2027 PAP TESTING PAP TESTING [facility] Start: 08-21-2027 Screening for malignant neoplasm of cervix [facility] Start: 10-24-2026 HPV TESTING HPV TESTING [facility] Start: 10-24-2026 PAP TESTING PAP TESTING [facility] Start: 10-24-2025 Urine microalbumin profile [facility] Start: 02-04-2023 RSV Vaccine (1 - Risk 1-dose series) RSV Vaccine (1 - Risk 1-dose series) [facility] Start: 01-17-2023 End: 01-18-2024 OBSTETRIC ULTRASOUND [facility] OBSTETRIC ULTRASOUND [facility] Anc Imaging Routine 28 weeks gestation of Obesity affecting in third trimester, unspecified obesity type Expected: 01/17/2023, Expires: 01/18/2024 [facility] Work Phone: Immunizations Immunization Date Immunization Notes Care Provider Donna strong 01-31-2023 tetanus toxoid, redu geni diphtheria toxoid, and acellular pertussis vaccine, adsorbed Ramandeep Castanon MD Work Phone: [facility] 11-14-2022 influenza, injectabl e, quadrivalent, contains preservative Ramandeep Castanon MD Work Phone: [facility] 12-01-2018 influenza, injectabl e, quadrivalent, contains preservative Fabi Podlogar YOUTH SPECIALIST.ASSISTANT SALES CENTER MANAGER Work Phone: [facility] Work Phone: 12-13-2015 influenza, seasonal, injectable Fabi Podlogar YOUTH SPECIALIST.ASSISTANT SALES CENTER MANAGER Work Phone: [facility] 10-25-2015 tetanus toxoid, redu geni diphtheria toxoid, and acellular pertussis vaccine, adsorbed Fabi Podlogar YOUTH SPECIALIST.[facility] Work Phone: [facility] 12-16-2012 influenza, seasonal, injectable, preservative free Fabi Podlogar YOUTH SPECIALIST.[facility] Work Phone: [facility] Work Phone: 12-09-2012 influenza virus vaccine, unspecified formulation Fabi Podlogar YOUTH SPECIALIST.[facility] Work Phone: [facility] Work Phone: 10-14-2012 tetanus toxoid, redu geni diphtheria toxoid, and acellular pertussis vaccine, adsorbed Fabi Podlogar YOUTH SPECIALIST.[facility] Work Phone: [facility] 10-13-2004 Meningococcal, MCV4, unspecified conjugate formulation(groups A, C, Y and W-135) Fabi Podlogar YOUTH SPECIALIST.[facility] Work Phone: [facility] Work Phone: 10-13-2004 tetanus toxoid, redu geni diphtheria toxoid, and acellular pertussis vaccine, adsorbed Fabi Podlogar YOUTH SPECIALIST.[facility] Work Phone: [facility] Work Phone: 09-10-2003 hepatitis B vaccine, pediatric or pediatric/adolescent dosage Fabi Podlogar YOUTH SPECIALIST.[facility] Work Phone: [facility] Work Phone: 09-25-2002 hepatitis B vaccine, pediatric or pediatric/adolescent dosage Fabi Podlogar YOUTH SPECIALIST.[facility] Work Phone: [facility] Work Phone: 10-02-2001 hepatitis B vaccine, pediatric or pediatric/adolescent dosage Fabi Podlogar YOUTH SPECIALIST.[facility] Work Phone: [facility] Work Phone: 10-02-2001 measles, mumps and rubella virus vaccine Fabi Podlogar YOUTH SPECIALIST.[facility] Work Phone: [facility] Work Phone: 09-26-1994 diphtheria, tetanus toxoids and acellular pertussis vaccine Fabi Podlogar YOUTH SPECIALIST.[facility] Work Phone: [facility] Work Phone: 09-26-1994 trivalent poliovirus vaccine, live, oral Fabi Podlogar YOUTH SPECIALIST.ASSISTANT SALES CENTER MANAGER Work Phone: [facility] Work Phone: 03-26-1992 Chicken Pox (disease) Fabi Podlogar YOUTH SPECIALIST.ASSISTANT SALES CENTER MANAGER Work Phone: [facility] Work Phone: 10-14-1990 diphtheria, tetanus toxoids and pertussis vaccine Fabi Podlogar YOUTH SPECIALIST.[facility] Work Phone: [facility] Work Phone: 10-14-1990 trivalent poliovirus vaccine, live, oral Fabi Podlogar YOUTH SPECIALIST.[facility] Work Phone: [facility] Work Phone: 07-30-1990 haemophilus influenz ae type b vaccine, PRP-D conjugate Fabi Podlogar YOUTH SPECIALIST.[facility] Work Phone: [facility] Work Phone: 07-30-1990 measles, mumps and rubella virus vaccine Fabi Podlogar YOUTH SPECIALIST.[facility] Work Phone: [facility] Work Phone: 1989 diphtheria, tetanus toxoids and pertussis vaccine Fabi Podlogar YOUTH SPECIALIST.[facility] Work Phone: [facility] Work Phone: 1989 diphtheria, tetanus toxoids and pertussis vaccine Fabi Podlogar YOUTH SPECIALIST.[facility] Work Phone: [facility] [facility] Work Phone: 1990 trivalent poliovirus vaccine, live, oral Fabi Podlogar YOUTH SPECIALIST.[facility] Work Phone: [facility] Work Phone: 1990 diphtheria, tetanus toxoids and pertussis vaccine Fabi Podlogar YOUTH SPECIALIST.ASSISTANT SALES CENTER MANAGER Work Phone: [facility] Work Phone: 1990 trivalent poliovirus vaccine, live, oral Fabi Hooks APRN.[facility] Work Phone: [facility] Work Phone: Payers Date Payer Category Payer Unknown MARQUISE MARIE SS PPO [id number] 2019-Present [phone] [address] [place] [address] PPO [id number] 2019 Unknown MARQUISE DAIGLE ACCE SS PPO [id number] 2019-Present [phone] [address] [place] [address] PPO [id number] 2019 Unknown [id number] Social History Date Type Detail Facility Start: 07-26-2010 End: 10-24-2021 Tobacco smoking status NHIS Ex-smoker [facility] Work Phone: End: 01-02-2018 History of tobacco use Current smoker [facility] Work Phone: End: 01-02-2018 History of tobacco use Cigarette Smoker [facility] Work Phone: Start: 07-26-2010 End: 10-24-2021 Tobacco use and exposure Smokeless tobacco non-user [facility] Work Phone: Start: 06-07-2021 End: 03-14-2022 Alcohol intake Current drinker of alcohol (finding) [facility] Start: 06-07-2021 End: 08-07-2022 Alcohol intake [facility] Start: 06-06-2021 History SDOH Alcohol Frequency 4 [facility] Start: 06-06-2021 History SDOH Alcohol Std Drinks 2 [facility] Start: 06-06-2021 History SDOH Alcohol Binge 1 [facility] Start: 05-22-2012 History SDOH Alcohol Comment Occasionally, NOT WHILE [facility] Start: 06-06-2021 History SDOH Social Connections Living 3 [facility] Start: 1990 Sex Assigned At Not on file [facility] Start: 05-29-2021 End: 12-06-2021 Exposure to SARS-CoV-2 (event) Not sure [facility] Start: 08-20-2022 End: 02-15-2023 Alcohol intake Ex-drinker (finding) [facility] Start: 08-09-2022 Education 17 [facility] Start: 07-09-2022 [facility] Start: 06-06-2021 End: 08-07-2022 Social connection and isolation panel [facility] Do you belong to any clubs or organizations such as jew groups, unions, fraternal or athletic groups, or school groups? No [facility] Are you now , , , , never or living with a partner? [facility] How often to you hav e a drink containing alcohol? 2-3 time sa week [facility] How many standard dr inks containing alcohol do you have on a typical day? 3 or 4 [facility] How often do you hav e 6 or more drinks on 1 occasion? Never [facility] How hard is it for y ou to pay for the very basics like food, housing, medical care, and heating Somewhat hard [facility] Adult Depression Scr eening Assessment 0 [facility] Do you feel stress - tense, restless, nervous, or anxious, or unable to sleep at night because your mind is troubled all the time - these days [OSQ] Only a little [facility] (I/We) worried wheth er (my/our) food would run out before (I/we) got money to buy more. Never true [facility] Goals Date Patient Goal Desired Activity /State Personal health goal Clinical Notes 08-20-2018 to 03-20-2023 Quick Notes - Gaby Garcia APRN.CNP - 02/15/2023 1:59 PM ESTPatient InstructionsPrenatal Quick Notes - Ramandeep Ayon MD - 01/31/2023 10:09 AM ESTPatient Instructions Note Date & Type Note Facility 03-20-2023 Note HNO ID: [id number] Author: RAMANDEEP AYON MD Service: ? Author Type: Physician Type: Progress Notes Filed: 03/20/2023 17:17 Note Text: NST SUMMARY PROVIDER ASSESSMENT AND INTERPRETATION Angelina Rodriguez is a 33 year old female, , who is at 38w2d with an ARAVIND of 04/01/2023, by Last Menstrual Period dating method. Indications for NST: Obesity Baseline: 130 Variability: Moderate Accelerations: Absent only one acceleration with stimulation Decelerations: None Contractions: TOCO: None Interpretation: Category I SIGNATURE: Ramandeep Darnell MD [facility] 03-19-2023 Note HNO ID: [id number] Author: HINA GARCIA PA-C Service: ? Author Type: Physician Expressive Music Therapist Type: Progress Notes Filed: 03/19/2023 14:33 Note Text: 03/19/2023 Patient presents with: Cough: Cough, congestion and ST-cough has lasted x 1 month SUBJECTIVE: This is a 33 year old that is here today for Complaint(s) of cough and congestion x 1 month. Sore throat worsened x today. No difficutly swallowing. Cough is not worsening. No significant SOB. Denies chest pain, wheezing, fever/chills, unilateral leg swelling, calf pain. Currently 38 weeks and being induced next week 03/27/23. PAST MEDICAL HISTORY Diagnosis Date Abnormal glandular Papanicolaou smear of cervix Abn. Pap smear (cervix), mildl dysplasia Depression FRACTURE 2002 FOOT, BALLET Hiatal hernia Irregular heartbeat depression ALLERGIES Latex and Adhesive Tape (Rosins) MEDICATIONS Current Outpatient Medications Medication Sig ferrous sulfate 325 mg (65 mg iron) tablet Take 1 tablet by mouth once daily. acyclovir (ZOVIRAX) 400 mg tablet take 1 tablet by mouth twice a day prental multivitamin 27 mg iron- 800 mcg tablet Take 1 tablet by mouth once daily. No current facility-administered medications for this visit. SOCIAL HISTORY Social History Tobacco Use Smoking status: Former Years: 10 Types: Cigarettes Quit date: 01/02/2018 Years since quittin.2 Smokeless tobacco: Never Vaping Use Vaping Use: Never used Substance Use Topics Alcohol use: Not Currently Alcohol/week: 19.9 standard drinks of alcohol Types: 11 Standard drinks or equivalent, 2 Glasses of Wine (5oz), 3 Cans of Beer (12oz), 3 Mixed Drinks per week Comment: Occasionally, NOT WHILE Drug use: No REVIEW OF SYSTEMS See HPI OBJECTIVE: BP 102/62 Pulse 77 Temp 36.7 ?C (98.1 ?F) (Tympanic) Resp 18 Wt 117.7 kg (259 lb 6.4 oz) LMP 06/25/2022 (Approximate) SpO2 98% BMI 39.44 kg/m? APPEARANCE alert, in no acute distress, well-hydrated, well nourished. EYES PERRLA, conjunctiva and sclera normal. EARS External ears normal, canals clear. TMs normal LOREN NOSE/SINUS Nares normal. Septum midline. Mucosa normal. No drainage or sinus tenderness. THROAT normal, no erythema NECK Supple, no adenopathy HEART RRR with normal S1 and S2 LUNG clear to auscultation, No wheezing, rhonchi, rales. EXTREMITIES Extremities normal, No deformities, No skin discoloration, No edema, and Normal pulses bilaterally. No calf TTP. Negative Homans'. LOREN. ASSESSMENT/PLAN: 1. Acute cough - ICD9: 786.2, ICD10: R05.1 Supportive care with fluids and rest. R/o COVID , flu. Advise likely viral etiology Strep Negative today in office. Antibiotic printed if not resolving, or worsening Reviewed red flags and when to seek care sooner. - AMOXICILLIN 875 MG TABLET - COVID AND INFLUENZA A/B NAAT, ROUTINE The patient indicates understanding of these issues and agrees with the plan. Hina Garcia PA-C [facility] 03-14-2023 Note HNO ID: [id number] Author: ERENDIRA HENDRICKS APRN.CNM Service: ? Author Type: Bowling Floor Manager Type: Progress Notes Filed: 03/14/2023 16:06 Note Text: NST SUMMARY PROVIDER ASSESSMENT AND INTERPRETATION Angelina Rodriguez is a 33 year old female, , who is at 37w3d with an ARAVIND of 04/01/2023, by Last Menstrual Period dating method. Indications for NST: Obesity Baseline: 135 Variability: Moderate Accelerations: Present 15 X 15 Decelerations: None Contractions: TOCO: None Interpretation: Category I and Reactive SIGNATURE: Erendira Hendricks APRN.CNM [facility] 03-05-2023 Note HNO ID: [id number] Author: Taty Callejas MD Service: ? Author Type: Physician Type: Progress Notes Filed: 03/05/2023 1:16 PM Note Text: NST SUMMARY PROVIDER ASSESSMENT AND INTERPRETATION Angelina Rodriguez is a 32 year old female, , who is at 36w1d with an ARAVIND of 04/01/2023, by Last Menstrual Period dating method. Indications for NST: Obesity Baseline: 130 Variability: Moderate Accelerations: Present 15 X 15 Decelerations: None Contractions: TOCO: None Interpretation: Reactive SIGNATURE: Taty Callejas MD [facility] 02-15-2023 Miscellaneous Notes S: Angelina is a [...] Gaby Garcia APRN.MONICA documented in this encounter [facility] 02-15-2023 Instructions Gaby Garcia APRN.MONICA - 02/15/2023 1:37 PM EST SEQUENTIAL SCREENINGS The [facility] offers sequential screenings for women who [...] It will require an appointment with our vascular technician. This is not an ultrasound performed by a physician in our office during a routine visit. Here are some links for wonderful Providers here in the community and surrounding areas. Do not hesitate to contact their offices, many are offering virtual visits during this time. 9-950-8-DNDO4XIDL - [place] Maternal Mental Health Hotline If you are in suicidal crisis, please call or text 5-570-312-TALK ( ) or visit the National Suicide Prevention Lifeline website. mchb.unm cancer centera.gov [facility] Behavioral Health Psychology, Psychiatry, Counseling Connect with therapist/ can do virtual visits [phone] Referral to the [facility] To schedule an appointment, please call the Center for Behavioral Health Appointment Line: [phone] option 1 [facility] [place] [address] [place] [address] [address] [place], [place] [id number] [facility] [address] [place], [place] [address] [address] [address] Kia Barnett MD [address] [place] [address] [facility] [address] , [address] [place] [address] [facility] [address] [place] [address] [facility] [place] / [place] [phone]/ [phone] Mayelin Pachecocristhian [address] [facility] [phone] [facility] Mediation [place] / Sandeep [phone] Behavioral health services of [facility] [address] [place] [address]/ [place] [phone] Teodoro Maldonado, BERNADETTE, CLC [facility] Workshops, telehealth and at home visits. [phone] Humanistic counseling dixie 20 locations [facility], [place], [place], [place], [place], [place], [facility], [place], [place], [place], [place], [place], [place], [facility], [place], [place] ,[facility], [place], [place], [place],[facility], [facility], [place], [facility], [facility], [place] www.astria sunnyside hospitaler.co [phone] Psychotherapy resources outside of [facility] are listed below [facility] Web: https://www.Symonics/ Support International Online Provider Directory https://F3 Foods/ [facility] https://insightcoWhite Sky.OrSense/ Partners for Behavioral Health and Wellness Web: https://Recondo/ Center for Effective Living Web: https://www.effectiveBlue Crow Medialiving.OrSense/ LifeStance Web: https://Velo Media.OrSense/location/s rain/[place]/ [facility] Web: https://www.China Select Capitalinc.or g/ [facility] Web: https://Unocoin.ChartsNow (now MusicQubed)/ Recovery Resources Mental health and substance abuse help Web: https://www.oohilovesSaveFans! & RESOURCES Support International Direct peer support and connection to professional resources Non-Emergency Helpline Phone: / Text: [phone] Web: https://www..net/ Online Provider Directory: https://F3 Foods/ Online Support Meetings: https://www..net/get-he lp/aoy-gdtnpv-ipbedch-meetings/ DIEUDONNE Baby and Sausage Cutter Services Web: https://Medical Cannabis Payment Solutions/ MotherToBaby Expert information on medication use during and Text: [phone] Web: https://DataGravity/ NATIONAL REGISTRY FOR PSYCHIATRIC MEDICATIONS Currently studying the safety of antidepressants, ADHD medications and atypical antipsychotics taken during TO PARTICIPATE CALL TOLL-FREE: Web: https://womensmentalhealth.org/re search/pregnancyregistry/ Support Groups: [facility]- Follow on facebook Baby Bistro support group led by [facility] department [facility] Mamas - Support Group [facility].org The POEM support group [phone] Www.poemonline.org Follow on facebook - POBENJA root chapter Online support meetings PSI https://www..net/get-he lp/igd-yfeeuy-lnyibau-meetings/ [facility] mommy and me virtual support group 11:30-1pm Support for mothers and new babies and toddlers nAa childbirth education: Childbirth @ccf.org or call [phone] CRISIS: CRISIS HOTLINE [phone], 911 or go to the nearest ER. [facility] [phone] / [facility] [phone] https://www.whmhrb.org Crisis text line text the word HOME to [id number] [facility] [address] [facility] [address] www.Fantáxico Naima Maria clinical counseling [address] [facility] [address] [place] [address] www.OpenText [phone] Holding space psychotherapy Jana Rosas PIT FURNACE OPERATOR LIGHTING DESIGNER-S [address] [facility] www.PremiTech [phone]/ Devora [phone] They all offer virtual. All work with trauma Support groups Online support meetings PSI https://www..net/get-he lp/dji-ffdttd-bbdlufx-meetings/ Here are the support groups they offer: Support of parents of 1 to 4 years old children POEM ( Outreach and Encouragement for Moms) offers free support for mothers experiencing depression, anxiety, and other mood and anxiety disorders. Masks are recommended but not required. No pre-registration required. Babies in arms welcome. meetings now take place on the and Saturday of each month Location: [facility] [address] [place] [address] Room 122 (library room) 7-8:00 p.m. When you enter the jew parking lot off of [address] the entrance door closest to our meeting room is on the front of the building toward the right. For those who are more comfortable with a virtual platform, POEM offers online support group options several days of the week. To register for an online group or to find out more about POEM, website at: https://mhaohio.org/get-help/[facility] community hospitalmufl-xmkvuf-pdjird/poem-services/ offer a confidential helpline: private Facebook group is called ISHA Leung Here are the groups they offer: Traumatic childbirth resources: Http://pattch.org/ https://www.emmanuelBlue Crow Mediamaude Little Eye Labs.com/ SIGNS AND SYMPTOMS OF LABOR 1. Contractions every 10 minutes or more often 2. Clear, pink, or brownish fluid (water) leaking from vagina 3. Feeling that baby is pushing down, pressure 4. Low, dull backache 5. Cramps that feel like a period 6. Cramps with or without diarrhea If you notice any of the above symptoms, contact our office at [phone] and ask to speak with a nurse. After hours, you can call doctors registry at [phone] OR call [facility] at [phone] and ask to have the doctor rehabilitation physician paged. If you consider this an emergency, dial 9-- or go to your nearest emergency department. NEED HELP? Are you dealing with a violent or abusive relationship? Are you a victim of rape or sexual assult? Call [facility] 24 hour Crisis Hotline: 394.154.6302 or 916-659-9181. MANUAL Your Guide to a Healthy manual is now on-line. Visit [facility].org/HealthyPregna ncyGuide to download your free copy documented in this encounter [facility] 01-31-2023 Note HNO ID: [id number] Author: Charlene Banegas Ma Service: ? Author [...] severely ill: Yes Patient denies history of Guillain-Kaltag Syndrome (a severe paralytic illness): Yes Tdap Adacel injection was given without incident. See immunizations for details of immunizations administered today. VIS sheet provided: Yes Provider Israel was present in office at time of injection. PEE BLACK RN [facility] 01-31-2023 Miscellaneous Notes DM- Pt doing well today. Denies Vaginal Bleeding, Leaking fluid, or contractions. Pt reports good movement. Had to move out of house due to mold- headaches have resolved. Mild anemia will start PO iron. Considering PP Salpingectomy. Growth us scheduled. RTO 2 wks. Tdap today. RSV vaccine reviewed. Ramandeep Darnell MD documented in this encounter [facility] 01-31-2023 History of Present illness Narrative [...] severely ill: Yes Patient denies history of Guillain-Kaltag Syndrome (a severe paralytic illness): Yes Tdap Adacel injection was given without incident. See immunizations for details of immunizations administered today. VIS sheet provided: Yes Provider Israel was present in office at time of injection. PEE BLACK RN documented in this encounter [facility] 01-31-2023 Instructions Pee Black RN - 01/31/2023 9:20 AM EST SEQUENTIAL SCREENINGS The [facility] offers sequential screenings for women who [...] It will require an appointment with our vascular technician. This is not an ultrasound performed [...] the above symptoms, contact our office at [phone] and ask to speak with a nurse. After hours, you can call doctors registry at [phone] OR call [facility] at [phone] and ask to have the doctor rehabilitation physician paged. If you consider this an emergency, dial 91-2 or go to your nearest emergency department. NEED HELP? Are you dealing with a violent or abusive relationship? Are you a victim of rape or sexual assult? Call [facility] 24 hour Crisis Hotline: 242.572.7795 or 922-317-3262. MANUAL Your Guide to a Healthy manual is now on-line. Visit [facility].org/HealthyPregna ncyGuide to download your free copy documented in this encounter [facility] 01-17-2023 Note HNO ID: [id number] Author: Paula Ornelas Ma Service: ? Author [...] severely ill: Yes Patient denies history of Guillain-Kaltag Syndrome (a severe paralytic illness): Yes [facility] 01-17-2023 Miscellaneous Notes KJ - No VB/LOF/ctxs. [...] Taty Callejas MD documented in this encounter [facility] 01-17-2023 History of Present illness Narrative [...] severely ill: Yes Patient denies history of Guillain-Kaltag Syndrome (a severe paralytic illness): Yes documented in this encounter [facility] 01-17-2023 Instructions Taty Callejas MD - 01/17/2023 10:16 AM EST SEQUENTIAL SCREENINGS The [facility] offers sequential screenings for women who [...] It will require an appointment with our vascular technician. This is not an ultrasound performed [...] the above symptoms, contact our office at [phone] and ask to speak with a nurse. After hours, you can call doctors registry at [phone] OR call [facility] at [phone] and ask to have the doctor rehabilitation physician paged. If you consider this an emergency, dial 9--1 or go to your nearest emergency department. NEED HELP? Are you dealing with a violent or abusive relationship? Are you a victim of rape or sexual assult? Call [facility] ([place] 24 hour Crisis Hotline: 954.466.7124 or 983-656-2771. MANUAL Your Guide to a Healthy manual is now on-line. Visit [facility].org/HealthyPregna ncyGuide to download your free documented in this encounter [facility] 01-04-2023 Note HNO ID: [id number] Author: Ramandeep Ayon MD Service: ? Author Type: Physician Type: Progress Notes Filed: 01/04/2023 1:42 PM Note Text: Malt[place] offered: Patient declines. Angelina Rodriguez is a [...] that every time she tries to use huee-opt-giqqwoh Monistat Monistat suppository cream comes back out and it does not work. Patient has no concerns for STDs today. No changes with soaps or detergents. OB History T3 L3 SAB0 IAB0 Ectopic0 Multiple0 Live Births3 Clinical Psychologist Licensed History LMP: 06/25/2022 (Approximate), Age at Menarche: Age at First : Age at Menopause: Clinical Psychologist Licensed History Comments: Sexual Activity: Yes; Male Contraception: PAST MEDICAL HISTORY Diagnosis Date Abnormal glandular Papanicolaou smear of cervix Abn. Pap smear (cervix), mildl dysplasia Depression FRACTURE 2002 FOOT, BALLET Hiatal hernia Irregular heartbeat depression PAST SURGICAL HISTORY Procedure Laterality Date COLONOSCOPY 11/29/2016 COLONOSCOPY 03/14/2022 COLPOSCOPY CERVIX UPPER/ADJACENT VAGINA Colposcopy EGD W/O [facility] SPEC VARICIES INJ 11/29/2016 EGD W/O [facility] SPEC VARICIES INJ 03/14/2022 LAPAROSCOPY SURG CHOLECYSTECTOMY 03/17/2019 Cholecystectomy, lap UNSPECIFIED ORAL SURGERY PROCEDURE, BY REPORT [place] [facility] FAMILY HISTORY Problem Relation Age of [...] of motion PELVIC: normal Bartholin's glands, urethra, Prosperity's glands, no cervical lesions, good vaginal support, [...] yeast vulvovaginitis possible bacterial vaginosis. Discussed using gqpb-dlh-jyrftlf Monistat. Patient reports that does not work for her right now. Discussed that is recommendation for but will give oral diflucan at this time. 4. Reviewed vulvar and vaginal hygiene. Medical Decision Making: Problems: Low: Acute, uncomplicated illness or injury Data: Unique test(s) ordered: 2 Risk: Moderate: Drug management Medical Decision Making Level: 3 - Low Ramandeep Darnell MD [facility] 01-04-2023 History of Present illness Narrative [place]ster offered: Patient declines. Angelina Rodriguez is a [...] that every time she tries to use nnxb-qlp-lrckowq Monistat Monistat suppository cream comes back out and it does not work. Patient has no concerns for STDs today. No changes with soaps or detergents. OB History T3 L3 SAB0 IAB0 Ectopic0 Multiple0 Live Births3 Clinical Psychologist Licensed History LMP: 06/25/2022 (Approximate), Age at Menarche: Age at First : Age at Menopause: Clinical Psychologist Licensed History Comments: Sexual Activity: Yes; Male Contraception: [...] lap UNSPECIFIED ORAL SURGERY PROCEDURE, BY REPORT [place] [facility] FAMILY HISTORY Problem Relation Age of [...] of motion PELVIC: normal Bartholin's glands, urethra, Prosperity's glands, no cervical lesions, good vaginal support, [...] yeast vulvovaginitis possible bacterial vaginosis. Discussed using vlwe-orv-ecsuhpq Monistat. Patient reports that does not work for her right now. Discussed that is recommendation for but will give oral diflucan at this time. 4. Reviewed vulvar and vaginal hygiene. Medical Decision Making: Problems: Low: Acute, uncomplicated illness or injury Data: Unique test(s) ordered: 2 Risk: Moderate: Drug management Medical Decision Making Level: 3 - Low Ramandeep Darnell MD documented in this encounter [facility] 11-14-2022 Miscellaneous Notes DM- Pt doing well today. Denies Vaginal Bleeding, Leaking fluid, or contractions. Pt reports good movement. Anatomy us today- BOY. Feels like she has BV infection- malodorous discharge. Irritation outside vulvar area- has some excoriations- Lotrisone given. Reviewed vulvar hygiene. Flu vaccine today. RTO 4 wks. Ramandeep Darnell MD documented in this encounter [facility] 11-14-2022 Instructions Charlene Banegas Ma - 11/14/2022 1:31 PM EDT SEQUENTIAL SCREENINGS The [facility] offers sequential screenings for women who [...] It will require an appointment with our vascular technician. This is not an ultrasound performed [...] the above symptoms, contact our office at [phone] and ask to speak with a nurse. After hours, you can call doctors registry at [phone] OR call [facility] at [phone] and ask to have the doctor rehabilitation physician paged. If you consider this an emergency, dial 3-3-9 or go to your nearest emergency department. NEED HELP? Are you dealing with a violent or abusive relationship? Are you a victim of rape or sexual assult? Call [facility] ([place]) 24 hour Crisis Hotline: 995.188.6343 or 973-050-5819. MANUAL Your Guide to a Healthy manual is now on-line. Visit [email or web address] ncyGuide to download your free copy documented in this encounter [facility] 11-06-2022 Miscellaneous Notes Angelina Rodriguez is [...] Erendira Hendricks APRN.CNM documented in this encounter [facility] 11-06-2022 Instructions Reid Saleh Cma - 11/06/2022 1:22 PM EDT SEQUENTIAL SCREENINGS The [facility] offers sequential screenings for women who [...] It will require an appointment with our vascular technician. This is not an ultrasound performed [...] the above symptoms, contact our office at [phone] and ask to speak with a nurse. After hours, you can call doctors registry at [phone] OR call [facility] at [phone] and ask to have the doctor rehabilitation physician paged. If you consider this an emergency, dial 9--1 or go to your nearest emergency department. NEED HELP? Are you dealing with a violent or abusive relationship? Are you a victim of rape or sexual assult? Call [facility] ([place]) 24 hour Crisis Hotline: 595.870.6028 or 242-713-8626. MANUAL Your Guide to a Healthy manual is now on-line. Visit [email or web address] ncyGuide to download your free copy documented in this encounter [facility] 11-06-2022 Miscellaneous Notes Pt scheduled for [...] Hailey Gallegos LPN documented in this encounter [facility] 09-18-2022 Note HNO ID: [id number] Author: Paula Ornelas Ma Service: ? Author Type: ? Type: Progress Notes Filed: 09/18/2022 11:05 AM Note Text: Patient here for First Trimester Screening. See ultrasound report for details. Options for genetic screening and diagnosis discussed with the patient. Patient opts for first trimester screening and the sequential screening protocol. Limitations of screening tests discussed with the patient. Taty Callejas MD [facility] 09-18-2022 Miscellaneous Notes DM- Pt doing well today. Denies Vaginal Bleeding, Leaking fluid, or cramping. Having dizziness and heartburn- Hiatal hernia. NT today. Reviewed changing positions slowly, small meals, stay on sucralfate. Stay hydrated, increase protein. RTO 4 wks. Ramandeep Darnell MD documented in this encounter [facility] 09-18-2022 History of Present illness Narrative Patient here for First Trimester Screening. See ultrasound report for details. Options for genetic screening and diagnosis discussed with the patient. Patient opts for first trimester screening and the sequential screening protocol. Limitations of screening tests discussed with the patient. Taty Callejas MD documented in this encounter [facility] 09-18-2022 Instructions Paula Ornelas Ma - 09/18/2022 10:25 AM EDT SEQUENTIAL SCREENINGS The [facility] offers sequential screenings for women who [...] It will require an appointment with our vascular technician. This is not an ultrasound performed [...] the above symptoms, contact our office at [phone] and ask to speak with a nurse. After hours, you can call doctors registry at [phone] OR call [facility] at [phone] and ask to have the doctor rehabilitation physician paged. If you consider this an emergency, dial 9- or go to your nearest emergency department. NEED HELP? Are you dealing with a violent or abusive relationship? Are you a victim of rape or sexual assult? Call [facility] ([place]) 24 hour Crisis Hotline: 847.990.6550 or 415-401-1150. MANUAL Your Guide to a Healthy manual is now on-line. Visit [email or web address] ncyGuide to download your free copy SEQUENTIAL TESTING PROCESS Sequential Screen First Trimester Today you are currently: 11w3d weeks 09/18/2022: Ultrasound and blood test. Sequential Screen Second Trimester (16-17 Weeks Gestation) When you are called with your results, the nurse will give the optimal draw dates for the Sequential screen second trimester. Blood testing can be done at any [facility] lab. Please report to the any medical affairs manager office front office help for the Sequential Part 2 requisition and [...] medicine office, for east side please call [phone] or for the West side call [phone] and ask for the the nurse. Thank you. documented in this encounter [facility] 08-20-2022 Note HNO ID: [id number] Author: Erendira Hendricks APRN.CNM Service: ? Author Type: Bowling Floor Manager Type: Progress Notes Filed: 08/20/2022 4:32 PM Note Text: OB point of care ultrasound was performed. See imaging tab for details. Erendira Hendricks APRN.CNM [facility] 08-20-2022 History of Present illness Narrative OB point of care ultrasound was performed. See imaging tab for details. Erendira Hendricks APRN.CNM documented in this encounter [facility] 08-20-2022 Note HNO ID: [id number] Author: Erendira Hendricks APRN.CNM Service: ? Author Type: Bowling Floor Manager Type: Progress Notes Filed: 08/20/2022 2:05 PM [...] use: No Multivitamin with Folic acid: Yes Methodist or heritage: No Would refuse blood transfusion [...] Partner: Name: Rikki Rodriguez Age: 31 Occupation: [employer] Gender: Male History of STDs: None PAST MEDICAL HISTORY Diagnosis Date Abnormal glandular Papanicolaou smear of cervix Abn. Pap smear (cervix), mildl dysplasia Depression FRACTURE 2002 FOOT, BALLET Hiatal hernia Irregular heartbeat depression PAST SURGICAL HISTORY Procedure Laterality Date COLONOSCOPY 11/29/2016 COLONOSCOPY 03/14/2022 COLPOSCOPY CERVIX UPPER/ADJACENT VAGINA [facility]/29/2016 EGD W/O [facility] SPEC VARICIES INJ 03/14/2022 LAPAROSCOPY SURG CHOLECYSTECTOMY 03/17/2019 Cholecystectomy, lap UNSPECIFIED ORAL SURGERY PROCEDURE, BY REPORT [place] [facility] Current Outpatient Medications Medication Sig Dispense [...] headaches during pregnan (more content not included)... [facility] 08-20-2022 Miscellaneous Notes Patient at 7.2 weeks gestation for NOB. See progress note. Erendira Hendricks APRN.CNM documented in this encounter [facility] 08-20-2022 History of Present illness Narrative [...] use: No Multivitamin with Folic acid: Yes Methodist or heritage: No Would refuse blood transfusion [...] Partner: Name: Rikki Rodriguez Age: 31 Occupation: [employer] Gender: Male History of STDs: None PAST MEDICAL HISTORY Diagnosis Date Abnormal glandular Papanicolaou smear of cervix Abn. Pap smear (cervix), mildl dysplasia Depression FRACTURE 2002 FOOT, BALLET Hiatal hernia Irregular heartbeat depression PAST SURGICAL HISTORY Procedure Laterality Date COLONOSCOPY 11/29/2016 COLONOSCOPY 03/14/2022 COLPOSCOPY CERVIX UPPER/ADJACENT VAGINA Colposcopy EGD W/O [facility] SPEC VARICIES INJ 11/29/2016 EGD W/O [facility] SPEC VARICIES INJ 03/14/2022 LAPAROSCOPY SURG CHOLECYSTECTOMY 03/17/2019 Cholecystectomy, lap UNSPECIFIED ORAL SURGERY PROCEDURE, BY REPORT [facility] [facility] Current Outpatient Medications Medication Sig Dispense [...] Herpes SBIRT Angelina Rodriguez was given the 4's screening tool. Angelina answered as follows: OB [...] V22.1, ICD10: Z34.81 (primary diagnosis) - POC STATION DETECTIVE ULTRASOUND - CBC - SYPHILIS TOTAL W/REFLEX - RUBELLA IGG AB - HEP B SURF AG SCRN - HEP C AB IA W/CONF SCRN - HIV 1 2 COMBO(AG/AB),WITH REFLEX TO DIFFERENTIATION - TYPE + SCREEN - GC/CHLAMYDIA DNA DET - URINE CULTURE - OBSTETRIC ULTRASOUND WHI - NUCHAL TRANSLUCENCY WHI - CELL COVERER - HGB A1C - PAP TEST 2. [...] Erendira Hendricks APRN.CNM documented in this encounter [facility] 08-20-2022 Instructions Tamiko Barragan MA - 08/20/2022 12:57 PM EDT Please select the following link to access the [facility] Your Guide to a Healthy . [email or web address] documented in this encounter [facility] 08-09-2022 Note HNO ID: [id number] Author: Ange Barba RN Service: ? Author [...] None, Apgar5: None, Living: None, Comments: None [facility] 08-03-2022 Miscellaneous Notes Patient notified and and [...] hcg quants drawn. documented in this encounter [facility] 06-14-2022 Note HNO ID: [id number] Author: Orly Negro PA-C Service: ? Author Type: Physician Expressive Music Therapist Type: Progress Notes Filed: 06/14/2022 9:47 AM Note Text: This note was created using MediaPassriter. Subjective Angelina Rodriguez is a 32 year [...] COLPOSCOPY CERVIX UPPER/ADJACENT VAGINA Colposcopy EGD W/O [facility] SPEC VARICIES INJ 11/29/2016 EGD W/O [facility] SPEC VARICIES INJ 03/14/2022 LAPAROSCOPY SURG CHOLECYSTECTOMY 03/17/2019 Cholecystectomy, lap UNSPECIFIED ORAL SURGERY PROCEDURE, BY REPORT [facility] [facility] FAMILY HISTORY Problem Relation Age of [...] hoarseness. - 2019 CORONAVIRUS Orly Negro PA-C [facility] 06-14-2022 History of Present illness Narrative This note was created using MediaPass[employer]. Subjective Angelina Rodriguez is a 32 year [...] COLPOSCOPY CERVIX UPPER/ADJACENT VAGINA Colposcopy EGD W/O [facility] SPEC VARICIES INJ 11/29/2016 EGD W/O [facility] SPEC VARICIES INJ 03/14/2022 LAPAROSCOPY SURG CHOLECYSTECTOMY 03/17/2019 Cholecystectomy, lap UNSPECIFIED ORAL SURGERY PROCEDURE, BY REPORT [place] [facility] FAMILY HISTORY Problem Relation Age of [...] Orly Negro PA-C documented in this encounter [facility] 04-03-2022 Note HNO ID: [id number] Author: Radha Segura MD Service: ? Author [...] COLPOSCOPY CERVIX UPPER/ADJACENT VAGINA Colposcopy EGD W/O [facility] SPEC VARICIES INJ 11/29/2016 EGD W/O [facility] SPEC VARICIES INJ 03/14/2022 LAPAROSCOPY SURG CHOLECYSTECTOMY 03/17/2019 Cholecystectomy, lap UNSPECIFIED ORAL SURGERY PROCEDURE, BY REPORT [place] [facility] Current Outpatient Medications Medication Sig acyclovir [...] History Tobacco Use Smoking status: Former Years: .00 Types: Cigarettes Quit date: 01/02/2018 Years since [...] entered by the nurse and reviewed by ks Nursing Notes: Dodie Buchanan LPN 04/03/2022 1:09 [...] Respiratory: The p (more content not included)... [facility] 04-03-2022 History of Present illness Narrative Angelina Connor 1990 REFERRING PHYSICIAN: Thuy Gilbert PA-C CHIEF [...] [facility] SPEC VARICIES INJ 11/29/2016 EGD W/O [facility] SPEC VARICIES INJ 03/14/2022 LAPAROSCOPY SURG CHOLECYSTECTOMY 03/17/2019 Cholecystectomy, lap UNSPECIFIED ORAL SURGERY PROCEDURE, BY REPORT [facility] [facility] Current Outpatient Medications Medication Sig acyclovir [...] entered by the nurse and reviewed by ks Nursing Notes: Dodie Buchanan LPN 04/03/2022 1:09 [...] then she should be referred to a director visual The patient acknowledges above. I have answered [...] of any pertinent laboratory studies/radiological imaging/medical records, [id number] patient care, obtaining oral medical history from the patient in this encounter, counseling and educating the patient/family/caregiver, and ordering and/or scheduling of medications/tests/procedures, and completing appropriate medical documentation. Radha Segura MD documented in this encounter [facility] 04-03-2022 Instructions Radha Segura MD - [...] gives you gas documented in this encounter [facility] 04-03-2022 Nurse Note REVIEW OF SYSTEMS: [...] Dodie Buchanan LPN documented in this encounter [facility] 03-30-2022 Miscellaneous Notes Called and left message for patient to call office back, currently has appointment with Dr Cerrato on 04/03/22 and had been seeing Dr Segura in office previously. Dr Segura did the patients colonoscopy and EGD on 03/14/22. Does patient want to be rescheduled with Dr Segura instead of Dr Cerrato? documented in this encounter [facility] 03-27-2022 History of Present illness Narrative [...] [address] PERFORMED: No IV SITE: PA only - not applicable, oral or physician administered agents given to patient POST EXAM PIV STATUS: Not applicable PROCEDURE TYPE: NM GET: 1.1 mCi Tc99m SULFUR COLLOID was administered orally via 4 ounces of Egg Beaters,2 pieces of toast, 1 ounce of jelly with 8 ounces of water orally ADMINISTRATION TIME: 9:55 PATIENT DISCHARGED TO: Ambulatory patient, left PA department area. A Diagnostic radioactive procedure has taken place, with no further precautions necessary other than routine body substance precautions. More information regarding radiation safety can be found using this link: [email or web address] [email or web address] SIGNATURE: ALBERTINA Borja PATIENT NAME: Angelina Rodriguez DATE: March 27, 2022 TIME: 10:27 AM PAGER/CONTACT #: documented in this encounter [facility] 03-22-2022 Instructions Thuy Gilbert PA-C - [...] possibly form bezoars. documented in this encounter [facility] 03-22-2022 History of Present illness Narrative This is a virtual visit using [employer] video visit. It required patient-provider interaction for [...] active or microscopic colitis Last OV with ks 03/06/2022: Assessment/Plan (R10.84) Generalized abdominal pain (primary [...] COLPOSCOPY CERVIX UPPER/ADJACENT VAGINA Colposcopy EGD W/O [facility] SPEC VARICIES INJ 11/29/2016 EGD W/O [facility] SPEC VARICIES INJ 03/14/2022 LAPAROSCOPY SURG CHOLECYSTECTOMY 03/17/2019 Cholecystectomy, lap UNSPECIFIED ORAL SURGERY PROCEDURE, BY REPORT [place] [facility] FAMILY HISTORY Problem Relation Age of [...] with more than 50% of the total [id number] time of the visit in counseling / coordination of care. I have confirmed and edited as necessary, the PFSH and ROS obtained by others. Thuy Gilbert PA-C March 22, 2022 10:36 AM documented in this encounter [facility] 03-14-2022 Nurse Note Arrived in phase II via cart. Left lateral position. Sedated, but responds to verbal stimuli. Color normal; skin warm and dry. Respirations wnl and unlabored. Abdomen soft and with + bowel sounds in quads X 4. Patient resting comfortably. Family at bedside. Esthela Marte RN documented in this encounter [facility] 03-14-2022 History and physical note UPDATED [...] for internal providers or letter via the [employer] for external providers. HPI: Angelina [...] COLPOSCOPY CERVIX UPPER/ADJACENT VAGINA Colposcopy EGD W/O [facility] SPEC VARICIES INJ 11/29/2016 LAPAROSCOPY SURG CHOLECYSTECTOMY 03/17/2019 Cholecystectomy, lap UNSPECIFIED ORAL SURGERY PROCEDURE, BY REPORT [facility] [facility] Allergies: ALLERGIES ALLERGIES Allergen Reactions Latex [...] for internal providers or letter via the [employer] for external providers. HPI: Angelina [...] EGD W/O [facility] SPEC VARICIES INJ 11/29/2016 LAPAROSCOPY SURG CHOLECYSTECTOMY 03/17/2019 Cholecystectomy, lap UNSPECIFIED ORAL SURGERY PROCEDURE, BY REPORT [facility] [facility] Allergies: ALLERGIES ALLERGIES Allergen Reactions Latex [...] no further questions. documented in this encounter [facility] 03-09-2022 Instructions Kenny Mi APRN.ASSISTANT SALES CENTER MANAGER - 03/09/2022 10:11 AM EST Ear wax [...] any) may work best for you. References [employer]--Head and Neck [employer]. Earwax Accessed 02/18/2013. [employer]. Nothing Smaller Than Your Elbow, Please Accessed 02/18/2013. Copyright 8271-3454 The [facility]. All rights reserved This information is provided by the [facility] and is not intended to replace the medical advice of your doctor or health care provider. Please consult your health care provider for advice about a specific medical condition. For additional health information, please contact the Center for Consumer Health Information at the [facility] or toll-free extension [phone]. If you prefer, you may visit [email or web address] or [email or web address]. This document was last reviewed on: 2016 documented in this encounter [facility] 03-09-2022 History of Present illness Narrative Subjective HPI Nontoxic female presents to Urgent care chief complaint right ear blockage. Patient states concerned about cerumen impaction. Has had cerumen impaction in past this feels similar. Has not used any OTC medications. Denies any significant pain. States hearing is muffled. Additionally has had increasing abdominal pain. Is currently under care of director visual for this complaint. Has had some loose [...] COLPOSCOPY CERVIX UPPER/ADJACENT VAGINA Colposcopy EGD W/O [facility] SPEC VARICIES INJ 11/29/2016 LAPAROSCOPY SURG CHOLECYSTECTOMY 03/17/2019 Cholecystectomy, lap UNSPECIFIED ORAL SURGERY PROCEDURE, BY REPORT [place] [facility] ALLERGIES Latex and Adhesive Tape (Rosins) [...] have a colonoscopy scheduled upcoming. Will contact director visual and discuss increasing abdominal pain. Additionally patient was diagnosed with cerumen impaction. Ears irrigated successfully by LABORATORY TECHNOLOGIST. Patient tolerated procedure well. TM pearly jarvis [...] of care. This note was generated using LawP[employer] software. It may contain errors in wording, punctuation, or spelling. Kenny Mi APRN.MONCIA documented in this encounter [facility] 12-29-2021 History of Present illness Narrative [...] 2021 11:50 AM documented in this encounter [facility] 12-26-2021 Instructions Nisha Sullivan APRN.MONICA - 12/26/2021 1:56 PM EDT Get labs. Get stool sample. Schedule thyroid ultrasound. Schedule w/ GI. Continue pantoprazole daily. Start pepcid daily. documented in this encounter [facility] 12-26-2021 History of Present illness Narrative [...] lap UNSPECIFIED ORAL SURGERY PROCEDURE, BY REPORT [facility] [facility] ALLERGIES Latex and Adhesive Tape (Rosins) [...] as needed for worsening/no improvement. Nisha Sullivan APRN.ASSISTANT SALES CENTER MANAGER This note was partially generated using LawP[employer] voice recognition system. Note was reviewed for accuracy. There may be minor misspellings or grammar miscues with [employer] voice recognition. documented in this encounter [facility] 12-19-2021 History of Present illness Narrative Refill ordered. Patient here for weight and BP check for third Adipex prescription. Patient doing well. BP WNL. Romy Mcgovern RN documented in this encounter [facility] 12-06-2021 History of Present illness Narrative [...] once, Ibuprofen, Tylenol Had second dose of [employer] COVID-19 vaccine in June 2020. Has not [...] Angel Baird MD documented in this encounter [facility] 11-20-2021 Miscellaneous Notes Patient seen for [...] Romy Mcgovern RN documented in this encounter [facility] 11-20-2021 History of Present illness Narrative Patient here for weight and blood pressure check one month after starting Adipex. Patient experiencing dry mouth with medication. Overall doing well. BP WNL. Patient aware Dr. Castanon is out of the office today. Will update provider tomorrow. Romy Mcgovern RN documented in this encounter [facility] 10-25-2021 History of Present illness Narrative This note was created using BIXIter. Subjective Angelina Rodriguez is a 31 year [...] FRACTURE 2001 FOOT, BALLET Irregular heartbeat depression Current Outpatient [...] lap UNSPECIFIED ORAL SURGERY PROCEDURE, BY REPORT [place] [facility] FAMILY HISTORY Problem Relation Age of [...] Orly Negro PA-C documented in this encounter [facility] 10-24-2021 History of Present illness Narrative [...] L3 SAB0 IAB0 Ectopic0 Multiple0 Live Births3 Clinical Psychologist Licensed History LMP: 10/16/2021, Having periods Age at Menarche: Age at First : Age at Menopause: Clinical Psychologist Licensed History Comments: Sexual Activity: Yes; Male Contraception: PAST MEDICAL HISTORY Diagnosis Date Abnormal glandular Papanicolaou smear of cervix Abn. Pap smear (cervix), mildl dysplasia Depression FRACTURE 2001 FOOT, BALLET Irregular heartbeat depression PAST SURGICAL HISTORY Procedure Laterality Date COLPOSCOPY CERVIX UPPER/ADJACENT VAGINA Colposcopy LAPAROSCOPY SURG CHOLECYSTECTOMY 03/17/2019 Cholecystectomy, lap UNSPECIFIED ORAL SURGERY PROCEDURE, BY REPORT [facility] [facility] FAMILY HISTORY Problem Relation Age of [...] external genitalia normal, normal Bartholin's glands, urethra, Prosperity's glands, no vulvar lesions, no cervical lesions, [...] genetic screening was done. Ramandeep Darnell MD [place] offered: Patient declines. documented in this encounter [facility] 09-11-2021 Miscellaneous Notes Called patient and has scheduled an appointment for her annual and to discuss getting a mammo. ..Romy Rodriguez Request received from pharmacy. Last seen in office on 03/30/20. PSS: Please contact patient to schedule annual exam. Dinah Perez RN documented in this encounter [facility] 08-07-2021 Miscellaneous Notes Please see if patient ran out of her medication for her stomach. If she has been taking and asking for additional add on medication she needs to be seen in the office to discuss. Thanks, Fabi Hooks APRN.CNP documented in this encounter [facility] 06-09-2021 Miscellaneous Notes Called and left a detailed voicemail notifying patient of providers message. Hospital phone number was left in case patient had any questions. Tamiko Andersen RN Please call patient and let her know her blood work was in acceptable limits. Fabi Hooks APRN.CNP documented in this encounter [facility] documented as of this encounter (statuses as of 01/05/2023) [facility]07-[facility]-2019 History of Past illness Narrative* Problem [...] TKRN Dizziness 06/03/2017 08/11/2018 Overview: 05/27/17 [facility] ED dizziness. CT brain WO WNL. RUQ [...] of this encounter (statuses as of 01/06/2023) [facility]2019 History of Past illness Narrative* Problem [...] TKRN Dizziness 06/03/2017 08/11/2018 Overview: 05/27/17 [facility] ED dizziness. CT brain WO WNL. RUQ [...] of this encounter (statuses as of 01/06/2023) [facility]2019 History of Past illness Narrative* Problem [...] TKRN Dizziness 06/03/2017 08/11/2018 Overview: 05/27/17 [facility] ED dizziness. CT brain WO WNL. RUQ [...] of this encounter (statuses as of 01/17/2023) [facility] History of Past illness Narrative* Problem [...] TKRN Dizziness 06/03/2017 08/11/2018 Overview: 05/27/17 [facility] ED dizziness. CT brain WO WNL. RUQ abdominal pain 08/31/2016 9 Overview: 08/17/16 RUQ WNL. Chronic left-sided low [...] to 1:10,000. Based on these results Dr. Satnos's recommendation is for patient to follow-up with [...] of this encounter (statuses as of 01/31/2023) [facility] History of Past illness Narrative* Problem [...] TKRN Dizziness 06/03/2017 08/11/2018 Overview: 05/27/17 [facility] ED dizziness. CT brain WO WNL. RUQ [...] of this encounter (statuses as of 02/16/2023) [facility] History of Past illness Narrative* Problem [...] importance of avoiding exposure/outbreak near delivery. Debra Wganer MD UTI (urinary tract infection ) during 03/13/2018 08/04/2019 Overview: 06/23/18-UTI positive ecoli, treated with Macrobid, ALINE next visit. Beata Mackey APRN.JULIEN 03/13/2018Patient treated for UTI 02/23/2018. She denies any heart structural abnormalities. TKRN Patient requested diagnostic testing 03/13/2018 08/11/2018 Overview: 03/13/2018Patient desires early screening in with sequential testing. TKRN Dizziness 06/03/2017 08/11/2018 Overview: 05/27/17 [facility] ED dizziness. CT brain WO WNL. RUQ [...] of this encounter (statuses as of 02/16/2023) [facility] History of Past illness Narrative* Problem [...] importance of avoiding exposure/outbreak near delivery. Debra L Darren, MD Obesity in 03/13/2018 08/04/2019 Overview: 03/13/2018She [...] TKRN Dizziness 06/03/2017 08/11/2018 Overview: 05/27/17 [facility] ED dizziness. CT brain WO WNL. 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 Has never had outbreak, oral or genital. Will start prophylaxis at 36 weeks. Beata Mackey APRN.BRETRANDM Supervision of other high risk pregnancies, thir [...] with Macrobid, ALINE next visit. Beata Mackey APRN.BERTRANDM 03/13/2018Patient treated for UTI 02/23/2018. She denies [...] TKRN Dizziness 06/03/2017 08/11/2018 Overview: 05/27/17 [facility] ED dizziness. CT brain WO WNL. RUQ [...] of this encounter (statuses as of 08/07/2021) [facility] History of Past illness Narrative* Problem [...] importance of avoiding exposure/outbreak near delivery. Debra Wanger MD Obesity in 03/13/2018 08/04/2019 Overview: 03/13/2018She [...] TKRN Dizziness 06/03/2017 08/11/2018 Overview: 05/27/17 [facility] ED dizziness. CT brain WO WNL. RUQ [...] growth ultrasound & testing, appt scheduled with Dr.Osman - KK Supervision of normal first 07/25/2012 [...] of this encounter (statuses as of 09/12/2021) [facility] History of Past illness Narrative* Problem [...] TKRN Dizziness 06/03/2017 08/11/2018 Overview: 05/27/17 [facility] ED dizziness. CT brain WO WNL. RUQ [...] of this encounter (statuses as of 10/24/2021) [facility] History of Past illness Narrative* Problem [...] TKRN Dizziness 06/03/2017 08/11/2018 Overview: 05/27/17 [facility] ED dizziness. CT brain WO WNL. RUQ [...] of this encounter (statuses as of 10/25/2021) [facility] History of Past illness Narrative* Problem [...] TKRN Dizziness 06/03/2017 08/11/2018 Overview: 05/27/17 [facility] ED dizziness. CT brain WO WNL. RUQ [...] of this encounter (statuses as of 11/08/2021) [facility] History of Past illness Narrative* Problem [...] TKRN Dizziness 06/03/2017 08/11/2018 Overview: 05/27/17 [facility] ED dizziness. CT brain WO WNL. RUQ [...] of this encounter (statuses as of 11/20/2021) [facility] History of Past illness Narrative* Problem [...] TKRN Dizziness 06/03/2017 08/11/2018 Overview: 05/27/17 [facility] ED dizziness. CT brain WO WNL. RUQ [...] of this encounter (statuses as of 11/21/2021) [facility] History of Past illness Narrative* Problem [...] TKRN Dizziness 06/03/2017 08/11/2018 Overview: 05/27/17 [facility] ED dizziness. CT brain WO WNL. RUQ [...] of this encounter (statuses as of 12/06/2021) [facility] History of Past illness Narrative* Problem [...] TKRN Dizziness 06/03/2017 08/11/2018 Overview: 05/27/17 [facility] ED dizziness. CT brain WO WNL. RUQ [...] of this encounter (statuses as of 12/19/2021) [facility] History of Past illness Narrative* Problem [...] TKRN Dizziness 06/03/2017 08/11/2018 Overview: 05/27/17 [facility] ED dizziness. CT brain WO WNL. RUQ [...] of this encounter (statuses as of 12/26/2021) [facility] History of Past illness Narrative* Problem [...] TKRN Dizziness 06/03/2017 08/11/2018 Overview: 05/27/17 [facility] ED dizziness. CT brain WO WNL. RUQ [...] of this encounter (statuses as of 03/10/2022) [facility] History of Past illness Narrative* Problem [...] TKRN Dizziness 06/03/2017 08/11/2018 Overview: 05/27/17 [facility] ED dizziness. CT brain WO WNL. RUQ [...] of this encounter (statuses as of 03/22/2022) [facility] History of Past illness Narrative* Problem [...] TKRN Dizziness 06/03/2017 08/11/2018 Overview: 05/27/17 [facility] ED dizziness. CT brain WO WNL. RUQ [...] of this encounter (statuses as of 03/28/2022) [facility] History of Past illness Narrative* Problem [...] TKRN Dizziness 06/03/2017 08/11/2018 Overview: 05/27/17 [facility] ED dizziness. CT brain WO WNL. RUQ [...] and level II anatomy scan after 18wks. 05/24/2013positive 2nd trimester screen for ONTD. Referral to Dr Kandi Peck Papanicolaou smear of cervix with atypical squamous cells cannot exclude high grade squamous intraepithelial lesion (ASC-H) 03/15/2011 05/29/2012 Cervical high risk human pap illomavirus (HPV) DNA test positive 03/15/2011 05/29/2012 General counseling for prescription of oral cont raceptives 03/15/2011 05/29/2012 documented as of this encounter (statuses as of 04/05/2022) [facility] History of Past illness Narrative* Problem [...] TKRN Dizziness 06/03/2017 08/11/2018 Overview: 05/27/17 [facility] ED dizziness. CT brain WO WNL. RUQ [...] of this encounter (statuses as of 06/15/2022) [facility] History of Past illness Narrative* Problem [...] TKRN Dizziness 06/03/2017 08/11/2018 Overview: 05/27/17 [facility] ED dizziness. CT brain WO WNL. RUQ [...] of this encounter (statuses as of 06/22/2022) [facility] of Past illness Narrative* Problem [...] TKRN Dizziness 06/03/2017 08/11/2018 Overview: 05/27/17 [facility] ED dizziness. CT brain WO WNL. RUQ [...] of this encounter (statuses as of 08/03/2022) [facility] History of Past illness Narrative* Problem [...] TKRN Dizziness 06/03/2017 08/11/2018 Overview: 05/27/17 [facility] ED dizziness. CT brain WO WNL. RUQ [...] of this encounter (statuses as of 08/20/2022) [facility] History of Past illness Narrative* Problem [...] TKRN Dizziness 06/03/2017 08/11/2018 Overview: 05/27/17 [facility] ED dizziness. CT brain WO WNL. RUQ [...] of this encounter (statuses as of 08/21/2022) [facility] History of Past illness Narrative* Problem [...] TKRN Dizziness 06/03/2017 08/11/2018 Overview: 05/27/17 [facility] ED dizziness. CT brain WO WNL. RUQ [...] of this encounter (statuses as of 09/18/2022) [facility] History of Past illness Narrative* Problem [...] TKRN Dizziness 06/03/2017 08/11/2018 Overview: 05/27/17 [facility] ED dizziness. CT brain WO WNL. RUQ [...] of this encounter (statuses as of 09/19/2022) [facility] History of Past illness Narrative* Problem [...] TKRN Dizziness 06/03/2017 08/11/2018 Overview: 05/27/17 [facility] ED dizziness. CT brain WO WNL. RUQ [...] of this encounter (statuses as of 10/05/2022) [facility] History of Past illness Narrative* Problem [...] TKRN Dizziness 06/03/2017 08/11/2018 Overview: 05/27/17 [facility] ED dizziness. CT brain WO WNL. RUQ [...] of this encounter (statuses as of 11/06/2022) [facility] History of Past illness Narrative* Problem [...] TKRN Dizziness 06/03/2017 08/11/2018 Overview: 05/27/17 [facility] ED dizziness. CT brain WO WNL. RUQ [...] of this encounter (statuses as of 11/07/2022) [facility] History of Past illness Narrative* Problem [...] TKRN Dizziness 06/03/2017 08/11/2018 Overview: 05/27/17 [facility] ED dizziness. CT brain WO WNL. RUQ [...] of this encounter (statuses as of 11/15/2022) [facility] History of Past illness Narrative* Problem [...] TKRN Dizziness 06/03/2017 08/11/2018 Overview: 05/27/17 [facility] ED dizziness. CT brain WO WNL. RUQ [...] of this encounter (statuses as of 11/15/2022) [facility] Epigastric discomfort Abdominal pain, epigastric [facility] Diagnosis Encounter for gynecological examination [...] unspecified obesity type documented in this encounter [facility] note* Diagnosis Bilateral impacted cerumen- Primary Impacted cerumen documented in this encounter [facility] note* Diagnosis DUB (dysfunctional uterine bleeding)- Primary Other disorder of menstruation and other abnormal bleeding from female genital tract documented in this encounter [facility] note* Diagnosis Class 2 obesity without serious comorbidity with body mass index (BMI) of 37.0 to 37.9 in adult, unspecified obesity type- Primary documented in this encounter [facility] note* Diagnosis Class 2 obesity without serious comorbidity with body mass index (BMI) of 37.0 to 37.9 in adult, unspecified obesity type- Primary Class 2 obesity without serious comorbidity with body mass index (BMI) of 39.0 to 39.9 in adult, unspecified obesity type documented in this encounter [facility] note* Diagnosis URI, acute- Primary Acute upper respiratory infections of unspecified site documented in this encounter [facility] note* Diagnosis Class 2 obesity without serious comorbidity with body mass index (BMI) of 35.0 to 35.9 in adult, unspecified obesity type- Primary Class 2 obesity without serious comorbidity with body mass index (BMI) of 37.0 to 37.9 in adult, unspecified obesity type documented in this encounter [facility] note* Diagnosis Epigastric discomfort- Primary Abdominal pain, epigastric Nausea Nausea alone Diarrhea, unspecified type Enlarged thyroid Goiter, unspecified documented in this encounter [facility] note* Diagnosis Generalized abdominal pain- Primary Abdominal pain, generalized Bilateral impacted cerumen Impacted cerumen documented in this encounter [facility] note* Diagnosis Generalized abdominal pain- Primary Abdominal pain, generalized Hiatal hernia Diaphragmatic hernia without mention of obstruction or gangrene Nausea Nausea alone Early satiety documented in this encounter [facility] note* Diagnosis Generalized abdominal pain Abdominal pain, generalized Nausea Nausea alone Early satiety documented in this encounter [facility] note* Diagnosis Hiatal hernia Diaphragmatic hernia without mention of obstruction or gangrene Generalized abdominal pain Abdominal pain, generalized documented in this encounter [facility] note* Diagnosis Viral URI with cough- Primary Acute upper respiratory infections of unspecified site documented in this encounter [facility] note* Diagnosis Positive test- Primary examination or test, positive result [facility] Diagnosis Encounter for supervision of other normal in first trimester- Primary Obesity during Screening for cervical cancer Screening for malignant neoplasm of the cervix Special screening examination for human papillomavirus (HPV) Vaginal discharge Leukorrhea, not specified as infective 7 weeks gestation of state, incidental Hiatal hernia Diaphragmatic hernia without mention of obstruction or gangrene [facility] Diagnosis with uncertain dates in first trimester- Primary documented [facility] this encounter [facility] Diagnosis Encounter for supervision of other normal in first trimester- Primary 11 weeks gestation of state, incidental documented [facility] this encounter [facility] Diagnosis Encounter for (NT) nuchal translucency scan- Primary Other specified screening Encounter for supervision of other normal in first trimester Obesity during 11 weeks gestation of state, incidental documented [facility] this encounter [facility] Diagnosis Gastroesophageal reflux disease, unspecified whether esophagitis present- Primary documented in this encounter [facility] Diagnosis 18 weeks gestation of - Primary state, incidental Cramping affecting , antepartum Spotting during Spotting complicating , unspecified as to episode of care or not applicable documented [facility] this encounter [facility] Diagnosis Obesity in - Primary Obesity complicating , childbirth, or the puerperium, unspecified as to episode of care or not applicable Encounter for supervision of other normal in second trimester 19 weeks gestation of state, incidental Vaginal odor Unspecified symptom associated with female genital organs Need for influenza vaccination Need for prophylactic vaccination and inoculation against influenza documented in this encounter [facility] Diagnosis Encounter for anatomic survey- Primary Encounter for supervision of other normal in second trimester 19 weeks gestation of state, incidental Obesity affecting in second trimester, unspecified obesity type documented in this encounter [facility] Diagnosis Vaginal discharge in in second trimester- Primary Vulvar irritation Other specified noninflammatory disorder of vulva and perineum documented in this encounter [facility]* Diagnosis Enlarged thyroid Goiter, unspecified documented in this encounter [facility] Diagnosis Generalized abdominal pain- Primary Abdominal pain, generalized Bilious vomiting with nausea Alternating constipation and diarrhea Other symptoms involving digestive system Elevated fecal calprotectin documented [facility] this encounter [facility] Diagnosis Encounter for supervision of other normal in third trimester- Primary 28 weeks gestation of state, incidental Need for vaccination Need for prophylactic vaccination and inoculation against unspecified single disease Obesity affecting in third trimester, unspecified obesity type Request for sterilization documented in this encounter [facility] Diagnosis Obesity affecting in third trimester, unspecified obesity type- Primary Encounter for supervision of other normal in third trimester 30 weeks gestation of state, incidental Need for vaccination Need for prophylactic vaccination and inoculation against unspecified single disease documented in this encounter [facility] Diagnosis Encounter for supervision of other normal in third trimester- Primary 33 weeks gestation of state, incidental Uterine size-date discrepancy, third trimester Obesity affecting in third trimester, unspecified obesity type Anxiety Anxiety state, unspecified documented in this encounter [facility] Diagnosis Encounter for ultrasound to check growth- Primary Encounter for routine screening for malformation using ultrasonics Obesity affecting in third trimester, unspecified obesity type 33 weeks gestation of state, incidental documented in this encounter [facility] for referral (narrative)* Diagnostic Procedure Only (Routine) - Authorized Specialty Diagnoses / Procedures Referred By Vidya t Referred To Contact [facility] Diagnoses Abnormal uterine bleeding (AUB) Procedures PELVIC US WHI US PELVIC NONOBSTETRIC REAL-TIME IMAGE COMPLETE Ramandeep Ayon MD [address] [place] [address] [address] Referral ID Status Reason Start Date Expiration Date Visits Requested Visits Authorized [id number] Authorized Auto-Generat ed Referral 10/24/2021 10/24/2022 1 1 [facility] for referral (narrative)* Diagnostic Procedure Only (Routine) - Authorized Specialty Diagnoses / Procedures Referred By Vidya t Referred To Contact [facility] Diagnoses Enlarged thyroid Procedures US THYROID/PARATHYROID US SOFT TISSUE HEAD & NECK REAL TIME IMGE Nisha Paulson, YOUTH SPECIALIST.[employer] [address] [place] [address] [facility] Referral ID Status Reason Start Date Expiration Date Visits Requested Visits Authorized [id number] Authorized Auto-Generat ed Referral 2 01/25/2023 1 1 * Consult, Test, Treat (Routine) - Authorized Specialty Diagnoses / Procedures Referred By Contac t Referred To Contact Gastroenterology Diagnoses Epigastric discomfort Nausea Diarrhea, unspecified type Procedures CONSULT TO GASTROENTEROLOGY OFFICE/OUTPATIENT [facility] 60-74 MINUTES Nisha Sullivan APRN.CNP [address] [place] [address] Referral ID Status Reason Start Date Expiration Date Visits Requested Visits Authorized [id number] Authorized PCP Requested Referral 2 12/26/2022 1 1 [facility] for referral (narrative)* Diagnostic Procedure Only (Routine) - Authorized Specialty Diagnoses / Procedures Referred By Contac t Referred To Contact MOLECULAR & FUNCTIONAL IMAGING Diagnoses Generalized abdominal pain Nausea Early satiety Procedures NM GASTRIC EMPTYING SOLID GASTRIC EMPTYING STUDY Thuy Gilbert PA-C [address] [place] [address] Molecular & Functional Imaging [address] [place] [address] Referral ID Status Reason Start Date Expiration Date Visits Requested Visits Authorized [id number] Authorized Auto-Generat ed Referral 03/22/2022 04/21/2023 1 1 * Consult, Test, Treat (Routine) - Authorized Specialty Diagnoses / Procedures Referred By Contac t Referred To Contact General Surgery Diagnoses Hiatal hernia Generalized abdominal pain Procedures CONSULT TO GENERAL SURGERY OFFICE/OUTPATIENT [facility] 60-74 MINUTES Thuy Gilbert PA-C [address] [place] [address] Referral ID Status Reason Start Date Expiration Date Visits Requested Visits Authorized [id number] Authorized PCP Requested Referral 03/22/2022 03/22/2023 1 1 [facility] for referral (narrative)* Diagnostic Procedure Only (Routine) - Closed Specialty Diagnoses / Procedures Referred By Contac t Referred To Contact MOLECULAR & FUNCTIONAL IMAGING Diagnoses Generalized abdominal pain Nausea Early satiety Procedures NM GASTRIC EMPTYING SOLID GASTRIC EMPTYING STUDY Thuy Gilbert PA-C [address] [place] [address] Molecular & Functional Imaging [address] [place] [address] Referral ID Status Reason Start Date Expiration Date V isits Requested Visits Authorized [id number] Closed Auto-Generate d Referral 03/22/2022 04/21/2023 1 1 [facility] for referral (narrative)* Diagnostic Procedure Only (Routine) - Authorized Specialty Diagnoses / Procedures Referred By Vidya t Referred To Contact [facility] Diagnoses Encounter for supervision of other normal in first trimester Obesity during Procedures NUCHAL TRANSLUCENCY WHI US NUCHAL TRANSLUCENCY GESTATION Erendira Hendricks APRN.CNM [address] [place] [address] [facility] [address] [place] [address] Referral ID Status Reason Start Date Expiration Date Visits Requested Visits Authorized [id number] Authorized Auto-Generat ed Referral 08/20/2022 08/20/2023 1 1 * Diagnostic Procedure Only (Routine) - Pending Review Specialty Diagnoses / Procedures Referred By Contmanda t Referred To Contact [facility] Diagnoses Encounter for supervision of other normal in first trimester Obesity during Procedures OBSTETRIC ULTRASOUND WHI US PREG UTERUS AFTER 1ST TRIMEST GESTATION Erendira Hendricks APRN.CNM [address] [place] [address] [facility] [facility] [address] [place] [id number] Referral ID Status Reason Start Date Expiration Date Visits Requested Visits Authorized [id number] Pending Review Auto-Generat ed Referral 08/20/2022 08/20/2023 1 1 [facility] for referral (narrative)* Diagnostic Procedure Only (Routine) - Closed Specialty Diagnoses / Procedures Referred By Contac t Referred To Contact US IMAGING Diagnoses Enlarged thyroid Procedures US THYROID/PARATHYROID US SOFT TISSUE HEAD & NECK REAL TIME IMGE Nisha Paulson APRN.CNP [address] [place] [address] [place] [address] Referral ID Status Reason Start Date Expiration Date V isits Requested Visits Authorized [id number] Closed Auto-Generate d Referral 12/26/2021 01/25/2023 1 1 [facility] for referral (narrative)* Outpatient Procedure (Routine) - Closed Specialty Diagnoses / Procedures Referred By Contac t Referred To Contact [facility] Diagnoses Generalized abdominal pain Alternating constipation and diarrhea Elevated fecal calprotectin Procedures COLONOSCOPY DIAGNOSTIC COLONOSCOPY FLX DX W/COLLJ SPEC WHEN PFRMD Thuy Benavides PA-C [address] [place] [address] [facility] [place] [address] [place] [id number] Referral ID Status Reason Start Date Expiration Date V isits Requested Visits Authorized [id number] Closed Auto-Generate d Referral 03/06/2022 03/06/2023 1 1 * Outpatient Procedure (Routine) - Closed Specialty Diagnoses / Procedures Referred By Contac t Referred To Contact [facility] Diagnoses Generalized abdominal pain Bilious vomiting with nausea Procedures EGD DIAGNOSTIC ESOPHAGOGASTRODUODENOS COPY TRANSORAL DIAGNOSTIC Thuy Benavides PA-C [address] [facility] [place] [address] [facility] [place] [address] [place] [id number] Referral ID Status Reason Start Date Expiration Date V isits Requested Visits Authorized [id number] Closed Auto-Generate d Referral 03/06/2022 03/06/2023 1 1 [facility] for referral (narrative)* Diagnostic Procedure Only (Routine) - Authorized Specialty Diagnoses / Procedures Referred By Contac t Referred To Contact [facility] Diagnoses 28 weeks gestation of Obesity affecting in third trimester, unspecified obesity type Procedures OBSTETRIC ULTRASOUND WHI US PREG UTERUS AFTER 1ST TRIMEST GESTATION Taty Callejas MD [facility] [place] [address] [address] [address] [place] [address] Referral ID Status Reason Start Date Expiration Date Visits Requested Visits Authorized [id number] Authorized Auto-Generat ed Referral 01/17/2024 1 1 [facility] for visit Narrative* Diagnostic Procedure Only (Routine) - Closed Specialty Diagnoses / Procedures Referred By Contac t Referred To Contact MOLECULAR & FUNCTIONAL IMAGING Diagnoses Generalized abdominal pain Nausea Early satiety Procedures NM GASTRIC EMPTYING SOLID GASTRIC EMPTYING STUDY Thuy Gilbert PA-C [address] [facility] [place] [address] Molecular & Functional Imaging [address] [place] [address] Referral ID Status Reason Start Date Expiration Date V isits Requested Visits Authorized [id number] Closed Auto-Generate d Referral 03/22/2022 04/21/2023 1 1 [facility] for visit Narrative* Diagnostic Procedure Only (Routine) - Closed Specialty Diagnoses / Procedures Referred By Contmanda t Referred To Contact US IMAGING Diagnoses Enlarged thyroid Procedures US THYROID/PARATHYROID US SOFT TISSUE HEAD & NECK REAL TIME IMGE DOCM Nisha Sullivan, YOUTH SPECIALIST.ASSIST[employer] MANAGER [address] [place] [address] [place] [address] Referral ID Status Reason Start Date Expiration Date V isits Requested Visits Authorized [id number] Closed Auto-Generate d Referral 12/26/2021 01/25/2023 1 1 [facility] Outpatient Procedure (Routine) - Closed Specialty Diagnoses / Procedures Referred By Contmanda t Referred To Contact [facility] Diagnoses Generalized abdominal pain Alternating constipation and diarrhea Elevated fecal calprotectin Procedures COLONOSCOPY DIAGNOSTIC COLONOSCOPY FLX DX W/COLLJ SPEC WHEN PFRMD Thuy Benavides PA-C [address] [facility] [place] [address] [facility] [place] [address] [place] [address] Referral ID Status Reason Start Date Expiration Date V isits Requested Visits Authorized [id number] Closed Auto-Generate d Referral 03/06/2022 03/06/2023 1 1 [facility] Advance Directives No Advanced Directives Records FoundDocuments on File Type Date Recorded 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 Advance Directive(s) 03/17/2019 6:32 AM Advance Directive(s) 12/01/2016 8:36 AM Health Concerns Infection Onset Date Last Indicated Resolved Time COVID-19 Rule-Out 12/06/2021 12/06/2021 Infection Onset Date Last Indicated Resolved Time COVID-19 Rule-Out 06/14/2022 06/14/2022 Infection Onset Date Last Indicated Resolved Time COVID-19 Rule-Out 06/14/2022 06/14/2022 06/15/2022 2:44 AM EDT Problem Noted Date [facility] Education - COMMON 08/02 Education - [place] 08/20/2022 Problem Noted Date [facility] Education - [place] 08/02 Education - [place] 08/20/2022 Problem Noted Date Diagnosed Date [facility] - [facility] 08/20/2022 Education - [place] 08/20/2022 Problem Noted Date Diagnosed Date [facility] Education - [facility] 08/20/2022 Education - [place] 08/20/2022 Problem Noted Date Diagnosed Date [facility] Education - [facility] 08/20/2022 Education - [place] 08/20/2022 Problem Noted Date Diagnosed Date [facility] Education - [facility] 08/20/2022 Education - [place] 08/20/2022 Problem Noted Date Diagnosed Date [facility] Education - [facility] 08/20/2022 Education - [place] 08/20/2022 Problem Noted Date Diagnosed Date [facility] Education - [facility] 08/20/2022 Education - [place] 08/20/2022 Problem Noted Date Diagnosed Date [facility] Education - [facility] 08/20/2022 Education - [place] 08/20/2022 Problem Noted Date Diagnosed Date [facility] Education - [facility] 08/20/2022 Education - [place] 08/20/2022 Reason for Referral Specialty Diagnoses / Procedures Referred By Vidya lewis Referred To Contact Gastroenterology Diagnoses Gastroesophageal reflux disease, unspecified whether esophagitis present Procedures CONSULT TO GASTROENTEROLOGY OFFICE/OUTPATIENT [facility] 60-74 MINUTES Radha Segura MD [address] [place] [address] Referral ID Status Reason Start Date Expiration Date Visits Requested Visits Authorized [id number] Authorized PCP Requested Referral 10/04/2022 10/04/2023 1 1 Medications Administered Section Inactive Administered Medications - up to 3 most recent administrations Medication Order MAR Action Action Date Dose Rate Site benzocaine 20% 1 [place] (TOPEX) 1 [place], TOPICAL, DIRECTED, Starting on Sat03/14/22 at 1130, [...] or prosecute any alcohol or drug abuse patient.[facility] the event this information is protected by the Federal Confidentiality of Alcohol and Drug Abuse Patient Records regulations: The Federal rules restrict any use of the information to criminally investigate or prosecute any alcohol or drug abuse patient.[facility] the event this information is protected by the Federal Confidentiality of Alcohol and Drug Abuse Patient Records regulations: The Federal rules restrict any use of the information to criminally investigate or prosecute any alcohol or drug abuse patient.[facility] the event this information is protected by the Federal Confidentiality of Alcohol and Drug Abuse Patient Records regulations: The Federal rules restrict any use of the information to criminally investigate or prosecute any alcohol or drug abuse patient.[facility] the event this information is protected by the Federal Confidentiality of Alcohol and Drug Abuse Patient Records regulations: The Federal rules restrict any use of the information to criminally investigate or prosecute any alcohol or drug abuse patient.[facility] the event this information is protected by the Federal Confidentiality of Alcohol and Drug Abuse Patient Records regulations: The Federal rules restrict any use of the information to criminally investigate or prosecute any alcohol or drug abuse patient.[facility] the event this information is protected by the Federal Confidentiality of Alcohol and Drug Abuse Patient Records regulations: The Federal rules restrict any use of the information to criminally investigate or prosecute any alcohol or drug abuse patient.[facility] the event this information is protected by the Federal Confidentiality of Alcohol and Drug Abuse Patient Records regulations: The Federal rules restrict any use of the information to criminally investigate or prosecute any alcohol or drug abuse patient.[facility] the event this information is protected by the Federal Confidentiality of Alcohol and Drug Abuse Patient Records regulations: The Federal rules restrict any use of the information to criminally investigate or prosecute any alcohol or drug abuse patient.[facility] the event this information is protected by the Federal Confidentiality of Alcohol and Drug Abuse Patient Records regulations: The Federal rules restrict any use of the information to criminally investigate or prosecute any alcohol or drug abuse patient.[facility] HospitalIn the event this information is protected by the Federal Confidentiality of Alcohol and Drug Abuse Patient Records regulations: The Federal rules restrict any use of the information to criminally investigate or prosecute any alcohol or drug abuse patient.[facility] Hospital[facility] the event this information is protected by the Federal Confidentiality of Alcohol and Drug Abuse Patient Records regulations: The Federal rules restrict any use of the information to criminally investigate or prosecute any alcohol or drug abuse patient.[facility] HospitalIn the event this information is protected by the Federal Confidentiality of Alcohol and Drug Abuse Patient Records regulations: The Federal rules restrict any use of the information to criminally investigate or prosecute any alcohol or drug abuse patient.[facility] the event this information is protected by the Federal Confidentiality of Alcohol and Drug Abuse Patient Records regulations: The Federal rules restrict any use of the information to criminally investigate or prosecute any alcohol or drug abuse patient.[facility] HospitalIn the event this information is protected by the Federal Confidentiality of Alcohol and Drug Abuse Patient Records regulations: The Federal rules restrict any use of the information to criminally investigate or prosecute any alcohol or drug abuse patient.[facility] HospitalIn the event this information is protected by the Federal Confidentiality of Alcohol and Drug Abuse Patient Records regulations: The Federal rules restrict any use of the information to criminally investigate or prosecute any alcohol or drug abuse patient.[facility] HospitalIn the event this information is protected by the Federal Confidentiality of Alcohol and Drug Abuse Patient Records regulations: The Federal rules restrict any use of the information to criminally investigate or prosecute any alcohol or drug abuse patient.[facility] HospitalIn the event this information is protected by the Federal Confidentiality of Alcohol and Drug Abuse Patient Records regulations: The Federal rules restrict any use of the information to criminally investigate or prosecute any alcohol or drug abuse patient.[facility] HospitalIn the event this information is protected by the Federal Confidentiality of Alcohol and Drug Abuse Patient Records regulations: The Federal rules restrict any use of the information to criminally investigate or prosecute any alcohol or drug abuse patient.[facility] HospitalIn the event this information is protected by the Federal Confidentiality of Alcohol and Drug Abuse Patient Records regulations: The Federal rules restrict any use of the information to criminally investigate or prosecute any alcohol or drug abuse patient.[facility] HospitalIn the event this information is protected by the Federal Confidentiality of Alcohol and Drug Abuse Patient Records regulations: The Federal rules restrict any use of the information to criminally investigate or prosecute any alcohol or drug abuse patient.[facility] HospitalIn the event this information is protected by the Federal Confidentiality of Alcohol and Drug Abuse Patient Records regulations: The Federal rules restrict any use of the information to criminally investigate or prosecute any alcohol or drug abuse patient.[facility] HospitalIn the event this information is protected by the Federal Confidentiality of Alcohol and Drug Abuse Patient Records regulations: The Federal rules restrict any use of the information to criminally investigate or prosecute any alcohol or drug abuse patient.[facility] HospitalIn the event this information is protected by the Federal Confidentiality of Alcohol and Drug Abuse Patient Records regulations: The Federal rules restrict any use of the information to criminally investigate or prosecute any alcohol or drug abuse patient.[facility] HospitalIn the event this information is protected by the Federal Confidentiality of Alcohol and Drug Abuse Patient Records regulations: The Federal rules restrict any use of the information to criminally investigate or prosecute any alcohol or drug abuse patient.[facility] HospitalIn the event this information is protected by the Federal Confidentiality of Alcohol and Drug Abuse Patient Records regulations: The Federal rules restrict any use of the information to criminally investigate or prosecute any alcohol or drug abuse patient.[facility] HospitalIn the event this information is protected by the Federal Confidentiality of Alcohol and Drug Abuse Patient Records regulations: The Federal rules restrict any use of the information to criminally investigate or prosecute any alcohol or drug abuse patient.[facility] HospitalIn the event this information is protected by the Federal Confidentiality of Alcohol and Drug Abuse Patient Records regulations: The Federal rules restrict any use of the information to criminally investigate or prosecute any alcohol or drug abuse patient.[facility] HospitalIn the event this information is protected by the Federal Confidentiality of Alcohol and Drug Abuse Patient Records regulations: The Federal rules restrict any use of the information to criminally investigate or prosecute any alcohol or drug abuse patient.[facility] HospitalIn the event this information is protected by the Federal Confidentiality of Alcohol and Drug Abuse Patient Records regulations: The Federal rules restrict any use of the information to criminally investigate or prosecute any alcohol or drug abuse patient.[facility] HospitalIn the event this information is protected by the Federal Confidentiality of Alcohol and Drug Abuse Patient Records regulations: The Federal rules restrict any use of the information to criminally investigate or prosecute any alcohol or drug abuse patient.[facility] HospitalIn the event this information is protected by the Federal Confidentiality of Alcohol and Drug Abuse Patient Records regulations: The Federal rules restrict any use of the information to criminally investigate or prosecute any alcohol or drug abuse patient.[facility] HospitalIn the event this information is protected by the Federal Confidentiality of Alcohol and Drug Abuse Patient Records regulations: The Federal rules restrict any use of the information to criminally investigate or prosecute any alcohol or drug abuse patient.[facility] HospitalIn the event this information is protected by the Federal Confidentiality of Alcohol and Drug Abuse Patient Records regulations: The Federal rules restrict any use of the information to criminally investigate or prosecute any alcohol or drug abuse patient.[facility] Reason for Visit (unrecogniz ed section [...] pain Specialty Diagnoses / Procedures Referred By Contac t Referred To Contact General Surgery Diagnoses Hiatal hernia Generalized abdominal pain Procedures CONSULT TO GENERAL SURGERY OFFICE/OUTPATIENT [facility] 60-74 MINUTES Thuy Gilbert PA-C [address] [facility] [place] [address] Referral ID Status Reason Start Date Expiration Date V isits Requested Visits Authorized [id number] Closed PCP Requested Referral 03/22/2022 03/22/2023 1 1 Reason Comments Nasal Congestion drainage, cough, hea dache and sore throat x 5 days Reason Comments Appointment Change provider Reason Comments Care Reason Comments Care Reason Onset Date Comments Care 09/18/2022 Reason Comments US Specialty Diagnoses / Procedures Referred By Contac t Referred To Contact [facility] Diagnoses Encounter for supervision of other normal in first trimester Obesity during Procedures NUCHAL TRANSLUCENCY WHI US NUCHAL TRANSLUCENCY 1ST GESTATION Erendira Hendricks APRN.JULIEN [address] [place] [address] [facility] [address] [place] [address] Referral ID Status Reason Start Date Expiration Date V isits Requested Visits Authorized [id number] Closed Auto-Generate d Referral 08/20/2022 08/20/2023 1 1 Reason Comments Patient Question Reason Onset Date Comments Care 11/06/2022 Reason Onset Date Comments Care 11/14/2022 Immunizations 11/14/2022 Flu vaccination Specialty Diagnoses / Procedures Referred By Contac t Referred To Contact [facility] Diagnoses 15 weeks gestation of Encounter for supervision of other normal in second trimester Procedures OBSTETRIC ULTRASOUND WHI US PREG UTERUS AFTER 1ST TRIMEST GESTATION Debra Wagner MD [address] [place] [address] [facility] [address] [place] [address] Referral ID Status Reason Start Date Expiration Date V isits Requested Visits Authorized [id number] Closed Auto-Generate d Referral 10/19/2022 10/19/2023 1 1 Reason Comments Vaginal Discharge Reason Onset Date Comments Care 01/17/2023 Reason Onset Date Comments Care 01/31/2023 Reason Onset Date Comments Care 02/15/2023 Specialty Diagnoses / Procedures Referred By Contac t Referred To Contact [facility] Diagnoses 28 weeks gestation of Obesity affecting in third trimester, unspecified obesity type Procedures OBSTETRIC ULTRASOUND WHI US PREG UTERUS AFTER 1ST TRIMEST GESTATION Taty Callejas MD [address] [place] [address] [facility] [address] [place] [address] Referral ID Status Reason Start Date Expiration Date V isits Requested Visits Authorized [id number] Closed Auto-Generate d Referral 01/17/2023 01/17/2024 1 1 Care Teams (unrecognized sec tion and content) Patient Care Technician Instructor Relationship Specialty Start Date End Date Neil Veliz MD [address] [place], [place] [id number] PCP - General Family Practice 03/17/19 Patient Care Technician Instructor Relationship Specialty Start Date End Date Neil Veliz MD [address] [place], [place] [id number] PCP - General Family Practice 03/17/19 Patient Care Technician Instructor Relationship Specialty Start Date End Date Neil Veliz MD [address] [place], [place] [id number] PCP - General Family Practice 03/17/19 Patient Care Technician Instructor Relationship Specialty Start Date End Date Neil Veliz MD [address] [facility] [place] [address] PCP - General Family Practice 03/17/19 Patient Care Technician Instructor Relationship Specialty Start Date End Date Neil Veliz MD [address] [facility] [place] [address] PCP - General Family Practice 03/17/19 Patient Care Technician Instructor Relationship Specialty Start Date End Date Neil Veliz MD [address] [facility] [place] [address] PCP - General Family Practice 03/17/19 Patient Care Technician Instructor Relationship Specialty Start Date End Date Neil Veliz MD [address] [facility] [place] [address] PCP - General Family Medicine 03/17/19 Patient Care Technician Instructor Relationship Specialty Start Date End Date Neil Veliz MD [address] [facility] [place] [address] PCP - General Family Medicine 03/17/19 Patient Care Technician Instructor Relationship Specialty Start Date End Date Neil Veliz MD [address] [facility] [place] [address] PCP - General Family Medicine 03/17/19 Patient Care Technician Instructor Relationship Specialty Start Date End Date Neil Veliz MD [address] [facility] [place] [address] PCP - General Family Medicine 03/17/19 Patient Care Technician Instructor Relationship Specialty Start Date End Date Neil Veliz MD [address] [facility] [place] [address] PCP - General Family Medicine 03/17/19 Patient Care Technician Instructor Relationship Specialty Start Date End Date Neil Veliz MD [address] [facility] [place] [address] PCP - General Family Medicine 03/17/19 Patient Care Technician Instructor Relationship Specialty Start Date End Date Neil Veliz MD [address] [facility] [place] [address] PCP - General Family Medicine 03/17/19 Patient Care Technician Instructor Relationship Specialty Start Date End Date Neil Veliz MD [address] [facility] [place] [address] PCP - General Family Medicine 03/17/19 Patient Care Technician Instructor Relationship Specialty Start Date End Date Neil Veliz MD [address] [facility] [place] [address] PCP - General Family Medicine 03/17/19 Patient Care Technician Instructor Relationship Specialty Start Date End Date Neil Veliz MD [address] [facility] [place] [address] PCP - General Family Medicine 03/17/19 Patient Care Technician Instructor Relationship Specialty Start Date End Date Neil Veliz MD [address] [facility] [place] [address] PCP - General Family Medicine 03/17/19 Patient Care Technician Instructor Relationship Specialty Start Date End Date Neil Veliz MD [address] [facility] [place] [address] PCP - General Family Medicine 03/17/19 Patient Care Technician Instructor Relationship Specialty Start Date End Date Neil Veliz MD [address] [facility] [place] [address] PCP - General Family Medicine 03/17/19 Patient Care Technician Instructor Relationship Specialty Start Date End Date Neil Veliz MD [address] [facility] [place] [address] PCP - General Family Medicine 03/17/19 Patient Care Technician Instructor Relationship Specialty Start Date End Date Neil Veliz MD [address] [facility] [place] [address] PCP - General Family Medicine 03/17/19 Patient Care Technician Instructor Relationship Specialty Start Date End Date Neil Veliz MD [address] [facility] [place] [address] PCP - General Family Medicine 03/17/19 Patient Care Technician Instructor Relationship Specialty Start Date End Date Neil Veliz MD [address] [place] [address] PCP - General Family Medicine 03/17/19 Patient Care Technician Instructor Relationship Specialty Start Date End Date Neil Veliz MD [address] [place] [address] PCP - General Family Medicine 03/17/19 Patient Care Technician Instructor Relationship Specialty Start Date End Date Neil Veliz MD [address] [place] [address] PCP - General Family Medicine 03/17/19 Patient Care Technician Instructor Relationship Specialty Start Date End Date Neil Veliz MD [address] [place] [address] PCP - General Family Medicine 03/17/19 Patient Care Technician Instructor Relationship Specialty Start Date End Date Neil Veliz MD [address] [place] [address] PCP - General Family Medicine 03/17/19 Patient Care Technician Instructor Relationship Specialty Start Date End Date Neil Veliz MD [address] [place] [address] PCP - General Family Medicine 03/17/19 Patient Care Technician Instructor Relationship Specialty Start Date End Date Neil Veliz MD [address] [place] [address] PCP - General Family Medicine 03/17/19 INFORMATION [...] BE BASED ON THE PRIMARY CLINICAL RECORDS. [email or web address] provides no warranty or guarantee of the accuracy or completeness of information in this document.
[2023-03-27] MEDS: Lactated Ringers 1,000 ML 200 ML IV ×2 (07:45→13:41)
[2023-03-27] MEDS: Oxytocin 15 Units/NS 250ml 15 UNITS/250 ML IV.SOLN 2 UNITS IV (08:10)
[2023-03-27 08:15] LABS: Absolute Lymphocyte Count 1.89 X10^3/uL (0.83-4.51); Absolute Neutrophil Count 8.3 X10^3/uL (2.0-7.7); Basophil# 0.04 X10^3/uL; Basophil% 0.3 % (0-1); Eosinophil# 0.09 X10^3/uL; Eosinophils% 0.8 % (0-5); Hematocrit 33.5 % (37-47); Hemoglobin 11.4 g/dL (12.0-15.0); Lymphocyte # 1.89 X10^3/ul (0.83-4.51); Lymphocyte % 16.3 % (19-41); Mean Corpuscular Hgb 29.4 pg (27.0-32.0); Mean Corpuscular Volume 86.3 fL (81-99); Mean Platelet Vol. 10.6 fl (6.2-12.0); Monocyte# 1.16 X10^3/uL; NRBC Flagged by Analyzer 0 % (0-5); Neutrophil # 8.32 X10^3/uL (2.7-7.7); Neutrophil % 72.1 % (47-70); Platelet Count 215 K/mm3 (150-450); RBC Distribution Width CV 12.2 % (11.6-14.6); RBC Distribution Width SD 38.6 fl (35.1-43.9); Red Blood Count 3.88 M/mm3 (4.2-5.4); White Blood Count 11.6 K/mm3 (4.4-11.0)
--- NOTE | 2023-03-27 08:16 | PCM.HP.OB ---
HPI - General General Date of Admission: 03/27/23 HPI Narrative CASS RYAN, is a 33 F who presents for Elective IOL pt offers no concerns today. PFSH PFSH Medical History (Updated 03/27/23 @ 08:[address] Ramandeep Darnell MD) Anxiety depression Superficial varicosities Home Medications acyclovir 400 mg tablet mg PO DAILY HSV prevention 03/04/23 [History Last Taken 03/03/23 08:00] famotidine 10 mg tablet (Acid Controller) 20 mg PO DAILY 03/04/23 [History Last Taken Unknown] ferrous sulfate 325 mg (65 mg iron) tablet (iron) 325 mg PO DAILY 03/04/23 [History Last Taken 03/01/23 08:00] Allergy/AdvReac Type Severity Reaction Status Date / Time Latex, Natural Rubber Allergy Unknown Verified 03/04/23 13:25 adhesive tape AdvReac Rash Verified 03/04/23 13:25 Surgical History (Updated 03/27/23 @ 08:18 by Jenny Johnson) History of surgery Social History Smoking Status: Never smoker History Elective abortions Hx Para 2 Spontaneous abortions Hx # Term Pregnancies Ectopic pregnancies Hx # Pregnancies Multiple births # of living children Vital Signs Vital Signs Vital Signs: 03/27/23 07:31 03/27/23 07:31 Pulse Rate 87 Blood Pressure 126/79 H BP Systolic 126 BP Diastolic 79 Weight Weight: 116.12 kg Body Mass Index (BMI) 37.8 Physical Exam Narrative VE: cervix posterior. pt does not tolerate vaginal exams well. 2-3/60/-3 Const alert and oriented x3 General Appearance: cooperative HEENT normocephalic GI GI Narrative: Gravid, non tender to palpation. OB / External & Speculum: external exam normal Extremity normal to inspection Skin no rashes or lesions noted Neuro oriented x3 and CN's II-XII intact bilaterally Psych Appearance: grossly normal Labs Labs Labs: Blood Type O POSITIVE Antibody Screen NEGATIVE Hct 33.5 % (37-47) L Hgb 11.4 g/dL (12.0-15.0) L Syphilis Total Ab Pending Hepatitis C Antibody Non-Reactive (Nonreactive) Rhogam given: No Assessment & Plan (1) Supervision of other high risk pregnancies, third trimester: (2) History of depression: (3) Obesity affecting : (4) Exposure to herpes simplex virus (HSV): (5) 39 weeks gestation of : (6) Encounter for elective induction of labor: PLAN: Plan Admit to L&D [facility] FHR/TOCO Epidural if requested for pain Monitor VS Anticipate HSV - no signs of outbreak- no lesions. taking prophylaxis pitocin for IOL with AROM at later time.
[2023-03-27] MEDS: LACTATED RINGERS 500 ML 999 ML IV ×2 (09:40→14:40)
[2023-03-27 10:06] LABS: Syphilis Antibodies Non-reactive
[2023-03-27] MEDS: fentaNYL-bupivacaine (epidural) 100 ML BAG EPIDURAL ×2 (11:02→15:38)
--- NOTE | 2023-03-27 12:48 | PCM.PN.BLA ---
Progress Note pt seen at bedside, ve performed- /-2 AROM performed- Clear fluid. IUPC and IFM placed. pt comfortable with epidural in place. continue pitocin. anticipate .
[2023-03-27] MEDS: Amnioinfusion- 0.9% NS 1,000 ML IV.SOLN. 300 ML INTRA-UTER (13:51)
[2023-03-27] MEDS: Acetaminophen 500 MG Tablet PO (14:39)
--- NOTE | 2023-03-27 18:13 | EX.PCM.OBRPT ---
Vaginal Delivery Maternal Presentation Maternal Presentation: Elective Induction Type of Induction: Pitocin and Amniotomy Operative Information Date of Procedure: 03/27/23 Pre-Operative Diagnosis: 39 weeks, obesity in , elective IOL Post-Operative Diagnosis: same , live male infant Surgery / Procedure Performed: Spontaneous Vaginal Delivery Type of Anesthesia: Epidural Estimated Blood Loss: 200 Time of Delivery: 17:48 Findings Description of Procedure: Patient progressed to fully dilated. With 1 maternal pushing the 's head was delivered followed by the anterior and posterior shoulders. Rest the infant's body was delivered without complication. Infant was placed on the mother's chest for immediate skin to skin. Delayed cord clamping was performed. Pitocin was started. Placenta was then delivered intact without complication. Vaginal and perineal tissue was evaluated no lacerations appreciated. . Fundus was firm. Presentation: Vertex Amniotic Membrane Rupture Type: Artificial Amniotic Fluid Description: Clear Placental Delivery Description: Spontaneous Placenta Disposition: [facility] Specimen(s) Removed: Placenta Cord Vessel Description: 3 Vessels Cord Entanglement: None A Gender: Male (1 minute): 8 (5 minute): 9 Delayed Cord Clamping: Yes Post Vaginal Delivery Medications Given After Delivery: IV Pitocin Episiotomy Description: None Laceration: None Complication Complications: None
[2023-03-27] MEDS: Ibuprofen 600 MG Tablet PO (18:57)
[2023-03-27] MEDS: Oxytocin 15 Units/NS 250ml 15 UNITS/250 ML IV.SOLN 83 UNITS IV (18:59)
[2023-03-27] MEDS: 0.9% Saline Lock 10 ML Syringe IV (21:54)
[2023-03-28 03:18] VITALS: BP 111/61; PULSE 83; RESP 16; TEMP 36.5
--- NOTE | 2023-03-28 07:17 | PCM.DC.SUM ---
Providers Date of Admission: 03/27/23 Primary Care Physician: Dr. Neil Alvarado MD Reason For Visit: INDUCTION Diagnosis Discharge Diagnosis (1) Supervision of other high risk pregnancies, third trimester: Status: Acute Code(s): O09.893 - Supervision of other high risk pregnancies, third trimester (2) History of depression: Status: Acute Code(s): Z87.59 - Personal history of other complications of , childbirth and the puerperium; Z86.59 - Personal history of other mental and behavioral disorders (3) Obesity affecting : Status: Acute Code(s): O99.210 - Obesity complicating , unspecified trimester (4) Exposure to herpes simplex virus (HSV): Status: Acute Code(s): Z20.828 - Contact with and (suspected) exposure to other viral communicable diseases (5) 39 weeks gestation of : Status: Acute Code(s): Z3A.39 - 39 weeks gestation of (6) Encounter for elective induction of labor: Status: Acute Code(s): Z34.90 - Encounter for supervision of normal , unspecified, unspecified trimester Plan PPD 1 Routine care support D/C home with follow up in office at 2 weeks Medications at Discharge Home Medications famotidine 10 mg tablet (Acid Controller) 20 mg PO DAILY 03/04/23 ferrous sulfate 325 mg (65 mg iron) tablet (iron) 325 mg PO DAILY 03/04/23 Hospital Course Operations None Procedures None Summary of Care Provided Minutes Spent on Discharge: 15 Hospital Course: Patient had . Hospital course was uneventful. Physical Exam Narrative Patient seen at bedside. . Ambulating and voiding without difficulty. Unsure if desires discharge home today or tomorrow. Lochia is minimal. Denies pain. Const alert and no apparent distress General Appearance: cooperative and comfortable Exam Limitations: no limitations HEENT normocephalic Eyes General Eye: normal appearance of both eyes Neck full ROM General: normal visual inspection Chest Chest: symmetrical chest wall rise Resp normal respiratory effort and normal air movement Effort and Inspection: symmetric chest movement Auscultation: clear to auscultation bilaterally Cardio regular rate and regular rhythm GI normal to inspection, nondistended, normoactive bowel sounds Back/Spine normal ROM Extremity full ROM and no calf tenderness General Extremity: normal exam except as noted Skin no rashes or lesions noted Neuro CN's II-XII intact bilaterally Psych mental status grossly normal Weight / BMI Weight Weight: 256 lb Body Mass Index (BMI) 37.8 ABG / Lab / Microbiology Data 03/27/23 07:45 Laboratory: Laboratory Results - last 24 hr 03/27/23 07:45: WBC 11.6 H, RBC 3.88 L, Hgb 11.4 L, Hct 33.5 L, MCV 86.3, MCH 29.4, MCHC 34.0, RDW Std Deviation 38.6, RDW Coeff of Lauren 12.2, Plt Count 215, MPV 10.6, Immature Gran % (Auto) 0.500, Neut % (Auto) 72.1 H, Lymph % (Auto) 16.3 L, [place] % (Auto) 10.0, Eos % (Auto) 0.8, Baso % (Auto) 0.3, Absolute Neuts (auto) 8.3 H, Absolute Lymphs (auto) 1.89, Nucleated RBC % 0, Syphilis Total Ab Non-reactive, Blood Type O POSITIVE, Antibody Screen NEGATIVE D/C Instructions Discharge Diet: No restrictions May resume sexual activity in: 6-8 weeks Weight Bearing Status: Weight bearing as tolerated Call your doctor if you observe: Fever of 101 or Higher, Inability to urinate, Using more than 1 pad per hour, Shortness of breath, Chest pain, Calf discomfort and Uncontrolled pain Please Follow Up With: Erendira Hendricks CNM When: 2 weeks virtual visit/ 6 weeks in office Meaningful Use Info Meaningful Use Diagnoses (Choose all that apply): None applicable Discharge Plan Admission Admit Date/Time: 03/27/23 07:03 Primary Reason for Your Visit: Labor and Delivery Attending Provider: Ramandeep Darnell Primary Care Provider: Neil Alvarado Discharge Orders/Prescriptions Prescriptions: Continued ferrous sulfate [iron] 325 mg (65 mg iron) tablet 325 mg PO DAILY famotidine [Acid Controller] 10 mg tablet 20 mg PO DAILY Discontinued acyclovir 400 mg tablet PO DAILY Referrals / Follow Up: Neil Alvarado MD [Primary Care Provider] - Disposition Disposition (needs filled in before D/C Order can be placed): Home, Self Care
[2023-03-28 07:30] VITALS: BP 118/73; PULSE 78; RESP 16; TEMP 36.8; O2SAT 98
[2023-03-28] MEDS: Ibuprofen 600 MG Tablet PO (08:43)
[2023-03-28] MEDS: Famotidine 20 MG Tablet PO (11:58)
[2023-03-28] MEDS: Acyclovir 200 MG Capsule 400 MG PO (11:58)
[2023-03-28 12:00] VITALS: BP 118/74; PULSE 71; RESP 16; TEMP 36.7; O2SAT 97
[2023-03-28 16:59] VITALS: BP 118/83; PULSE 75; RESP 14; TEMP 36.9; O2SAT 96
[2023-03-28] MEDS: Acetaminophen 500 MG Tablet 1000 MG PO ×2 (17:09→22:35)
[2023-03-28 20:20] VITALS: BP 118/71; PULSE 71; RESP 15; TEMP 36.4; O2SAT 96
[2023-03-29 03:00] VITALS: BP 94/44; PULSE 70; RESP 15; TEMP 36.4; O2SAT 96
[2023-03-29 07:50] VITALS: BP 114/75; PULSE 68; RESP 18; TEMP 36.3; O2SAT 98
[2023-03-29] MEDS: Acetaminophen 500 MG Tablet 1000 MG PO (08:19)
[2023-03-29] MEDS: Acyclovir 200 MG Capsule 400 MG PO (10:31)
[2023-03-29] MEDS: Famotidine 20 MG Tablet PO (10:31)
[2023-03-29 13:10] VITALS: BP 123/75; PULSE 66; RESP 18; TEMP 36.3; O2SAT 97
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
--- NOTE | 2023-03-29 16:26 | PN.OBGYN_ITS ---
Subjective Subjective Doing well per patient and nursing staff. Ambulating and taking PO without difficulty. Voiding and passing flatus. Pain controlled. , services for assistance. Denies headache, visual changes, chest pain, shortness of breath, leg pain or increased bleeding. Lochia normal. Objective Data Objective Data Vital Signs: Vital Signs Temp Pulse Resp BP Pulse Ox O2 Del Method 97.3 F L 68 18 114/75 98 Room Air 03/29/23 07:50 03/29/23 07:50 03/29/23 07:50 03/29/23 07:50 03/29/23 07:50 03/29/23 07:50 Oxygen Delivery Method Room Air Weight: 256 lb Body Mass Index (BMI) 37.8 Intake & Output: Intake and Output for Last 24 Hours 03/27/23 03/28/23 03/29/23 23:59 23:59 23:59 Intake Total 3323.33 / 3323.33 Output Total 650 / 650 1200 / 1200 Balance 2673.33 / 2673.33 -1200 / -1200 Lab / Micro Data 03/27/23 07:45 Physical Exam Const alert and no apparent distress General Appearance: cooperative and comfortable Exam Limitations: no limitations HEENT normocephalic Eyes General Eye: normal appearance of both eyes Neck full ROM General: normal visual inspection Chest Chest: symmetrical chest wall rise Resp normal respiratory effort and normal air movement Effort and Inspection: symmetric chest movement Auscultation: clear to auscultation bilaterally Cardio regular rate and regular rhythm GI normal to inspection, nondistended, normoactive bowel sounds Back/Spine normal ROM Extremity full ROM and no calf tenderness General Extremity: normal exam except as noted Skin no rashes or lesions noted Neuro CN's II-XII intact bilaterally Psych mental status grossly normal Assessment & Plan (1) Vaginal delivery: PLAN: Plan 1) D/C home today 2) Baby in [facility], will go to hotel status 3) vitals stable 4) Follow up in 2 weeks and 6 weeks
== END 2023-03-29 13:20 | disposition home or self-care (01) | DRG 807 ==
PROVIDERS: Admitting Provider Obstetrics & Gynecology; PCP Family Medicine; Referring Provider Obstetrics & Gynecology; Visit Provider Obstetrics & Gynecology
DX: O99.214 Obesity complicating childbirth (principal); Z37.0 Single live birth; Z20.828 Contact with and (suspected) exposure to other viral communicable diseases; Z3A.39 39 weeks gestation of pregnancy
CPT/HCPCS: 59025; 59050; 85025; 86780; 86850; 86900; 86901; 99221; J7030; J7120; A4216; G0378

== ENCOUNTER 2023-05-16 09:57 | Day surgery (SDC) | payer BC, SELFPAY ==
--- NOTE | 2023-05-15 08:19 | HP.PCM.OB_ITS ---
History and Physical Date of Admission: 05/16/23 Pre-Op History and Physical ? HPI: The patient is a 33 year old female presenting for discussion regarding salpingectomy. Pt does not desires future child bearing capabilities. Pt understands this is permanent. ? pre-operative visit. She is scheduled for laparoscopic bilateral salpingectomy, for desires sterilization on 05/16/23. Procedure discussed along with risks, benefits and complications. Other alternatives discussed for management. Consent form signed? Yes. ? ? PAST MEDICAL HISTORY PAST MEDICAL HISTORY Diagnosis Date ? Abnormal glandular Papanicolaou smear of cervix ? ? Abn. Pap smear (cervix), mildl dysplasia ? Depression ? ? FRACTURE 2001 ? FOOT, BALLET ? Hiatal hernia ? ? Irregular heartbeat ? ? depression ? ? ? PAST SURGICAL HISTORY PAST SURGICAL HISTORY Procedure Laterality Date ? COLONOSCOPY ? 11/29/2016 ? COLONOSCOPY ? 03/14/2022 ? COLPOSCOPY CERVIX UPPER/ADJACENT VAGINA ? ? ? Colposcopy ? EGD W/O [facility] SPEC VARICIES INJ ? 11/29/2016 ? EGD W/O [facility] SPEC VARICIES INJ ? 03/14/2022 ? LAPAROSCOPY SURG CHOLECYSTECTOMY ? 03/17/2019 ? Cholecystectomy, lap ? UNSPECIFIED ORAL SURGERY PROCEDURE, BY REPORT ? ? ? [place] ? ? ? CURRENT MEDICATIONS Current Outpatient Medications Medication Sig Dispense Refill ? sertraline (ZOLOFT) 50 mg tablet Take 1 tablet by mouth once daily. 30 tablet 11 ? ferrous sulfate 325 mg (65 mg iron) tablet Take 1 tablet by mouth once daily. ? ? ? acyclovir (ZOVIRAX) 400 mg tablet take 1 tablet by mouth twice a day 60 tablet 3 ? prental multivitamin 27 mg iron- 800 mcg tablet Take 1 tablet by mouth once daily. ? ? ? No current facility-administered medications for this visit. ? ? ALLERGIES: Latex and Adhesive Tape (Rosins) ? PERSONAL HISTORY: SOCIAL HISTORY Social History ? Tobacco Use ? Smoking status: Former ? ? Years: 10 ? ? Types: Cigarettes ? ? Quit date: 01/02/2018 ? ? Years since quittin.3 ? Smokeless tobacco: Never Vaping Use ? Vaping Use: Never used Substance Use Topics ? Alcohol use: Not Currently ? ? Alcohol/week: 19.9 standard drinks of alcohol ? ? Types: 11 Standard drinks or equivalent, 2 Glasses of Wine (5oz), 3 Cans of Beer (12oz), 3 Mixed Drinks per week ? ? Comment: Occasionally, NOT WHILE ? Drug use: No ? FAMILY HISTORY: FAMILY HISTORY FAMILY HISTORY Problem Relation Age of Onset ? Breast Cancer Mother ? ? other (Skin Cancer) Mother ? ? Cancer Father ? ? Asthma Brother ? ? Depression Brother ? ? Breast Cancer Maternal Grandmother ? ? and maternal great aunts. ? Cancer Maternal Grandmother ? ? Uterine ? Dementia Maternal Grandfather ? ? Breast Cancer Paternal Grandmother ? ? Dementia Paternal Grandfather ? ? Allergies Son ? ? Asthma Son ? ? Allergies Son ? ? Asthma Son ? ? Asthma Son ? ? Allergies Son ? ? other (Skin Cancer) Maternal Aunt ? ? ? REVIEW OF SYMPTOMS: negative except as noted above PHYSICAL EXAMINATION: ? VITALS: Blood pressure 120/70, weight 242 lb (109.8 kg), last menstrual period 06/25/2022, not currently . ? GENERAL: The patient is well nourished, well hydrated in no acute distress. , The patient is oriented to time, place, and person. NECK: Supple. No lynphadenopathy, normal thyroid, no thyromegaly. LUNGS: Clear to auscultation bilaterally. no wheezes, rhonchi or rales HEART: Regular rate and rhythm, Normal heart sounds, and No murmurs or gallops GENITALIA: Normal external genitalia, Urethral meatus normal, Bladder nontender, normal vagina and normal vaginal tone, normal cervix, normal uterus, size and consistency, normal adnexa without masses or tenderness, and perineum WNL WET PREP: Not indicated ? IMPRESSION: Desires sterilization ? PLAN: Laparoscopic bilateral salpingectomy ? Pt has been counseled on risks/benefits and alternatives of surgery including but not limited to anesthesia, bleeding, infection, injury to pelvic structures including bowel, bladder, ureters and vessels. Pt wishes to proceed with surgery at this time. ? Pre and post op instructions reviewed ? ? I have reviewed and updated past medical and surgical history, medications and allergies Ramandeep Wood MD
[2023-05-16] VITALS (10 sets, daily range): BP systolic 92–131; BP diastolic 62–79; PULSE 58–95; RESP 16–18; TEMP 36.4–36.9; O2SAT 95–100; BMI 36.8
--- NOTE | 2023-05-16 | FALS_PTH ---
PATHOLOGY RESULTS PATIENT: CASS RYAN LOC: [facility] U#:[id number] AGE/SX: 33/F ROOM: RE05/16/[address]: Dr. Ramandeep Wood MD : 1990 BED: DIS: 05/16/2023 SPEC #: [id number] RECD: 05/17/23 07:15 STATUS: MARIA MANUELAnurag #: [id number] SIVA: 05/16/23 00:[address]: Ramandeep Wood DEPT: SURGICAL PATHOLOGY RECD BY: Sabrina Melgoza ENTERED: 05/17/23 07:16 SP TYPE: FALL TUBES OTHR DR: Dr. Neil Alvarado MD Tissues: Fallopian tube Procedures: Surgery Specimen Level II HEADER OPERATION: Laparoscopic, salpingectomy PRE-OP DIAGNOSIS: Sterilization TISSUE SUBMITTED: Bilateral fallopian tubes MICROSCOPIC DIAGNOSIS Right and left fallopian tubes, bilateral salpingectomies: Two Complete cross-sections of fallopian tubes with no pathologic change. AM: 05/20/2023 MICROSCOPIC DESCRIPTION Slides are reviewed. GROSS DESCRIPTION Received in fixative is one container labeled with the patient's name and designated bilateral fallopian tubes. The specimen consists of bilateral fallopian tubes including fimbrial ends measuring 8.0 cm in length and 0.5 cm in diameter. And 7.5cm in length and 0.6cm in diameter. The fallopian tubes are not identified as right or left. Sections reveal unremarkable cut surfaces. Targeteer sections are submitted in two cassettes with each cassette containing one fallopian tube. / SJ: 05/17/23 TC:4 CPT: 53758 x2
[2023-05-16 10:23] LABS: Internal QC Validated? YES +Cl - CLEAR BKGD; Pregnancy, Urine Negative Negative
[2023-05-16] MEDS: Lactated Ringers 1,000 ML 15 ML IV ×2 (10:34→13:27)
[2023-05-16] MEDS: Bupivacaine 0.5% PF 10 ML VIAL (11:47)
--- NOTE | 2023-05-16 12:05 | OP.PCM_ITS ---
Report of Operation Date of Procedure: 05/16/23 Pre-Operative Diagnosis: desires sterilization Post-Operative Diagnosis: same Surgery/Procedure Performed:: Laparoscopic bilateral salpingectomy Description of Surgical Findings:: Normal tubes and ovaries - normal uterus Surgeon: Ramandeep Wood boat ride operator: None (Jenni Tracey MS3) Type of Anesthesia: General and Local Special Medications: 0.5% marcaine Specimen's removed: bilateral fallopian tubes Estimated Blood Loss (mL): 10 Fluids Replaced: 600 Description of Procedure: After informed consent was obtained patient was taken to the operating room she was placed in supine position she was given anesthesia. She was then placed in the [facility] stirrups and she was prepped and draped in normal sterile fashion. Bladder was drained prior to the start of procedure. At this time attention was turned to the vaginal portion where weighted speculum placed at posterior fornix vagina single-tooth tenaculum was used to gently grasp the internal the cervix. uterus was gently sounded to approximately 10 cm. Uterine manipulator was placed without difficulty. Legs then placed in parallel with the abdomen the tenaculum and the weighted speculum were removed. 2 towel clamps were placed at level of umbilicus. Marcaine was injected infraumbilical and a small incision was made. The 5 mm trocar was placed under direct visualization. CO2 gas was used to insufflate the intra-abdominal cavity. Upon inspection no gross abnormalities appreciated- the uterus tubes and ovaries appeared to be normal. At this time then the LLQ and RLQ ports were placed First Marcaine was injected and small incision was made a knife and the 5 mm trocars were placed. At this time then tubes were traced back to the fimbriated ends. Enseal was used to coagulate and ligate along mesosalpinx bilaterally until tubes removed completely. Good hemostasis was appreciated. At this time procedure was deemed complete successful. The gas was desufflated on from the intra-abdominal cavity. The trochars were removed. Skin was closed using 4-0 Monocryl in a subcutaneous fashion. Dermabond glue was placed. Instrument lap and needle counts were correct ?2. The uterine manipulator was removed. Vaginal sweep was performed it was negative. There were no complications anticipated normal postoperative course for this patient. Procedure Start Time: 11:47 Procedure Stop Time: 12:04 Complications none Admit VTE Documentation VTE Present on Admission: Yes VTE Mechan Device Prophylaxis: SCD's VTE Pharm Prophylaxis ordered?: No Reason prophylaxis not ordered:: Procedure Not Indicated
--- NOTE | 2023-05-16 12:09 | DCINST_ITS ---
Discharge Instructions Diet Discharge Diet: No restrictions Activity May resume sexual activity in: 2 weeks Lifting Restrictions: 20-25 lbs Dressing / Incision Call your doctor if your incision/area has: Continuous Slow Oozing, Sudden Increased Bleeding, Increased Pain/ Swelling, Increased Redness, Foul Smelling Discharge and Swelling at the incision site Call your doctor if you observe: Fever of 101 or Higher, Inability to urinate, Inability to have a bowel movement, Using more than 1 pad per hour and Uncontrolled pain Additional Dressing/Incision Instructions:: You have skin glue over your incision sites, do not pick off. You may shower and let the soap and water run over the incision sites and dab dry. Follow Up Care Please Follow Up With: Ramandeep Wood MD When: 1-2 weeks post OP if you need an appointment please call [phone] Test Results: Test results from this visit will be discussed in further detail at your follow- up appointment, if applicable. Discharge Plan Admission Attending Provider: Ramandeep Wood Primary Care Provider: Neil Alvarado Discharge Orders/Prescriptions Prescriptions: No Action ferrous sulfate [iron] 325 mg (65 mg iron) tablet 325 mg PO DAILY famotidine [Acid Controller] 10 mg tablet 20 mg PO DAILY PRN (Reason: indigestion) sertraline 50 mg tablet 50 mg PO QHS Referrals / Follow Up: Neil Alvarado MD [Primary Care Provider] - Disposition Disposition (needs filled in before D/C Order can be placed): Home, Self Care
== END 2023-05-16 14:47 | disposition home or self-care (01) ==
LOC: SDC 10:00 → AC 10:02
PROVIDERS: PCP Family Medicine; Referring Provider Family Medicine; Visit Provider Obstetrics & Gynecology
PROC: (CPT 58661; principal; 2023-05-16 11:15)
DX: Z30.2 Encounter for sterilization (principal); F41.9 Anxiety disorder, unspecified; F53.0 Postpartum depression; Z87.891 Personal history of nicotine dependence; Z79.899 Other long term (current) drug therapy
CPT/HCPCS: 58661; 00840; 81025; 88302; J7120; C1760; J2405

== ENCOUNTER 2024-06-18 07:37 | Emergency (ER) | payer BC, MEDICAID, SELFPAY ==
[2024-06-18 07:38] VITALS: BP 116/73; PULSE 93; RESP 20; TEMP 36.8; O2SAT 99
--- NOTE | 2024-06-18 07:53 | EDS_ITS ---
HPI HPI - GI History of Present Illness Chief Complaint: Abd Pain Detail of Chief Complaint: Abdominal pain Informant: patient Narrative Narrative: Patient presents with abdominal pain that started this morning around 3 AM. She started vomiting around 7 AM. Also started having multiple frequent episodes of diarrhea around 3 AM. Pain was severe at home 10 out of 10 and now about a 7 out of 10. Denies sick contacts. Denies recent antibiotics or recent travel. Denies eating undercooked food. She has had prior cholecystectomy. She has had prior tubal ligation. Denies urinary symptoms. She think she may have had a low-grade fever 2 days ago. [facility] Medical History (Updated 06/18/24 @ 09:[address] Devin Swanson, DO) Alcohol use Low iron History of hiatal hernia Gastric reflux Non-smoker History of echocardiogram History of stress test Cardiology follow-up encounter History of irregular heartbeat 39 weeks gestation of Superficial varicosities depression Anxiety Supervision of other high risk pregnancies, third trimester History of depression Obesity affecting Exposure to herpes simplex virus (HSV) Home Medications ?Medication ?Instructions ?Recorded ?Last Taken ?Type phentermine 37.5 mg tablet 37.5 mg PO QAM 02/15/24 Unk nown History topiramate 50 mg tablet 50 mg PO BID 02/15/24 Unknow n History dicyclomine 10 mg capsule 20 mg (2 x 10 mg) PO TIDAC # 20 06/18/24 Unknown Rx CAPSULES ondansetron 4 mg disintegrating 4 mg PO Q8H PRN PRN Na usea #10 tabs 06/18/24 Unknown Rx tablet Allergy/AdvReac Type Severity Reaction Status Date / Time Latex, Natural Rubber Allergy Unknown Verified 02/15/24 10:36 adhesive tape AdvReac Rash Verified 02/15/24 10:36 Surgical History Hx laparoscopic cholecystectomy Hx of wisdom tooth extraction Social History Smoking Status: Never smoker ROS ROS ED Review of Systems ROS Unobtainable: other Constitutional Constitutional ED: Reports lethargy; Denies chills, fever(s), sweats or weight loss Eyes Eyes: Denies blurry vision, change in vision or diplopia ENT ENT ED: Denies rhinorrhea or sore throat Cardiovascular Cardiovascular: Reports racing heartbeat; Denies chest pain or orthopnea Respiratory/Chest Respiratory/Chest: Denies cough, dyspnea, dyspnea on exertion, orthopnea or sputum Gastrointestinal Gastrointestinal: Reports abdominal pain, diarrhea, nausea and vomiting Genitourinary Genitourinary ED: Denies dysuria, hematuria or urinary frequency Musculoskeletal Musculoskeletal: Denies arthralgias, back pain, myalgias or neck pain Integumentary Denies abscess, Abrasions or rash Neurologic Neurologic: Denies headache(s) or weakness Psychiatric Psychiatric: Denies anxiety, depression or suicidal thoughts Endocrine Endocrinology: Denies polydipsia, polyphagia or polyuria Hematologic/Lymphatic Hematologic/Lymphatic: Denies easy bleeding, easy bruising or lymphadenopathy Allergic/Immunologic Allergic/Immunologic ED: Denies mouth swelling, tongue swelling or urticaria EXAM Physical Exam Const Vital Signs: 06/18/24 07:38 06/18/24 08:37 06/18/24 10:19 Temperature 98.3 F 97.8 F Temperature Source Temporal Pulse Rate 93 64 78 Respiratory Rate 20 H 18 16 Blood Pressure 116/73 136/74 H 143/64 H Blood Pressure Mean 87 94 90 Pulse Ox 99 99 99 Oxygen Delivery Method Room Air Room Air Positive well nourished and well developed General Appearance ED: well developed and NAD HEENT Reports TM's clear and moist mucous membranes normocephalic and atraumatic; Negative for trauma or tenderness Tympanic Membrane ED: Yes TM's clear Eyes PERRL and EOMs intact bilaterally General Eye ED: Negative for pale conjunctiva or scleral icterus Neck no lymphadenopathy, supple and no JVD General: Negative for tenderness Chest Wall inspection of chest normal and palpation of chest normal Chest: Negative for tenderness Resp normal respiratory effort and clear to auscultation bilaterally Effort and Inspection: Negative for respiratory distress or pain with movement Auscultation: Negative for rhonchi, wheezes or diminished lung sounds Cardio regular rate, regular rhythm, S1 normal heart sound, S2 normal heart sound and no murmurs Peripheral Pulses: pulses 2+ throughout GI normal to inspection, nondistended, normoactive bowel sounds, soft to palpation, non-distended and no masses GI Narrative: Tenderness palpation over right lower quadrant as well as the suprapubic region. Mild guarding. There is no rebound, rigidity, or peritoneal signs. No mass palpated. Back/Spine no CVA tenderness and no thoracic nor lumbar tenderness Extremity normal to inspection General Extremety ED: Negative for edema General Extremity: Negative for edema Neuro oriented x3, CN's II-XII intact bilaterally, no sensory deficits noted and gait normal Sensorium / Orientation: awake, alert, oriented to person, oriented to place and oriented to time Motor Exam: strength 5/5 throughout and strength abnormal Psych mental status grossly normal Skin no rashes or lesions noted and no wounds MDM MDM MDM Narrative Medical decision making narrative: Patient presents with vomiting and diarrhea and lower abdomen pain. In the differential would be appendicitis versus viral gastroenteritis versus kidney stone or less likely ovarian torsion. IV line established. She was medicated initially with Toradol as well as morphine and Zofran. Patient started complaining also of a headache and feeling somewhat lightheaded after receiving the morphine. CBC with differential white count of 6.3 with hemoglobin 14.1 and platelet count of 257. Chemistries unremarkable. She did have slight elevation in her AST at 219 as well as her ALT at 170 and alk phos of 214. Serum hCG was negative. CT scan of the abdomen pelvis with IV contrast showed patient to be status post cholecystectomy she also had minimally distended fluid-filled distal small bowel loops without evidence of bowel obstruction. Appendix was nonvisualized but there were no inflammatory changes to the right lower quadrant. Told the urinalysis machine is not functioning or having issues and unclear how long it will take to get urinalysis back. I reevaluated patient at 9:45 AM and she is feeling markedly improved and seems to think the Bentyl shot really worked. At this time based on findings lab work as well as history and imaging suspect likely viral gastroenteritis. Patient will be started on Bentyl and Zofran for home. Advised on pushing fluids small amounts frequently. Advised to return if persistent vomiting, worsening pain, dehydration, or condition should worsen anyway. She was also advised that she does have el evated liver enzymes. This also could be reactive and due to viral etiology. Recommended follow-up with primary care physician to have repeat liver enzymes checked to monitor for resolution. Urinalysis obtained was unremarkable. Lab Data Attestation: I reviewed the patient's lab results. Labs: Laboratory Results - last 24 hr 06/18/24 06/18/24 07:57 08:50 WBC 6.3 RBC 4.44 Hgb 14.1 Hct 40.2 MCV 90.5 MCH 31.8 MCHC 35.1 RDW Std Deviation 41.2 RDW Coeff of Lauren 12.5 Plt Count 257 MPV 9.8 Immature Gran % (Auto) 0.300 Neut % (Auto) 65.9 Lymph % (Auto) 17.4 L [place] % (Auto) 13.9 H Eos % (Auto) 1.9 Baso % (Auto) 0.6 Absolute Neuts (auto) 4.1 Absolute Lymphs (auto) 1.09 Nucleated RBC % 0 Sodium 138 Potassium 4.2 Chloride 108 Carbon Dioxide 15.9 L Anion Gap 14 BUN 7 Creatinine 0.77 Est GFR (MDRD) Non-Af 103 BUN/Creatinine Ratio 9.2 L Glucose 91 Lactic Acid 1.4 Calcium 8.9 Total Bilirubin 0.28 AST 219 H ALT 170 H Alkaline Phosphatase 214 H Total Protein 7.6 Albumin 4.2 Globulin 3.4 Albumin/Globulin Ratio 1.2 Serum , Qual NEGATIVE Urine Color Yellow Urine Clarity Clear Urine pH 6.0 Ur Specific [place] 1.005 Urine Protein TNP Urine Glucose (UA) Normal Urine Ketones Negative Urine Occult Blood 10 H Urine Nitrite Negative Urine Bilirubin Negative Urine Urobilinogen Normal Ur Leukocyte Esterase Negative Urine RBC 0 SEEN Urine WBC 0-5 SEEN Ur Squamous Epith Cells 5-10 SEEN Urine Bacteria RARE Urine Mucus 0 SEEN U Random Total Protein 12.2 H Radiography Diagnostic Testing: Clinical Impression(s) from Imaging Studies Abdomen/Pelvis CT 06/18/24 08:15 IMPRESSION: Status post cholecystectomy. Minimally distended fluid-filled distal small bowel loops. No evidence of bowel obstruction. Reading Location: [place] [address] Discharge Plan Triage Chief Complaint: Abd Pain ED Provider: Devin Swanson Dx/Rx/DC Orders Clinical Impression: Viral gastroenteritis, Abdominal pain Instructions: ED Abdominal Pain Unkn Cause Fem, ED Gastroenteritis, Viral (Adult) Prescriptions: New ondansetron 4 mg tablet,disintegrating 4 mg PO Q8H PRN PRN (Reason: Nausea) Qty: 10 0RF dicyclomine 10 mg capsule 20 mg PO TIDAC Qty: 20 0RF No Action phentermine 37.5 mg tablet 37.5 mg PO QAM topiramate 50 mg tablet 50 mg PO BID Primary Care Provider: Neil Alvarado Referrals: Neil Alvarado MD [Primary Care Provider] - 1-2 Days if not improving Print Language: Palestinian Disposition Disposition: Home, Self Care Discharge Date/Time: 06/18/24 10:21
[2024-06-18] MEDS: Ondansetron 4 MG/2 ML Vial IV (07:57)
[2024-06-18] MEDS: 0.9% Normal Saline (1000mL) 1,000 ML 125 ML IV (07:57)
[2024-06-18] MEDS: Ketorolac 15 MG/ML Vial IV (07:58)
[2024-06-18] MEDS: Morphine 4 MG/ML Syringe IV ×2 (07:59→08:53)
--- NOTE | 2024-06-18 08:15 | CT_ITS ---
PROCEDURE: ABDOMEN/PELVIS W IV CONT ONLY 06/18/2024 REASON FOR EXAM: ABDOMINAL PAIN Nausea and vomiting. Back pain. TECHNIQUE: Abdomen and pelvis CT with intravenous contrast. Coronal and Sagittal reconstruction series were provided. PATIENT PREPARATION: Per protocol ORAL CONTRAST TYPE: None. CONTRAST: Isovue 370 VOLUME: 96 mL One or more dose reduction techniques were used (e.g., Automated exposure control, adjustment of the mA and/or kV according to patient size, use of iterative reconstruction technique. RADIATION DOSE SUMMARY: CTDlvol: 14.5 mGy DLP: 1083.56 mGycm COMPARISON: None FINDINGS: Lung bases: Unremarkable Liver: Diffuse fatty infiltration. Gallbladder: Surgically absent. Spleen: Normal size. Pancreas: Normal size without evidence of mass surrounding inflammation or ductal dilation. Adrenals: Unremarkable Kidneys: Normal renal sizes. No hydronephrosis. Bladder: Unremarkable Reproductive Organs: Normal uterine size and contour. Follicles are seen in the right ovary. Bowel: Minimally distended fluid-filled distal small bowel loops. No evidence of bowel obstruction at this time. Appendix: The appendix is not identified. There is no inflammatory process identified in the right lower quadrant to suggest appendicitis. Lymph nodes: Unremarkable. Vasculature: The abdominal aorta and IVC are normal. Peritoneum / Retroperitoneum: Unremarkable Bones: Unremarkable CT/Abdomen/Pelvis W IV Cont ONLY IMPRESSION: Status post cholecystectomy. Minimally distended fluid-filled distal small bowel loops. No evidence of lenore l obstruction. Reading Location: [place] [address]
[2024-06-18 08:16] LABS: Absolute Lymphocyte Count 1.09 X10^3/uL (0.83-4.51); Absolute Neutrophil Count 4.1 X10^3/uL (2.0-7.7); Basophil# 0.04 X10^3/uL; Basophil% 0.6 % (0-1); Eosinophil# 0.12 X10^3/uL; Eosinophils% 1.9 % (0-5); Hematocrit 40.2 % (37-47); Hemoglobin 14.1 g/dL (12.0-15.0); Lymphocyte # 1.09 X10^3/ul (0.83-4.51); Lymphocyte % 17.4 % (19-41); Mean Corp Hgb Conc 35.1 g/dL (32-36); Mean Corpuscular Hgb 31.8 pg (27.0-32.0); Mean Corpuscular Volume 90.5 fL (81-99); Mean Platelet Vol. 9.8 fl (6.2-12.0); Monocyte# 0.87 X10^3/uL; Monocyte% 13.9 % (0-10); NRBC Flagged by Analyzer 0 % (0-5); Neutrophil # 4.14 X10^3/uL (2.7-7.7); Neutrophil % 65.9 % (47-70); Platelet Count 257 K/mm3 (150-450); RBC Distribution Width CV 12.5 % (11.6-14.6); RBC Distribution Width SD 41.2 fl (35.1-43.9); Red Blood Count 4.44 M/mm3 (4.2-5.4); White Blood Count 6.3 K/mm3 (4.4-11.0)
[2024-06-18 08:37] VITALS: BP 136/74; PULSE 64; RESP 18; O2SAT 99
[2024-06-18] MEDS: Metoclopramide 10 MG/2 ML Vial 5 MG IV (08:53)
[2024-06-18 08:54] LABS: Mucous, Urine 0 SEEN /hpf (<or=2+); Red Blood Cells-Urine 0 SEEN /hpf (0-5)
[2024-06-18] MEDS: Dicyclomine 20 MG/2 ML Vial IM (08:54)
[2024-06-18 09:00] LABS: ALB/GLOB Ratio 1.2 RATIO (0.9-2.4); AST(SGOT) 219 U/L (<=31); Alanine Aminotransfer ALT/SGPT 170 U/L (<=34); Albumin, Serum 4.2 g/dL (3.5-5.0); Alkaline Phosphatase 214 U/L (35-104); Anion Gap 14 (5-15); BUN 7 mg/dL (4-19); BUN/Creat Ratio 9.2 RATIO (10-20); Calcium,Total 8.9 mg/dL (7.6-11.0); Carbon Dioxide 15.9 mmol/L (21.0-32.0); Chloride 108 mmol/L (98-108); Creatinine, Serum 0.77 mg/dL (0.70-1.20); EST Glomerular Filtration Rate 103 (>60); Globulin 3.4 g/dL (2.2-4.2); Glucose 91 mg/dL (70-99); Potassium 4.2 mmol/L (3.3-5.1); Protein, Total 7.6 g/dL (5.9-8.4); Sodium Level 138 mmol/L (133-145); Total Bilirubin 0.28 mg/dL (0.00-1.30)
[2024-06-18 09:01] LABS: Lactic Acid 1.4 mmol/L (0.0-2.0)
[2024-06-18 09:29] LABS: Internal QC Validated? YES +Cl - CLEAR BKGD; Pregnancy, Serum, hCG Quali. NEGATIVE Negative
[2024-06-18 09:56] LABS: Color, Urine Yellow (Yellow); Glucose, Dipstick Normal (Normal); Ketone-Dipstick Negative (Negative); Leukocyte Esterase-Dipstick Negative /ul (Negative); Nitrite-Dipstick Negative (Negative); Occult Blood-Urine 10 /ul (Negative); Specific Gravity, Urine 1.005 (1.002-1.030); Urine Bilirubin Dipstick Negative (Negative); Urine Clarity Clear (Clear); Urine Urobilinogen Normal (Normal)
[2024-06-18 10:19] VITALS: BP 143/64; PULSE 78; RESP 16; TEMP 36.6; O2SAT 99
[2024-06-18 10:19] LABS: Protein, Urine (Random) 12.2 mg/dL (0.0-12.0)
[2024-06-18 10:22] LABS: White Blood Cells 0-5 SEEN /hpf (0-5)
[2024-06-18 10:23] LABS: Squamous Epithelial Cells - UA 5-10 SEEN /hpf (5-10)
[2024-06-18 10:24] LABS: Bacteria RARE /hpf (None Seen)
== END 2024-06-18 10:21 | disposition home or self-care (01) ==
PROVIDERS: Emergency Provider Emergency Medicine; PCP Family Medicine; Visit Provider Emergency Medicine
DX: A08.4 Viral intestinal infection, unspecified (principal); Z90.49 Acquired absence of other specified parts of digestive tract; K21.9 Gastro-esophageal reflux disease without esophagitis; R10.9 Unspecified abdominal pain
CPT/HCPCS: 74177; 80053; 81001; 83605; 84156; 84703; 85025; 96374; 96375; 99284; Q9967; J2405

== ENCOUNTER 2024-12-11 13:39 | Emergency (ER) | payer BC, MEDICAID, SELFPAY ==
[2024-12-11 13:40] VITALS: BP 132/95; PULSE 80; RESP 18; TEMP 36.4; O2SAT 100; BMI 30.1
[2024-12-11 14:20] VITALS: BP 130/90; PULSE 80; RESP 14; O2SAT 99
[2024-12-11 15:10] LABS: Hematocrit 41.8 % (37-47); Hemoglobin 14.8 g/dL (12.0-15.0); Immature Granulocytes Count 0.020 X10^3/uL (0.0-0.0); Mean Corp Hgb Conc 35.4 g/dL (32-36); Mean Corpuscular Volume 89.3 fL (81-99); Mean Platelet Vol. 9.3 fl (6.2-12.0); NRBC Flagged by Analyzer 0 % (0-5); Platelet Count 232 K/mm3 (150-450); RBC Distribution Width CV 14.3 % (11.6-14.6); RBC Distribution Width SD 46.7 fl (35.1-43.9); Red Blood Count 4.68 M/mm3 (4.2-5.4); White Blood Count 7.5 K/mm3 (4.4-11.0)
[2024-12-11 15:14] LABS: Internal QC Validated? YES +Cl - CLEAR BKGD; Pregnancy, Serum, hCG Quali. NEGATIVE Negative
[2024-12-11 15:15] LABS: Record Kit Lot#, Serum Preg. 0000980607
[2024-12-11 15:31] LABS: Lipase 18 U/L (13-75)
[2024-12-11 15:33] LABS: AST(SGOT) 37 U/L (<=31); Alanine Aminotransfer ALT/SGPT 18 U/L (<=34); Albumin, Serum 4.5 g/dL (3.5-5.0); Alkaline Phosphatase 139 U/L (35-104); Anion Gap 11 (5-15); BUN 11 mg/dL (4-19); BUN/Creat Ratio 13.4 RATIO (10-20); Calcium,Total 9.6 mg/dL (7.6-11.0); Carbon Dioxide 23.0 mmol/L (21.0-32.0); Chloride 101 mmol/L (98-108); Estimated Creatinine Clearance 114.60 ml/min (50-250); Globulin 3.6 g/dL (2.2-4.2); Glucose 95 mg/dL (70-99); Potassium 5.0 mmol/L (3.3-5.1)
--- NOTE | 2024-12-11 16:55 | EX.ED.DYSGE1 ---
HPI History of Present Illness Chief Complaint: GI Bleed Narrative Narrative: Patient is a 34-year-old female with a history of hiatal hernia presenting with severe heartburn, emesis, and inability to tolerate oral intake. - Reports daily emesis of small amounts of bile each morning, which she considers normal and has discussed with her physician. - This morning, experienced severe heartburn, rated as 12-13/10, followed by significant emesis. - Unable to find a comfortable position due to esophageal and diffuse abdominal pain. - Multiple episodes of emesis containing bright red and darker red blood streaks; unable to tolerate water or medications. - Developed a pounding headache, now subsided. - Denies use of anticoagulants, NSAIDs, or ibuprofen. - Takes Pepcid at night and in the morning, but has not taken it for a few days. - Denies fevers, chills, palpitations, melena, hematochezia, dysuria, recent travel, or sick contacts. - Reports a soft bowel movement today. - Denies family history of early cardiac or personal history of blood clots. [facility] Medical History Alcohol use Low iron History of hiatal hernia Gastric reflux Non-smoker History of echocardiogram History of stress test Cardiology follow-up encounter History of irregular heartbeat 39 weeks gestation of Superficial varicosities depression Anxiety Supervision of other high risk pregnancies, third trimester History of depression Obesity affecting Exposure to herpes simplex virus (HSV) Home Medications ?Medication ?Instructions ?Recorded ?Last Taken ?Type phentermine 37.5 mg tablet 37.5 mg PO QAM 02/15/24 Unknown History topiramate 50 mg tablet 50 mg PO BID 02/15/24 Unknown History dicyclomine 10 mg capsule 20 mg (2 x 10 mg) PO TIDAC #20 06/18/24 Unknown Rx CAPSULES ondansetron 4 mg disintegrating 4 mg PO Q8H PRN PRN Nausea #10 tabs 06/18/24 Unknown Rx tablet dicyclomine 20 mg tablet 20 mg PO TID PRN abdominal pain 12/11/24 Unknown Rx #20 tabs ondansetron 4 mg disintegrating 4 mg PO Q6H PRN nausea and 12/11/24 Unknown Rx tablet vomiting #20 tabs Allergy/AdvReac Type Severity Reaction Status Date / Time Latex, Natural Rubber Allergy Unknown Verified 02/15/24 10:36 adhesive tape AdvReac Rash Verified 02/15/24 10:36 Surgical History Hx laparoscopic cholecystectomy Hx of wisdom tooth extraction Social History Smoking Status: Never smoker ROS ROS ED ROS Narrative Head: (+) headache Gastrointestinal: (+) vomiting, (+) hematemesis, (+) heartburn, (+) abdominal pain, (+) inability to tolerate oral intake, (-) melena, (-) hematochezia Genitourinary: (-) dysuria EXAM Physical Exam Narrative Exam Narrative: General: No acute distress. HEENT: Head atraumatic, normocephalic; pupils equal, round, reactive to light bilaterally; conjunctival injection noted bilaterally; trachea midline; neck soft, supple. CV: Regular rhythm. Resp: Lungs clear to auscultation bilaterally; chest wall crepitus noted. Abd: Abdomen soft, non-distended; tenderness to palpation diffusely throughout abdomen; no rebound or guarding. extremities: patient moving all extremities on exam +5/5 strenght noted in the bilateral upper and lower extremities skin: warm, dry, intact, no rashes or lesions noted Const Vital Signs: 12/11/24 13:40 12/11/24 14:20 12/11/24 17:20 Temperature 97.6 F L Temperature Source Oral Pulse Rate 80 80 72 Respiratory Rate 18 14 14 Blood Pressure 132/95 H 130/90 H 116/73 Blood Pressure Mean 107 103 87 Pulse Ox 100 99 100 Oxygen Delivery Method Room Air Room Air Room Air MDM MDM MDM Narrative Medical decision making narrative: Assessment: The patient is a 34-year-old female with PMH of hiatal hernia presenting for severe burning epigastric/chest discomfort with multiple episodes of hematemesis, nausea, and vomiting. Differential diagnoses discussed include viral gastroenteritis, hiatal hernia/GERD, Jerica-Salguero tear, ACS, and bowel obstruction, though bowel obstruction and ACS are felt less likely given a benign abdominal exam, normal lipase of 18, unremarkable chest X-ray, and a sinus-rhythm EKG without ischemic changes. Normal CBC, electrolytes, renal function, transaminases, and negative test further lower concern for acute surgical or metabolic pathology. Clinical picture most consistent with symptomatic GERD/hiatal hernia exacerbation causing gastritis-type pain and vomiting. Plan: - IV fluids administered in ED - IV Zofran given for nausea - IV Bentyl given for abdominal cramping - Prescriptions provided for oral Zofran and Bentyl on discharge - Discharged home in stable condition with return precautions and instructions to follow up with gastroenterology Diagnostics: - CBC: WBC 7.5, HGB 14.8, platelets 232 - BMP: Na 136, K 5.0, Cr 0.83, glucose 90?95 - AST 37, ALT 18 - Lipase 18 - Serum test negative - Chest X-ray: no acute cardiopulmonary process this was interpreted by myself and by radiology - EKG interpreted: sinus rhythm, rate 61 bpm, IA interval 158 ms. Independently interpreted by me, Travis Benoit. Reevaluations: - Patient re-evaluated after treatment; reports significant symptom relief and requests discharge. Patient was advised to take prescriptions that were sent to her pharmacy as prescribed and return with worsening symptoms or other concerns. She is agreeable to plan as well as significant other request concerns answered she was discharged home in stable condition Lab Data Labs: Laboratory Results - last 24 hr 12/11/24 14:48 WBC 7.5 RBC 4.68 Hgb 14.8 Hct 41.8 MCV 89.3 MCH 31.6 MCHC 35.4 RDW Std Deviation 46.7 H RDW Coeff of Lauren 14.3 Plt Count 232 MPV 9.3 Immature Gran % (Auto) 0.300 Neut % (Auto) 61.8 Lymph % (Auto) 25.3 [place] % (Auto) 10.6 H Eos % (Auto) 1.2 Baso % (Auto) 0.8 Absolute Neuts (auto) 4.7 Absolute Lymphs (auto) 1.91 Nucleated RBC % 0 Sodium 136 Potassium 5.0 Chloride 101 Carbon Dioxide 23.0 Anion Gap 11 BUN 11 Creatinine 0.83 Estim Creat Clear Calc 114.60 Est GFR (MDRD) Non-Af 94 BUN/Creatinine Ratio 13.4 Glucose 95 Calcium 9.6 Total Bilirubin 0.49 AST 37 H ALT 18 Alkaline Phosphatase 139 H Total Protein 8.1 Albumin 4.5 Globulin 3.6 Albumin/Globulin Ratio 1.2 Lipase 18 Serum , Qual NEGATIVE Radiography Diagnostic Testing: Clinical Impression(s) from Imaging Studies Chest X-Ray 12/11/24 17:10 IMPRESSION: No acute cardiopulmonary abnormalities. Reading Location: [facility] Discharge Plan Triage Chief Complaint: GI Bleed Other Complaint: Abd Pain ED Provider: Travis Benoit Dx/Rx/DC Orders Clinical Impression: Nausea & vomiting, Abdominal pain, Hiatal hernia Prescriptions: New dicyclomine 20 mg tablet 20 mg PO TID PRN (Reason: abdominal pain) Qty: 20 0RF ondansetron 4 mg tablet,disintegrating 4 mg PO Q6H PRN (Reason: nausea and vomiting) Qty: 20 0RF No Action phentermine 37.5 mg tablet 37.5 mg PO QAM topiramate 50 mg tablet 50 mg PO BID ondansetron 4 mg tablet,disintegrating 4 mg PO Q8H PRN PRN (Reason: Nausea) Qty: 10 0RF dicyclomine 10 mg capsule 20 mg PO TIDAC Qty: 20 0RF Primary Care Provider: Neil Alvarado Referrals: Neil Alvarado MD [Primary Care Provider, Medical] Activity Restrictions/Additional Instructions: Follow-up your doctors in outpatient setting. Return with worsening symptoms or other concerns. Your blood work here today did not show any acute findings her chest x-ray is normal as well as your EKG. Take prescriptions are sent to your pharmacy as prescribed Print Language: Gabonese Disposition Disposition: Home, Self Care
[2024-12-11] MEDS: 0.9% Normal Saline (1000mL) 1,000 ML 999 ML IV (17:06)
--- NOTE | 2024-12-11 17:10 | RAD_ITS ---
PROCEDURE: CHEST PA AND LATERAL 12/11/2024 REASON FOR EXAM: N/V, CHEST PAIN TECHNIQUE: Procedure Code: RADCXR Modality: DX Procedure: CHEST PA AND LATERAL COMPARISON: None. FINDINGS: Hardware: None Heart: No cardiomegaly. Mediastinum: Unremarkable. Lungs: Clear. No pleural effusion or pneumothorax. Bones: No acute bony abnormalities. RAD/Chest PA and Lateral IMPRESSION: No acute cardiopulmonary abnormalities. Reading Location: [id number]
[2024-12-11 17:20] VITALS: BP 116/73; PULSE 72; RESP 14; O2SAT 100
[2024-12-11] MEDS: Lidocaine 2% Viscous15 ML UDC 15 ML PO (17:28)
[2024-12-11 18:18] VITALS: BP 112/77; PULSE 74; RESP 16; TEMP 36.6; O2SAT 99
== END 2024-12-11 18:19 | disposition home or self-care (01) ==
PROVIDERS: Emergency Provider Emergency Medicine; PCP Family Medicine; Visit Provider Emergency Medicine
DX: R11.2 Nausea with vomiting, unspecified (principal); R10.9 Unspecified abdominal pain; K44.9 Diaphragmatic hernia without obstruction or gangrene; K21.9 Gastro-esophageal reflux disease without esophagitis
CPT/HCPCS: 71046; 80053; 83690; 84703; 85025; 93005; 96361; 96374; 99283; A4216